=== PATIENT | female | born 1960 | race Caucasian/White ===

== ENCOUNTER → 2018-08-20 16:44 | Outpatient (CLI) | payer BC, SELFPAY ==
[2015-05-07 11:05] VITALS: BMI 34.9
[2018-08-20 18:07] LABS: Anion Gap 9 (5-15); BUN 21 mg/dL (7-18); BUN/Creat Ratio 37.6 RATIO (10-20); Calcium,Total 8.7 mg/dL (8.5-10.1); Chloride 109 mmol/L (98-107); Cholesterol 195 mg/dL (200); Creatinine, Serum 0.56 mg/dL (0.55-1.02); EST Glomerular Filtration Rate 119 mL/min (>60); Est Glom Filt Rate - Afr Amer 144 mL/min (>60); Glucose 99 mg/dL (74-106); High Density Lipoprotein 43 mg/dL; Potassium 3.8 mmol/L (3.5-5.1); Sodium Level 145 mmol/L (136-145); Triglycerides 171 mg/dL; Very Low Density Lipoprotein 34 mg/dL (5-40)
== END ==
PROVIDERS: Family Provider Family Medicine; PCP Family Medicine; Visit Provider Family Medicine
DX: I10 Essential (primary) hypertension (principal)
CPT/HCPCS: 36415; 80048; 80061

== ENCOUNTER → 2018-09-20 16:44 | Outpatient (CLI) | payer BC, SELFPAY ==
[2015-05-07 11:05] VITALS: BMI 34.9
[2018-09-20 18:10] LABS: Anion Gap 7 (5-15); BUN 23 mg/dL (7-18); BUN/Creat Ratio 38.2 RATIO (10-20); Calcium,Total 8.7 mg/dL (8.5-10.1); Chloride 106 mmol/L (98-107); EST Glomerular Filtration Rate 109 mL/min (>60); Est Glom Filt Rate - Afr Amer 132 mL/min (>60); Glucose 82 mg/dL (74-106); Potassium 3.2 mmol/L (3.5-5.1); Sodium Level 143 mmol/L (136-145)
== END ==
PROVIDERS: Family Provider Family Medicine; PCP Family Medicine; Visit Provider Family Medicine
DX: I10 Essential (primary) hypertension (principal)
CPT/HCPCS: 36415; 80048

== ENCOUNTER → 2018-09-21 15:53 | Outpatient (CLI) | payer BC, SELFPAY ==
[2015-05-07 11:05] VITALS: BMI 34.9
== END ==
PROVIDERS: Family Provider Family Medicine; PCP Family Medicine; Referring Provider Family Medicine; Visit Provider Family Medicine
DX: R39.15 Urgency of urination (principal)
CPT/HCPCS: 87086; 87088

== ENCOUNTER → 2018-10-05 17:02 | Outpatient (CLI) | payer BC, SELFPAY ==
[2015-05-07 11:05] VITALS: BMI 34.9
[2018-10-05 17:04] LABS: Bacteria 0 SEEN /hpf (None Seen); Mucous, Urine 0 SEEN /hpf (<or=2+); Red Blood Cells-Urine 0 SEEN /hpf (0-5); White Blood Cells 0 SEEN /hpf (0-5)
[2018-10-05 17:49] LABS: Color, Urine Yellow (Yellow); Glucose, Dipstick Normal (Normal); Ketone-Dipstick Negative (Negative); Leukocyte Esterase-Dipstick Negative /ul (Negative); Nitrite-Dipstick Negative (Negative); Occult Blood-Urine 50 /ul (Negative); Protein-Dipstick Negative (Negative); Urine Bilirubin Dipstick Negative (Negative); Urine Clarity Clear (Clear); Urine Urobilinogen Normal (Normal)
[2018-10-05 18:04] LABS: Squamous Epithelial Cells - UA 0-5 SEEN /hpf (5-10)
== END ==
PROVIDERS: Family Provider Family Medicine; PCP Family Medicine; Referring Provider Nurse Practitioner Adult Health; Visit Provider Nurse Practitioner Adult Health
DX: R31.9 Hematuria, unspecified (principal)
CPT/HCPCS: 81001

== ENCOUNTER → 2020-07-11 12:10 | Outpatient (CLI) | payer BC, SELFPAY ==
--- NOTE | 2020-07-11 12:15 | RAD_ITS ---
STUDY: X-RAY CHEST REASON FOR EXAM: Female, 60 years old. COVID 19 positive TECHNIQUE: Single AP portable view of the chest. COMPARISON: Comparison is made with prior study dated 04/06/2015. FINDINGS: Faint focal infiltrate seen in the peripheral aspect of the right upper lobe and left mid lung. There is no demonstrated pleural abnormality. Normal size heart. Normal mediastinum and paula. Normal visualized pulmonary arteries. There is atherosclerotic tortuosity of the aortic arch and descending thoracic aorta. There is demineralization of the osseous structures. Normal visualized ribs, clavicles, and shoulders. There is no demonstrated abnormality of the visualized soft tissue structures of the upper abdomen. RAD/Chest PA and Lateral IMPRESSION: Focal infiltrate is seen in the lateral aspect of the right upper lobe as well as the left midlung. Electronically Signed: Fareed Gregorio, at 13:26 EST , Service support ,
[2020-07-11 13:19] LABS: Absolute Lymphocyte Count 3.28 X10^3/uL (0.83-4.51); Basophil# 0.05 X10^3/uL; Basophil% 0.6 % (0-1); Eosinophils% 1.2 % (0-5); Hematocrit 42.1 % (37-47); Hemoglobin 13.4 g/dL (12.0-15.0); Lymphocyte # 3.28 X10^3/ul (4.0); Lymphocyte % 40.6 % (19-41); Mean Corp Hgb Conc 31.8 g/dL (32-36); Mean Corpuscular Hgb 27.6 pg (27.0-32.0); Mean Corpuscular Volume 86.8 fL (81-99); Mean Platelet Vol. 11.2 fl (6.2-12.0); Monocyte# 0.55 X10^3/uL; Monocyte% 6.8 % (0-10); NRBC Flagged by Analyzer 0 % (0-5); Neutrophil # 4.04 X10^3/uL (2.7-7.7); Neutrophil % 50.2 % (47-70); Platelet Count 247 K/mm3 (150-450); RBC Distribution Width CV 12.6 % (11.6-14.6); RBC Distribution Width SD 39.8 fl (35.1-43.9); Red Blood Count 4.85 M/mm3 (4.2-5.4); White Blood Count 8.1 K/mm3 (4.4-11.0)
[2020-07-11 14:04] LABS: D-Dimer Quantitative (DVT/PE) 1.08 FEU/ug/m (0.27-0.49)
== END ==
PROVIDERS: PCP Family Medicine; Referring Provider Family Medicine; Visit Provider Family Medicine
DX: U07.1 COVID-19 (principal); R06.00 Dyspnea, unspecified
CPT/HCPCS: 71046; 85025; 85379

== ENCOUNTER → 2020-07-11 15:23 | Outpatient (CLI) | payer BC, SELFPAY ==
--- NOTE | 2020-07-11 15:27 | CT_ITS ---
STUDY: CTA CHEST REASON FOR EXAM: Female, 60 years old. ELEVATED D-DIMER. TAIL END OF COVID RADIATION DOSAGE (If Supplied By Facility): CTDIvol = ( 13.45 ) mGy, DLP = ( 551.05 ) mGycm TECHNIQUE: The examination was performed with the intravenous administration of IV 100mL Isovue-370. Post-processing of the angiographic images was performed, with multiplanar reformation and 3D reconstruction. Individualized dose optimization techniques were used for this CT. COMPARISON: None. FINDINGS: Normal enhancement of the main pulmonary artery and right and left pulmonary arteries. Normal enhancement of the bilateral peripheral pulmonary arteries. There is no demonstrated pulmonary embolism. Normal thoracic aorta and visualized great vessels. There is no demonstrated aortic dissection. Normal heart and pericardium. Subcentimeter mediastinal nodes likely of no significance. Normal hilar regions. Normal visualized trachea and bronchi. The lungs are well expanded. There are scattered areas of patchy groundglass opacity within the upper and lower lobes bilaterally slightly more pronounced on the right consistent with Covid 19 pneumonia. Normal pleura. Normal chest wall structures. Normal osseous structures. Moderate-sized hiatal hernia noted. Small rounded area of increased attenuation within the left kidney possibly representing hemorrhagic parapelvic cyst.. This may be further assessed with ultrasound or CAT scan of the abdomen if clinically warranted CT/CTA Chest W/WO Contrast IMPRESSION: Findings consistent with [id number] Covid 19 pneumonia.. No evidence for pulmonary embolus. Electronically Signed: Gordon Chacko MD at 16:27 EST , Service support ,
== END ==
LOC: CT 15:26
PROVIDERS: PCP Family Medicine; Referring Provider Family Medicine; Visit Provider Family Medicine
DX: R06.00 Dyspnea, unspecified (principal)
CPT/HCPCS: 71275; Q9967; A4216

== ENCOUNTER → 2020-07-18 10:31 | Outpatient (CLI) | payer BC, SELFPAY ==
[2015-05-07 11:05] VITALS: BMI 34.9
--- NOTE | 2020-07-18 10:33 | RAD_ITS ---
STUDY: X-RAY CHEST REASON FOR EXAM: Female, 60 years old. pneumonia TECHNIQUE: 2 views COMPARISON: Prior chest radiograph of 07/11/2020 FINDINGS: The lung watters remain well expanded. There is decreased visible infiltrate now with minimal infiltrate visible in the axillary portion of the right upper lung zone and in the mid left lung zone. There is no demonstrated pleural abnormality. Normal size heart. Normal mediastinum and paula. Normal visualized pulmonary arteries. There is atherosclerotic tortuosity of the aortic arch and descending thoracic aorta. Normal visualized thoracic spine. Normal visualized ribs, clavicles, and shoulders. There is no demonstrated abnormality of the visualized soft tissue structures of the upper abdomen. RAD/Chest PA and Lateral IMPRESSION: Resolving pneumonia. Minimal visible infiltrate in the axillary portion of the right upper lobe and left midlung zone. Negative for new infiltrate, pleural effusion or cardiomegaly. Electronically Signed: Anila Judd MD at 9:02 EST , Service support ,
== END ==
LOC: MTRAD 10:32
PROVIDERS: PCP Family Medicine; Referring Provider Family Medicine; Visit Provider Family Medicine
DX: J18.9 Pneumonia, unspecified organism (principal)
CPT/HCPCS: 71046

== ENCOUNTER 2020-07-25 11:10 | Observation (INO) | payer BC, SELFPAY ==
[2020-07-25] VITALS (14 sets, daily range): BP systolic 134–172; BP diastolic 70–84; PULSE 54–76; RESP 14–23; TEMP 36.3–36.9; O2SAT 88–100; BMI 37.4; BMI 37.5; BMI 37.6; BMI 44.1; BMI 44.2
--- NOTE | 2020-07-25 11:38 | EKG12_ITS ---
Test Reason : CP Blood Pressure : / mmHG Vent. Rate : 067 BPM Atrial Rate : 067 BPM P-R Int : 126 ms QRS Dur : 078 ms QT Int : 358 ms P-R-T Axes : 036 024 -04 degrees QTc Int : 378 ms Normal sinus rhythm with sinus arrhythmia Normal ECG Confirmed by JUAN LARSON, KEVIN ([id number]), production editor YUNIOR SCOTT ([id number]) on 07/30/2020 9:32:12 AM Referred By: JEANNE Confirmed By:ANTOINE MARTINEZ MD
--- NOTE | 2020-07-25 11:40 | ED.DCSUM_ITS ---
- ER Visit Summary Date of Service: 07/25/20 Chief Complaint: Shortness of breath History of Present Illness: The patient is a 60 F who presents with shortness of breath that has been getting worse over the past 3 weeks. Patient states that today she had an episode of sharp pain in her chest. Patient states this lasted for a few seconds and then resolved. Patient states that her right ankle has gotten swollen. Patient states she tested positive for Covid 3 weeks ago. Patient has had outpatient chest x-ray and CTA of the chest. There is evidence of Covid on her CTA of the chest. Repeat chest x-ray on 07/18/2020 showed the infiltrate was improving. Patient admits to a mild cough. Patient states she feels some palpitations. Patient admits to nausea but denies any vomiting. Physical Examination: Vital signs are stable. Patient is afebrile. Patient is in no acute distress. Oral mucosa is pink and moist. Neck is supple. Trachea is midline. There is no JVD noted. Heart was regular rate and rhythm. Lungs are clear and equal bilaterally. Abdomen is soft. Bowel sounds are normal. There is no tenderness. There is no rebound or guarding noted. Skin is warm dry. Cranial nerves II through XII are intact. There are no focal motor or sensory deficits noted. Extremities are intact. There is no calf tenderness or edema. Test Results: EKG was obtained. On my interpretation, there is normal sinus rhythm with a rate of 67. There are no acute ST or T wave changes noted. CBC shows a slight leukocytosis of 11.6. Comprehensive metabolic profile was essentially within normal limits. Troponin was normal. Lactate was elevated at 4.1. COVID-19 rapid antigen was negative. Influenza swab was negative. Portable 1 view chest x-ray was obtained. On my interpretation, lung watters are clear. There is normal cardiac silhouette. Bony thorax is normal. There is no acute process noted. Radiologist also interpreted the x-ray and agrees. Because of the dyspnea on exertion, a CTA of the chest was obtained. There is no evidence of pulmonary embolism. There are few groundglass opacities consistent with COVID-19 pneumonia. This was interpreted by the radiologist and reviewed by myself. Emergency Department Course and Treatment: Patient was given 4 puffs of albuterol inhaler. Patient was still feeling short of breath with exertion. Case was discussed with the hospitalist. She recommended repeating the lactate and getting a COVID-19 PCR test. This was ordered. Repeat lactate was 3.2. Patient will be admitted to the hospital. Patient understood and was agreeable with the plan. All questions were answered. Disposition: Admit to hospital Impression: 1. Lactic acidosis 2. COVID-19 pneumonia This note was generated with [employer] dictation software. It may contain incorrect words, spelling, and punctuation that were not noted in review of the chart prior to signing ED Disposition - Plan for ED Patient: Disposition: Acute Care Hospital [facility] Diagnosis: Lactic acidosis, Pneumonia due to COVID-19 virus Referrals: Jelani Davis MD [Primary Care Provider] -
--- NOTE | 2020-07-25 12:02 | RAD_ITS ---
STUDY: X-RAY CHEST REASON FOR EXAM: Female, 60 years old. PER PATIENT, COVID + 26 DAYS AGO. SOB AND CP THAT STARTED THIS AM. RECENTLY TREATED FOR PNEUMONIA AND HAD CT OF CHEST FOR CONCERNS FOR PE. TECHNIQUE: Single AP portable view of the chest. COMPARISON: None. FINDINGS: The lungs are clear and expanded. There is no demonstrated pleural abnormality. Normal size heart. Normal mediastinum and paula. Normal visualized pulmonary arteries. Normal visualized aortic arch and descending thoracic aorta. There is a levoscoliosis of the thoracic spine. There is degenerative osteoarthritis of the bilateral shoulders. There is no demonstrated abnormality of the visualized soft tissue structures of the upper abdomen. RAD/Chest 1 View (Portable) IMPRESSION: Normal x-ray examination of the chest. Electronically Signed: Dorothy Angel, at 12:19 EST Tel , Service support ,
[2020-07-25 12:19] LABS: Absolute Lymphocyte Count 3.09 X10^3/uL (0.83-4.51); Absolute Neutrophil Count 7.6 X10^3/uL (2.0-7.7); Basophil# 0.05 X10^3/uL; Basophil% 0.4 % (0-1); Eosinophil# 0.04 X10^3/uL; Eosinophils% 0.3 % (0-5); Hematocrit 41.4 % (37-47); Hemoglobin 12.8 g/dL (12.0-15.0); Lymphocyte # 3.09 X10^3/ul (4.0); Lymphocyte % 26.8 % (19-41); Mean Corp Hgb Conc 30.9 g/dL (32-36); Mean Corpuscular Hgb 27.5 pg (27.0-32.0); Mean Platelet Vol. 11.2 fl (6.2-12.0); Monocyte# 0.63 X10^3/uL; Monocyte% 5.5 % (0-10); NRBC Flagged by Analyzer 0 % (0-5); Neutrophil # 7.62 X10^3/uL (2.7-7.7); Platelet Count 235 K/mm3 (150-450); RBC Distribution Width CV 14.1 % (11.6-14.6); RBC Distribution Width SD 45.1 fl (35.1-43.9); Red Blood Count 4.65 M/mm3 (4.2-5.4); White Blood Count 11.6 K/mm3 (4.4-11.0)
[2020-07-25 12:30] LABS: ALB/GLOB Ratio 0.7 RATIO (0.9-2.4); AST(SGOT) 8 U/L (15-37); Alanine Aminotransfer ALT/SGPT 28 U/L (13-56); Alkaline Phosphatase 88 U/L (45-117); Anion Gap 7 (5-15); BUN 22 mg/dL (7-18); BUN/Creat Ratio 26.5 RATIO (10-20); Calcium,Total 8.9 mg/dL (8.5-10.1); Chloride 107 mmol/L (98-107); Creatinine, Serum 0.83 mg/dL (0.55-1.02); EST Glomerular Filtration Rate 75 mL/min (>60); Est Glom Filt Rate - Afr Amer 91 mL/min (>60); Estimated Creatinine Clearance 66.48 ml/min; Globulin 4.3 g/dL (2.2-4.2); Glucose 147 mg/dL (74-106); Potassium 3.6 mmol/L (3.5-5.1); Protein, Total 7.3 g/dL (6.4-8.2); Sodium Level 141 mmol/L (136-145)
[2020-07-25 12:55] LABS: Lactic Acid 4.1 mmol/L (0.4-1.9)
--- NOTE | 2020-07-25 13:04 | CT_ITS ---
STUDY: CTA CHEST REASON FOR EXAM: Female, 60 years old. DYSPNEA, CP, COVID+ 26 DAYS AGO RADIATION DOSAGE (If Supplied By Facility): CTDIvol = ( 13.29 ) mGy, DLP = ( 470.97 ) mGycm TECHNIQUE: The examination was performed with the intravenous administration of IV 100mL Isovue-370. Post-processing of the angiographic images was performed, with multiplanar reformation and 3D reconstruction. Individualized dose optimization techniques were used for this CT. COMPARISON: None. FINDINGS: Normal enhancement of the main pulmonary artery and right and left pulmonary arteries. Normal enhancement of the bilateral peripheral pulmonary arteries. There is no demonstrated pulmonary embolism. Normal thoracic aorta and visualized great vessels. There is no demonstrated aortic dissection. Normal heart and pericardium. Normal mediastinum. Normal hilar regions. Normal visualized trachea and bronchi. The lungs are well expanded. There is a nodule in the right lung upper lobe measures 4 mm axial image #154 has nonspecific appearance. Few Ill-defined subpleural groundglass opacities are seen more suggesting early atypical pneumonia or viral pneumonia (COVID-19 ?). Normal pleura. Normal chest wall structures. Normal osseous structures. Normal visualized upper abdomen. CT/CTA Chest W/WO Contrast IMPRESSION: Few Ill-defined subpleural groundglass opacities are seen more suggesting early atypical pneumonia or viral pneumonia (COVID-19 ?). No demonstrated pulmonary embolism or arterial dissection. There is a nodule in the right lung, lobe measures 6 mm axial image # 105 has nonspecific appearance, it most likely represents a benign lesion. Six-month follow-up would be recommended. Electronically Signed: Dorothy Angel, at 14:23 EST Tel , Service support ,
[2020-07-25 13:46] LABS: Mucous, Urine 0 SEEN /hpf (<or=2+); Red Blood Cells-Urine 0 SEEN /hpf (0-5)
[2020-07-25] MEDS: 0.9% Normal Saline 1,000 ML 1000 ML IV (13:50)
[2020-07-25 13:53] LABS: Color, Urine Straw (Yellow); Glucose, Dipstick Normal (Normal); Ketone-Dipstick Negative (Negative); Leukocyte Esterase-Dipstick Negative /ul (Negative); Nitrite-Dipstick Negative (Negative); Occult Blood-Urine Negative /ul (Negative); Protein-Dipstick Negative (Negative); Specific Gravity, Urine 1.015 (1.002-1.030); Urine Bilirubin Dipstick Negative (Negative); Urine Clarity Clear (Clear); Urine Urobilinogen Normal (Normal)
[2020-07-25 14:00] LABS: Bacteria 1+ /hpf (None Seen); Squamous Epithelial Cells - UA 0-5 SEEN /hpf (5-10); White Blood Cells 0-5 SEEN /hpf (0-5)
[2020-07-25 16:11] LABS: Reflex Lactate? Y
[2020-07-25 16:40] LABS: Lactic Acid 3.2 mmol/L (0.4-1.9)
--- NOTE | 2020-07-25 16:40 | HP.PCM_ITS ---
Problem List (1) SOB (shortness of breath) Status: Acute (2) COVID-19 Status: Resolved Comment: Positive test was 06/28/2020 (3) Lactic acidosis Status: Acute (4) HTN (hypertension) Status: Chronic (5) GERD (gastroesophageal reflux disease) Status: Chronic History of Present Illness Date of Admission: 07/25/20 Ms Doe is a 60 year old F with a PMH of HTN and GERD who presented to the ED on 07/25/2020 with SOB. She states that she has this with rest and exertion but it is far worse with exertion. She was diagnosed with COVID-19 on 06/28/2020 and has had issues with SOB since about a week after diagnosis. She has had her SpO2 checked multiple times and has never been hypoxic. She has seen her PCP and was scheduled for an ECHO tomorrow. She states that she has no cough, fever, or chills and the only other things she has noticed is mild LE edema R>L and some intermittent palpitations. Her VSS with no hypoxia but she does get quite dyspneic with exertion. She has a mild white count elevation at 11.6 but is on prednisone and there is no shift. Her CMP in unremarkable with a normal AG but she has an elevated lactate at 4.1 that decreased to 3.2 on repeat. She is not toxic on appearance. Her Urine is unremarkable. Blood cx were drawn and are pending. COVID-19 is negative. A CTA of her chest was done and is negative for PE but shows persistent ground glass changes that were there on previous scans. Past Medical History Past Medical History (Chronic Problems): Chronic Problems HTN (hypertension) (Chronic) GERD (gastroesophageal reflux disease) (Chronic) Allergies No Known Allergies Allergy (Verified 07/25/20 11:11) Home Medications: Ambulatory Orders Medication Instructions Recorded Albuterol Sulfate [Albuterol 2 puff INHALATION 4X/DAY PRN PRN 07/25/20 Sulfate Hfa] Lisinopril/Hydrochlorothiazide 1 ea PO DAILY 07/25/20 [Lisinopril-Hctz 20-12.5 mg Tab] Omeprazole 20 mg PO DAILY 07/25/20 Prednisone See Taper PO DAILY 07/25/20 Surgical History: noncontributory Psychiatric History: No pertinent psych hx 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 Lives: With Family Smoking Status: Never smoker Tobacco Use: Non-smoker Alcohol: None Drugs: None - *Family History Maternal History Items: Heart Disease Paternal History Items: Heart Disease Sibling History Items: Heart Disease Review of Systems Constitutional: Denies: Anorexia, Chills, Fever, Night Sweats, Malaise, Weakness, Weight Change, Fatigue Eyes: Denies: Blurred vision, Drainage, Eyelid Inflammation, Pain, Redness, Vision Change HEENT: Denies: Difficulty Hearing, Hard of Hearing, Head Aches, Nasal bleeding, Nasal Congestion, Post Nasal Drip, Sinus Congestion, Sinus Drainage, Sore Throat, Visual Changes Cardiovascular: Reports: Chest Pain - intermittent on L but sharp, Edema, Palpitations. Denies: Claudication, Chest Pressure, Chest Tightness, Heaviness, Light Headedness, Orthopnea, Paroxysmal Noc. Dyspnea, Syncope Respiratory: Reports: Shortness of Breath, Shortness of breath at rest - mild, Shortness of breath upon exertion - marked. Denies: Cough, Hemoptysis, Pleuritic Pain, Sputum production, Wheezing Gastrointestinal: Denies: Abdominal Pain, Constipation, Diarrhea, Dyspepsia, Hematemesis, Hematochezia, Nausea, Melena, Vomiting Genitourinary: Denies: Dysuria, Frequency, Hematuria, Hesitancy, Incontinence, Nocturia, Retention, Urgency Musculoskeletal: Denies: Back Pain, Joint Pain, Joint stiffness, Joint swelling, Joint Tenderness, Neck Pain, Shoulder Pain Skin: Denies: Dryness, Jaundice, Lesions, Pruritis, Rash, Skin Changes, Wounds Neurological: Denies: Balance problems, Double vision, Change in Speech, Slurred speech, Confusion, Difficulty swallowing, Focal weakness, Headaches, Incoordination, Numbness, Tingling, Tremor Psychiatric: Denies: Anxiety, Depression Endocrine: Denies: Change in Body Habitus, Heat/ Cold Intolerance, Polydipsia, Polyuria Hematologic/ Lymphatic: Denies: Adenopathy, Anemia, Easy Bruising, Easy Bleeding, Petechiae, Purpura VTE Information - Inpt Only VTE Present on Admission: No VTE Mechan Device Prophylaxis: None VTE Pharm Prophylaxis ordered?: Yes - Physical Exam Vitals/I&O's: Vital Signs Temp Pulse Resp BP Pulse Ox 97.9 F 65 16 146/70 H 100 07/25/20 16:21 07/25/20 16:21 07/25/20 16:21 07/25/20 13:15 07/25/20 16:21 Oxygen Delivery Method Room Air Weight: 102.058 kg Body Mass Index (BMI) 37.4 General: Alert, Oriented x3, Cooperative, No apparent distress, Well developed, Well nourished, - - middle aged WF appears comfortable but SOB with minimal exertion HEENT: Atraumatic, PERRLA, EOMI, Normocephalic, EAC Clear Oral: Moist Mucosa, No Gingival or Mucosal Lesions/ Ulcerations Neck: Supple, No JVD, Negative Carotid Bruits, Negative Hepatojugular Reflux, No Nodes, No Nuchal Rigidity, Trachea Midline, Thyroid Normal Size and Texture Lungs: Clear to auscultation, Normal air movement, No rhonchi, No wheeze, No r ales Cardiovascular: Regular rate, Normal S1, Normal S2, No murmurs, No rub noted, No Gallop, - - intermittent ectopic activity Abdomen: Bowel Sounds Present, Soft, Non Tender, Non-Distended, Obese Extremities: No clubbing, No cyanosis, Capillary Refill Less than 3 Seconds, Edema - Trace B R slightly more than R, varicose veins, Peripheral Pulses Normal Skin: No rashes, No breakdown Musculoskeletal: No Tenderness to Palpation of Joints or Extremities, No Muscle Wasting Lymphatic: No Cervical, Supraclavicular, or Inguinal Adenopathy Neurological: Cranial nerves II-XII grossly intact, Neuro grossly intact, Motor Exam 5/5 strength throughout, Tongue Deviation, Muscle tone normal, Sensory exam intact to light touch and pain Psych/Mental Status: Normal Affect, Appropriate Microbiology Past 72 Hours 07/25/20 11:45 Mucosa - Nose SARS-CoV-2 Antigen (Rapid) - Final 07/25/20 11:45 Mucosa - Nose Influenza Types A,B Direct FA (ABRAHAM) - Final Laboratory Results 07/25/20 11:45: Sodium 141, Potassium 3.6, Chloride 107, Carbon Dioxide 27.0, Anion Gap 7, BUN 22 H, Creatinine 0.83, Estim Creat Clear Calc 66.48, Est GFR (MDRD) Af Amer 91, Est GFR (MDRD) Non-Af 75, BUN/Creatinine Ratio 26.5 H, Glucose 147 H, Calcium 8.9, Total Bilirubin 0.30, AST 8 L, ALT 28, Alkaline Phosphatase 88, Troponin I < 0.015, Total Protein 7.3, Albumin 3.0 L, Globulin 4.3 H, Albumin/Globulin Ratio 0.7 L 07/25/20 11:45: WBC 11.6 H, RBC 4.65, Hgb 12.8, Hct 41.4, MCV 89.0, MCH 27.5, MCHC 30.9 L, RDW Std Deviation 45.1 H, RDW Coeff of Oliva 14.1, Plt Count 235, MPV 11.2, Immature Gran % (Auto) 1.000 H, Neut % (Auto) 66.0, Lymph % (Auto) 26.8, Smith % (Auto) 5.5, Eos % (Auto) 0.3, Baso % (Auto) 0.4, Absolute Neuts (auto) 7.6, Absolute Lymphs (auto) 3.09, Nucleated RBC % 0 07/25/20 11:50: Lactic Acid 4.1 H* 07/25/20 13:40: Urine Color Straw, Urine Clarity Clear, Urine pH 8.0, Ur Spec ific [place] 1.015, Urine Protein Negative, Urine Glucose (UA) Normal, Urine Ketones Negative, Urine Occult Blood Negative, Urine Nitrite Negative, Urine Bilirubin Negative, Urine Urobilinogen Normal, Ur Leukocyte Esterase Negative, Urine RBC 0 SEEN, Urine WBC 0-5 SEEN, Ur Squamous Epith Cells 0-5 SEEN, Urine Bacteria 1+, Urine Mucus 0 SEEN 07/25/20 16:00: Lactic Acid Pending 07/25/20 16:02: COVID-19 (TYLER) Pending Assessment/Plan All Active Problems SOB (shortness of breath) (Acute) COVID-19 (Resolved) Lactic acidosis (Acute) SOB -had recent COVID but CT stable and no PE -Will check ECHO to r/o CM and if no WMA may need stress test -no hypoxia noted -prn aerosols -tele -continue home steroids Type B Lactic Acidosis -doubt infection -AG WNL -follow cx -had trended down Recent COVID 19 Infection -dx with + test 06/28 -no need for isolation or treatment HTN -continue home BP meds GERD -cont PPI DVT Prophylaxis -Lovenox Code Status -Full Inpatient E&M: 40708 Init Hosp L2
--- NOTE | 2020-07-25 17:36 | PCS.PANDOC ---
PANDEMIC DOCUMENTATION INITIATED: Date: 07/25/2020 Time: 4968
--- NOTE | 2020-07-25 19:41 | ECHOCS_ITS ---
Version 2 Reason For Study: DYSPNEA Procedure This was a 2D Doppler, Color Flow transthoracic echocardiogram. The study was technically difficult. Contrast injection was performed. Exam performed portable in patient room. Left Ventricle Normal LV size. The estimated ejection fraction is 65 %. No evidence for diastolic dysfunction. No regional wall motion abnormalities noted. Right Ventricle Normal RV size. Normal systolic function. Atria The left atrium is mildly enlarged. Normal right atrium. No doppler evidence for ASD. Mitral Valve There is no mitral valve stenosis. No mitral valve insufficiency. Tricuspid Valve There is no tricuspid stenosis. Trivial tricuspid valve insufficiency. Unable to estimate RV systolic pressure due to insufficient tricuspid regurgitant envelope. Aortic Valve Trisinus/trileaflet aortic valve. There is no aortic stenosis. No aortic valve insufficiency. Pulmonic Valve There is no pulmonic valvular stenosis. No pulmonic valve insufficiency. Great Vessels Normal aortic root. Pericardium/Pleural No pericardial effusion. Medication Diluted definity 2.5ml given slow IV push to enhance endocardial definition. MMode/2D Measurements & Calculations LVIDd: 5.1 cm IVSd: 1.0 cm Ao root diam: 3.3 cm LVIDs: 2.8 cm LVPWd: 0.95 cm RVDd: 3.7 cm FS: 45.1 % LAV(MOD-bp): 70.7 ml LVAd ap4: 33.5 cm2 SV(MOD-sp4): 97.0 ml LAV(MOD-bp) Indexed: 33.9 ml/m2 EDV(MOD-sp4): 125.8 ml LAV(MOD-sp2): 72.8 ml EDV(sp4-el): 123.0 ml LAV(MOD-sp4): 68.4 ml LVAs ap4: 14.1 cm2 ESV(MOD-sp4): 28.8 ml ESV(sp4-el): 29.8 ml EF(MOD-sp4): 77.1 % EF(sp4-el): 75.8 % SV(sp4-el): 93.3 ml LA A4 area: 21.4 cm2 LA dimension(2D): 3.7 cm RA A4 area: 16.7 cm2 Time Measurements MV dec time: 0.25 sec Doppler Measurements & Calculations MV E max jhonny: 86.5 cm/sec Lat Peak E' Jhonny: 12.1 cm/sec Med Peak E' Jhonny: 9.1 cm/sec MV A max jhonny: 59.0 cm/sec E/E' lat: 7.2 E/E' med: 9.5 MV E/A: 1.5 Ao V2 max: 163.5 cm/sec LV V1 max: 155.2 cm/sec TR max jhonny: 238.0 cm/sec Ao max P.7 mmHg LV V1 max P.6 mmHg TR max P.0 mmHg Interpretation Summary The estimated ejection fraction is 65 %. No evidence for diastolic dysfunction. The left atrium is mildly enlarged. Ordering Physician: Serenity John Referring Physician: ANNE UMANA Performed By: Sue Bansal, TERESITA, RVT
[2020-07-25 20:02] LABS: Reflex Lactate? Y
[2020-07-25] MEDS: predniSONE 20 MG Tablet PO (20:55)
[2020-07-25 21:06] LABS: Lactic Acid 1.8 mmol/L (0.4-1.9)
[2020-07-26] VITALS (13 sets, daily range): BP systolic 126–144; BP diastolic 75–90; PULSE 59–82; RESP 16–18; TEMP 35.8–36.9; O2SAT 94–98
[2020-07-26 05:39] LABS: Absolute Neutrophil Count 9.4 X10^3/uL (2.0-7.7); Basophil# 0.03 X10^3/uL; Basophil% 0.2 % (0-1); Eosinophil# 0.03 X10^3/uL; Eosinophils% 0.2 % (0-5); Hematocrit 40.3 % (37-47); Hemoglobin 12.6 g/dL (12.0-15.0); Lymphocyte % 24.6 % (19-41); Mean Corp Hgb Conc 31.3 g/dL (32-36); Mean Corpuscular Hgb 27.3 pg (27.0-32.0); Mean Corpuscular Volume 87.2 fL (81-99); Mean Platelet Vol. 10.4 fl (6.2-12.0); Monocyte# 0.86 X10^3/uL; Monocyte% 6.2 % (0-10); NRBC Flagged by Analyzer 0 % (0-5); Neutrophil # 9.43 X10^3/uL (2.7-7.7); Neutrophil % 68.1 % (47-70); Platelet Count 230 K/mm3 (150-450); RBC Distribution Width SD 44.3 fl (35.1-43.9); Red Blood Count 4.62 M/mm3 (4.2-5.4); White Blood Count 13.8 K/mm3 (4.4-11.0)
[2020-07-26 06:05] LABS: Anion Gap 7 (5-15); BUN 16 mg/dL (7-18); Calcium,Total 8.5 mg/dL (8.5-10.1); Chloride 106 mmol/L (98-107); Creatinine, Serum 0.55 mg/dL (0.55-1.02); EST Glomerular Filtration Rate 120 mL/min (>60); Est Glom Filt Rate - Afr Amer 145 mL/min (>60); Estimated Creatinine Clearance 80.08 ml/min; Glucose 124 mg/dL (74-106); Magnesium 2.1 mg/dL (1.6-2.6); Phosphorus 3.7 mg/dL (2.5-4.9); Potassium 4.3 mmol/L (3.5-5.1); Sodium Level 139 mmol/L (136-145); Thyroid Stim Hormone (TSH) 0.65 uIU/mL (0.358-3.74)
[2020-07-26] MEDS: predniSONE 20 MG Tablet PO (08:17)
[2020-07-26] MEDS: Lisinopril 20 MG Tablet PO (10:15)
[2020-07-26] MEDS: Enoxaparin 40 MG/0.4 ML Syringe SC (10:16)
[2020-07-26] MEDS: Pantoprazole Sodium 20 MG Tablet PO (10:16)
[2020-07-26] MEDS: hydroCHLOROthiazide 12.5mg 12.5 MG PO (10:16)
--- NOTE | 2020-07-26 14:45 | PCM.PN.HOSP ---
Patient Problems: Active and Suspected Problems SOB (shortness of breath) (Acute) Lactic acidosis (Acute) Lactic acidosis (Acute) Pneumonia due to COVID-19 virus (Acute) Subjective: Her chest pain has resolved but states that it was a sharp pain that is intermittently present is a more of a dull ache while she has been here. Denies any shortness of breath while lying in bed talking to me, and does not have any conversational dyspnea Vitals/I&O's: Vital Signs Temp Pulse Resp BP Pulse Ox 96.5 F L 74 18 126/80 H 96 07/26/20 14:44 07/26/20 14:44 07/26/20 14:44 07/26/20 14:44 07/26/20 14:44 Oxygen Flow Rate (L/min) 2 Oxygen Delivery Method Room Air Weight: 225 lb 1.471 oz Body Mass Index (BMI) 44.1 Intake and Output for Last 24 Hours 07/24/20 07/25/20 07/26/20 23:59 23:59 23:59 Intake Total 1000 / 1000 250 / 250 Balance 1000 / 1000 250 / 250 General: Alert, Oriented x3, Cooperative, No apparent distress HEENT: Atraumatic, PERRLA, EOMI, Normocephalic Oral: Moist Mucosa Neck: Supple, No JVD Lungs: Clear to auscultation, Normal air movement, No rhonchi, No wheeze, No rales Cardiovascular: Regular rate, Regular Rhythm, Normal S1, Normal S2, No murmurs Abdomen: Soft, Non Tender, Non-Distended, No Hepato-splenomegaly Extremities: No edema, Capillary Refill Less than 3 Seconds Skin: No rashes, No breakdown Neurological: Neuro grossly intact, Sensory exam intact to light touch and pain Psych/Mental Status: Normal Affect, Appropriate Microbiology Past 72 Hours 07/25/20 11:45 Mucosa - Nose SARS-CoV-2 Antigen (Rapid) - Final 07/25/20 11:45 Mucosa - Nose Influenza Types A,B Direct FA (ABRAHAM) - Final Laboratory Results 07/25/20 16:00: Lactic Acid 3.2 H* 07/25/20 16:02: COVID-19 (TYLER) Not Detected 07/25/20 20:26: Lactic Acid 1.8 07/26/20 05:30: WBC 13.8 H, RBC 4.62, Hgb 12.6, Hct 40.3, MCV 87.2, MCH 27.3, MCHC 31.3 L, RDW Std Deviation 44.3 H, RDW Coeff of Oliva 14.0, Plt Count 230, MPV 10.4, Immature Gran % (Auto) 0.700, Neut % (Auto) 68.1, Lymph % (Auto) 24.6, [place] % (Auto) 6.2, Eos % (Auto) 0.2, Baso % (Auto) 0.2, Absolute Neuts (auto) 9.4 H, Absolute Lymphs (auto) 3.40, Nucleated RBC % 0 07/26/20 05:30: Sodium 139, Potassium 4.3, Chloride 106, Carbon Dioxide 26.0, Anion Gap 7, BUN 16, Creatinine 0.55, Estim Creat Clear Calc 80.08, Est GFR (MDRD) Af Amer 145, Est GFR (MDRD) Non-Af 120, BUN/Creatinine Ratio 29.0 H, Glucose 124 H, Calcium 8.5, Phosphorus 3.7, Magnesium 2.1, TSH 0.65 Current Medications Acetaminophen (Acetaminophen 325 Mg Tablet) 650 mg PO Q6H PRN PRN PRN Reason: Pain Score 1-10/Temp > 100.7 F Al Hydroxide/Mg Hydroxide (Mag Hydrox/Al Hydrox/Simeth 30 Ml Udc) 30 ml PO Q6H PRN PRN PRN Reason: Gastric Burning Albuterol Sulfate (Albuterol 2.5 Mg/3 Ml Vial.Neb.) 2.5 mg INHALATION Q2H PRN PRN PRN Reason: SOB/Wheezing Enoxaparin Sodium (Enoxaparin 40 Mg/0.4 Ml Syringe) 40 mg SC DAILY [facility] Last Admin: 07/26/20 10:16 Dose: 40 mg Documented by: Hydrochlorothiazide (Hydrochlorothiazide 12.5mg) 12.5 mg PO DAILY [facility] Last Admin: 07/26/20 10:16 Dose: 12.5 mg Documented by: Lisinopril (Lisinopril 20 Mg Tablet) 20 mg PO DAILY [facility] Last Admin: 07/26/20 10:15 Dose: 20 mg Documented by: Melatonin (Melatonin 3 Mg Tablet) 3 mg PO QHS PRN PRN PRN Reason: INSOMNIA Ondansetron HCl (Ondansetron 4 Mg/2 Ml Vial) 4 mg IV Q8H PRN PRN PRN Reason: NAUSEA/VOMITING Pantoprazole Sodium (Pantoprazole Sodium 20 Mg Tablet) 20 mg PO DAILY [facility] Last Admin: 07/26/20 10:16 Dose: 20 mg Documented by: [facility] ([facility] Mg Tablet) [facility] Taper Stop: 08/01/20 07:59 Last Admin: 07/26/20 08:17 Dose: 40 mg Documented by: Sodium Chloride (0.9% Saline Lock 10 Ml Syringe) 10 - 40 ml IV UD PRN PRN Reason: SALINE FLUSH STROKE Vital Signs/Narrative: Vital Signs Temp Pulse Resp BP Pulse Ox Pulse Ox Pulse Ox 07/26/20 14:44 96.5 F L 74 18 126/80 H 96 07/26/20 14:36 96 94 96 Medical Necessity - Tobacco Use Smoking Status: Never smoker Tobacco Use: Non-smoker Assessment/Plan All Active Problems SOB (shortness of breath) (Acute) COVID-19 (Resolved) Lactic acidosis (Acute) Lactic acidosis (Acute) Pneumonia due to COVID-19 virus (Acute) 1. Shortness of breath/status post COVID-19 -Unsure as to the etiology, CTA of the chest was negative for PE -Does have an elevated white count but she has been on prednisone for the last 6 days, no signs of infection on CTA of the chest -Lactic acid was elevated but unremarkable as there is no sign of infection and she is afebrile -We will repeat a troponin today and an echo read is pending -May plan on nuclear stress test on Thursday 2. HTN/morbid obesity -Blood pressure is stable -Continue with her home BP meds -BMI of 44, discussed lifestyle modifications 3. GERD -Stable -Continue with PPI DVT: Lovenox OBSV E&M: 36830 Subsequent observation care L2
[2020-07-27] VITALS (10 sets, daily range): BP systolic 97–146; BP diastolic 49–97; PULSE 58–80; RESP 16–18; TEMP 36.3–36.6; O2SAT 92–96
[2020-07-27] MEDS: Enoxaparin 40 MG/0.4 ML Syringe SC (09:57)
[2020-07-27] MEDS: predniSONE 20 MG Tablet PO (09:57)
[2020-07-27] MEDS: hydroCHLOROthiazide 12.5mg 12.5 MG PO (09:57)
[2020-07-27] MEDS: Pantoprazole Sodium 20 MG Tablet PO (09:58)
[2020-07-27] MEDS: Lisinopril 20 MG Tablet PO (09:58)
--- NOTE | 2020-07-27 10:26 | PN_ITS ---
Patient Problems: Active and Suspected Problems SOB (shortness of breath) (Acute) Lactic acidosis (Acute) Lactic acidosis (Acute) Pneumonia due to COVID-19 virus (Acute) Subjective: No new issues overnight, chest pain comes and goes. Echo was unremarkable yesterday. Vitals/I&O's: Vital Signs Temp Pulse Resp BP Pulse Ox 97.7 F L 74 18 114/54 L 94 07/27/20 09:45 07/27/20 09:45 07/27/20 09:45 07/27/20 09:45 07/27/20 09:45 Oxygen Flow Rate (L/min) 2 Oxygen Delivery Method Room Air Weight: 224 lb 10.417 oz Body Mass Index (BMI) 44.1 Intake and Output for Last 24 Hours 07/25/20 07/26/20 07/27/20 23:59 23:59 23:59 Intake Total 1000 / 1000 610 / 810 300 / 300 Balance 1000 / 1000 610 / 810 300 / 300 General: Alert, Oriented x3, Cooperative, No apparent distress HEENT: Atraumatic, PERRLA, EOMI, Normocephalic Oral: Moist Mucosa Neck: Supple, No JVD Lungs: Clear to auscultation, Normal air movement, No rhonchi, No wheeze, No rales Cardiovascular: Regular rate, Regular Rhythm, Normal S1, Normal S2, No murmurs Abdomen: Soft, Non Tender, Non-Distended, No Hepato-splenomegaly Extremities: No edema, Capillary Refill Less than 3 Seconds Skin: No rashes, No breakdown Neurological: Neuro grossly intact, Sensory exam intact to light touch and pain Psych/Mental Status: Normal Affect, Appropriate Microbiology Past 72 Hours 07/25/20 11:45 Mucosa - Nose SARS-CoV-2 Antigen (Rapid) - Final 07/25/20 11:45 Mucosa - Nose Influenza Types A,B Direct FA (ABRAHAM) - Final Laboratory Results 07/26/20 15:08: Troponin I < 0.015 Current Medications Acetaminophen (Acetaminophen 325 Mg Tablet) 650 mg PO Q6H PRN PRN PRN Reason: Pain Score 1-10/Temp > 100.7 F Al Hydroxide/Mg Hydroxide (Mag Hydrox/Al Hydrox/Simeth 30 Ml Udc) 30 ml PO Q6H PRN PRN PRN Reason: Gastric Burning Albuterol Sulfate (Albuterol 2.5 Mg/3 Ml Vial.Neb.) 2.5 mg INHALATION Q2H PRN PRN PRN Reason: SOB/Wheezing Enoxaparin Sodium (Enoxaparin 40 Mg/0.4 Ml Syringe) 40 mg SC DAILY [facility] Last Admin: 07/27/20 09:57 Dose: 40 mg Documented by: Hydrochlorothiazide (Hydrochlorothiazide 12.5mg) 12.5 mg PO DAILY [facility] Last Admin: 07/27/20 09:57 Dose: 12.5 mg Documented by: Lisinopril (Lisinopril 20 Mg Tablet) 20 mg PO DAILY [facility] Last Admin: 07/27/20 09:58 Dose: 20 mg Documented by: Melatonin (Melatonin 3 Mg Tablet) 3 mg PO QHS PRN PRN PRN Reason: INSOMNIA Ondansetron HCl (Ondansetron 4 Mg/2 Ml Vial) 4 mg IV Q8H PRN PRN PRN Reason: NAUSEA/VOMITING Pantoprazole Sodium (Pantoprazole Sodium 20 Mg Tablet) 20 mg PO DAILY [facility] Last Admin: 07/27/20 09:58 Dose: 20 mg Documented by: Prednisone (Prednisone 20 Mg Tablet) 20 mg PO DAILY@0800 [facility]; Taper Stop: 08/01/20 07:59 Last Admin: 07/27/20 09:57 Dose: 20 mg Documented by: Sodium Chloride (0.9% Saline Lock 10 Ml Syringe) 10 - 40 ml IV UD PRN PRN Reason: SALINE FLUSH STROKE Vital Signs/Narrative: Vital Signs Temp Pulse Resp BP Pulse Ox 07/27/20 09:45 97.7 F L 74 18 114/54 L 94 07/27/20 07:57 95 07/27/20 07:17 58 L Medical Necessity - Tobacco Use Smoking Status: Never smoker Tobacco Use: Non-smoker Assessment/Plan All Active Problems SOB (shortness of breath) (Acute) COVID-19 (Resolved) Lactic acidosis (Acute) Lactic acidosis (Acute) Pneumonia due to COVID-19 virus (Acute) 1. Shortness of breath/status post COVID-19 -Unsure as to the etiology, CTA of the chest was negative for PE -Does have an elevated white count but she has been on prednisone for the last 6 days, no signs of infection on CTA of the chest -Lactic acid was elevated but unremarkable as there is no sign of infection and she is afebrile -Repeat troponin yesterday was normal, echo was unremarkable. We will plan on a stress test tomorrow and if that is normal plan for discharge -I discussed with her that she had a CT of the chest which was unremarkable for any pulmonary issue and if her extensive cardiac work-up is negative then this may just be a chronic sequela of her Covid infection and will take likely several months to resolve -We will repeat an ambulatory pulse ox prior to discharge 2. HTN/morbid obesity -Blood pressure is stable -Continue with her home BP meds -BMI of 44, discussed lifestyle modifications 3. GERD -Stable -Continue with PPI DVT: Lovenox Inpatient E&M: 36018 Subs Hosp L2
[2020-07-28 02:38] VITALS: PULSE 56
[2020-07-28 04:50] VITALS: BP 120/70; PULSE 75; RESP 18; TEMP 36.6; O2SAT 95
[2020-07-28] MEDS: 0.9% Saline Lock 10 ML Syringe IV (04:54)
[2020-07-28] MEDS: Lisinopril 20 MG Tablet PO (04:54)
--- NOTE | 2020-07-28 05:00 | EKG12_ITS ---
Test Reason : AM EKG Blood Pressure : / mmHG Vent. Rate : 060 BPM Atrial Rate : 060 BPM P-R Int : 140 ms QRS Dur : 088 ms QT Int : 412 ms P-R-T Axes : 047 015 020 degrees QTc Int : 412 ms Sinus rhythm with marked sinus arrhythmia Otherwise normal ECG When compared with ECG of 25-JUL-2020 11:23, MANUAL COMPARISON REQUIRED, DATA IS UNCONFIRMED Confirmed by ESPERANZA LARSON, MICAH ([id number]), manuscript editor YUNIOR SCOTT ([id number]) on 07/31/2020 9:17:47 AM Referred By: KELSIE Confirmed By:MICAH MATA MD
[2020-07-28 07:12] VITALS: PULSE 59
[2020-07-28 08:28] VITALS: BP 141/84; PULSE 67; RESP 16; TEMP 36.4; O2SAT 98
--- NOTE | 2020-07-28 11:37 | STRESSREP ---
Stress Test Report Pharmacologic myocardial perfusion stress test. 60-year-old lady with a history of chest pain. Stress protocol: Resting EKG demonstrates normal sinus rhythm with a rate of 63 bpm resting blood pressure is 124/72 mmHg. 0.4 mg of regadenoson was infused per usual protocol followed by rapid intravenous saline flush injection continuous EKG monitoring was performed. The maximum heart rate attained was 93 bpm which was 57% of max impacted heart rate the maximum workload was 1 metabolic equivalent. At rest there were no ST or T wave changes noted suggest ischemia at peak infusion nonspecific ST-T wave changes were noted. No clinical angina was noted the test was terminated due to completion of the protocol. The resting blood pressure was 124/72 with a peak blood pressure 126/70 mmHg. Myocardial perfusion protocol. 12.0 mCi of technetium 99m sestamibi was injected at rest. 0.4 mg of regadenoson was infused per usual protocol. At peak infusion 36.0 mCi of technetium 99m sestamibi was injected stress images were obtained stress and rest images were reconstructed and compared in the short axis vertical long horizontal long axis. Gated images were also obtained Perfusion SPECT analysis: Review of the stress images demonstrate normal uptake of tracer noted in all areas of the myocardium the resting images similarly demonstrate normal uptake of tracer noted in all areas of the myocardium. No areas of reversibility are noted suggest ischemia no previous infarct is noted. Gated SPECT analysis: The gated ejection fraction is noted to be 76%. Conclusion: Normal pharmacologic myocardial perfusion stress test. Preserved ejection fraction.
[2020-07-28] MEDS: predniSONE 20 MG Tablet PO (12:07)
[2020-07-28] MEDS: Pantoprazole Sodium 20 MG Tablet PO (12:07)
[2020-07-28] MEDS: hydroCHLOROthiazide 12.5mg 12.5 MG PO (12:07)
--- NOTE | 2020-07-28 13:16 | DCINST_ITS ---
- Discharge Diagnoses Current Active Problems: Current Active and Chronic Problems SOB (shortness of breath) (Acute) Lactic acidosis (Acute) HTN (hypertension) (Chronic) GERD (gastroesophageal reflux disease) (Chronic) Lactic acidosis (Acute) Pneumonia due to COVID-19 virus (Acute) You will use the following diet at home:: Regular Your food should be the consistency of: Regular Your liquids should be the consistency of: Regular/Thin Discharge Activity: Return to Normal Activity Call your doctor if you observe: Fever of 101 or Higher, Shortness of breath, Dizziness, Fainting spells, Swelling in the ankles, Chest pain, Increased palpitations (irregular heartbeat) Instructions: Coronavirus Disease 2019 (COVID-19): Caring for Yourself or Others, Coronavirus Disease 2019 (COVID-19): Overview Allergies/Adverse Reactions: Allergies No Known Allergies Allergy (Verified 07/25/20 11:11) Medications to take at Discharge Albuterol Sulfate [Albuterol Sulfate Hfa] 2 puff INHALATION 4X/DAY PRN PRN 07/25/20 Lisinopril/Hydrochlorothiazide [Lisinopril-Hctz 20-12.5 mg Tab] 1 ea PO DAILY 07/25/20 Omeprazole 20 mg PO DAILY 07/25/20 Prednisone See Taper PO DAILY 07/25/20 Primary Care Physician: Jelani Davis MD [Primary Care Provider] - Please follow up with your Primary Care Physician in: 3-5 days Test Results: Test results from this visit will be discussed in further detail at your follow- up appointment, if applicable.
--- NOTE | 2020-07-28 13:42 | DS.PCM_ITS ---
Discharge Date and Diagnosis - Problem List Patient Problems: Active and Suspected Problems SOB (shortness of breath) (Acute) Lactic acidosis (Acute) Lactic acidosis (Acute) Pneumonia due to COVID-19 virus (Acute) Date of Admission: 07/25/20 Date of Discharge: 07/28/20 - Primary Discharge Diagnosis Acute Problems: Active Problems SOB (shortness of breath) (Acute) Lactic acidosis (Acute) Lactic acidosis (Acute) Pneumonia due to COVID-19 virus (Acute) - Secondary Discharge Diagnosis Chronic Problems: Chronic Problems HTN (hypertension) (Chronic) GERD (gastroesophageal reflux disease) (Chronic) Hospital Course and Treatment Imaging Results: Clinical Impression(s) from Imaging Studies Chest X-Ray 07/25/20 12:02 IMPRESSION: Normal x-ray examination of the chest. Electronically Signed: Dorothy Angel, at 12:19 EST Tel , Service support , Chest CTA 07/25/20 13:04 IMPRESSION: Few Ill-defined subpleural groundglass opacities are seen more suggesting early atypical pneumonia or viral pneumonia (COVID-19 ?). No demonstrated pulmonary embolism or arterial dissection. There is a nodule in the right lung, lobe measures 6 mm axial image # 105 has nonspecific appearance, it most likely represents a benign lesion. Six-month follow-up would be recommended. Electronically Signed: Dorothy Angel, at 14:23 EST Tel , Service support , Echo: Interpretation Summary The estimated ejection fraction is 65 %. No evidence for diastolic dysfunction. The left atrium is mildly enlarged. Stress Test Report Pharmacologic myocardial perfusion stress test. 60-year-old lady with a history of chest pain. Stress protocol: Resting EKG demonstrates normal sinus rhythm with a rate of 63 bpm resting blood pressure is 124/72 mmHg. 0.4 mg of regadenoson was infused per usual protocol followed by rapid intravenous saline flush injection continuous EKG monitoring was performed. The maximum heart rate attained was 93 bpm which was 57% of max impacted heart rate the maximum workload was 1 metabolic equivalent. At rest there were no ST or T wave changes noted suggest ischemia at peak infusion nonspecific ST-T wave changes were noted. No clinical angina was noted the test was terminated due to completion of the protocol. The resting blood pressure was 124/72 with a peak blood pressure 126/70 mmHg. Myocardial perfusion protocol. 12.0 mCi of technetium 99m sestamibi was injected at rest. 0.4 mg of regadenoson was infused per usual protocol. At peak infusion 36.0 mCi of technetium 99m sestamibi was injected stress images were obtained stress and rest images were reconstructed and compared in the short axis vertical long horizontal long axis. Gated images were also obtained Perfusion SPECT analysis: Review of the stress images demonstrate normal uptake of tracer noted in all areas of the myocardium the resting images similarly demonstrate normal uptake of tracer noted in all areas of the myocardium. No areas of reversibility are noted suggest ischemia no previous infarct is noted. Gated SPECT analysis: The gated ejection fraction is noted to be 76%. Conclusion: Normal pharmacologic myocardial perfusion stress test. Preserved ejection fraction. Operations: None Procedures: 2-D Echocardiogram, Stress test Summary of Care Provided: Per HPI: Ms Doe is a 60 year old F with a PMH of HTN and GERD who presented to the ED on 07/25/2020 with SOB. She states that she has this with rest and exertion but it is far worse with exertion. She was diagnosed with COVID-19 on 06/28/2020 and has had issues with SOB since about a week after diagnosis. She has had her SpO2 checked multiple times and has never been hypoxic. She has seen her PCP and was scheduled for an ECHO tomorrow. She states that she has no cough, fever, or chills and the only other things she has noticed is mild LE edema R>L and some intermittent palpitations. Her VSS with no hypoxia but she does get quite dyspneic with exertion. She has a mild white count elevation at 1 1.6 but is on prednisone and there is no shift. Her CMP in unremarkable with a normal AG but she has an elevated lactate at 4.1 that decreased to 3.2 on repeat. She is not toxic on appearance. Her Urine is unremarkable. Blood cx were drawn and are pending. COVID-19 is negative. A CTA of her chest was done and is negative for PE but shows persistent ground glass changes that were there on previous scans. Hospital Course: 1. Shortness of breath/status post COVID-19 -Unsure as to the etiology, CTA of the chest was negative for PE -Does have an elevated white count but she has been on prednisone for the last 6 days, no signs of infection on CTA of the chest -Lactic acid was elevated but unremarkable as there is no sign of infection and she is afebrile -Repeat troponin yesterday was normal, echo was unremarkable. And stress test was normal -I discussed with her that she had a CT of the chest which was unremarkable for any pulmonary issue and her extensive cardiac work-up was negative then this may just be a chronic sequela of her Covid infection and will take likely several months to resolve -She remains on room air and has episodes of dyspnea only on exertion. -I discussed with her the plan today for discharge she expressed understanding of the risks and benefits and would like to go home. I discussed with her that she may benefit from getting an pulse oximeter at home that way when she does become dyspneic she can evaluate her oxygen level and if she is hypoxic, she can return to the hospital. She is starting on week 5 post Covid and unfortunate th ere is not a lot of data to show what her prolonged course will be. She will need to follow-up with her PCP in 3 to 5 days, and if her symptoms continue she may benefit from outpatient pulmonology evaluation. In the meantime would recommend finishing her prednisone taper. 2. HTN/morbid obesity -Blood pressure is stable -Continue with her home BP meds -BMI of 44, discussed lifestyle modifications 3. GERD -Stable -Continue with PPI Patient Problems: Active and Suspected Problems SOB (shortness of breath) (Acute) Lactic acidosis (Acute) Lactic acidosis (Acute) Pneumonia due to COVID-19 virus (Acute) - Physical Exam Vitals/I&O's: Vital Signs Temp Pulse Resp BP Pulse Ox 97.5 F L 67 16 141/84 H 98 07/28/20 08:28 07/28/20 08:28 07/28/20 08:28 07/28/20 08:28 07/28/20 08:28 Oxygen Flow Rate (L/min) 2 Oxygen Delivery Method Room Air Weight: 224 lb 10.417 oz Body Mass Index (BMI) 44.1 Intake and Output for Last 24 Hours 07/26/20 07/27/20 07/28/20 23:59 23:59 23:59 Intake Total 610 / 810 1140 / 1390 370 / 370 Output Total Balance 610 / 810 1136 / 1386 370 / 370 General: Alert, Oriented x3, Cooperative, No apparent distress HEENT: Atraumatic, PERRLA, EOMI, Normocephalic Oral: Moist Mucosa Neck: Supple, No JVD Lungs: Clear to auscultation, Normal air movement, No rhonchi, No wheeze, No rales Cardiovascular: Regular rate, Regular Rhythm, Normal S1, Normal S2, No murmurs Abdomen: Soft, Non Tender, Non-Distended, No Hepato-splenomegaly Extremities: No edema, Capillary Refill Less than 3 Seconds Skin: No rashes, No breakdown Neurological: Neuro grossly intact, Sensory exam intact to light touch and pain Psych/Mental Status: Normal Affect, Appropriate Microbiology Past 72 Hours 07/25/20 11:50 Blood Culture (Wb) - Left Hand Blood Culture - Preliminary No growth in 48 hours. 07/25/20 11:45 Blood Culture (Wb) - Anticubital Right Blood Culture - Preliminary No growth in 48 hours. 07/25/20 11:45 Mucosa - Nose SARS-CoV-2 Antigen (Rapid) - Final 07/25/20 11:45 Mucosa - Nose Influenza Types A,B Direct FA (ABRAHAM) - Final Current Medications Acetaminophen (Acetaminophen 325 Mg Tablet) 650 mg PO Q6H PRN PRN PRN Reason: Pain Score 1-10/Temp > 100.7 F Al Hydroxide/Mg Hydroxide (Mag Hydrox/Al Hydrox/Simeth 30 Ml Udc) 30 ml PO Q6H PRN PRN PRN Reason: Gastric Burning Albuterol Sulfate (Albuterol 2.5 Mg/3 Ml Vial.Neb.) 2.5 mg INHALATION Q2H PRN PRN PRN Reason: SOB/Wheezing Enoxaparin Sodium (Enoxaparin 40 Mg/0.4 Ml Syringe) 40 mg SC DAILY [facility] Last Admin: 07/28/20 12:06 Dose: Not Given Documented by: Hydrochlorothiazide (Hydrochlorothiazide 12.5mg) 12.5 mg PO DAILY [facility] Last Admin: 07/28/20 12:07 Dose: 12.5 mg Documented by: Lisinopril (Lisinopril 20 Mg Tablet) 20 mg PO DAILY [facility] Last Admin: 07/28/20 04:54 Dose: 20 mg Documented by: Melatonin (Melatonin 3 Mg Tablet) 3 mg PO QHS PRN PRN PRN Reason: INSOMNIA Ondansetron HCl (Ondansetron 4 Mg/2 Ml Vial) 4 mg IV Q8H PRN PRN PRN Reason: NAUSEA/VOMITING Pantoprazole Sodium (Pantoprazole Sodium 20 Mg Tablet) 20 mg PO DAILY [facility] Last Admin: 07/28/20 12:07 Dose: 20 mg Documented by: Prednisone (Prednisone 20 Mg Tablet) 20 mg PO DAILY@0800 [facility]; Taper Stop: 08/01/20 07:59 Last Admin: 07/28/20 12:07 Dose: 20 mg Documented by: Sodium Chloride (0.9% Saline Lock 10 Ml Syringe) 10 - 40 ml IV UD PRN PRN Reason: SALINE FLUSH Last Admin: 07/28/20 04:54 Dose: 10 ml Documented by: Discharge Activity: Return to Normal Activity Call your doctor if you observe: Fever of 101 or Higher, Shortness of breath, Dizziness, Fainting spells, Swelling in the ankles, Chest pain, Increased palpitations (irregular heartbeat) Home Medications: Medications to take at Discharge Albuterol Sulfate [Albuterol Sulfate Hfa] 2 puff INHALATION 4X/DAY PRN PRN 07/25/20 Lisinopril/Hydrochlorothiazide [Lisinopril-Hctz 20-12.5 mg Tab] 1 ea PO DAILY 07/25/20 Omeprazole 20 mg PO DAILY 07/25/20 Prednisone See Taper PO DAILY 07/25/20 Primary Care Physician: Jelani Davis MD [Primary Care Provider] - Please follow up with your Primary Care Physician in: 3-5 days Please Follow Up With: Jelani Davis MD Patient Instructions: Coronavirus Disease 2019 (COVID-19): Overview, Coronavirus Disease 2019 (COVID-19): Caring for Yourself or Others Disposition: Home Minutes spent on discharge:: 35 Patient Condition:: Stable Medical Necessity - Tobacco Use Smoking Status: Never smoker Tobacco Use: Non-smoker Meaningful Use Info Meaningful Use Diagnoses (Choose all that apply): None applicable OBSV E&M: 80708 Observation care discharge
[2020-07-28 13:43] VITALS: BP 112/65; PULSE 72; RESP 16; TEMP 36.6; O2SAT 95
== END 2020-07-28 14:06 | disposition home or self-care (01) ==
LOC: ED 17:09 → PCU 17:30
PROVIDERS: Admitting Provider Internal Medicine; Emergency Provider Emergency Medicine; PCP Family Medicine; Visit Provider Family Medicine
DX: R06.02 Shortness of breath (principal); Z86.19 Personal history of other infectious and parasitic diseases; E87.2 Acidosis; I10 Essential (primary) hypertension; K21.9 Gastro-esophageal reflux disease without esophagitis; Z79.899 Other long term (current) drug therapy; E66.01 Morbid (severe) obesity due to excess calories; Z68.41 Body mass index [BMI] 40.0-44.9, adult; Z79.52 Long term (current) use of systemic steroids
CPT/HCPCS: 36415; 71045; 71275; 78452; 80048; 80053; 81001; 83605; 83735; 84100; 84443; 84484; 85025; 87040; 87426; 87635; 87804; 93005; 93017; 93306; 96360; 96361; 96372; 99218; 99251; 99285; A9500; J7030; Q9957; Q9967; A4216; C8929; G0378; G0463; J2785; U0002

== ENCOUNTER → 2020-08-14 06:54 | Outpatient (CLI) | payer BC, SELFPAY ==
--- NOTE | 2020-08-14 08:45 | PFTCOMP_ITS ---
COMPLETE PULMONARY FUNCTION TEST INTERPRETATION Brief HPI: Patient is a 60 year old female, currently under the care of Dr. Silva, who presents to [facility] for complete pulmonary function tests secondary to diagnosis of dyspnea. Respiratory therapist reports good effort and reproducible results. Interpretation: Forced expiration spirometry shows no large airways obstructive ventilatory defect with an FEV1 of 71% predicted. There is no significant bronchodilator response by strict ATS criteria, but did have improvement by 200 cc and 11%. Spirograms are of good quality and plateau slowly, indicating slowly emptying areas of the lungs. The respiratory flow volume loop shows a normal pattern. Lung volumes by body plethysmography show a decreased total lung capacity at 3.75 L, 73% predicted. All other lung volumes are reduced symmetrically. Diffusion capacity by carbon monoxide is decreased at 67% predicted. The airway resistance is normal. No previous pulmonary function tests were available for review. Impression: Mild restrictive ventilatory defect with a symmetric reduction in diffusion capacity
== END ==
LOC: PSN 06:55
PROVIDERS: PCP Family Medicine; Referring Provider Internal Medicine Critical Care Medicine; Visit Provider Internal Medicine Critical Care Medicine
DX: R06.00 Dyspnea, unspecified (principal)
CPT/HCPCS: 94060; 94726; 94729

== ENCOUNTER → 2020-08-21 09:30 | Outpatient (CLI) | payer BC, SELFPAY ==
[2020-08-21 08:53] VITALS: BMI 38.2
[2020-08-21 10:05] LABS: Anion Gap 2 (5-15); BNP,B-Type NATRIURETIC PEPTIDE 16.8 pg/mL (0-100); BUN 21 mg/dL (7-18); BUN/Creat Ratio 29.3 RATIO (10-20); Calcium,Total 9.2 mg/dL (8.5-10.1); Chloride 106 mmol/L (98-107); Creatinine, Serum 0.72 mg/dL (0.55-1.02); EST Glomerular Filtration Rate 89 mL/min (>60); Est Glom Filt Rate - Afr Amer 107 mL/min (>60); Glucose 95 mg/dL (74-106); Potassium 4.1 mmol/L (3.5-5.1); Sodium Level 140 mmol/L (136-145)
== END ==
LOC: PAVLAB 09:32
PROVIDERS: PCP Family Medicine; Referring Provider Nurse Practitioner Acute Care; Visit Provider Nurse Practitioner Acute Care
DX: R06.02 Shortness of breath (principal)
CPT/HCPCS: 36415; 80048; 83880

== ENCOUNTER → 2020-09-05 12:47 | Outpatient (CLI) | payer BC, SELFPAY ==
[2020-08-21 08:53] VITALS: BMI 38.2
== END ==
LOC: SL 12:47
PROVIDERS: PCP Family Medicine; Visit Provider Nurse Practitioner Acute Care
DX: G47.33 Obstructive sleep apnea (adult) (pediatric) (principal)
CPT/HCPCS: 95806

== ENCOUNTER → 2020-09-18 09:34 | Outpatient (CLI) | payer BC, SELFPAY ==
[2020-08-21 08:53] VITALS: BMI 38.2
== END ==
PROVIDERS: PCP Family Medicine; Visit Provider Nurse Practitioner Acute Care
DX: Z46.89 Encounter for fitting and adjustment of other specified devices (principal)

== ENCOUNTER 2020-10-17 13:41 | Emergency (ER) | payer BC, SELFPAY ==
[2020-10-17 13:45] VITALS: BP 143/91; PULSE 70; RESP 23; TEMP 36.6; O2SAT 98; BMI 39.0
[2020-10-17 13:48] VITALS: O2SAT 98
--- NOTE | 2020-10-17 13:53 | EKG12_ITS ---
Test Reason : CP Blood Pressure : / mmHG Vent. Rate : 072 BPM Atrial Rate : 072 BPM P-R Int : 124 ms QRS Dur : 080 ms QT Int : 386 ms P-R-T Axes : 045 013 000 degrees QTc Int : 422 ms Normal sinus rhythm Nonspecific ST abnormality Abnormal ECG Confirmed by JUAN LARSON, KEVIN ([id number]), editorial director YUNIOR SCOTT ([id number]) on 10/19/2020 9:29:17 AM Referred By: JOSE Confirmed By:ANTOINE MARTINEZ MD
--- NOTE | 2020-10-17 13:57 | ED.DCSUM_ITS ---
History of Present Illness Chief Complaint: Shortness of Breath Informant: Patient Onset: Today - Today she reports shortness of breath after taking her grandchildren to school. She also developed left-sided chest pain that is described as sharp that started 1 hour prior to presentation., Yesterday - Episode started yesterday evening and got worse with activity. Improved after she sat down but never resolved. She states she was short of breath when she went to bed. Upon awakening this morning she was not short of breath. She states she took her grandkids to school and became short of breath Context: Sudden Onset Timing: Continuous Quality: Sharp and dyspnea Location: Left side of the chest and inferior breast in the anterior axillary line Current Severity: Moderate Maximum Severity: Moderate Worsened by: Nothing Relieved by: Nothing Associated Symptoms: No associated symptoms. Radiates to her back. Narrative: Is a 60-year-old woman who was diagnosed with Covid pneumonia in June. She has been diagnosed as long hauler syndrome. She does have history of GERD, hypertension, obstructive sleep apnea. Her outpatient tests that have been performed over the past 9 days have been reviewed. This includes a nuclear stress test, which revealed no ischemic changes, echocardiogram that revealed an EF of 65% with slight left atrial enlargement and 2 CTAs of the chest which were negative. Pulmonary note from September 19 was reviewed and revealed patient continued to complain of shortness of breath and it was thought to be due to anxiousness/anxiety. She denies fever, chills night sweats. She denies rhinorrhea, congestion postnasal drainage. She denies sore throat. She denies cough. She denies orthopnea. She denies PND. She does have history of GERD. She denies black or maroon stool. She denies swelling of her lower extremities, pain in her lower extremities or discoloration of her lower extremities. The chest discomfort is not pleuritic. There are no exacerbating, precipitating or alleviating factors with regards to the shortness of breath or the left-sided sharp chest pain. Prior similar symptoms: Yes Recent Illness/Hospitalization: Yes - Past Medical History (1) Lactic acidosis Status: Acute (2) ASHLI (obstructive sleep apnea) Status: Acute Comment: AHI 9.9 started AutoPap 5 to 20 cm of water (3) Pneumonia due to COVID-19 virus Status: Acute (4) SOB (shortness of breath) Status: Acute (5) GERD (gastroesophageal reflux disease) Status: Chronic (6) HTN (hypertension) Status: Chronic Past Medical History - Allergies and Home Meds Allergies/Adverse Reactions: Allergies No Known Allergies Allergy (Verified 10/17/20 13:47) Primary Care Physician: Jelani Davis MD [Primary Care Provider] - Prior records reviewed: Yes Surgical History: noncontributory Lives: With Family Smoking Status: Never smoker Alcohol: None Drugs: None - Family History Maternal Family History: Family History (Last Reviewed 09/19/20 @ 08:15 by Barbara Llamas) Mother COPD (chronic obstructive pulmonary disease) CHF (congestive heart failure) Kidney failure Father CVA (cerebral vascular accident) Family History: Reports: Heart Disease Paternal Family History: Family History (Last Reviewed 09/19/20 @ 08:15 by Barbara Llamas) Mother COPD (chronic obstructive pulmonary disease) CHF (congestive heart failure) Kidney failure Father CVA (cerebral vascular accident) Family History: Reports: Heart Disease Sibling Family History: Family History (Last Reviewed 09/19/20 @ 08:15 by Barbara Llamas) Mother COPD (chronic obstructive pulmonary disease) CHF (congestive heart failure) Kidney failure Father CVA (cerebral vascular accident) Family History: Reports: Heart Disease Review of Systems General: Denies: Chills, Fever, Malaise, Subjective, Sweats Eyes: Denies: Visual changes - bilaterally, Blurred Vision - bilaterally ENT: Denies: Bilateral ear pain, Rhinorrhea, Sore throat Cardiovascular: Reports: Chest pain - Sided described as sharp and presently inferior left breast in the anterior axillary line. Respiratory: Reports: Dyspnea. Denies: Cough, Sputum, Dyspnea on exertion, Orthopnea, Paroxysmal nocturnal dyspnea Gastrointestinal: Denies: Abdominal pain, Nausea, Vomiting, Diarrhea, Melena, Hematochezia Genitourinary: Denies: Dysuria, Hematuria, Frequency Musculoskeletal: Denies: Myalgias, Arthralgias, Neck pain, Back pain, Swelling, Extremity Pain, -, - Skin: Denies: Rash, Wounds Neurological: Denies: Headache, Weakness, Parasthesia Psych: Reports: Depression, Anxiety Endocrine: Denies: Polyuria Hematologic: Denies: Easy bruising, Easy bleeding Allergy: Denies: Uticaria, Swelling of the mouth Physical Exam Vital Signs/Narrative: Vital Signs Temp Pulse Resp BP Pulse Ox 10/17/20 13:45 97.8 F 70 23 H 143/91 H 98 Inital Vital Signs reviewed: Yes General: Well nourished, Well developed, Obese, No Acute Distress - Patient is tachypneic. Head: Normocephalic, Atraumatic Eyes: Perrl, EOMI. Negative for: Pale conjunctiva, Scleral icterus ENT: Moist mucous membranes, No rhinorrhea Neck: Supple, Nontender, No lymphadenopathy, No JVD, - - Is midline. There is no inspiratory expiratory stridor. Cardiovascular: Regular rate, Regular rhythm, No murmurs, Normal S1, Normal S2 Respiratory: No distress, CTA bilaterally, Chest nontender Abdomen: Soft, Nontender, Nondistended, Normal bowel sounds Rectal: Deferred Back: Nontender, Normal Inspection Extremities: Nontender, Edema - 2 mm pitting edema Skin: Normal color, No rash, No Trauma. Negative for: Cyanosis, Diaphoresis, Jaundice Neurological: Alert, Oriented x3, Cranial nerves II-XII grossly intact, Normal Strength, Normal Sensation Psychological: - - Affect is flat. Diagnostic/Tx/Re-eval Chest X-Ray - ED: 2 View, Read by ED Physician, Normal, Heart, Mediastinum, Bony Structures, No Acute Disease, Chronic Changes, - - Dense pneumothorax, effusion or infiltrate. There is no acute process noted. 10/17/20 13:53 Chest PA and Lateral [RAD] Stat Laboratory Results 10/17/20 10/17/20 10/17/20 14:00 14:00 14:00 WBC 7.9 RBC 4.64 Hgb 13.1 Hct 41.8 MCV 90.1 MCH 28.2 MCHC 31.3 L RDW Std Deviation 43.4 RDW Coeff of [place] 13.2 Plt Count 219 MPV 11.1 Immature Gran % (Auto) 0.100 Neut % (Auto) 46.1 L Lymph % (Auto) 42.7 H [place] % (Auto) 8.9 Eos % (Auto) 1.7 Baso % (Auto) 0.5 Absolute Neuts (auto) 3.6 Absolute Lymphs (auto) 3.35 Nucleated RBC % 0 Sodium 141 Potassium 3.8 Chloride 104 Carbon Dioxide 31.0 Anion Gap 6 BUN 17 Creatinine 0.77 Estim Creat Clear Calc 71.66 Est GFR (MDRD) Af Amer 99 Est GFR (MDRD) Non-Af 82 BUN/Creatinine Ratio 22.2 H Glucose 124 H Calcium 9.2 Troponin I < 0.015 B-Natriuretic Peptide 17.5 Is normal with greater than 20 hours of dyspnea. Patient's heart score is 1. Troponin is normal. BNP is normal. Suspect patient's symptoms are due to Covid, long-hauler syndrome. - EKG Initial EKG Interpretation: Sinus Rhythm - Normal sinus rhythm with a ventricular rate of 72. [place] interval 224 ms. Cures duration 80 ms. QT duration 386 ms. [place] is normal. There is motion artifact which the computer is reading as an ossific ST-T wave abnormality. EKG is essentially unchanged, otherwise. Prior: Unchanged - Compared to EKG performed July 28, 2020 - Medical Decision Making The shortness breath and chest discomfort may be anxiety or due to Covid, long- hauler's syndrome. Doubt cardiac ischemia or congestive heart failure in light of recent cardiac work-up that was negative. She has had 2 CAT scans of her chest for PE and they have both been negative. Will obtain chest x-ray to see if there is any abnormality as well as EKG and appropriate blood work. CBC was obtained to rule out anemia. Basic metabolic panel to rule out renal failure which may cause acidosis and shortness of breath. ED Disposition - Plan for ED Patient: Disposition: Home or Assisted Living Diagnosis: Shortness of breath after severe acute respiratory syndrome coronavirus 2 (SARS-CoV-2) vaccination, Left-sided chest pain, History of hypertension Instructions: ED Chest Pain, Noncardiac, ED Dyspnea Referrals: Jelani Davis MD [Primary Care Provider] - As Needed
[2020-10-17 14:06] LABS: Absolute Lymphocyte Count 3.35 X10^3/uL (0.83-4.51); Absolute Neutrophil Count 3.6 X10^3/uL (2.0-7.7); Basophil# 0.04 X10^3/uL; Basophil% 0.5 % (0-1); Eosinophil# 0.13 X10^3/uL; Eosinophils% 1.7 % (0-5); Hematocrit 41.8 % (37-47); Hemoglobin 13.1 g/dL (12.0-15.0); Lymphocyte # 3.35 X10^3/ul (4.0); Lymphocyte % 42.7 % (19-41); Mean Corp Hgb Conc 31.3 g/dL (32-36); Mean Corpuscular Hgb 28.2 pg (27.0-32.0); Mean Corpuscular Volume 90.1 fL (81-99); Mean Platelet Vol. 11.1 fl (6.2-12.0); Monocyte% 8.9 % (0-10); NRBC Flagged by Analyzer 0 % (0-5); Neutrophil # 3.62 X10^3/uL (2.7-7.7); Neutrophil % 46.1 % (47-70); Platelet Count 219 K/mm3 (150-450); RBC Distribution Width CV 13.2 % (11.6-14.6); RBC Distribution Width SD 43.4 fl (35.1-43.9); Red Blood Count 4.64 M/mm3 (4.2-5.4); White Blood Count 7.9 K/mm3 (4.4-11.0)
[2020-10-17 14:22] LABS: Anion Gap 6 (5-15); BUN 17 mg/dL (7-18); BUN/Creat Ratio 22.2 RATIO (10-20); Calcium,Total 9.2 mg/dL (8.5-10.1); Chloride 104 mmol/L (98-107); Creatinine, Serum 0.77 mg/dL (0.55-1.02); EST Glomerular Filtration Rate 82 mL/min (>60); Est Glom Filt Rate - Afr Amer 99 mL/min (>60); Estimated Creatinine Clearance 71.66 ml/min; Glucose 124 mg/dL (74-106); Potassium 3.8 mmol/L (3.5-5.1); Sodium Level 141 mmol/L (136-145)
[2020-10-17 14:28] LABS: BNP,B-Type NATRIURETIC PEPTIDE 17.5 pg/mL (0-100)
--- NOTE | 2020-10-17 14:35 | RAD_ITS ---
STUDY: X-RAY CHEST REASON FOR EXAM: Female, 60 years old. Left-sided chest pain and shortness of breath TECHNIQUE: PA and lateral views of the chest. COMPARISON: Comparison is made with prior study dated 07/25/2020. FINDINGS: EKG electrodes are seen. The lungs are clear and expanded. There is no demonstrated pleural abnormality. Normal size heart. Normal mediastinum and paula. Normal visualized pulmonary arteries. Normal visualized aortic arch and descending thoracic aorta. Normal visualized thoracic spine. Normal visualized ribs, clavicles, and shoulders. There is no demonstrated abnormality of the visualized soft tissue structures of the upper abdomen. RAD/Chest PA and Lateral IMPRESSION: Normal x-ray examination of the chest. Electronically Signed: Fareed Gregorio MD at 14:52 EDT , Service support ,
[2020-10-17 15:13] VITALS: BP 122/61; PULSE 67; RESP 19; O2SAT 96
[2020-10-17 15:39] VITALS: BP 102/80; PULSE 65; RESP 25; O2SAT 97
== END 2020-10-17 15:40 | disposition home or self-care (01) ==
PROVIDERS: Emergency Provider Emergency Medicine; PCP Family Medicine
DX: T88.1XXA Other complications following immunization, not elsewhere classified, initial encounter (principal); R06.02 Shortness of breath; R07.9 Chest pain, unspecified; I10 Essential (primary) hypertension; E66.9 Obesity, unspecified; G47.33 Obstructive sleep apnea (adult) (pediatric); K21.9 Gastro-esophageal reflux disease without esophagitis; Z82.3 Family history of stroke; Z82.49 Family history of ischemic heart disease and other diseases of the circulatory system
CPT/HCPCS: 71046; 80048; 83880; 84484; 85025; 93005; 99284; A4216

== ENCOUNTER → 2020-10-24 12:18 | Outpatient (CLI) | payer BC, SELFPAY ==
[2020-10-17 13:45] VITALS: BMI 39.0
[2020-10-24 16:02] LABS: Vitamin B12 528 pg/mL (211-911); Vitamin D,25 Hydroxy 14.2 ng/mL
[2020-10-24 16:08] LABS: CRP 8.78 mg/L (0.0-3.0); Ferritin 151 ng/mL (8-252); Iron 54 ug/dL (50-170); Rheumatoid Factor < 10.0 IU/mL (<15); Thyroid Stim Hormone (TSH) 1.98 uIU/mL (0.358-3.74)
[2020-10-24 16:10] LABS: Erythrocyte Sedimentation Rate 30 mm/hr (0-30)
[2020-10-26 16:18] LABS: ANTINUCLEAR ANTIBODIES DIRECT Positive (Negative)
[2020-10-29 08:50] LABS: Zinc, Plasma or Serum 83 ug/dL (44-115)
== END ==
PROVIDERS: PCP Family Medicine; Referring Provider Family Medicine; Visit Provider Family Medicine
DX: L65.9 Nonscarring hair loss, unspecified (principal); R06.00 Dyspnea, unspecified
CPT/HCPCS: 36415; 82306; 82533; 82607; 82728; 83540; 84443; 84630; 85652; 86038; 86140; 86431

== ENCOUNTER → 2021-01-24 13:01 | Outpatient (CLI) | payer BC, MEDICAID, SELFPAY ==
[2021-01-24 11:42] VITALS: BMI 39.2
[2021-01-24 13:33] LABS: Absolute Lymphocyte Count 3.29 X10^3/uL (0.83-4.51); Absolute Neutrophil Count 3.7 X10^3/uL (2.0-7.7); Basophil# 0.04 X10^3/uL; Basophil% 0.5 % (0-1); Eosinophil# 0.09 X10^3/uL; Eosinophils% 1.1 % (0-5); Hematocrit 41.8 % (37-47); Lymphocyte # 3.29 X10^3/ul (0.83-4.51); Lymphocyte % 41.9 % (19-41); Mean Corp Hgb Conc 31.1 g/dL (32-36); Mean Corpuscular Hgb 27.3 pg (27.0-32.0); Mean Corpuscular Volume 87.8 fL (81-99); Mean Platelet Vol. 10.8 fl (6.2-12.0); Monocyte# 0.69 X10^3/uL; Monocyte% 8.8 % (0-10); NRBC Flagged by Analyzer 0 % (0-5); Neutrophil # 3.72 X10^3/uL (2.7-7.7); Neutrophil % 47.3 % (47-70); Platelet Count 241 K/mm3 (150-450); RBC Distribution Width CV 13.4 % (11.6-14.6); RBC Distribution Width SD 43.4 fl (35.1-43.9); Red Blood Count 4.76 M/mm3 (4.2-5.4); White Blood Count 7.9 K/mm3 (4.4-11.0)
[2021-01-24 13:37] LABS: Prothrombin Time (Protime)PT. 12.9 SECONDS (11.7-14.9)
[2021-01-24 13:38] LABS: Partial Thromboplast Time 30.8 Seconds (24.1-36.2)
[2021-01-24 13:52] LABS: Anion Gap 8 (5-15); BUN 19 mg/dL (7-18); Calcium,Total 9.4 mg/dL (8.5-10.1); Chloride 106 mmol/L (98-107); Creatinine, Serum 0.66 mg/dL (0.55-1.02); EST Glomerular Filtration Rate 98 mL/min (>60); Est Glom Filt Rate - Afr Amer 119 mL/min (>60); Glucose 90 mg/dL (74-106); Potassium 4.1 mmol/L (3.5-5.1); Sodium Level 142 mmol/L (136-145)
== END ==
PROVIDERS: PCP Family Medicine; Referring Provider Internal Medicine Cardiovascular Disease; Visit Provider Internal Medicine Cardiovascular Disease
DX: R07.89 Other chest pain (principal); R06.02 Shortness of breath; I10 Essential (primary) hypertension; G47.33 Obstructive sleep apnea (adult) (pediatric)
CPT/HCPCS: 36415; 80048; 85025; 85610; 85730

== ENCOUNTER → 2021-02-22 17:35 | Outpatient (CLI) | payer MEDICAID, SELFPAY ==
[2021-02-14 07:14] VITALS: BMI 39.1
[2021-02-22 20:03] LABS: Probe Check PASS; Specimen Processing Control PASS
== END ==
PROVIDERS: PCP Family Medicine; Referring Provider Family Medicine; Visit Provider Family Medicine
DX: R05 Cough (principal)
CPT/HCPCS: 87635; U0005; U0003

== ENCOUNTER 2021-03-06 21:11 | Emergency (ER) | payer MEDICAID, SELFPAY ==
[2021-02-14 07:14] VITALS: BMI 39.1
[2021-03-06 21:14] VITALS: BP 117/95; PULSE 67; RESP 24; TEMP 36.4; O2SAT 100; BMI 38.7
--- NOTE | 2021-03-06 21:18 | EKG12_ITS ---
Test Reason : CP Blood Pressure : / mmHG Vent. Rate : 068 BPM Atrial Rate : 068 BPM P-R Int : 128 ms QRS Dur : 078 ms QT Int : 388 ms P-R-T Axes : 036 009 016 degrees QTc Int : 412 ms Normal sinus rhythm with sinus arrhythmia Normal ECG Confirmed by JUAN LARSON, KEVIN ([id number]), book or script editor YUNIOR SCOTT ([id number]) on 03/08/2021 10:12:20 A M Referred By: GIL/MG Confirmed By:ANTOINE MARTINEZ MD
[2021-03-06 21:26] VITALS: O2SAT 100
--- NOTE | 2021-03-06 21:32 | RAD_ITS ---
INDICATION: chest pain EXAMINATION/TECHNIQUE: X-RAY - XR Chest 1 View COMPARISON: None. FINDINGS: The lungs are clear. The cardiomediastinal silhouette is unremarkable. No pleural effusion or pneumothorax. No acute osseous abnormalities. RAD/Chest 1 View (Portable) IMPRESSION: No acute radiographic abnormalities. Electronically Signed: Usama Castillo MD at 22:03 EDT Tel , Service support ,
[2021-03-06 21:33] LABS: Absolute Lymphocyte Count 5.35 X10^3/uL (0.83-4.51); Absolute Neutrophil Count 4.4 X10^3/uL (2.0-7.7); Basophil# 0.05 X10^3/uL; Basophil% 0.5 % (0-1); Eosinophil# 0.12 X10^3/uL; Eosinophils% 1.1 % (0-5); Hematocrit 41.8 % (37-47); Hemoglobin 13.3 g/dL (12.0-15.0); Lymphocyte # 5.35 X10^3/ul (0.83-4.51); Lymphocyte % 48.9 % (19-41); Mean Corp Hgb Conc 31.8 g/dL (32-36); Mean Corpuscular Hgb 27.8 pg (27.0-32.0); Mean Corpuscular Volume 87.4 fL (81-99); Mean Platelet Vol. 11.1 fl (6.2-12.0); Monocyte# 0.94 X10^3/uL; Monocyte% 8.6 % (0-10); NRBC Flagged by Analyzer 0 % (0-5); Neutrophil # 4.43 X10^3/uL (2.7-7.7); Neutrophil % 40.4 % (47-70); POSITIVE DIFFERENTIAL YES; Platelet Count 244 K/mm3 (150-450); RBC Distribution Width CV 13.2 % (11.6-14.6); RBC Distribution Width SD 42.2 fl (35.1-43.9); Red Blood Count 4.78 M/mm3 (4.2-5.4); White Blood Count 10.9 K/mm3 (4.4-11.0)
--- NOTE | 2021-03-06 21:35 | ED.VIS.CHEST ---
HPI History of Present Illness Chief Complaint: Chest Pain Narrative Narrative: 61-year-old female presenting with retrosternal chest pain and shortness of breath which is worse since about 2-2 30 today. Patient states he was in the pharmacy and noticed when she came out she was having more difficulty breathing. She states he had COVID-19 in June and just has not been able to breathe right since then. She has had intermittent chest pain as well. She denies any history of cardiac disease. She denies history of COPD or asthma. Patient sees Dr. Wheeler on an outpatient basis and is scheduled for cardiac catheterization this next week. Patient states he has no history of blood clots even with COVID-19. She states she had 3 CTAs of her chest since June and they have all been negative. [facility] Medical History COVID-19 Essential hypertension GERD (gastroesophageal reflux disease) Lactic acidosis Pneumonia due to COVID-19 virus SOB (shortness of breath) Home Medications omeprazole 20 mg PO DAILY 07/25/20 [History Last Taken 07/24/20] aspirin 81 mg tablet,delayed release 81 mg PO DAILY #1 tab 01/24/21 [Rx Last Taken Unknown] biotin 800 mcg tablet 800 mcg PO DAILY 01/24/21 [History Last Taken Unknown] cholecalciferol (vitamin D3) 125 mcg (5,000 unit) tablet 125 mcg PO QWEEK tab 01/24/21 [History Last Taken Unknown] escitalopram oxalate 10 mg tablet 10 mg PO DAILY tab 01/24/21 [History Last Taken Unknown] lisinopril 20 mg-hydrochlorothiazide 12.5 mg tablet 0.5 tab PO DAILY tab 01/24/21 [History Last Taken Unknown] meloxicam 7.5 mg tablet 7.5 mg PO DAILY PRN 01/24/21 [History Last Taken Unknown] multivitamin 1 tab PO DAILY 01/24/21 [History Last Taken Unknown] escitalopram oxalate [Lexapro] 10 mg PO DAILY 03/06/21 [History Last Taken Unknown] Allergy/AdvReac Type Severity Reaction Status Date / Time No Known Allergies Allergy Verified 03/06/21 21:12 Family History Mother COPD (chronic obstructive pulmonary disease) CHF (congestive heart failure) Kidney failure CAD (coronary artery disease) Myocardial infarction Father CVA (cerebral vascular accident) Brother Myocardial infarction CAD (coronary artery disease) Sister Heart disease Surgical History H/O: hysterectomy History of left heart catheterization (LHC) (~05/08/15) Social History Smoking Status: Never smoker alcohol intake: never substance use type: does not use caffeine: Yes Type: carbonated beverages Number of servings: 3 ROS ROS ED Constitutional Constitutional ED: Denies chills, fever(s) or sweats Eyes Eyes: Denies blurry vision or change in vision ENT ENT ED: Denies rhinorrhea or sore throat Cardiovascular Cardiovascular: Reports chest pain; Denies palpitations or racing heartbeat Respiratory/Chest Respiratory/Chest: Reports dyspnea and dyspnea on exertion Gastrointestinal Gastrointestinal: Denies abdominal pain, nausea or vomiting Genitourinary Genitourinary ED: Denies dysuria or hematuria Musculoskeletal Musculoskeletal: Denies arthralgias, back pain, myalgias or neck pain Integumentary Denies Abrasions or rash Neurologic Neurologic: Denies headache(s) or paresthesias EXAM Physical Exam Const Vital Signs: 03/06/21 21:14 03/06/21 21:16 03/06/21 21:26 Temperature 97.6 F L Temperature Source Temporal Pulse Rate 67 Respiratory Rate 24 H Respiratory Effort Normal Non-Labored Blood Pressure 117/95 H Blood Pressure Mean 102 Pulse Ox 100 100 Oxygen Delivery Method Room Air Room Air Positive obese General Appearance ED: NAD; Negative for pallor Nutritional Appearance: obese HEENT Reports moist mucous membranes normocephalic and atraumatic Eyes PERRL General Eye ED: Negative for pale conjunctiva Chest Wall inspection of chest normal and palpation of chest normal Resp normal respiratory effort and clear to auscultation bilaterally Effort and Inspection: respiratory distress Cardio regular rate and regular rhythm Extremity normal to inspection General Extremety ED: Negative for edema or tenderness General Extremity: Negative for edema Neuro oriented x3 Sensorium / Orientation: awake and alert Skin no rashes or lesions noted General Skin Exam: Negative for jaundice or pallor Heart Score History: Slightly/Non-Suspicious ECG: Nonspecific Repolarization Age: >45 - <65 years Risk Factors: 1 or 2 Risk Factors Troponin: </= Normal Limit Score: 3 MDM MDM MDM Narrative Medical decision making narrative: Patient presenting with chest pain which he has had since about 2-2 30 today. She also complains of shortness of breath which does appear to be chronic in nature. Patient states she has been struggling with this since June when she had COVID-19. Patient states has had 3 CTAs of the chest which were negative for PE and she never had a blood clot even when she had COVID-19. Blood work today is normal. Renal function and electrolytes are normal. Patient is slightly dehydrated. Troponin is 5.7 initially. After looking through the medical record it looks like she had a last cardiac cath in 2014 which was negative for occlusions. When she had COVID-19 in June she also had an echo and a stress test which were also negative. Patient was seen by Dr. Wheeler recently and is scheduled for cardiac catheterization on Thursday to rule out ACS. I discussed the case with Dr. Wheeler and given the patient has had pain for about 8 hours without a change in her cardiac enzymes. She has a normal EKG which on my interpretation shows a normal sinus rhythm with ventricular rate of 68 bpm. Chest x-ray shows no acute cardiopulmonary process. Dr. Wheeler did state that given the length of pain and dyspnea he would expect the heart enzymes to be more elevated than they are if it was truly ACS. Patient was counseled on findings and plan after talking to Dr. Wheeler and she states that she wants to stay for a second heart enzyme and EKG at the 2-hour daryl. Patient will be signed out to incoming ED physician for follow-up on delta troponin and EKG. If there is no significant change in the troponin and EKG is stable I suspect the patient will be discharged home for follow-up for cardiac cath on Thursday. Impression: 1. Chest pain 2. Dyspnea Lab Data Attestation: I reviewed the patient's lab results. Labs: Laboratory Results - last 24 hr 03/06/21 03/06/21 21:28 21:28 WBC 10.9 RBC 4.78 Hgb 13.3 Hct 41.8 MCV 87.4 MCH 27.8 MCHC 31.8 L RDW Std Deviation 42.2 RDW Coeff of Oliva 13.2 Plt Count 244 MPV 11.1 Immature Gran % (Auto) 0.500 Neut % (Auto) 40.4 L Lymph % (Auto) 48.9 H Hancock % (Auto) 8.6 Eos % (Auto) 1.1 Baso % (Auto) 0.5 Absolute Neuts (auto) 4.4 Absolute Lymphs (auto) 5.35 H Nucleated RBC % 0 Differential Comment SCANNED Sodium 137 Potassium 4.3 Chloride 105 Carbon Dioxide 22.0 Anion Gap 10 BUN 23 H Creatinine 0.67 Estim Creat Clear Calc 81.35 Est GFR (MDRD) Af Amer 116 Est GFR (MDRD) Non-Af 96 BUN/Creatinine Ratio 34.4 H Glucose 105 Calcium 9.2 Troponin I High Sens 5.7 Radiography Diagnostic Testing: Radiology Impression Chest X-Ray 03/06/21 21:32 IMPRESSION: No acute radiographic abnormalities. Electronically Signed: Usama Castillo MD at 22:03 EDT Tel , Service support , Discharge Plan Triage Chief Complaint: Chest Pain ED Provider: Clay Treviño Dx/Rx/DC Orders Prescriptions: No Action meloxicam 7.5 mg tablet 7.5 mg PO DAILY PRN (Reason: Sleep) RF: 0 cholecalciferol (vitamin D3) 125 mcg (5,000 unit) tablet 125 mcg PO QWEEK RF: 0 multivitamin Tablet 1 tab PO DAILY RF: 0 biotin 800 mcg tablet 800 mcg PO DAILY RF: 0 aspirin 81 mg tablet,delayed release (DR/EC) 81 mg PO DAILY Qty: 1 RF: 0 omeprazole 20 MG capsule,delayed release(DR/EC) 20 mg PO DAILY RF: 0 lisinopril-hydrochlorothiazide 20-12.5 mg tablet 0.5 tab PO DAILY RF: 0 escitalopram oxalate 10 mg tablet 10 mg PO DAILY RF: 0 escitalopram oxalate [Lexapro] 10 mg Tablet 10 mg PO DAILY RF: 0 Primary Care Provider: Jelani Davis
[2021-03-06 21:51] LABS: Differential Indicated SCAN CRITERIA MET
[2021-03-06 21:58] LABS: Anion Gap 10 (5-15); BUN 23 mg/dL (7-18); BUN/Creat Ratio 34.4 RATIO (10-20); Calcium,Total 9.2 mg/dL (8.5-10.1); Chloride 105 mmol/L (98-107); Creatinine, Serum 0.67 mg/dL (0.55-1.02); EST Glomerular Filtration Rate 96 mL/min (>60); Est Glom Filt Rate - Afr Amer 116 mL/min (>60); Estimated Creatinine Clearance 81.35 ml/min; Glucose 105 mg/dL (74-106); Potassium 4.3 mmol/L (3.5-5.1); Sodium Level 137 mmol/L (136-145); Troponin-I HS 5.7 pg/mL (3.0-53.7)
[2021-03-06 22:00] LABS: Differential Comment SCANNED
[2021-03-06 22:19] VITALS: BP 139/84; PULSE 76; RESP 19; O2SAT 98
[2021-03-06] MEDS: Ondansetron 4 MG/2 ML Vial IV (22:24)
[2021-03-06] MEDS: Morphine 4 MG/ML Syringe IV (22:24)
--- NOTE | 2021-03-06 23:28 | EKG12_ITS ---
Test Reason : REPEAT EKG Blood Pressure : / mmHG Vent. Rate : 070 BPM Atrial Rate : 070 BPM P-R Int : 144 ms QRS Dur : 084 ms QT Int : 412 ms P-R-T Axes : 059 004 014 degrees QTc Int : 444 ms Normal sinus rhythm Voltage criteria for left ventricular hypertrophy Nonspecific T wave abnormality Abnormal ECG Confirmed by JUAN LARSON, KEVIN ([id number]), assistant editor YUNIOR SCOTT ([id number]) on 03/08/2021 10:12:34 A M Referred By: PL/IGL Confirmed By:ANTONIE MARTINEZ MD
[2021-03-06 23:40] VITALS: BP 153/79; PULSE 75; RESP 19; O2SAT 96
[2021-03-07] LABS: Troponin-I HS 4.8 pg/mL (3.0-53.7)
[2021-03-07 00:34] VITALS: BP 164/82; PULSE 74; RESP 18; O2SAT 99
== END 2021-03-07 00:35 | disposition home or self-care (01) ==
PROVIDERS: Emergency Provider Student in an Organized Health Care Education/Training Program; PCP Family Medicine
DX: R07.9 Chest pain, unspecified (principal); R06.00 Dyspnea, unspecified; Z86.16 Personal history of COVID-19; E66.9 Obesity, unspecified; I10 Essential (primary) hypertension; K21.9 Gastro-esophageal reflux disease without esophagitis; R06.02 Shortness of breath; Z79.82 Long term (current) use of aspirin
CPT/HCPCS: 71045; 80048; 84484; 85025; 93005; 96374; 96375; 99284; A4216; J2405

== ENCOUNTER 2021-03-08 06:49 | Day surgery (SDC) | payer MEDICAID, SELFPAY ==
[2021-01-24 11:42] VITALS: BMI 39.2
--- NOTE | 2021-02-11 08:41 | PCM.HP.BLA ---
History and Physical Date of Admission: 02/15/21 [id number] [place], [place] [phone] OFFICE VISITDate of Service: 01/24/21 MR#:[id number]:[id number]: JAY SIMON #[id number]:[id number] Provider:Dr. Dave Wheeler MDAge/Sex: 60/F [facility] HPI HPI History of Present Illness Surgical H&P: Yes Details: This is a 60-year-old white female who presents today for concerns of ongoing chest discomfort and shortness of breath/dyspnea status post COVID-19 for additional cardiovascular evaluation. She has undergone previous noninvasive and invasive cardiovascular evaluation in the past. In April 2015 she underwent a diagnostic cardiac catheterization at [facility]. The results of her study are as noted below. In brief her left ventricle was normal with an LVEF of 65% and she had angiographically normal-appearing coronary arteries. She notes in June 2020 she was hospitalized at [facility] for concerns of COVID-19. She states she spent 4 days in the hospital. She was not in the ICU, she does not recall receiving any special medication , and she does not recall requiring O2 therapy. During that time she underwent a transthoracic echocardiogram and subsequently a pharmacologic stress nuclear imaging study. The results of those studies are noted below. She states since being out of the hospital she has had continued chest discomfort. She notes the chest discomfort is precordial and/or left-sided. She states at times it feels like there is a heavy weight sitting on her chest. At other times she has intermittent sharp left-sided chest discomfort. She notes this is random and is not necessarily tied to any particular activity. She does not find anything that makes it necessarily better or worse. It can last for various periods of time/hours. She also states she has been chronically short of breath and dyspneic. She has not had orthopnea or PND or peripheral pitting edema. There is been no near syncope or syncope. She states she is now following with the [facility] Covid recovery unit. She had a recent evaluation. She states that laboratory studies were obtained as well as a chest x-ray. Those results are unavailable for review. She had an ECG in the office today. She was noted to be in sinus rhythm with voltage criteria compatible with LVH. She states based upon her ongoing concerns of chest discomfort and her shortness of breath and dyspnea she was referred for further cardiac evaluation. Intake Vital Signs 01/24/21 11:42 Height 5 ft 5 in Weight: 235 lb 8 oz BMI 39.2 BP 130/80 H Blood Pressure Location Lt brachial Position Sitting Respiration 18 Pulse 64 Pulse Source Auscultation Intake Visit Reasons: Dyspnea/CP/Ref. [employer] Required: No Accompanied by: Self Allergies No Known Allergies Allergy (Verified 01/24/21 11:45) Medications omeprazole 20 mg PO DAILY 07/25/20 [History Confirmed 01/24/21] aspirin 81 mg tablet,delayed release 81 mg PO DAILY #1 tab 01/24/21 [Rx Confirmed 01/24/21] biotin 800 mcg tablet 800 mcg PO DAILY 01/24/21 [History Confirmed 01/24/21] cholecalciferol (vitamin D3) 125 mcg (5,000 unit) tablet 125 mcg PO QWEEK tab 01/24/21 [History Confirmed 01/24/21] escitalopram oxalate 10 mg tablet 10 mg PO DAILY tab 01/24/21 [History Confirmed 01/24/21] lisinopril 20 mg-hydrochlorothiazide 12.5 mg tablet 0.5 tab PO DAILY tab 01/24/21 [History Confirmed 01/24/21] meloxicam 7.5 mg tablet 7.5 mg PO DAILY PRN 01/24/21 [History Confirmed 01/24/21] multivitamin 1 tab PO DAILY 01/24/21 [History Confirmed 01/24/21] [facility] Medical History COVID-19 Essential hypertension GERD (gastroesophageal reflux disease) Lactic acidosis Pneumonia due to COVID-19 virus SOB (shortness of breath) Surgical History H/O: hysterectomy History of left heart catheterization (LHC) (~05/08/15) Family History (Updated 01/24/21 @ 11:58 by Diana Dai) Mother COPD (chronic obstructive pulmonary disease) CHF (congestive heart failure) Kidney failure CAD (coronary artery disease) Myocardial infarction Father CVA (cerebral vascular accident) Brother Myocardial infarction CAD (coronary artery disease) Sister Heart disease Social History Smoking Status: Never smoker alcohol intake: never substance use type: does not use caffeine: Yes Type: carbonated beverages Number of servings: 3 ROS Const Const: Positive for fatigue (good/bad days); Negative for weakness, frequent falls, excessive sweating, weight gain or weight loss Eyes Eyes: Negative for transient loss of vision, blurry vision or change in vision ENT ENT: Negative for dizziness or balance problems Cardio Chest Pain: Yes Character: sharp, dull and other (heaviness) Onset: at rest and exercise Location: mid sternal (occasional), left chest (majority of time) and right chest (occasional) Duration: minutes Palpitations: No Edema: None Muscle aches with walking: None Resp Respiratory: Positive for SOB with activity (progressively increased since COVID), SOB at rest (progressively increased since COVID), Cough (increased; dry) and other (CPAP @ night) GI GI: Negative vomiting or vomiting blood/hematemesis : Negative for hematuria Musc Musc: Negative for muscle aches/ myalgia, muscle weakness, joint pain or balance problems Skin Skin: Negative non-healing lesions or rash Neuro Neuro: Negative for dizziness, lightheadedness, orthostatic symptoms, frequent falls, weakness or blurry vision [place] Hematologic/Lymphatic: Negative for easy bleeding Endo Endo: Positive for fatigue (good/bad days); Negative for excessive sweating Psych Psych: Negative for anxiety or depression Allergy Allergy/Immunology: Negative for hives and Negative for rash Cardiology Exam Const Appearance: cooperative, healthy appearing, comfortable, no acute distress, well developed and well groomed Nutritional Appearance: obese Orientation: alert, awake and oriented x3 Head Head: normal to inspection, normocephalic and atraumatic Ears: hearing grossly normal bilaterally Nose: external nose normal Face and Sinus: face symmetric Eyes Eyelids: eyelids normal Conjunctivae: conjunctivae normal Pupils: PERRL EOM: EOM intact bilaterally Neck Neck: normal visual inspection and full ROM Carotids: normal carotid upstroke Chest Chest inspection: normal inspection of the chest, symmetric chest movement and normal respiratory effort Auscultation: Bilateral: Inspiratory Wheezes Cardio Palpation: normal PMI Rate: regular rate Rhythm: regular rhythm Heart sounds: S1 normal and S2 normal GI GI: normal to inspection, soft, bowel sounds present and obese Neuro General: patient alert, patient awake, patient oriented x3 and moves all extremities Skin Skin: no rashes or lesions noted Extremities Pulses: Normal: Right Radial Pulse and Left Radial Pulse Lower Extremity Edema: None: Bilateral Psych Psychological: normal affect Assessment and Plan Assessment and Plan (1) SOB (shortness of breath): Status: Acute Orders: Orders: 12 Lead EKG performed by BMS Today Left Heart Cath/COR/LV Percut Today Basic Metabolic Profile (BMP) Today Partial Thromboplast Time Today Prothrombin Time w/INR Today CBC W/Diff, Automated Today Plan - Dr. Dave Wheeler MD: At the present time she continues with shortness of breath and dyspnea. The etiology may be related to her COVID-19 exposure. She is concerned about any other cardiovascular etiologies to explain it especially noting she has ongoing chest discomfort as well. (2) Chest tightness: Status: Acute Orders: Orders: 12 Lead EKG performed by BMS Today Left Heart Cath/COR/LV Percut Today Basic Metabolic Profile (BMP) Today Partial Thromboplast Time Today Prothrombin Time w/INR Today CBC W/Diff, Automated Today Plan - Dr. Dave Wheeler MD: She does have chest discomfort. She has symptoms that are somewhat suspicious for angina pectoris. She also has symptoms that are somewhat atypical. She does not appear to have symptoms classic for mild pericardial related events. She has been through noninvasive studies thus far as noted above. (3) Essential hypertension: Status: Acute Orders: Orders: 12 Lead EKG performed by BMS Today Left Heart Cath/COR/LV Percut Today Basic Metabolic Profile (BMP) Today Partial Thromboplast Time Today Prothrombin Time w/INR Today CBC W/Diff, Automated Today Plan - Dr. Dave Wheeler MD: Her blood pressure appears to be reasonably well controlled at this time. She will continue medical management. (4) ASHLI (obstructive sleep apnea): Status: Acute Comment: AHI 9.9 started AutoPap 5 to 20 cm of water Orders: Orders: 12 Lead EKG performed by BMS Today Left Heart Cath/COR/LV Percut Today Basic Metabolic Profile (BMP) Today Partial Thromboplast Time Today Prothrombin Time w/INR Today CBC W/Diff, Automated Today Plan - Dr. Dave Wheeler MD: She does appear to have ASHLI. She states she does wear a CPAP device at night. Plan Details Other Medications: New: aspirin 81 mg PO DAILY 1 TAB 0RF Additional Comments: At the present time it is unclear whether her symptoms are related to the development of cardiovascular disease such as CAD that would contribute to her chest discomfort and her difficulty breathing versus being noncardiac in etiology and related to her underlying pulmonary process via COVID-19 exposure versus another pulmonary process. From a cardiac standpoint a discussion was held with her as to how she wants to pursue this with either no further cardiac evaluation at this time and following with pulmonology versus based upon her ongoing concerns and no other explanation for her symptoms under consider definitive at this time pursuing repeat evaluation which would be of her coronary arteries with diagnostic cardiac catheterization and depending upon the findings knowing that this is not the issue for her symptoms versus if she has developed underlying CAD that was not detected on her noninvasive studies then she may need further cardiac evaluation and care. The options were discussed. The procedures and risks were discussed. At the present time the consensus was to proceed with further cardiac evaluation which would include diagnostic cardiac catheterization. In the interim she will be asked to initiate medical therapy with aspirin 81 mg p.o. daily. She will continue to follow with her grab hooker as well. Thank you for allowing me to participate in the care of your patient. Please don't hesitate to call if any issues arise. This note was generated using a voice recognition system and there may be incorrect words, spelling or punctuation that were not noted when reviewing the office note prior to saving. Follow Up: 01/24/21 (copy of [facility] labs and CXR reports) 3 Months (PFM) COVID (Procedure Consent) Procedure Criteria Procedure Criteria: Yes Elective The surgeon/proceduralist and patient have discussed in detail the risk of exposure to and/or potential harm posed by the COVID-19 virus with having a surgery/procedure at this time versus the risk of delaying the surgery/procedure. It is not possible to know either the risk of delaying the surgery or procedure or chance of getting an infection with perfect accuracy, but a joint decision was made between the patient and the surgeon/proceduralist to proceed at this time with the scheduled surgery/procedure as indicated on the consent form. Coding Level of Care Code Off vis,new,level 5 Diagnoses SOB (shortness of breath) R06.02 Chest tightness R07.89 Essential hypertension I10 ASHLI (obstructive sleep apnea) G47.33 Coding Level of Care Code Off vis,new,level 5 Diagnoses SOB (shortness of breath) R06.02 Chest tightness R07.89 Essential hypertension I10 ASHLI (obstructive sleep apnea) G47.33 Supplemental Info Supplemental Information Transthoracic echocardiogram: 07-26-2020 Interpretation Summary The estimated ejection fraction is 65 %. No evidence for diastolic dysfunction. The left atrium is mildly enlarged. Stress test: 07-28-2020 Stress Test Report Pharmacologic myocardial perfusion stress test. 60-year-old lady with a history of chest pain. Stress protocol: Resting EKG demonstrates normal sinus rhythm with a rate of 63 bpm resting blood pressure is 124/72 mmHg. 0.4 mg of regadenoson was infused per usual protocol followed by rapid intravenous saline flush injection continuous EKG monitoring was performed. The maximum heart rate attained was 93 bpm which was 57% of max impacted heart rate the maximum workload was 1 metabolic equivalent. At rest there were no ST or T wave changes noted suggest ischemia at peak infusion nonspecific ST-T wave changes were noted. No clinical angina was noted the test was terminated due to completion of the protocol. The resting blood pressure was 124/72 with a peak blood pressure 126/70 mmHg. Myocardial perfusion protocol. 12.0 mCi of technetium 99m sestamibi was injected at rest. 0.4 mg of regadenoson was infused per usual protocol. At peak infusion 36.0 mCi of technetium 99m sestamibi was injected stress images were obtained stress and rest images were reconstructed and compared in the short axis vertical long horizontal long axis. Gated images were also obtained Perfusion SPECT analysis: Review of the stress images demonstrate normal uptake of tracer noted in all areas of the myocardium the resting images similarly demonstrate normal uptake of tracer noted in all areas of the myocardium. No areas of reversibility are noted suggest ischemia no previous infarct is noted. Gated SPECT analysis: The gated ejection fraction is noted to be 76%. Conclusion: Normal pharmacologic myocardial perfusion stress test. Preserved ejection fraction. Cardiac catheterization: 05-08-2015 Date of Procedure: 05/08/15 Procedure: Left heart catheterization, left ventriculogram, coronary arteriography Indications: Chest discomfort; abnormal transthoracic echocardiogram Consent: Per patient Premedications: Versed 2 mg IV push total Procedure: He patient was brought to the cardiac catheterization laboratory and laid supine on the cardiac catheterization table. The right inguinal area was prepped and draped in the standard sterile fashion. 2% Xylocaine was used for local anesthesia. Using the modified Seldinger technique the right femoral artery was cannulated and a #4 Israeli arterial sheath was placed. A #4 Israeli JL4 Radha left coronary artery catheter was advanced under fluoroscopic guidance to the level of the central aorta where central aortic pressure was noted. This catheter was then used to engage the left coronary ostium where selective left coronary arteriography was performed in multiple views. This catheter was then exchanged over a J-tipped guidewire for a #4 Israeli JR 4 Radha right coronary artery catheter. This catheter was then advanced to the level of the central aorta where central aortic pressure was noted. It was then used to engage the right coronary ostium where selective right coronary arteriography was performed in multiple views. This catheter was then exchanged over the J-tipped guidewire for a #4 Israeli pigtail catheter. This catheter was then advanced to the level of the central aorta and with the assistance of the J-tipped guidewire prolapsed across the aortic valve into the left ventricle. Left ventricular pressure was measured recorded. A plane ESPINAL left ventriculogram was performed using 36 mL of Isovue at 12 mL/s. Left ventricular pressure was measured and recorded. The left heart pullback procedure was performed. All catheters and sheaths were eventually removed. Direct pressure was held for adequate hemostasis was achieved. There was no apparent bleeding, hematoma, or complication otherwise prior to leaving the cardiac catheterization laboratory. Findings: Hemodynamics: Pre-angiographic dye load: Central aortic pressure: 195/84 mm Hg Mean central aortic pressure: 128 mm Hg Left ventricular pressure: 188/25 mm Hg Post angiographic dye load: Central aortic pressure: 196/92 mm Hg Mean central aortic pressure: 132 mm Hg Left ventricular pressure: 176/23 mm Hg Left ventricle: Normal left ventricular size, wall motion, and systolic function. The estimated LVEF is 65%. Left main coronary artery: This is a large vessel giving rise to the left anterior descending, left circumflex, and intermediate ramus coronary arteries. It appears to be angiographically normal. Left anterior descending coronary artery: This is a large vessel which courses around the LV apex and gives rise to a small septal bush and vine farmer fruit crops and a small diagonal branching system. The LAD appears to be angiographically normal. Left circumflex coronary artery: This is a large vessel which courses on mainly is a large bifurcating obtuse marginal branch. It appears to be angiographically normal. Intermediate ramus coronary artery: This is a moderate size vessel which appears to course toward the lateral apical area. It appears to be angiographically normal. Right coronary artery: This is a large dominant vessel giving rise to a small to moderate long right PDA, small to moderate right AV segment, and small right posterior lateral system. The RCA system appears to be angiographically normal. Aortic valve annulus: Normal Aortic valve: Normal Aortic root: Normal Mitral valve annulus: Normal Mitral valve: Normal Discussion: The patient demonstrates findings compatible with elevated left ventricular end-diastolic pressure, overall preserved left ventricular size, wall motion, and systolic function, and angiographically normal-appearing coronary arteries. At the present time it appears the patient's chest discomfort as well as a transthoracic echocardiographic findings with respect to the left ventricular regional wall motion abnormalities appear to be noncardiac and a false positive respectively. The patient will need to continue cardiac risk factor evaluation and therapy as deemed appropriate. She should be considered for further non-CAD evaluation of her chest discomfort. Final impression: 1. Elevated left ventricular end diastolic pressure compatible decreased diastolic compliance 2. Left ventricle: A. Normal left ventricular size, wall motion, and systolic function and excellent B. Estimated LVEF of 65% 3. Left main coronary artery: A. Angiographically normal 4. Left anterior descending coronary artery: A. Angiographically normal 5. Left circumflex coronary artery: A. Angiographically normal 6. Intermediate ramus coronary artery: A. Angiographically normal 7. Right coronary artery: A. Large dominant vessel B. Angiographically normal Chest CTA: 07-25-2020 FINDINGS: Normal enhancement of the main pulmonary artery and right and left pulmonary arteries. Normal enhancement of the bilateral peripheral pulmonary arteries. There is no demonstrated pulmonary embolism. Normal thoracic aorta and visualized great vessels. There is no demonstrated aortic dissection. Normal heart and pericardium. Normal mediastinum. Normal hilar regions. Normal visualized trachea and bronchi. The lungs are well expanded. There is a nodule in the right lung upper lobe measures 4 mm axial image #154 has nonspecific appearance. Few Ill-defined subpleural groundglass opacities are seen more suggesting early atypical pneumonia or viral pneumonia (COVID-19 ?). Normal pleura. Normal chest wall structures. Normal osseous structures. Normal visualized upper abdomen. CT/CTA Chest W/WO Contrast IMPRESSION: Few Ill-defined subpleural groundglass opacities are seen more suggesting early atypical pneumonia or viral pneumonia (COVID-19 ?). No demonstrated pulmonary embolism or arterial dissection. There is a nodule in the right lung, lobe measures 6 mm axial image # 105 has nonspecific appearance, it most likely represents a benign lesion. Six-month follow-up would be recommended. Electronically Signed: Dorothy Angel, at 14:23 EST Labs: LDL Cholesterol 118 mg/dL (0-130) HDL Cholesterol 43 mg/dL (40-) Triglycerides 171 mg/dL (-199) VLDL Cholesterol 34 mg/dL (5-40) Diagnostics: Electrocardiogram Echocardiogram Stress Test NM Stress Test Cardiac Catheterization Chest X-Ray Pulmonary: Pulmonary Function Test 01/24/21 1248<Electronically signed by Dave Wheeler MD>Date Dave Wheeler MD Cosigner Signature:Date (if applicable) CC: Dr. Jelani Davis MD ~ I have examined the patient the following changes are noted: Please see updated H&P from 03-04-2021. This note was generated using a voice recognition system and there may be incorrect words, spelling or punctuation that were not noted when reviewing the office note prior to saving.
[2021-02-14 07:14] VITALS: BMI 39.1
[2021-03-01 13:00] LABS: Hemoglobin 13.9 g/dL (12.0-15.0); Mean Corp Hgb Conc 30.9 g/dL (32-36); Mean Corpuscular Hgb 27.4 pg (27.0-32.0); Mean Corpuscular Volume 88.8 fL (81-99); Mean Platelet Vol. 10.6 fl (6.2-12.0); Platelet Count 260 K/mm3 (150-450); RBC Distribution Width CV 13.3 % (11.6-14.6); RBC Distribution Width SD 43.3 fl (35.1-43.9); Red Blood Count 5.07 M/mm3 (4.2-5.4); White Blood Count 8.3 K/mm3 (4.4-11.0)
[2021-03-01 13:05] LABS: Partial Thromboplast Time 29.8 Seconds (24.1-36.2); Prothrombin Time (Protime)PT. 12.9 SECONDS (11.7-14.9)
[2021-03-01 13:20] LABS: Anion Gap 3 (5-15); BUN 15 mg/dL (7-18); BUN/Creat Ratio 23.5 RATIO (10-20); Calcium,Total 9.2 mg/dL (8.5-10.1); Chloride 107 mmol/L (98-107); Creatinine, Serum 0.64 mg/dL (0.55-1.02); EST Glomerular Filtration Rate 101 mL/min (>60); Est Glom Filt Rate - Afr Amer 122 mL/min (>60); Estimated Creatinine Clearance 85.17 ml/min; Glucose 120 mg/dL (74-106); Potassium 4.4 mmol/L (3.5-5.1); Sodium Level 140 mmol/L (136-145)
--- NOTE | 2021-03-04 16:51 | HP.PCM_ITS ---
History and Physical Date of Admission: 03/08/21 [facility] [place], [place] [phone] OFFICE VISITDate of Service: 01/24/21 MR#:[id number]:[id number]: JAY SIMON #:[id number] Provider:Dr. Dave Wheeler, MDAge/Sex: 60/F Locat ion:BMS.WHGStatus:Signed HPI HPI History of Present Illness Surgical H&P: Yes Details: This is a 60-year-old white female who presents today for concerns of ongoing chest discomfort and shortness of breath/dyspnea status post COVID-19 for additional cardiovascular evaluation. She has undergone previous noninvasive and invasive cardiovascular evaluation in the past. In April 2015 she underwent a diagnostic cardiac catheterization at [facility]. The results of her study are as noted below. In brief her left ventricle was normal with an LVEF of 65% and she had angiographically normal-appearing coronary arteries. She notes in June 2020 she was hospitalized at [facility] for concerns of COVID-19. She states she spent 4 days in the hospital. She was not in the ICU, she does not recall receiving any special medication , and she does not recall requiring O2 therapy. During that time she underwent a transthoracic echocardiogram and subsequently a pharmacologic stress nuclear imaging study. The results of those studies are noted below. She states since being out of the hospital she has had continued chest discomfort. She notes the chest discomfort is precordial and/or left-sided. She states at times it feels like there is a heavy weight sitting on her chest. At other times she has intermittent sharp left-sided chest discomfort. She notes this is random and is not necessarily tied to any particular activity. She does not find anything that makes it necessarily better or worse. It can last for various periods of time/hours. She also states she has been chronically short of breath and dyspneic. She has not had orthopnea or PND or peripheral pitting edema. There is been no near syncope or syncope. She states she is now following with the [facility] Covid recovery unit. She had a recent evaluation. She states that laboratory studies were obtained as well as a chest x-ray. Those results are unavailable for review. She had an ECG in the office today. She was noted to be in sinus rhythm with voltage criteria compatible with LVH. She states based upon her ongoing concerns of chest discomfort and her shortness of breath and dyspnea she was referred for further cardiac evaluation. 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: No Accompanied by: Self Allergies No Known Allergies Allergy (Verified 01/24/21 11:45) Medications omeprazole 20 mg PO DAILY 07/25/20 [History Confirmed 01/24/21] aspirin 81 mg tablet,delayed release 81 mg PO DAILY #1 tab 01/24/21 [Rx Confirmed 01/24/21] biotin 800 mcg tablet 800 mcg PO DAILY 01/24/21 [History Confirmed 01/24/21] cholecalciferol (vitamin D3) 125 mcg (5,000 unit) tablet 125 mcg PO QWEEK tab 01/24/21 [History Confirmed 01/24/21] escitalopram oxalate 10 mg tablet 10 mg PO DAILY tab 01/24/21 [History Confirmed 01/24/21] lisinopril 20 mg-hydrochlorothiazide 12.5 mg tablet 0.5 tab PO DAILY tab 01/24/21 [History Confirmed 01/24/21] meloxicam 7.5 mg tablet 7.5 mg PO DAILY PRN 01/24/21 [History Confirmed 01/24/21] multivitamin 1 tab PO DAILY 01/24/21 [History Confirmed 01/24/21] [facility] Medical History COVID-19 Essential hypertension GERD (gastroesophageal reflux disease) Lactic acidosis Pneumonia due to COVID-19 virus SOB (shortness of breath) Surgical History H/O: hysterectomy History of left heart catheterization (LHC) (~05/08/15) Family History (Updated 01/24/21 @ 11:58 by Diana Dia) Mother COPD (chronic obstructive pulmonary disease) CHF (congestive heart failure) Kidney failure CAD (coronary artery disease) Myocardial infarction Father CVA (cerebral vascular accident) Brother Myocardial infarction CAD (coronary artery disease) Sister Heart disease Social History Smoking Status: Never smoker alcohol intake: never substance use type: does not use caffeine: Yes Type: carbonated beverages Number of servings: 3 ROS Const Const: Positive for fatigue (good/bad days); Negative for weakness, frequent falls, excessive sweating, weight gain or weight loss Eyes Eyes: Negative for transient loss of vision, blurry vision or change in vision ENT ENT: Negative for dizziness or balance problems Cardio Chest Pain: Yes Character: sharp, dull and other (heaviness) Onset: at rest and exercise Location: mid sternal (occasional), left chest (majority of time) and right chest (occasional) Duration: minutes Palpitations: No Edema: None Muscle aches with walking: None Resp Respiratory: Positive for SOB with activity (progressively increased since COVID), SOB at rest (progressively increased since COVID), Cough (increased; dry) and other (CPAP @ night) GI GI: Negative vomiting or vomiting blood/hematemesis : Negative for hematuria Musc Musc: Negative for muscle aches/ myalgia, muscle weakness, joint pain or balance problems Skin Skin: Negative non-healing lesions or rash Neuro Neuro: Negative for dizziness, lightheadedness, orthostatic symptoms, frequent falls, weakness or blurry vision [place] Hematologic/Lymphatic: Negative for easy bleeding Endo Endo: Positive for fatigue (good/bad days); Negative for excessive sweating Psych Psych: Negative for anxiety or depression Allergy Allergy/Immunology: Negative for hives and Negative for rash Cardiology Exam Const Appearance: cooperative, healthy appearing, comfortable, no acute distress, well developed and well groomed Nutritional Appearance: obese Orientation: alert, awake and oriented x3 Head Head: normal to inspection, normocephalic and atraumatic Ears: hearing grossly normal bilaterally Nose: external nose normal Face and Sinus: face symmetric Eyes Eyelids: eyelids normal Conjunctivae: conjunctivae normal Pupils: PERRL EOM: EOM intact bilaterally Neck Neck: normal visual inspection and full ROM Carotids: normal carotid upstroke Chest Chest inspection: normal inspection of the chest, symmetric chest movement and normal respiratory effort Auscultation: Bilateral: Inspiratory Wheezes Cardio Palpation: normal PMI Rate: regular rate Rhythm: regular rhythm Heart sounds: S1 normal and S2 normal GI GI: normal to inspection, soft, bowel sounds present and obese Neuro General: patient alert, patient awake, patient oriented x3 and moves all extremities Skin Skin: no rashes or lesions noted Extremities Pulses: Normal: Right Radial Pulse and Left Radial Pulse Lower Extremity Edema: None: Bilateral Psych Psychological: normal affect Assessment and Plan Assessment and Plan (1) SOB (shortness of breath): Status: Acute Orders: Orders: 12 Lead EKG performed by [facility] Today Left Heart Cath/COR/LV Percut Today Basic Metabolic Profile (BMP) Today Partial Thromboplast Time Today Prothrombin Time w/INR Today CBC W/Diff, Automated Today Plan - Dr. Dave Wheeler MD: At the present time she continues with shortness of breath and dyspnea. The etiology may be related to her COVID-19 exposure. She is concerned about any other cardiovascular etiologies to explain it especially noting she has ongoing chest discomfort as well. (2) Chest tightness: Status: Acute Orders: Orders: 12 Lead EKG performed by [facility] Today Left Heart Cath/COR/LV Percut Today Basic Metabolic Profile (BMP) Today Partial Thromboplast Time Today Prothrombin Time w/INR Today CBC W/Diff, Automated Today Plan - Dr. Dave Wheeler MD: She does have chest discomfort. She has symptoms that are somewhat suspicious for angina pectoris. She also has symptoms that are somewhat atypical. She does not appear to have symptoms classic for mild pericardial related events. She has been through noninvasive studies thus far as noted above. (3) Essential hypertension: Status: Acute Orders: Orders: 12 Lead EKG performed by [facility] Today Left Heart Cath/COR/LV Percut Today Basic Metabolic Profile (BMP) Today Partial Thromboplast Time Today Prothrombin Time w/INR Today CBC W/Diff, Automated Today Plan - Dr. Dave Wheeler MD: Her blood pressure appears to be reasonably well controlled at this time. She will continue medical management. (4) ASHLI (obstructive sleep apnea): Status: Acute Comment: AHI 9.9 started AutoPap 5 to 20 cm of water Orders: Orders: 12 Lead EKG performed by [facility] Today Left Heart Cath/COR/LV Percut Today Basic Metabolic Profile (BMP) Today Partial Thromboplast Time Today Prothrombin Time w/INR Today CBC W/Diff, Automated Today Plan - Dr. Dave Wheeler MD: She does appear to have ASHLI. She states she does wear a CPAP device at night. Plan Details Other Medications: New: aspirin 81 mg PO DAILY 1 TAB 0RF Additional Comments: At the present time it is unclear whether her symptoms are related to the development of cardiovascular disease such as CAD that would contribute to her chest discomfort and her difficulty breathing versus being noncardiac in etiology and related to her underlying pulmonary process via COVID-19 exposure versus another pulmonary process. From a cardiac standpoint a discussion was held with her as to how she wants to pursue this with either no further cardiac evaluation at this time and following with pulmonology versus based upon her ongoing concerns and no other explanation for her symptoms under consider definitive at this time pursuing repeat evaluation which would be of her coronary arteries with diagnostic cardiac c atheterization and depending upon the findings knowing that this is not the issue for her symptoms versus if she has developed underlying CAD that was not detected on her noninvasive studies then she may need further cardiac evaluation and care. The options were discussed. The procedures and risks were discussed. At the present time the consensus was to proceed with further cardiac evaluation which would include diagnostic cardiac catheterization. In the interim she will be asked to initiate medical therapy with aspirin 81 mg p.o. daily. 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 Thank you for allowing me to participate in the care of your patient. Please don't hesitate to call if any issues arise. This note was generated using a voice recognition system and there may be incorrect words, spelling or punctuation that were not noted when reviewing the office note prior to saving. Follow Up: 01/24/21 (copy of [facility] labs and CXR reports) 3 Months (PFM) COVID (Procedure Consent) Procedure Criteria Procedure Criteria: Yes Elective The surgeon/proceduralist and patient have discussed in detail the risk of exposure to and/or potential harm posed by the COVID-19 virus with having a surgery/procedure at this time versus the risk of delaying the surgery/procedure. It is not possible to know either the risk of delaying the surgery or procedure or chance of getting an infection with perfect accuracy, but a joint decision was made between the patient and the surgeon/proceduralist to proceed at this time with the scheduled surgery/procedure as indicated on the consent form. Coding Level of Care Code Off vis,new,level 5 Diagnoses SOB (shortness of breath) R06.02 Chest tightness R07.89 Essential hypertension I10 ASHLI (obstructive sleep apnea) G47.33 Coding Level of Care Code Off vis,new,level 5 Diagnoses SOB (shortness of breath) R06.02 Chest tightness R07.89 Essential hypertension I10 ASHLI (obstructive sleep apnea) G47.33 Supplemental Info Supplemental Information Transthoracic echocardiogram: 07-26-2020 Interpretation Summary The estimated ejection fraction is 65 %. No evidence for diastolic dysfunction. The left atrium is mildly enlarged. Stress test: 07-28-2020 Stress Test Report Pharmacologic myocardial perfusion stress test. 60-year-old lady with a history of chest pain. Stress protocol: Resting EKG demonstrates normal sinus rhythm with a rate of 63 bpm resting blood pressure is 124/72 mmHg. 0.4 mg of regadenoson was infused per usual protocol followed by rapid intravenous saline flush injection continuous EKG monitoring was performed. The maximum heart rate attained was 93 bpm which was 57% of max impacted heart rate the maximum workload was 1 metabolic equivalent. At rest there were no ST or T wave changes noted suggest ischemia at peak infusion nonspecific ST-T wave changes were noted. No clinical angina was noted the test was terminated due to completion of the protocol. The resting blood pressure w as 124/72 with a peak blood pressure 126/70 mmHg. Myocardial perfusion protocol. 12.0 mCi of technetium 99m sestamibi was injected at rest. 0.4 mg of regadenoson was infused per usual protocol. At peak infusion 36.0 mCi of technetium 99m sestamibi was injected stress images were obtained stress and rest images were reconstructed and compared in the short axis vertical long horizontal long axis. Gated images were also obtained Perfusion SPECT analysis: Review of the stress images demonstrate normal uptake of tracer noted in all areas of the myocardium the resting images similarly demonstrate normal uptake of tracer noted in all areas of the myocardium. No areas of reversibility are noted suggest ischemia no previous infarct is noted. Gated SPECT analysis: The gated ejection fraction is noted to be 76%. Conclusion: Normal pharmacologic myocardial perfusion stress test. Preserved ejection fraction. Cardiac catheterization: 05-08-2015 Date of Procedure: 05/08/15 Procedure: Left heart catheterization, left ventriculogram, coronary arteriography Indications: Chest discomfort; abnormal transthoracic echocardiogram Consent: Per patient Premedications: Versed 2 mg IV push total Procedure: He patient was brought to the cardiac catheterization laboratory and laid supine on the cardiac catheterization table. The right inguinal area was prepped and draped in the standard sterile fashion. 2% Xylocaine was used for local anesthesia. Using the modified Seldinger technique the right femoral artery was cannulated and a #4 Argentine arterial sheath was placed. A #4 Argentine JL4 Radha left coronary artery catheter was advanced under fluoroscopic guidance to the level of the central aorta where central aortic pressure was noted. This catheter was then used to engage the left coronary ostium where selective left coronary arteriography was performed in multiple views. This catheter was then exchanged over a J-tipped guidewire for a #4 Argentine JR 4 Radha right coronary artery catheter. This catheter was then advanced to the level of the central aorta where central aortic pressure was noted. It was then used to engage the right coronary ostium where selective right coronary arteriography was performed in multiple views. This catheter was then exchanged over the J-tipped guidewire for a #4 Argentine pigtail catheter. This catheter was then advanced to the level of the central aorta and with the assistance of the J-tipped guidewire prolapsed across the aortic valve into the left ventricle. Left ventricular pressure was measured recorded. A plane ESPINAL left ventriculogram was performed using 36 mL of Isovue at 12 mL/s. Left ventricular pressure was measured and recorded. The left heart pullback procedure was performed. All catheters and sheaths were eventually removed. Direct pressure was held for adequate hemostasis was achieved. There was no apparent bleeding, hematoma, or complication otherwise prior to leaving the cardiac catheterization laboratory. Findings: Hemodynamics: Pre-angiographic dye load: Central aortic pressure: 195/84 mm Hg Mean central aortic pressure: 128 mm Hg Left ventricular pressure: 188/25 mm Hg Post angiographic dye load: Central aortic pressure: 196/92 mm Hg Mean central aortic pressure: 132 mm Hg Left ventricular pressure: 176/23 mm Hg Left ventricle: Normal left ventricular size, wall motion, and systolic function. The estimated LVEF is 65%. Left main coronary artery: This is a large vessel giving rise to the left anterior descending, left circumflex, and intermediate ramus coronary arteries. It appears to be angiographically normal. Left anterior descending coronary artery: This is a large vessel which courses around the LV apex and gives rise to a small septal manager product marketing and a small diagonal branching system. The LAD appears to be angiographically normal. Left circumflex coronary artery: This is a large vessel which courses on mainly is a large bifurcating obtuse marginal branch. It appears to be angiographically normal. Intermediate ramus coronary artery: This is a moderate size vessel which appears to course toward the lateral apical area. It appears to be angiographically normal. Right coronary artery: This is a large dominant vessel giving rise to a small to moderate long right PDA, small to moderate right AV segment, and small right posterior lateral system. The RCA system appears to be angiographically normal. Aortic valve annulus: Normal Aortic valve: Normal Aortic root: Normal Mitral valve annulus: Normal Mitral valve: Normal Discussion: The patient demonstrates findings compatible with elevated left ventricular end- diastolic pressure, overall preserved left ventricular size, wall motion, and systolic function, and angiographically normal-appearing coronary arteries. At the present time it appears the patient's chest discomfort as well as a transthoracic echocardiographic findings with respect to the left ventricular regional wall motion abnormalities appear to be noncardiac and a false positive respectively. The patient will need to continue cardiac risk factor evaluation and therapy as deemed appropriate. She should be considered for further non-CAD evaluation of her chest discomfort. Final impression: 1. Elevated left ventricular end diastolic pressure compatible decreased diastolic compliance 2. Left ventricle: A. Normal left ventricular size, wall motion, and systolic function and excellent B. Estimated LVEF of 65% 3. Left main coronary artery: A. Angiographically normal 4. Left anterior descending coronary artery: A. Angiographically normal 5. Left circumflex coronary artery: A. Angiographically normal 6. Intermediate ramus coronary artery: A. Angiographically normal 7. Right coronary artery: A. Large dominant vessel B. Angiographically normal Chest CTA: 07-25-2020 FINDINGS: Normal enhancement of the main pulmonary artery and right and left pulmonary arteries. Normal enhancement of the bilateral peripheral pulmonary arteries. There is no demonstrated pulmonary embolism. Normal thoracic aorta and visualized great vessels. There is no demonstrated aortic dissection. Normal heart and pericardium. Normal mediastinum. Normal hilar regions. Normal visualized trachea and bronchi. The lungs are well expanded. There is a nodule in the right lung upper lobe measures 4 mm axial image #154 has nonspecific appearance. Few Ill-defined subpleural groundglass opacities are seen more suggesting early atypical pneumonia or viral pneumonia (COVID-19 ?). Normal pleura. Normal chest wall structures. Normal osseous structures. Normal visualized upper abdomen. CT/CTA Chest W/WO Contrast IMPRESSION: Few Ill-defined subpleural groundglass opacities are seen more suggesting early atypical pneumonia or viral pneumonia (COVID-19 ?). No demonstrated pulmonary embolism or arterial dissection. There is a nodule in the right lung, lobe measures 6 mm axial image # 105 has nonspecific appearance, it most likely represents a benign lesion. Six-month follow-up would be recommended. Electronically Signed: Dorothy Angel, at 14:23 EST Labs: LDL Cholesterol 118 mg/dL (0-130) HDL Cholesterol 43 mg/dL (40-) Triglycerides 171 mg/dL (-199) VLDL Cholesterol 34 mg/dL (5-40) Diagnostics: Electrocardiogram Echocardiogram Stress Test NM Stress Test Cardiac Catheterization Chest X-Ray Pulmonary: Pulmonary Function Test 01/24/21 1248<Electronically signed by Dave Wheeler MD>Date Dave Wheeler MD Cosigner Signature:Date (if applicable) CC: Dr. Jelani Davis MD ~ Addendum: I have examined the patient the following changes are noted: The patient was evaluated the [facility] emergency department on 03-06-2021 for concerns of her symptoms including chest discomfort. According to the emergency department physician her cardiovascular laboratory studies were negative, demonstrated no acute cardiopulmonary disease process. She was released home to continue with her outpatient cardiovascular evaluation. The patient's case was discussed and reviewed with her. At the present time the recommendation is that she continue with her cardiovascular evaluation including reevaluation, based upon her ongoing symptoms, of her coronary artery status with a diagnostic cardiac catheterization. As noted before the procedure and risk were discussed with her and she was agreeable to this approach. Addendum: 03-08-2021: I have re-examined the patient. There are no clinical changes since date of exam.
--- NOTE | 2021-03-08 08:49 | CL.D_ITS ---
Patient Name: JAY SIMON Study Date: 03/08/2021 Performing: Dave Wheeler MD Ht: 64.96 inches 165 cm : 1960 Wt: 235.89 lbs 107 kg Age: 61 Gender: female BSA: 2.12 PROCEDURE(S) PERFORMED [id number] CLINICAL PROFILE AND INDICATIONS Indications: Suspected CAD Heart Failure: None Stress/Imaging Date: 07/28/2020tress Test with SPECT MPI: Negative Angina Classification Anginal Classification w/in 2 Weeks: Anginal Equivalent Dyspnea CAD Presentations: Other: chest pain / dyspnea on exertion CONCLUSIONS Normal coronary arteries RECOMMENDATIONS Risk factor modification Medical therapy DESCRIPTION OF PROCEDURE The patient arrived to the procedure lab. The risks and benefits of the procedure as well as a full d escription of our services here and current unavailability of surgical backup were fully explained to the patient and/or their significant other prior to the catheterization. The Timeout was completed, verifying the correct patient and procedure. The patient's procedural site was prepped and draped in the usual fashion. Local anesthetic was given subcutaneously to right radial region with Lidocaine 2% . Using a modified Seldinger technique, arterial access was obtained via the right radial artery, a 6 Fr sheath was inserted. Right Coronary Artery selective angiography was then performed in multiple v iews using a 5 Fr. 4.0 [place] catheter. Left Coronary Artery selective angiography was performed in mu ltiple views using a 5 Fr. JL4 catheter.The arterial sheath was pulled and a TR Band was applied for hemostasis CORONARY ANGIOGRAPHY DOMINANCE: Right Dominant LEFT HEART ASSESSMENT Left Ventricular Ejection Fraction: Not assessed LEFT MAIN: Angiographically normal LEFT ANTERIOR DESCENDING ARTERY: Angiographically normal CIRCUMFLEX ARTERY: Angiographically normal RAMUS: Angiographically normal RIGHT CORONARY ARTERY: Angiographically normal COMPLICATIONS No Complications PROCEDURE MEDICATIONS Versed 1 mg IV Fentanyl 50 mcg IV Versed 1 mg IV Fentanyl 50 mcg IV Fentanyl 50 mcg IV Oxygen: 2 L/min via nasal cannula Heparin given IA 03/08/2021 07:53:18 Nitro 100 mcg IC 03/08/2021 08:16:33 Verapamil 2.5mg, Ntg 100mcgs, 3000 units of Heparin given IA 03/08/2021 07:53:18 SUMMARY OF HEMODYNAMIC DATA Time AIR REST ECG 07:14:35 AO 110/63 (85) SA 08:02:47 Signed By Dave Wheeler MD On 03/08/2021 08:48:28 Dave Wheeler MD
== END 2021-03-08 11:15 | disposition home or self-care (01) ==
LOC: CLSP 06:50
PROVIDERS: PCP Family Medicine; Referring Provider Internal Medicine Cardiovascular Disease; Visit Provider Internal Medicine Cardiovascular Disease
DX: R07.89 Other chest pain (principal); R06.00 Dyspnea, unspecified; R06.02 Shortness of breath; G47.33 Obstructive sleep apnea (adult) (pediatric); I10 Essential (primary) hypertension; Z79.82 Long term (current) use of aspirin; Z86.16 Personal history of COVID-19
CPT/HCPCS: 36415; 80048; 85027; 85610; 85730; 93454; 99152; 99153; J7040; Q9967; C1769; C1894

== ENCOUNTER → 2021-03-21 14:05 | Outpatient (CLI) | payer MEDICAID, SELFPAY ==
--- NOTE | 2021-03-21 14:20 | VDLE_ITS ---
Reason For Study: calf pain RIGHT GSV is normal. CFV is compressible, spontaneous, phasic, competent and demonstrates normal augmentation. FV is compressible, spontaneous, phasic, competent and demonstrates normal augmentation. POP V is compressible, spontaneous, phasic, competent and demonstrates normal augmentation. T/P Trunk is compressible. PTV is compressible. RT PerV is compressible. Procedure This is a venous duplex using B-mode, color flow and spectral Doppler. Exam performed in department. The exam was abbreviated due to the COVID 19 protocol. The exam was diagnostic. A preliminary report was called and/or faxed to Dr. Davis. VL/Venous Duplex US, Unilateral Interpretation Summary Deep veins of the right lower extremity are patent and compressible segmentally . There is no evidence of right lower extremity deep vein thrombosis. Valvular competence marcia ears intact within the proximal deep venous system on the right . The right great saphenous vein a ppears patent and compressible segmentally. Ordering Physician: Jelani Davis Performed By: Jesús Whelan RVT
== END ==
PROVIDERS: PCP Family Medicine; Referring Provider Family Medicine; Visit Provider Family Medicine
DX: M79.669 Pain in unspecified lower leg (principal)
CPT/HCPCS: 93971

== ENCOUNTER → 2021-05-06 11:23 | Outpatient (CLI) | payer MEDICAID, SELFPAY ==
[2021-05-06 15:20] LABS: Hematocrit 42.7 % (37-47); Hemoglobin 13.1 g/dL (12.0-15.0); Mean Corp Hgb Conc 30.7 g/dL (32-36); Mean Corpuscular Hgb 27.9 pg (27.0-32.0); Mean Corpuscular Volume 90.9 fL (81-99); Mean Platelet Vol. 12.8 fl (6.2-12.0); Platelet Count 226 K/mm3 (150-450); RBC Distribution Width CV 13.2 % (11.6-14.6); RBC Distribution Width SD 43.9 fl (35.1-43.9); White Blood Count 6.9 K/mm3 (4.4-11.0)
[2021-05-06 15:37] LABS: Anion Gap 4 (5-15); BUN 20 mg/dL (7-18); BUN/Creat Ratio 25.3 RATIO (10-20); Calcium,Total 9.5 mg/dL (8.5-10.1); Chloride 106 mmol/L (98-107); Creatinine, Serum 0.79 mg/dL (0.55-1.02); EST Glomerular Filtration Rate 79 mL/min (>60); Est Glom Filt Rate - Afr Amer 95 mL/min (>60); Glucose 136 mg/dL (74-106); Potassium 4.2 mmol/L (3.5-5.1); Sodium Level 141 mmol/L (136-145)
== END ==
PROVIDERS: Nurse Practitioner Family; PCP Family Medicine; Visit Provider Family Medicine
DX: R79.89 Other specified abnormal findings of blood chemistry (principal); K57.92 Diverticulitis of intestine, part unspecified, without perforation or abscess without bleeding
CPT/HCPCS: 36415; 80048; 82306; 85027

== ENCOUNTER 2021-05-25 22:46 | Emergency (ER) | payer MEDICAID, SELFPAY ==
[2021-05-25 22:47] VITALS: BP 187/79; PULSE 58; RESP 12; TEMP 36.8; BMI 40.7
--- NOTE | 2021-05-25 23:06 | CT_ITS ---
STUDY: CT BRAIN WITHOUT CONTRAST REASON FOR EXAM: Female, 61 years old. Dizziness RADIATION DOSAGE (If Supplied By Facility): CTDIvol = ( 44.99 ) mGy, DLP = ( 812.98 ) mGycm TECHNIQUE: Transaxial CT imaging of the brain was performed without administration of intravenous contrast material. Individualized dose optimization techniques were used for this CT. COMPARISON: No relevant priors. FINDINGS: Normal soft tissue structures. Normal calvarium. Normal size ventricles and extra-axial spaces for the patient''s age. There are areas of decreased attenuation within the white matter tracts of the supratentorial brain, consistent with microvascular disease changes. Normal basal ganglia and thalami. Normal brainstem. Normal cerebellum. There is no intracranial hemorrhage. There are no findings of an acute ischemic infarction. Normal visualized paranasal sinuses. CT/Brain/Head without Contrast IMPRESSION: No acute abnormal intracranial finding. Electronically Signed: Dave Turk MD at 0:36 EDT Tel , Service support ,
--- NOTE | 2021-05-25 23:07 | EDS_ITS ---
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) Context: Sudden Onset (when reclined back in her chair at home) Timing: Intermittent Quality: wierd in head, like I'm going to fall Location: head Current Severity: Mild Maximum Severity: Severe Worsened by: certain position changes Relieved by: remaining still Associated Symptoms Associated Symptoms: tinnitus intermittently earlier today Narrative Narrative: Patient states she was at a neighbor's house [id number] with the kids, she got home and reclined back in her chair and she suddenly felt very off and weird in her head like she was dizzy or going to fall, unsure if she might faint or not. She states EMS got her up, and she felt like she would immediately fall if they let go of her, at this time calling it I would have passed out although she is unsure if she felt lightheaded or not. She denies any recent illness. She had tinnitus earlier in the day off and on, both ears were involved at different times. She denies any of that now and no hearing change, no recent upper respiratory tract infection, no head injuries recently or falls. 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 The other symptoms are thoracic related. [facility] Medical History (Updated 05/26/21 @ 01:[address] Miguel Cervantes MD) Anxiety COVID-19 Essential hypertension GERD (gastroesophageal reflux disease) Lactic acidosis Pneumonia due to COVID-19 virus SOB (shortness of breath) Home Medications omeprazole 20 mg PO DAILY 07/25/20 [History Last Taken 07/24/20] lisinopril 20 mg-hydrochlorothiazide 12.5 mg tablet 0.5 tab PO DAILY tab 01/24/21 [History Last Taken Unknown] meloxicam 7.5 mg tablet 7.5 mg PO DAILY PRN 01/24/21 [History Last Taken Unknown] escitalopram oxalate [Lexapro] 10 mg PO DAILY 03/06/21 [History Last Taken Unknown] meclizine 25 mg PO Q8H PRN PRN #20 tab 05/26/21 [Rx Last Taken Unknown] Allergy/AdvReac Type Severity Reaction Status Date / Time No Known Allergies Allergy Verified 05/13/21 09:11 Family History Mother COPD (chronic obstructive pulmonary disease) CHF (congestive heart failure) Kidney failure CAD (coronary artery disease) Myocardial infarction Father CVA (cerebral vascular accident) Brother Myocardial infarction CAD (coronary artery disease) Sister Heart disease Surgical History H/O: hysterectomy History of left heart catheterization (LHC) (~03/08/21) Social History Smoking Status: Never smoker alcohol intake: never substance use type: does not use caffeine: Yes Type: carbonated beverages Number of servings: 3 ROS ROS ED Constitutional Constitutional ED: Denies chills or fever(s) Eyes Eyes: Reports spots in vision and other Details: No visual loss, diplopia, blurry vision tonight. She has had spots in her vision off and on for the last several weeks that are unchanged tonight. No flashes of light or new floaters suddenly. ; Denies change in vision, diplopia or loss of peripheral vision ENT ENT ED: Denies rhinorrhea or sore throat Cardiovascular Cardiovascular: Reports other Details: Patient denies chest pain currently but has intermittent chest pain chronically ; Denies palpitations Respiratory/Chest Respiratory/Chest: Reports other Details: Chronic dyspnea with exertion and chest discomfort with long hauler syndrome unchanged ; Denies cough or dyspnea Gastrointestinal Gastrointestinal: Denies abdominal pain, diarrhea, nausea or vomiting Genitourinary Genitourinary ED: Denies dysuria or hematuria Musculoskeletal Musculoskeletal: Denies back pain or neck pain Integumentary Denies abscess or rash Neurologic Neurologic: Reports other Details: Denies headache but states it feels weird ; Denies headache(s), paresthesias or weakness Psychiatric Psychiatric: Denies anxiety or suicidal thoughts EXAM Physical Exam Const Vital Signs: 05/25/21 22:47 05/26/21 00:46 05/26/21 01:02 Temperature 98.3 F Temperature Source Oral Pulse Rate 58 L 62 Respiratory Rate 12 12 Respiratory Pattern Normal Blood Pressure 187/79 H 169/93 H Blood Pressure Mean 115 118 Pulse Ox 97 Oxygen Delivery Method Room Air Room Air Positive well nourished and well developed General Appearance ED: well developed and NAD HEENT Reports moist mucous membranes normocephalic and atraumatic Eyes PERRL, EOMs intact bilaterally, conjunctivae normal and no scleral icterus Eyes Narrative: Horizontal nystagmus worst to the right. No vertical or rotatory nystagmus. Neck full ROM and supple Resp normal respiratory effort and clear to auscultation bilaterally Cardio regular rate, regular rhythm and no murmurs GI non-tender and non-distended Auscultation: normoactive bowel sounds Palpation: soft Back/Spine no CVA tenderness General Back: other FROM Extremity normal to inspection General Extremety ED: Negative for edema, pulses abnormal or tenderness General Extremity: Negative for edema or pulses abnormal Neuro oriented x3, CN's II-XII intact bilaterally and no sensory deficits noted Neuro Narrative: Normal dtopuv-[id number] and bchr-ee-[id number] bilaterally. Normal speech no dysarthria. Visual watters intact. NIHSS 0. Rosy-Hallpike causes mild-moderate transient symptoms bilaterally. Sensorium / Orientation: awake and alert Motor Exam: strength 5/5 throughout Skin no rashes or lesions noted and no wounds MDM MDM MDM Narrative Medical decision making narrative: Suspect this patient is having acute peripheral vertigo. CT was obtained since her blood pressure is elevated and she was having unusual head symptoms that she cannot describe, and she was given meclizine. This did help her symptoms. She ambulated to and from the restroom without any symptoms until she went to get in bed and with turning and getting into bed she felt the symptoms again like she was going to fall over. After lying in bed and resting they resolved. Her CT is negative for anything acute. Her blood pressure was elevated when she arrived in the 180s, and after my initial exam she developed a left-sided temporoparietal headache. We rechecked her blood pressure it is 169/93, so I think it is less likely to be from the blood pressure itself, and she was treated with Toradol and Reglan and smaller doses. I think she will be stable to be discharged home with meclizine to use as needed and close outpatient follow-up. The intermittent severe nature of the symptoms and the ear symptoms suggest this is peripheral in nature and not central. Furthermore, the patient takes lisinopril at night before she goes to bed, it is around midnight-1 in the morning and she has not taken tonight's lisinopril yet. Since she has been discharged she can take it when she gets home. She also states she has had elevated blood pressures when she has come to the ER for other things in the past and has a history of anxiety which may also be contributing. Radiography Diagnostic Testing: Clinical Impression(s) from Imaging Studies Brain CT 05/25/21 23:06 IMPRESSION: No acute abnormal intracranial finding. Electronically Signed: Dave Turk MD at 0:36 EDT Tel , Service support , Discharge Plan Triage Chief Complaint: Syncope ED Provider: Miguel Cervantes Dx/Rx/DC Orders Clinical Impression: Vertigo, peripheral, Accelerated hypertension, Cephalgia Instructions: Hypertension Dc, ED Vertigo, Unspecified Prescriptions: New meclizine [meclizine] 25 MG tablet 25 mg PO Q8H PRN PRN (Reason: Dizziness) Qty: 20 RF: 0 No Action meloxicam 7.5 mg tablet 7.5 mg PO DAILY PRN (Reason: Sleep) RF: 0 omeprazole 20 MG capsule,delayed release(DR/EC) 20 mg PO DAILY RF: 0 lisinopril-hydrochlorothiazide 20-12.5 mg tablet 0.5 tab PO DAILY RF: 0 escitalopram oxalate [Lexapro] 10 mg Tablet 10 mg PO DAILY RF: 0 Primary Care Provider: Jelani Davis Referrals: Jelani Davis MD [Primary Care Provider] - 3-5 Days if not improving Activity Restrictions/Additional Instructions: Take your lisinopril as prescribed when you get home. Follow-up with your doctor for blood pressure recheck/reevaluation. Disposition Disposition: Home, Self Care
[2021-05-25] MEDS: Meclizine HCl 25 MG Tablet PO (23:52)
[2021-05-26 00:46] VITALS: BP 169/93; PULSE 62; RESP 12; O2SAT 97
[2021-05-26 02:00] VITALS: BP 161/71; PULSE 62; RESP 11; O2SAT 97
[2021-05-26] MEDS: Metoclopramide 10 MG/2 ML Vial 5 MG IV (02:12)
[2021-05-26] MEDS: Ketorolac 15 MG/ML Vial IV (02:14)
[2021-05-26 02:48] VITALS: BP 157/77; PULSE 64; RESP 19; O2SAT 93
== END 2021-05-26 02:48 | disposition home or self-care (01) ==
PROVIDERS: Emergency Provider Emergency Medicine; PCP Family Medicine
DX: H81.399 Other peripheral vertigo, unspecified ear (principal); R51.9 Headache, unspecified; I10 Essential (primary) hypertension; K21.9 Gastro-esophageal reflux disease without esophagitis; F41.9 Anxiety disorder, unspecified; Z86.16 Personal history of COVID-19
CPT/HCPCS: 70450; 96374; 96375; 99285; A4216

== ENCOUNTER → 2021-05-27 08:07 | Outpatient (CLI) | payer MEDICAID, SELFPAY ==
--- NOTE | 2021-05-27 08:10 | CT_ITS ---
STUDY: CT ABDOMEN AND PELVIS WITH CONTRAST REASON FOR EXAM: Female, 61 years old. DIVERTICULITIS RADIATION DOSAGE (If Supplied By Facility): CTDIvol = ( 17.88 ) mGy, DLP = ( 1232.39 ) mGycm TECHNIQUE: Transaxial images were obtained from the dome of the diaphragm to the symphysis pubis with oral contrast. Oral and amp; IV Readi-CAT and amp; 100mL Isovue-300 was administered. Sagittal and coronal images were reconstructed. Individualized dose optimization techniques were used for this CT. COMPARISON: None. FINDINGS: There is a 4.6 mm noncalcified nodule in the posterior peripheral aspect of the right lower lobe. The visualized portions of the heart are within normal limits. 1.1 cm 1.6 cm hypodense nodule in the lateral peripheral aspect of the midportion of the right lobe of the liver. This is not a typical cyst. This most likely represents a small hemangioma. Correlation with ultrasound is recommended. Normal gallbladder and extrahepatic biliary system. Normal spleen. Normal pancreas. Normal bilateral adrenal glands. Normal right kidney. There is a 1 cm cyst in the posterior medial aspect of the left kidney. There is a small hiatal hernia. Normal small intestine. There are scattered colonic diverticula consistent with diverticulosis. The appendix is visualized and appears normal. Normal abdominal aorta. Normal inferior vena cava. Normal retroperitoneum. Normal urinary bladder. There is absence of the uterus consistent with a prior hysterectomy. There is a small umbilical hernia containing fat. Marked degree of disc space narrowing and disc degeneration at the L5-S1 level. CT/Abdomen/Pelvis WITH Contrast IMPRESSION: Scattered sigmoid diverticula. 1.1 cm x 1 0.6 mL hypodense nodule in the lateral peripheral aspect of the midportion of the right lobe of the liver. Correlation with ultrasound is recommended. Small left renal cyst. 4.6 mm noncalcified nodule in the posterior peripheral aspect of the right lower lobe. Electronically Signed: Fareed Gregorio MD at 9:19 EDT , Service support ,
== END ==
PROVIDERS: PCP Family Medicine; Referring Provider Nurse Practitioner Family; Visit Provider Nurse Practitioner Family
DX: K57.92 Diverticulitis of intestine, part unspecified, without perforation or abscess without bleeding (principal)
CPT/HCPCS: 74177; Q9967

== ENCOUNTER → 2021-06-11 10:45 | Outpatient (CLI) | payer MEDICAID, SELFPAY ==
--- NOTE | 2021-06-11 10:47 | RAD_ITS ---
STUDY: X-RAY CHEST REASON FOR EXAM: Female, 61 years old. Fever and cough TECHNIQUE: PA and lateral views of the chest. COMPARISON: 03/06/2021 FINDINGS: The lungs are clear and expanded. There is no demonstrated pleural abnormality. Normal size heart. Normal mediastinum and paula. Normal visualized pulmonary arteries. Normal visualized aortic arch and descending thoracic aorta. Normal visualized thoracic spine. Normal visualized ribs, clavicles, and shoulders. There is no demonstrated abnormality of the visualized soft tissue structures of the upper abdomen. RAD/Chest PA and Lateral IMPRESSION: No acute pulmonary process Electronically Signed: Roland Ludwig MD at 11:00 EST , Service support ,
== END ==
PROVIDERS: PCP Family Medicine; Referring Provider Family Medicine; Visit Provider Family Medicine
DX: R05.9 Cough, unspecified (principal)
CPT/HCPCS: 71046

== ENCOUNTER → 2021-06-14 08:52 | Outpatient (CLI) | payer MEDICAID, SELFPAY ==
--- NOTE | 2021-06-14 08:57 | US_ITS ---
STUDY: ABDOMINAL ULTRASOUND - RIGHT UPPER QUADRANT REASON FOR VISIT: Female, 61 years old . Abnormal hepatic finding on a recent CT scan the abdomen. TECHNIQUE: Ultrasound evaluation of the right upper quadrant was performed with real-time and static kaye-scale imaging. TECHNICAL QUALITY: Adequate. COMPARISON: Comparison is made with prior CT scan of the abdomen dated 05/27/2021. FINDINGS: Liver: The liver is enlarged and measures 18.7 cm. There is increased echogenicity consistent with fatty infiltration. The bile ducts are within normal limits. There is hepatic color flow. The direction of portal flow is hepatopetal. There is a faint 1.9 cm x 1 cm slightly echogenic nodule in the dome of the right lobe of the liver suggestive of possible hemangioma. This corresponds to the finding seen on the CT scan. Gallbladder: Normal distended gallbladder. The gallbladder wall measures 3 mm. There is a negative sonographic Krause''s sign. There is no pericholecystic fluid. There are no gallstones. Common Bile Duct (C.B.D.): The common bile duct measures 3 mm. Pancreas: Normal size of the head, body of the pancreas. The tail portion is obscured due to overlying bowel gas There is normal echogenicity of the pancreas. There is no demonstrated pancreatic mass or cyst. Right Kidney: Normal size of the right kidney. The right kidney measures 10.7 cm x 5.4 cm x 4.9 cm. Normal renal cortex. The right cortex measures 1.2 cm. There is a 1.1 cm x 0.9 cm x 0.7 cm cyst in the upper pole. There is no right hydronephrosis. US/Abdomen Limited IMPRESSION: Hepatomegaly and fatty infiltration of the liver. Faint 1.9 cm x 1 some is slightly echogenic nodule in the dome of the right lobe of the liver suggestive of a possibly hemangioma. Right renal cyst. Electronically Signed: Fareed Gregorio MD at 12:17 EST , Service support ,
== END ==
PROVIDERS: PCP Family Medicine; Referring Provider Family Medicine; Visit Provider Nurse Practitioner Family
DX: K76.89 Other specified diseases of liver (principal)
CPT/HCPCS: 76705

== ENCOUNTER 2021-09-24 12:54 | Outpatient (CLI) | payer MEDICAID, SELFPAY ==
--- NOTE | 2021-09-24 12:58 | RAD_ITS ---
STUDY: X-RAY CHEST REASON FOR EXAM: Female, 61 years old. Fever and cough TECHNIQUE: PA and lateral views of the chest. COMPARISON: 06/11/2021 FINDINGS: The lungs are clear and expanded. There is no demonstrated pleural abnormality. Normal size heart. Normal mediastinum and paula. Normal visualized pulmonary arteries. Normal visualized aortic arch and descending thoracic aorta. Normal visualized thoracic spine. Normal visualized ribs, clavicles, and shoulders. There is no demonstrated abnormality of the visualized soft tissue structures of the upper abdomen. RAD/Chest PA and Lateral IMPRESSION: Normal x-ray examination of the chest. Electronically Signed: Roland Ludwig MD at 17:01 EST ,
[2021-09-24 15:23] LABS: Erythrocyte Sedimentation Rate 29 mm/hr (0-30)
[2021-09-24 15:25] LABS: Absolute Lymphocyte Count 2.77 X10^3/uL (0.83-4.51); Absolute Neutrophil Count 3.9 X10^3/uL (2.0-7.7); Basophil# 0.03 X10^3/uL; Basophil% 0.4 % (0-1); Eosinophil# 0.13 X10^3/uL; Eosinophils% 1.7 % (0-5); Hematocrit 41.8 % (37-47); Hemoglobin 13.2 g/dL (12.0-15.0); Lymphocyte # 2.77 X10^3/ul (0.83-4.51); Lymphocyte % 37.3 % (19-41); Mean Corp Hgb Conc 31.6 g/dL (32-36); Mean Corpuscular Hgb 27.4 pg (27.0-32.0); Mean Corpuscular Volume 86.9 fL (81-99); Mean Platelet Vol. 12.3 fl (6.2-12.0); Monocyte# 0.59 X10^3/uL; Monocyte% 7.9 % (0-10); NRBC Flagged by Analyzer 0 % (0-5); Neutrophil # 3.89 X10^3/uL (2.7-7.7); Neutrophil % 52.4 % (47-70); Platelet Count 223 K/mm3 (150-450); Red Blood Count 4.81 M/mm3 (4.2-5.4); White Blood Count 7.4 K/mm3 (4.4-11.0)
[2021-09-24 16:09] LABS: ALB/GLOB Ratio 0.7 RATIO (0.9-2.4); AST(SGOT) 27 U/L (15-37); Alanine Aminotransfer ALT/SGPT 34 U/L (13-56); Albumin, Serum 3.2 g/dL (3.2-5.0); Alkaline Phosphatase 110 U/L (45-117); Anion Gap 6 (5-15); BUN 15 mg/dL (7-18); BUN/Creat Ratio 24.1 RATIO (10-20); Calcium,Total 8.9 mg/dL (8.5-10.1); Chloride 104 mmol/L (98-107); Creatinine, Serum 0.62 mg/dL (0.55-1.02); EST Glomerular Filtration Rate 104 mL/min (>60); Est Glom Filt Rate - Afr Amer 126 mL/min (>60); Ferritin 88 ng/mL (8-252); Globulin 4.5 g/dL (2.2-4.2); Glucose 95 mg/dL (74-106); Iron 62 ug/dL (50-170); Potassium 3.9 mmol/L (3.5-5.1); Protein, Total 7.7 g/dL (6.4-8.2); Sodium Level 140 mmol/L (136-145); Thyroid Stim Hormone (TSH) 2.29 uIU/mL (0.358-3.74)
[2021-09-24 16:17] LABS: Vitamin B12 573 pg/mL (211-911); Vitamin D,25 Hydroxy 17.7 ng/mL
== END 2021-09-24 23:59 | disposition home or self-care (01) ==
LOC: MTLAB 12:56
PROVIDERS: PCP Family Medicine; Referring Provider Family Medicine; Visit Provider Family Medicine
DX: R05.9 Cough, unspecified (principal); R53.83 Other fatigue
CPT/HCPCS: 36415; 71046; 80053; 82306; 82533; 82607; 82728; 83540; 84443; 85025; 85652

== ENCOUNTER 2021-10-15 11:24 | Outpatient (CLI) | payer MEDICAID, SELFPAY ==
[2021-10-15 12:15] LABS: Erythrocyte Sedimentation Rate 30 mm/hr (0-30)
[2021-10-15 12:19] LABS: Absolute Lymphocyte Count 3.22 X10^3/uL (0.83-4.51); Absolute Neutrophil Count 4.2 X10^3/uL (2.0-7.7); Basophil# 0.04 X10^3/uL; Basophil% 0.5 % (0-1); Eosinophil# 0.13 X10^3/uL; Eosinophils% 1.6 % (0-5); Hematocrit 40.7 % (37-47); Hemoglobin 13.2 g/dL (12.0-15.0); Lymphocyte # 3.22 X10^3/ul (0.83-4.51); Lymphocyte % 38.5 % (19-41); Mean Corp Hgb Conc 32.4 g/dL (32-36); Mean Corpuscular Volume 86.2 fL (81-99); Mean Platelet Vol. 11.6 fl (6.2-12.0); Monocyte# 0.73 X10^3/uL; Monocyte% 8.7 % (0-10); NRBC Flagged by Analyzer 0 % (0-5); Neutrophil # 4.22 X10^3/uL (2.7-7.7); Neutrophil % 50.5 % (47-70); Platelet Count 252 K/mm3 (150-450); RBC Distribution Width CV 13.2 % (11.6-14.6); RBC Distribution Width SD 41.2 fl (35.1-43.9); Red Blood Count 4.72 M/mm3 (4.2-5.4); White Blood Count 8.4 K/mm3 (4.4-11.0)
[2021-10-15 12:35] LABS: Hemoglobin A1c 5.9 % (3.8-5.6)
[2021-10-15 12:48] LABS: ALB/GLOB Ratio 0.7 RATIO (0.9-2.4); AST(SGOT) 38 U/L (15-37); Alanine Aminotransfer ALT/SGPT 76 U/L (13-56); Albumin, Serum 3.3 g/dL (3.2-5.0); Alkaline Phosphatase 119 U/L (45-117); Anion Gap 3 (5-15); BUN 23 mg/dL (7-18); BUN/Creat Ratio 35.6 RATIO (10-20); CRP 8.41 mg/L (0.0-3.0); Calcium,Total 9.4 mg/dL (8.5-10.1); Chloride 108 mmol/L (98-107); Creatinine, Serum 0.65 mg/dL (0.55-1.02); EST Glomerular Filtration Rate 100 mL/min (>60); Est Glom Filt Rate - Afr Amer 121 mL/min (>60); Ferritin 92 ng/mL (8-252); Globulin 4.6 g/dL (2.2-4.2); Glucose 99 mg/dL (74-106); LDH 209 U/L (84-246); Potassium 3.9 mmol/L (3.5-5.1); Protein, Total 7.9 g/dL (6.4-8.2); Sodium Level 140 mmol/L (136-145)
[2021-10-15 13:03] LABS: HIV - WCH Non-Reactive (Nonreactive)
[2021-10-16 14:14] LABS: Anti-Centromere B Ab <0.2 AI (0.0-0.9); Anti-Chromatin <0.2 AI (0.0-0.9); Anti-Jo <0.2 AI (0.0-0.9); Anti-Scleroderma-70 AB 0.5 AI (0.0-0.9); RNP Ab <0.2 AI (0.0-0.9); SJOGREN'S Anti-SS-A test < 0.2 AI (0.0-0.9); SJOGREN'S Anti-SS-B test < 0.2 AI (0.0-0.9); Smith Ab <0.2 AI (0.0-0.9)
[2021-10-16 17:03] LABS: Anti-Mitochondrial AB <20.0 Units (0.0-20.0)
[2021-10-16 17:04] LABS: Anti-dsDNA Ab 1 IU/mL (0-9)
[2021-10-19 07:08] LABS: Angiotensin Convert Enzyme < 15 U/L (14-82); Ceruloplasmin 32.7 mg/dL (19.0-39.0); Cytoplasmic Ab (C-ANCA) <1:20 titer (Neg:<1:20); HEPATITIS B SURFACE AG Negative (Negative); Hepatitis A IgM Antibody Negative (Negative); Hepatitis B Core AB IgM Negative (Negative)
[2021-10-19 09:10] LABS: AFP, Tumor Marker 2.9 ng/mL (0.0-9.2); Anti-Smooth Muscle ABS 12 Units (0-19); Carbohydrate AG 19-9 < 2 U/mL (0-35); Copper, Serum or Plasma 147 ug/dL (80-158); Haptoglobin 158 mg/dL (33-346); Hep C Antibodies <0.1 s/co ratio (0.0-0.9); Perinuclear Ab (P-ANCA) <1:20 titer (Neg:<1:20)
== END 2021-10-15 23:59 | disposition home or self-care (01) ==
LOC: LAB 11:25
PROVIDERS: PCP Family Medicine; Referring Provider Internal Medicine Gastroenterology; Visit Provider Internal Medicine Gastroenterology
DX: K76.0 Fatty (change of) liver, not elsewhere classified (principal)
CPT/HCPCS: 36415; 80053; 80074; 82105; 82164; 82390; 82525; 82728; 83010; 83036; 83516; 83615; 85025; 85652; 86140; 86225; 86235; 86256; 86301; 86703

== ENCOUNTER 2021-10-22 07:58 | Outpatient (CLI) | payer MEDICAID, SELFPAY ==
--- NOTE | 2021-10-22 08:00 | US_ITS ---
STUDY: ABDOMINAL ULTRASOUND - RIGHT UPPER QUADRANT REASON FOR VISIT: Female, 61 years old K76.0 - Fatty (change of) liver, not elsewhere classified TECHNIQUE: Ultrasound evaluation of the right upper quadrant was performed with real-time and static kaye-scale imaging. TECHNICAL QUALITY: Adequate. COMPARISON: Comparison is made with prior study dated 06/14/2021. FINDINGS: Liver: The liver is enlarged and measures 19.1 cm. There is increased echogenicity consistent with fatty infiltration. The bile ducts are within normal limits. There is hepatic color flow. The direction of portal flow is hepatopetal. There is a 1.77 x 1.5 cm x 1.8 cm mildly echogenic nodule in the dome of the right lobe of the liver. This is unchanged. Gallbladder: Normal distended gallbladder. The gallbladder wall measures 2.1 mm. There is a negative sonographic Krause''s sign. There is no pericholecystic fluid. There are no gallstones. Common Bile Duct (C.B.D.): The common bile duct measures 3.6 mm. Pancreas: Normal size of the head, body of the pancreas. The tail portion is obscured due to overlying bowel gas. There is normal echogenicity of the pancreas. There is no demonstrated pancreatic mass or cyst. Right Kidney: Normal size of the right kidney. The right kidney measures 10.5 cm x 5.4 cm x 4.3 cm. Normal renal cortex. The right cortex measures 1.1 cm. There is no demonstrated renal mass or cyst. There is no right hydronephrosis. US/Abdomen Limited IMPRESSION: Hepatomegaly and diffuse fatty infiltration of the liver. Stable 1.77 x 1.5cm x 1.8 cm slightly echogenic nodule in the right lobe of the liver suggestive of hemangioma. Electronically Signed: Fareed Gregorio MD at 15:00 EDT ,
--- NOTE | 2021-10-22 08:05 | US_ITS ---
STUDY: ABDOMINAL ULTRASOUND - ELASTOGRAPHY REASON FOR VISIT: Female, 61 years old. Fatty infiltration of the liver. TECHNIQUE: Liver stiffness measurements were obtained on a [employer] RS 85 ultrasound machine using a CA 1-7 probe following the SRU guidelines. 3 measurements were obtained using a 2-D-SWE method. The IQR/M was 18% suggesting a quality data set. TECHNICAL QUALITY: Adequate. COMPARISON: Comparison is made with prior study done earlier in the day. FINDINGS: Liver: There is evidence of fatty infiltration of the liver and hepatomegaly. Median liver stiffness measured 6.1 kPa. US/Elastography Parenchyma/Organ IMPRESSION: Liver stiffness measures 6.1 kPa compatible with F2-F3 (Mild to moderate liver fibrosis) Metavir score. Electronically Signed: Fareed Gregorio MD at 15:10 EDT ,
[2021-10-29 11:29] LABS: HPV Reflexed? NOT INDICATED
== END 2021-10-22 23:59 | disposition home or self-care (01) ==
LOC: US 07:58
PROVIDERS: Registered Nurse; PCP Family Medicine; Referring Provider Internal Medicine Gastroenterology; Visit Provider Internal Medicine Gastroenterology
DX: Z12.4 Encounter for screening for malignant neoplasm of cervix (principal); K76.0 Fatty (change of) liver, not elsewhere classified
CPT/HCPCS: 76705; 76981; 88175; G0145

== ENCOUNTER 2021-10-25 13:18 | Outpatient (CLI) | payer MEDICAID, SELFPAY ==
--- NOTE | 2021-10-25 13:19 | BI_ITS ---
MAMMOGRAPHY - BILATERAL SCREENING REASON FOR EXAM: Female, 61 years old. Routine annual screening examination. PERTINENT HISTORY: Non-contributory. TECHNIQUE: Digital bilateral breast guerda (3D mammographic acquisition) in the CC and MLO projections. 2-D mediolateral oblique (MLO) and craniocaudad (CC) views of both breasts were obtained. CAD: Full Field Digital Mammography with Computer Added Detection was performed. COMPARISON: Comparison is made with prior study done 05/01/2014 and 01/31/2013. FINDINGS: Breast Composition: There are scattered areas of fibroglandular density. There are no dominant masses or suspicious calcifications. Stable small benign-appearing bilateral axillary lymph nodes. No other significant abnormalities are identified. There has been no significant change since the prior study. BI/SCRN MAMM (CAD)W/GUERDA BILAT IMPRESSION: Stable bilateral screening mammogram. Yearly follow-up mammogram recommended. (A) ASSESSMENT CATEGORY: BIRADS Category 2: Benign. A letter regarding these results will be sent to the patient by the facility within 30 days. Approximately 10% of breast cancers are not detected by mammography. A normal mammogram should not delay biopsy of a clinically suspicious abnormality. [id number] Electronically Signed: Fareed Gregorio MD at 14:13 EDT ,
== END 2021-10-25 23:59 | disposition home or self-care (01) ==
LOC: OPBI 13:18
PROVIDERS: PCP Family Medicine; Visit Provider Registered Nurse
DX: Z12.31 Encounter for screening mammogram for malignant neoplasm of breast (principal)
CPT/HCPCS: 77063; 77067

== ENCOUNTER 2021-10-28 16:10 | Outpatient (CLI) | payer MEDICAID, SELFPAY ==
--- NOTE | 2021-10-28 16:41 | MRI_ITS ---
STUDY: MRI ABDOMEN WITH AND WITHOUT CONTRAST REASON FOR EXAM: Female, 61 years old. liver lesion TECHNIQUE: Standardized fat and water weighted pulse sequences were obtained in all 3 orthogonal planes post contrast administration. IV 22ml Dotarem was administered for the contrast portion of the examination. COMPARISON: Ultrasound 10/22/2021, MRI 10/31/2015 FINDINGS: The visualized lung bases are unremarkable. The visualized portions of the heart are within normal limits. 1.2 x 1.7 cm hyperintense T2 and hypointense T1 lesion of segment 8 of the right hepatic lobe on image 10 of series 4 and series 5. Peripheral nodular enhancement and hyperechoic appearance on ultrasound typical of hemangioma and is similar since 2005 MRI. Normal gallbladder and extrahepatic biliary system. Normal spleen. Normal pancreas. Normal bilateral adrenal glands. No hydronephrosis. Simple nonenhancing (BOSNIAK I) bilateral renal cysts. ACR White Paper guidelines (Herts, et al. JACR 2018; 15(2):264-273) suggest no follow-up is necessary. Visualized hollow viscus structures are unremarkable. Normal abdominal aorta. Normal inferior vena cava. Normal retroperitoneum. Normal abdominal wall. Normal osseous structures. MRI/MRI Abd WITH and W/O Contrast IMPRESSION: 1. Stable (2005) benign lesion of the right hepatic lobe, typical of hemangioma. ACR White Paper guidelines ([place], et al. JACR 2017; 14(11):3346-1090.) suggest no follow-up is necessary. Electronically Signed: Geovanny Potter MD ([place]) at 8:58 EDT ,
== END 2021-10-28 23:59 | disposition home or self-care (01) ==
LOC: MRI 16:10
PROVIDERS: PCP Family Medicine; Referring Provider Internal Medicine Gastroenterology; Visit Provider Internal Medicine Gastroenterology
DX: K76.9 Liver disease, unspecified (principal)
CPT/HCPCS: 74183; A9575; A4216

== ENCOUNTER 2021-11-06 06:50 | Outpatient (CLI) | payer MEDICAID, SELFPAY | END 2021-11-06 23:59 | disposition home or self-care (01) | LOC: PSN 06:50 | PROVIDERS: PCP Family Medicine; Visit Provider Nurse Practitioner Acute Care | DX: R06.02 Shortness of breath (principal) | CPT/HCPCS: 94060; 94726; 94729 ==

== ENCOUNTER → 2021-11-12 | Outpatient (CLI) | payer MEDICAID, SELFPAY | END | disposition home or self-care (01) | LOC: SL 21:04 | PROVIDERS: PCP Family Medicine; Visit Provider Nurse Practitioner Acute Care | DX: G47.33 Obstructive sleep apnea (adult) (pediatric) (principal) | CPT/HCPCS: 95811 ==

== ENCOUNTER → 2021-11-13 | Outpatient (CLI) | payer MEDICAID, SELFPAY ==
--- NOTE | 2021-11-06 13:48 | PFTCOMP_ITS ---
COMPLETE PULMONARY FUNCTION TEST INTERPRETATION Brief HPI: Patient is a 61 year old female, currently under the care of Poonam Abarca, who presents to [facility] for complete pulmonary function tests secondary to diagnosis of dyspnea. Respiratory therapist reports good effort and reproducible results. Interpretation: Forced expiration spirometry shows no large airways obstructive ventilatory defect with an FEV1 of 80% predicted. There is no significant bronchodilator response by strict ATS criteria. Spirograms are of good quality and plateau normally. The respiratory flow volume loop shows a normal pattern. Lung volumes by body plethysmography show a normal total lung capacity at 5.04L, 99% predicted. All other lung volumes are within normal limits. Diffusion capacity by carbon monoxide is normal at 76% predicted. The airway resistance is normal. Compared to previous pulmonary function tests from 08/14/20, there is been a significant improvement in FEV1, lung volumes and DLCO. Impression: Grossly normal pulmonary function test with significant improvements compared to July 2020
[2021-11-13 12:51] VITALS: PULSE 58; PULSE 61; PULSE 82; PULSE 87; PULSE 88; PULSE 89; O2SAT 97; O2SAT 98
--- NOTE | 2021-11-14 13:31 | PCM.PSN.6M ---
PSN 6 Minute Walk Test 6 Minute Walk Test 6 Minute Walk Test: 6 Minute Walk Test PSN:6-Minute Walk Test Start: 11/13/21 12:51 Freq: Status: Active Protocol: RESP.6MINW Document 11/13/21 12:51 KANDY (Rec: 11/13/21 12:53 KANDY [id number]) 6 Minute Walk Test Date Performed 11/13/21 Time Performed 12:30 Height 5 ft 5 in Weight: 110.223 kg Weight in Pounds 243.[address]: Poonam Abarca POST OFFICE MANAGER Assistive device used: None Pre-test Oxygen Delivery Method Room Air Pulse Ox (%) 97 Pulse Rate (60-100 beats/min) 58 L Dyspnea Melecio Scale (0-10) 0.5 Exertion Melecio Scale (6-20) 6 1st minute Oxygen Delivery Method Room Air Pulse Ox (%) 98 Pulse Rate (60-100 beats/min) 87 2nd minute Oxygen Delivery Method Room Air Pulse Ox (%) 98 Pulse Rate (60-100 beats/min) 88 Number of Rests Taken 1 3rd minute Oxygen Delivery Method Room Air Pulse Ox (%) 98 Pulse Rate (60-100 beats/min) 82 4th minute Oxygen Delivery Method Room Air Pulse Ox (%) 98 Pulse Rate (60-100 beats/min) 88 5th minute Oxygen Delivery Method Room Air Pulse Ox (%) 98 Pulse Rate (60-100 beats/min) 89 6th minute Oxygen Delivery Method Room Air Pulse Ox (%) 98 Pulse Rate (60-100 beats/min) 88 Dyspnea Melecio Scale (0-10) 5 Exertion Melecio Scale (6-20) 14 Post-test Oxygen Delivery Method Room Air Pulse Ox (%) 98 Pulse Rate (60-100 beats/min) 61 Full Laps Walked 15 Partial Lap, Number of Tiles Walked 36 Total Distance Walked (ft) 921 Interpretation Interpretation: The patient ambulated 921 feet over the course of 6 minutes beginning on room air without assistive devices. Pretesting oxygen saturation was noted to be 97% on room air. With ambulation, the zuly oxygen saturation was 98%. There was no significant exertional oxygen desaturation. Recommendations Recommendations: There is no indication for the use of supplemental oxygen at this time.
== END | disposition home or self-care (01) ==
LOC: PSN 12:34
PROVIDERS: PCP Family Medicine; Visit Provider Nurse Practitioner Acute Care
DX: R06.02 Shortness of breath (principal)
CPT/HCPCS: 94618

== ENCOUNTER 2021-12-03 13:09 | Outpatient (RCR) | payer MEDICAID, SELFPAY | END 2021-12-24 23:59 | LOC: NS 13:09 | PROVIDERS: PCP Family Medicine; Visit Provider Internal Medicine Gastroenterology | DX: Z71.3 Dietary counseling and surveillance (principal); K76.0 Fatty (change of) liver, not elsewhere classified; Z68.39 Body mass index [BMI] 39.0-39.9, adult | CPT/HCPCS: 97802 ==

== ENCOUNTER 2021-12-11 07:55 | Day surgery (SDC) | payer MEDICAID, SELFPAY ==
--- NOTE | 2021-12-11 | ESO_PTH ---
PATIENT: JAY SIMON LOC: [facility] U#:[id number] AGE/SX: 61/F ROOM: RE12/11/[address]: Dr. Kurt Rodriguez DO : 1960 BED: DIS: 12/11/2021 SPEC #: [id number] RECD: 12/11/21 13:03 STATUS: CORNELL SAM #: [id number] LIANNE: 12/11/21 00:[address]: Kurt Rodriguez DEPT: SURGICAL PATHOLOGY RECD BY: Peterson Hernandez ENTERED: 12/11/21 13:03 SP TYPE: LUISA OSBORNE DR: Dr. Usama Davis MD Tissues: A - Esophagus, NOS B - Pylorus C - Duodenum, NOS D - Esophageal mucous membrane Procedures: Special Stain Group II Surgery Specimen Level IV Alcian Blue/PAS (control) HEADER OPERATION: EGD ([facility] [place] with biopsies PRE-OP DIAGNOSIS: Abdomen pain TISSUE SUBMITTED: A ? Distal esophagus biopsy, B ? Pylorus biopsy, C ? Duodenal biopsy, D ? Random esophagus biopsy MICROSCOPIC DIAGNOSIS A. Distal esophagus, biopsy: Fragments of gastroesophageal mucosa with chronic inflammation. Intestinal metaplasia (goblet cell metaplasia) not identified. See comment. B. Pylorus, biopsy: Mild gastritis. See microscopic description and comment. C. Duodenal biopsy: Fragments of duodenal mucosa with mild Sneha gland hyperplasia. D. Esophagus, random biopsy: Fragments of gastroesophageal mucosa with minimal chronic inflammation and congestion. Intestinal metaplasia (goblet cell metaplasia) not identified. See comment. SJ:miguel angel 12/12/2021 COMMENT A. Alcian blue/PAS stain with matched control is used in the evaluation of the specimen. B. The results of immunohistochemistry for Helicobacter pylori will be reported separately ([id number]). D. Alcian blue/PAS stain with matched control is used in the evaluation of the specimen. The specimen predominantly consists of squamous mucosa. MICROSCOPIC DESCRIPTION Slides are reviewed. B. The specimen shows fragments of gastric mucosa with chronic inflammatory cell infiltrates in the lamina propria consisting of lymphocytes and plasma cells, consistent with mild chronic gastritis. GROSS DESCRIPTION A - Received in fixative is one container labeled with the patient's name and designated distal esophagus. The specimen consists of multiple irregular fragments of light dasilva soft tissue that in aggregate measure 0.8 x 0.8 x 0.1 cm. The specimen is totally submitted in one cassette. B - Received in fixative is one container labeled with the patient's name and designated pylorus biopsy. The specimen consists of two irregular fragments of light dasilva soft tissue that in aggregate measure 0.5 x 0.5 x 0.1 cm. The specimen is totally submitted in one cassette. C - Received in fixative is one container labeled with the patient's name and designated duodenal biopsy. The specimen consists of two irregular fragments of light dasilva soft tissue that in aggregate measure 0.6 x 0.3 x 0.1 cm. The specimen is totally submitted in one cassette. D - Received in fixative is one container labeled with the patient's name and designated random esophagus biopsy. The specimen consists of multiple irregular fragments of light dasilva soft tissue that in aggregate measure 1 x 0.8 x 0.1 cm. The specimen is totally submitted in one cassette. / SJ:rg 12/11/2021 TC:3 CPT: 59479 x4, 70322 x2
--- NOTE | 2021-12-11 08:06 | HP.PCM_ITS ---
History and Physical Date of Admission: 12/11/21 MELLISA SIMON, is a 61 F who presents to the office today for Initial consult. Mellisa established with this clinic 10.15.21. Abdominal tenderness/pain onset about two months ago with improvement in severity of pain, reports diarrhea that is food triggered and does not feel it is related to abdominal pain. Otherwise she is having a regular bowel movement with complete evacuation. During workup for abdominal pain she had an ultrasound which found liver disease. Reports increased somnolence; uses a CPAP machine and sleep about 14hours a day, PCP repeated testing and found that her oxygen level was dropping during the night and will be having her CPAP adjusted next week. History of COVID infection and with hospitalization with long- hauler syndrome with brain fog, memory impairment and thoracic related issues. Follows with cardiology for post COVID symptoms of chest discomfort and increased SOB. Diagnostic heart catheterization with normal coronary arteries . CT abd/pel 05.27.21 found 1.1x1.6cm hypodense nodule in lateral peripheral aspect of right liver lobe, likely hemangioma ? correlate with US; small hiatal hernia; scattered colonic diverticula. US abd 06.14.21 found hepatomegaly 18.7cm with fatty infiltration with faint 1.9x1cm slightly echogenic nodule in dome of light liver lobe, possibly hemangioma. ROS Const Constitutional: No anorexia, fatigue, fever(s), weight change or sleep problems Eyes Eyes: No change in vision ENT ENT: No abnormal hearing, difficulty swallowing, mouth lesions, tongue swelling or throat swelling Resp Respiratory: No cough or shortness of breath Cardio Cardiology: No chest pain at rest, chest pain with exertion, shortness of breath or dyspnea on exertion Gastro GI: No difficulty swallowing Genitourinary-Female: No difficulty urinating or burning urination Musc Musculoskeletal: No joint pain, joint swelling, muscle weakness or decreased muscle mass Skin Skin: No hair loss in leg, yellowing of the eye, itchy eyes, rash, skin ulcer or skin swelling Neuro Neurology: No abnormal hearing, abnormal movements, confusion, unsteady gait/balance or memory loss Psych Psychiatric: No anxiety, No confusion and No memory loss Endo Endocrine: No fatigue or weight change Aller/Imm Allergy/Immunologic: No itchy eyes, throat swelling or tongue swelling Pino/Lymp Hematologic/Lymphatic: No easy bleeding, easy bruising or enlarged lymph nodes Exam Const General: cooperative and comfortable Nutritional Appearance: average body habitus and well nourished [facility] Head: normal to inspection Ears: hearing grossly normal bilaterally Nose: external nose normal Face and sinus: normal facial exam Mouth: oral mucosae normal Throat: posterior oropharynx normal Eyes General: appearance normal, both eyes and all related structures Neck Neck: normal visual inspection Chest Chest palpation & inspection: normal inspection of the chest and normal palpation of entire chest wall Resp Effort & Inspection: normal respiratory effort Auscultation: Bilateral: Clear to Auscultation Cardio Palpation: normal PMI Rate: regular rate Rhythm: regular rhythm GI Inspection: normal to inspection Auscultation: normal bowel sounds Percussion: normal to percussion Palpation: no hepatosplenomegaly Skin General: no rashes or lesions noted Neuro General: patient alert Extrem General: normal to inspection Psych Affect: normal affect Quality Reporting Tobacco Screening ([facility] 138) Smoking Status: Never smoker Assessment and Plan Assessment and Plan (1) Fatty liver: Status: Acute Orders: Orders: Elastography Parenchyma/Organ 10/15/21 HIV - [facility] 10/15/21 Comprehensive Metabolic Profil 10/15/21 CRP 10/15/21 Ferritin 10/15/21 LDH 10/15/21 Hemoglobin A1c 10/15/21 CBC W/Diff, Automated 10/15/21 Erythrocyte Sed Rate 10/15/21 Anti-Mitochondrial AB 10/15/21 CAREY Comprehensive Panel 10/15/21 Hepatitis Panel Acute 10/15/21 Angiotensin Convert Enzyme 10/15/21 AFP, Tumor Marker 10/15/21 ANCA 10/15/21 Anti-Smooth Muscle ABS 10/15/21 Ceruloplasmin 10/15/21 Copper, Serum or Plasma 10/15/21 Haptoglobin 10/15/21 Carbohydrate AG 19-9 10/15/21 Plan - Dr. Hicks Friend, DO: A biochemical work-up of the liver due to the fact that she has hepatomegaly, likely hemangioma. I will include work-up for autoimmune hepatitis, primary biliary cholangitis, infiltrative diseases that may cause an enlarged liver such as nonalcoholic fatty liver disease, sarcoidosis, amyloidosis, hemochromatosis. We will also continue markers with a baseline. They would include alpha- fetoprotein and a CA 19-9. Alpha-fetoprotein will be elevated and a hepatoma and a CA 19-9 could be elevated and cholangiocarcinoma. (2) Left lower quadrant pain: Status: Acute Plan - Dr. Hicks Friend, DO: She is having some problems consistently possible sigmoid diverticulitis. I will put her on Augmentin for 10 days along with fluconazole if needed and dicyclomine. Plan Details Other Medications: New: amoxicillin-pot clavulanate 500-125 mg (Augmentin) 1 TAB PO BID 10 tabs 0RF dicyclomine take three times a day for seven days 10 mg PO TID 21 caps 1RF I have re-examined the patient. There are no clinical changes since date of exam.
[2021-12-11] MEDS: Lactated Ringers 1,000 ML 15 ML IV (08:10)
[2021-12-11 08:27] VITALS: BP 120/81; PULSE 58; RESP 17; TEMP 36.3; O2SAT 97; BMI 38.2
--- NOTE | 2021-12-11 09:05 | IMM_PTH ---
PATIENT: JAY SIMON LOC: [facility] U#:[id number] AGE/SX: 61/F ROOM: RE12/11/[address]: Dr. Kurt Rodriguez DO : 1960 BED: DIS: 12/11/2021 SPEC #: [id number] RECD: 12/11/21 13:31 STATUS: CORNELL SAM #: [id number] LIANNE: 12/11/21 09:[address]: Kurt Rodriguez DEPT: IMMUNOHISTOCHEMISTRY RECD BY: Valeri Gray ENTERED: 12/11/21 13:31 SP TYPE: IMMUNO OTHR DR: Dr. Usama Davis MD Tissues: B - Pylorus Procedures: H Pylori (initial) PHYSICIAN & INSTITUTION [place] [id number] SPECIMEN INFORMATION: Tissue Source: B ? Pylorus biopsy Clinical Info: Abdomen pain Specimen Number: [id number] CPT code: 95491 METHODOLOGY: Deparaffinized sections of prefer/formalin-fixed tissue or PAP/DQ stained slides are incubated with monoclonal/polyclonal antibodies/oligonucleotide probes. Localization is made via biotin free immunoperoxidase method. Appropriate controls are performed and reacted as expected. Results on target cell population are indicated in the following table: RESULTS: ANTIBODY / CLONE RESULT Block B H Pylori (polyclonal) negative These tests were developed and their performance characteristics determined by [facility]. They may not have been cleared or approved by the U.S. Food and Drug Administration. The FDA has determined that such clearance or approval is not necessary. The above immunohistochemical/dualISH markers are ordered and reviewed by the Pathologist. INTERPRETATION: B. Pylorus, biopsy: Negative for Helicobacter pylori organisms. SJ:miguel angel 12/12/2021
--- NOTE | 2021-12-11 09:56 | OP.EGD_ITS ---
Patient Name: Mellisa oDe Procedure Date: 12/11/2021 9:21 AM Date of : 1960 Age: 61 Procedure: Upper GI endoscopy Indications: Epigastric abdominal pain, Functional Dyspepsia, Dysphagia Providers: Kurt Rodriguez DO Medicines: Monitored Anesthesia Care Patient Profile: This is a 61 year old female. Refer to note in patient chart for documentation of history and physical. Patient has symptoms of acute abdominal cramping, chronic abdominal distention and chronic dyspepsia. Complications: No immediate complications. Procedure: Pre-Anesthesia Assessment: - Prior to the procedure, a History and Physical was performed, and patient medications and allergies were reviewed. The patient is competent. The risks and benefits of the procedure and the sedation options and risks were discussed with the patient. All questions were answered and informed consent was obtained. Patient identification and proposed procedure were verified by the physician in the pre-procedure area. Mental Status Examination: alert and oriented. Airway Examination: normal oropharyngeal airway and neck mobility. Respiratory Examination: clear to auscultation. CV Examination: normal. Prophylactic Antibiotics: The patient does not require prophylactic antibiotics. Prior Anticoagulants: The patient has taken no previous anticoagulant or antiplatelet agents. ASA Grade Assessment: II - A patient with mild systemic disease. After reviewing the risks and benefits, the patient was deemed in satisfactory condition to undergo the procedure. The anesthesia plan was to use moderate sedation / analgesia (conscious sedation). Immediately prior to administration of medications, the patient was re-assessed for adequacy to receive sedatives. The heart rate, respiratory rate, oxygen saturations, blood pressure, adequacy of pulmonary ventilation, and response to care were monitored throughout the procedure. The physical status of the patient was re-assessed after the procedure. After obtaining informed consent, the endoscope was passed under direct vision. Throughout the procedure, the patient's blood pressure, pulse, and oxygen saturations were monitored continuously. The gastroscope was introduced through the mouth, and advanced to the second part of duodenum. The upper GI endoscopy was accomplished without difficulty. The patient tolerated the procedure well. Scope In: 9:39:27 AM Scope Out: 9:48:13 AM Total Procedure Duration Time 0 hours 8 minutes 46 seconds Findings: A moderate Schatzki ring was found in the mid esophagus. A guidewire was placed and the scope was withdrawn. Dilation was performed with a Savary dilator with no resistance at 36 Fr. Mucosal changes including circumferential folds were found in the lower third of the esophagus. Esophageal findings were graded using the Eosinophilic Esophagitis Endoscopic Reference Score (EoE-EREFS) as: Edema Grade 0 Normal (distinct vascular markings), Rings Grade 1 Mild (subtle circumferential ridges seen on esophageal distension), Exudates Grade 0 None (no white lesions seen), Furrows Grade 0 None (no vertical lines seen) and Stricture none (no stricture found). Biopsies were obtained from the proximal and distal esophagus with cold forceps for histology of suspected eosinophilic esophagitis. Verification of patient identification for the specimen was done. Estimated blood loss was minimal. LA Grade A (one or more mucosal breaks less than 5 mm, not extending between tops of 2 mucosal folds) esophagitis with no bleeding was found 38 to 40 cm from the incisors. Biopsies were taken with a cold forceps for histology. Verification of patient identification for the specimen was done. Estimated blood loss was minimal. A small hiatal hernia was present. Patchy mildly erythematous mucosa without bleeding was found in the prepyloric region of the stomach. Biopsies were taken with a cold forceps for histology. Verification of patient identification for the specimen was done. Estimated blood loss was minimal. Patchy mildly erythematous mucosa without active bleeding and with no stigmata of bleeding was found in the duodenal bulb. This was biopsied with a cold forceps for histology. Verification of patient identification for the specimen was done. Estimated blood loss was minimal. Impression: - Moderate Schatzki ring. Dilated. - Esophageal mucosal changes secondary to eosinophilic esophagitis. Biopsied. - LA Grade A reflux esophagitis. Rule out Infante's esophagus. Biopsied. - Small hiatal hernia. - Erythematous mucosa in the prepyloric region of the stomach. Biopsied. - Erythematous duodenopathy. Biopsied. Recommendation: - Discharge patient to home. - Resume previous diet. - Continue present medications. Procedure Code(s): --- Professional --- 58433, Esophagogastroduodenoscopy, flexible, transoral; with insertion of guide wire followed by passage of dilator(s) through esophagus over guide wire [id number], 59, Esophagogastroduodenoscopy, flexible, transoral; with biopsy, single or multiple CPT copyright 2017 [employer]. All rights reserved. The codes documented in this report are preliminary and upon automatic centrifugal station operator review may be revised to meet current compliance requirements. Kurt Rodriguez DO 12/11/2021 9:55:58 AM This report has been signed electronically. Number of Addenda: 1 Note Initiated On: 12/11/2021 9:21 AM Addendum Number: 1 Addendum Date: 04/25/2022 6:19:14 AM MAC was used as sedation for this procedure. Kurt Rodriguez DO 04/25/2022 6:19:18 AM This report has been signed electronically.
--- NOTE | 2021-12-11 09:57 | OP.CCLET_ITS ---
04/25/2022 Jelani Davis [address] [place] [address] Re : Upper GI endoscopy procedure for Mellisa Nader Dear Dr. Davis This procedure was performed on Saturday, December 11, 2021. My impressions and recommendations are as follows: Impressions : - Moderate Schatzki ring. Dilated. - Esophageal mucosal changes secondary to eosinophilic esophagitis. Biopsied. - LA Grade A reflux esophagitis. Rule out Infante's esophagus. Biopsied. - Small hiatal hernia. - Erythematous mucosa in the prepyloric region of the stomach. Biopsied. - Erythematous duodenopathy. Biopsied. Recommendations : - Discharge patient to home. - Resume previous diet. - Continue present medications. My findings are described in the full procedure note, which is enclosed. If I can be of further assistance, please feel free to contact me at . Sincerely, Kurt Rodriguez, 12/11/2021 9:55:58 AM This report has been signed electronically.
== END 2021-12-11 11:15 | disposition home or self-care (01) ==
LOC: EN 07:56 → AC 07:59
PROVIDERS: PCP Family Medicine; Referring Provider Family Medicine; Visit Provider Internal Medicine Gastroenterology
PROC: 0DJ08ZZ Inspection of Upper Intestinal Tract, Via Natural or Artificial Opening Endoscopic (ICD-10-PCS; CPT 43235; principal; 2021-12-11 09:00)
DX: K29.70 Gastritis, unspecified, without bleeding (principal); K21.00 Gastro-esophageal reflux disease with esophagitis, without bleeding; K44.9 Diaphragmatic hernia without obstruction or gangrene; K76.0 Fatty (change of) liver, not elsewhere classified; R13.10 Dysphagia, unspecified; Z86.16 Personal history of COVID-19
CPT/HCPCS: 43239; 43248; 88305; 88313; 88342; J7120; J2405

== ENCOUNTER → 2021-12-31 | Outpatient (CLI) | payer MEDICAID, SELFPAY | END | disposition home or self-care (01) | LOC: SL 13:12 | PROVIDERS: PCP Family Medicine; Visit Provider Nurse Practitioner Acute Care | DX: Z00.00 Encounter for general adult medical examination without abnormal findings (principal) ==

== ENCOUNTER 2022-01-16 08:05 | Outpatient (RCR) | payer MEDICAID, SELFPAY | END 2022-01-23 23:59 | LOC: NS 08:05 | PROVIDERS: PCP Family Medicine; Visit Provider Internal Medicine Gastroenterology | DX: Z71.3 Dietary counseling and surveillance (principal); K76.0 Fatty (change of) liver, not elsewhere classified; Z68.39 Body mass index [BMI] 39.0-39.9, adult | CPT/HCPCS: 97803 ==

== ENCOUNTER 2022-03-18 10:03 | Outpatient (RCR) | payer MEDICAID, SELFPAY | END 2022-03-26 23:59 | LOC: NS 10:03 | PROVIDERS: PCP Family Medicine; Referring Provider Internal Medicine Gastroenterology; Visit Provider Internal Medicine Gastroenterology | DX: Z71.3 Dietary counseling and surveillance (principal); K76.0 Fatty (change of) liver, not elsewhere classified; Z68.37 Body mass index [BMI] 37.0-37.9, adult | CPT/HCPCS: 97803 ==

== ENCOUNTER → 2022-08-07 | Outpatient (CLI) | payer MEDICAID, SELFPAY ==
[2022-08-07 10:07] LABS: Erythrocyte Sedimentation Rate 22 mm/hr (0-30)
[2022-08-07 10:14] LABS: Absolute Lymphocyte Count 3.64 X10^3/uL (0.83-4.51); Basophil# 0.03 X10^3/uL; Basophil% 0.3 % (0-1); Eosinophil# 0.12 X10^3/uL; Eosinophils% 1.4 % (0-5); Hematocrit 40.3 % (37-47); Hemoglobin 12.7 g/dL (12.0-15.0); Lymphocyte # 3.64 X10^3/ul (0.83-4.51); Mean Corp Hgb Conc 31.5 g/dL (32-36); Mean Corpuscular Hgb 28.3 pg (27.0-32.0); Mean Platelet Vol. 11.8 fl (6.2-12.0); Monocyte% 9.2 % (0-10); NRBC Flagged by Analyzer 0 % (0-5); Neutrophil # 4.04 X10^3/uL (2.7-7.7); Neutrophil % 46.8 % (47-70); Platelet Count 239 K/mm3 (150-450); RBC Distribution Width CV 13.2 % (11.6-14.6); RBC Distribution Width SD 43.9 fl (35.1-43.9); Red Blood Count 4.48 M/mm3 (4.2-5.4); White Blood Count 8.7 K/mm3 (4.4-11.0)
[2022-08-07 11:11] LABS: ALB/GLOB Ratio 0.7 RATIO (0.9-2.4); AST(SGOT) 15 U/L (15-37); Alanine Aminotransfer ALT/SGPT 26 U/L (13-56); Albumin, Serum 3.1 g/dL (3.2-5.0); Alkaline Phosphatase 93 U/L (45-117); Anion Gap 6 (5-15); BUN 19 mg/dL (7-18); BUN/Creat Ratio 28.5 RATIO (10-20); CRP 9.46 mg/L (0.0-3.0); Calcium,Total 9.4 mg/dL (8.5-10.1); Chloride 105 mmol/L (98-107); Creatinine, Serum 0.67 mg/dL (0.55-1.02); EST Glomerular Filtration Rate 96 mL/min (>60); Est Glom Filt Rate - Afr Amer 116 mL/min (>60); Globulin 4.6 g/dL (2.2-4.2); Glucose 102 mg/dL (74-106); Potassium 4.2 mmol/L (3.5-5.1); Protein, Total 7.7 g/dL (6.4-8.2); Sodium Level 141 mmol/L (136-145)
== END | disposition home or self-care (01) ==
LOC: LAB 08:51
PROVIDERS: PCP Family Medicine; Referring Provider Nurse Practitioner Adult Health; Visit Provider Nurse Practitioner Adult Health
DX: K76.0 Fatty (change of) liver, not elsewhere classified (principal)
CPT/HCPCS: 36415; 80053; 85025; 85652; 86140

== ENCOUNTER → 2022-11-03 | Outpatient (CLI) | payer MEDICAID, SELFPAY ==
--- NOTE | 2022-11-03 15:31 | RAD_ITS ---
EXAM: XR ABDOMEN, 2 VIEWS CLINICAL INDICATION: CONSTIPATION TECHNIQUE: Frontal view of the abdomen/pelvis with upright view of the abdomen. This report was created using [employer] report generation technology. COMPARISON: Thoracic spine radiographs of this date. FINDINGS: LOWER THORAX: No acute pathology. INTRAPERITONEAL SPACE: No pneumoperitoneum is noted on the upright view. GASTROINTESTINAL TRACT: Scattered gas and a moderate amount of formed stool present throughout the colon. No fecal impaction is noted within the rectum. No abnormally distended bowel loops or significant air-fluid levels. ORGANS: Unremarkable as visualized. No organomegaly. No abnormal calcifications. BONES/JOINTS: Mild lumbar degenerative changes, including L5/S1 marginal osteophytes. SI joints are unremarkable. Osteitis pubis is present. The joint spaces are preserved. SOFT TISSUES: No acute pathology. RAD/Abd Inc Decub and/or Erect IMPRESSION: Scattered gas and a moderate amount of formed stool within the colon. No findings of small bowel obstruction. Electronically Signed: Fidencio Sultana MD at 7:14 EDT ,
--- NOTE | 2022-11-03 15:33 | RAD_ITS ---
EXAM: XR THORACIC SPINE, 3 VIEWS CLINICAL INDICATION: UPPER BACK PAIN TECHNIQUE: Frontal, lateral and swimmer''s views of the thoracic spine. This report was created using [employer] report generation technology. COMPARISON: Chest radiographs of 09/24/2021. FINDINGS: VERTEBRAE: Minimal lower thoracic levoscoliosis. The thoracic pedicles are intact. No compression fracture. Visualized posterior ribs are intact and the visualized lungs are clear. No spondylolisthesis. No significant facet arthropathy. DISC SPACES: The mid thoracic disc spaces show minimal degenerative narrowing with small marginal osteophytes. Swimmer''s view shows moderate degenerative disc space narrowing at the C6/7 level with surrounding osteophytes. OTHER: No paraspinal soft tissue swelling. RAD/Thoracic Spine 3 Views IMPRESSION: Lower cervical and mid thoracic degenerative changes. No fracture or other acute abnormality. Electronically Signed: Fidencio Sultana MD at 6:48 EDT ,
[2022-11-03 17:47] LABS: Absolute Lymphocyte Count 3.49 X10^3/uL (0.83-4.51); Basophil# 0.03 X10^3/uL; Basophil% 0.4 % (0-1); Eosinophil# 0.06 X10^3/uL; Eosinophils% 0.7 % (0-5); Hematocrit 44.5 % (37-47); Hemoglobin 13.5 g/dL (12.0-15.0); Lymphocyte # 3.49 X10^3/ul (0.83-4.51); Lymphocyte % 42.7 % (19-41); Mean Corp Hgb Conc 30.3 g/dL (32-36); Mean Corpuscular Hgb 27.6 pg (27.0-32.0); Mean Corpuscular Volume 90.8 fL (81-99); Mean Platelet Vol. 11.7 fl (6.2-12.0); Monocyte# 0.59 X10^3/uL; Monocyte% 7.2 % (0-10); NRBC Flagged by Analyzer 0 % (0-5); Neutrophil # 3.98 X10^3/uL (2.7-7.7); Neutrophil % 48.8 % (47-70); Platelet Count 240 K/mm3 (150-450); RBC Distribution Width CV 12.9 % (11.6-14.6); White Blood Count 8.2 K/mm3 (4.4-11.0)
[2022-11-03 17:57] LABS: Vitamin B12 462 pg/mL (211-911); Vitamin D,25 Hydroxy 20.5 ng/mL
[2022-11-03 18:02] LABS: Hemoglobin A1c 5.9 % (3.8-5.6)
[2022-11-03 18:15] LABS: Anion Gap 4 (5-15); BUN 17 mg/dL (7-18); BUN/Creat Ratio 24.3 RATIO (10-20); Calcium,Total 9.2 mg/dL (8.5-10.1); Chloride 105 mmol/L (98-107); EST Glomerular Filtration Rate 91 mL/min (>60); Est Glom Filt Rate - Afr Amer 110 mL/min (>60); Ferritin 103 ng/mL (8-252); Glucose 98 mg/dL (74-106); Iron 68 ug/dL (50-170); Potassium 4.3 mmol/L (3.5-5.1); Sodium Level 139 mmol/L (136-145); Thyroid Stim Hormone (TSH) 1.66 uIU/mL (0.358-3.74)
[2022-11-03 18:21] LABS: Erythrocyte Sedimentation Rate 41 mm/hr (0-30)
== END | disposition home or self-care (01) ==
PROVIDERS: PCP Family Medicine; Referring Provider Family Medicine; Visit Provider Family Medicine
DX: Z00.00 Encounter for general adult medical examination without abnormal findings (principal); R53.83 Other fatigue; K59.00 Constipation, unspecified; M54.9 Dorsalgia, unspecified; R73.01 Impaired fasting glucose
CPT/HCPCS: 36415; 72072; 74019; 80048; 82306; 82533; 82607; 82728; 83036; 83540; 84443; 85025; 85652

== ENCOUNTER → 2022-11-18 | Outpatient (CLI) | payer MEDICAID, SELFPAY ==
--- NOTE | 2022-11-18 08:09 | US_ITS ---
STUDY: ABDOMINAL ULTRASOUND - ELASTOGRAPHY REASON FOR VISIT: Female, 62 years old. Fatty infiltration of the liver. TECHNIQUE: Liver stiffness measurements were obtained on a FanBoom RS 85 ultrasound machine using a CA 1-7 probe following the SRU guidelines. 3 measurements were obtained using a 2-D-SWE method. TheIQR/M was 18% suggesting a quality data set. TECHNICAL QUALITY: Adequate. COMPARISON: Comparison is made with prior study of October 22, 2021. FINDINGS: Liver: Fatty infiltration of the liver. Median liver stiffness measured 6.7 kPa. Abdomen: There is no demonstrated mass lesion. US/Elastography Parenchyma/Organ IMPRESSION: Liver stiffness measures 6.7 kPa compatible with F2-F3 (Mild to moderate liver fibrosis) Metavir score. Electronically Signed: Fareed Gregorio MD at 10:21 EDT ,
--- NOTE | 2022-11-18 08:09 | US_ITS ---
STUDY: ABDOMINAL ULTRASOUND - RIGHT UPPER QUADRANT REASON FOR VISIT: Female, 62 years old . Fatty infiltration of the liver. TECHNIQUE: Ultrasound evaluation of the right upper quadrant was performed with real-time and static kaye-scale imaging. TECHNICAL QUALITY: Adequate. COMPARISON: Comparison is made with prior examination dated October 22, 2021. FINDINGS: Liver: The liver measures 15.4 cm. There is increased echogenicity consistent with fatty infiltration. The bile ducts are within normal limits. There is hepatic color flow. The direction of portal flow is hepatopetal. Once again, there is a 2.2 cm x 1.7 cm x 1.8 cm echogenic nodule in the right lobe of the liver suggestive of a small hemangioma. This is in the region of the dome of the liver. Gallbladder: Normal distended gallbladder. The gallbladder wall measures 2.8 mm. There is a negative sonographic Krause''s sign. There is no pericholecystic fluid. There are no gallstones. Common Bile Duct (C.B.D.): The common bile duct measures 4.2 mm. Pancreas: Normal size of the head, body and tail of the pancreas. There is normal echogenicity of the pancreas. There is no demonstrated pancreatic mass or cyst. Right Kidney: Normal size of the right kidney. The right kidney measures 10.7 cm x 5.5 cm x 5 cm. Normal renal cortex. The right cortex measures 1.1 cm. There is no demonstrated renal mass or cyst. There is no right hydronephrosis. US/Abdomen Limited IMPRESSION: Fatty infiltration of the liver. Stable echogenic nodule in the right lobe of the liver suggestive of an hemangioma. Electronically Signed: Fareed Gregorio MD at 9:57 EDT ,
--- NOTE | 2022-11-18 09:22 | BI_ITS ---
MAMMOGRAPHY - BILATERAL SCREENING REASON FOR EXAM: Female, 62 years old. Routine annual screening examination. PERTINENT HISTORY: Non-contributory. TECHNIQUE: Digital bilateral breast guerda (3D mammographic acquisition) in the CC and MLO projections. 2-D mediolateral oblique (MLO) and craniocaudad (CC) views of both breasts were obtained. CAD: Full Field Digital Mammography with Computer Added Detection was performed. COMPARISON: Comparison is made with prior examination October 25, 2021 and May 01, 2014. FINDINGS: Breast Composition: There are scattered areas of fibroglandular density. There are no dominant masses or suspicious calcifications. No other significant abnormalities are identified. There has been no significant change since the prior study. BI/SCRN MAMM (CAD)W/GUERDA BILAT IMPRESSION: Stable bilateral screening mammogram. Yearly follow-up mammogram recommended. (A) ASSESSMENT CATEGORY: BIRADS Category 1: Negative. A letter regarding these results will be sent to the patient by the facility within 30 days. Approximately 10% of breast cancers are not detected by mammography. A normal mammogram should not delay biopsy of a clinically suspicious abnormality. [id number] Electronically Signed: Fareed Gregorio MD at 10:41 EDT ,
== END | disposition home or self-care (01) ==
PROVIDERS: PCP Family Medicine; Referring Provider Nurse Practitioner Adult Health; Visit Provider Nurse Practitioner Adult Health
DX: Z00.00 Encounter for general adult medical examination without abnormal findings (principal); Z12.31 Encounter for screening mammogram for malignant neoplasm of breast; K76.0 Fatty (change of) liver, not elsewhere classified
CPT/HCPCS: 76705; 76981; 77063; 77067

== ENCOUNTER → 2023-01-26 | Outpatient (CLI) | payer MEDICARE, SELFPAY ==
[2023-01-26 18:33] LABS: Erythrocyte Sedimentation Rate 25 mm/hr (0-30)
[2023-01-26 18:49] LABS: BNP,B-Type NATRIURETIC PEPTIDE 35.4 pg/mL (0-100)
[2023-01-29 13:07] LABS: Angiotensin Convert Enzyme < 15 U/L (14-82)
[2023-01-30 21:07] LABS: Alpha Antitrypsin Serum 119 mg/dL (101-187); Alternaria alternata <0.10 kU/L (Class 0); Aspergillus fumigatus <0.10 kU/L (Class 0); Bahia Grass <0.10 kU/L (Class 0); Beef <0.10 kU/L (Class 0); Bermuda Grass <0.10 kU/L (Class 0); Bluegrass, Kentucky <0.10 kU/L (Class 0); Cat Hair/Dander, Standard <0.10 kU/L (Class 0); Cedar, Mountain <0.10 kU/L (Class 0); Chocolate <0.10 kU/L (Class 0); Cladosporium herbarum <0.10 kU/L (Class 0); Cockroach, American <0.10 kU/L (Class 0); Corn <0.10 kU/L (Class 0); D farinae Mite <0.10 kU/L (Class 0); D pteronyssinus <0.10 kU/L (Class 0); Dog Epithelia <0.10 kU/L (Class 0); Egg, Whole <0.10 kU/L (Class 0); Elm, American White <0.10 kU/L (Class 0); Hazelnut Tree <0.10 kU/L (Class 0); Hickory, White <0.10 kU/L (Class 0); Johnson Grass <0.10 kU/L (Class 0); Maple/Box Elder <0.10 kU/L (Class 0); Milk (Cow) <0.10 kU/L (Class 0); Mucor racemosus <0.10 kU/L (Class 0); Mugwort <0.10 kU/L (Class 0); Mulberry, White <0.10 kU/L (Class 0); Nettle <0.10 kU/L (Class 0); Oak, White <0.10 kU/L (Class 0); Peanut <0.10 kU/L (Class 0); Penicillium chrysogen <0.10 kU/L (Class 0); Pigweed, Rough <0.10 kU/L (Class 0); Plantain, English <0.10 kU/L (Class 0); Pork <0.10 kU/L (Class 0); Ragweed, Short/Common <0.10 kU/L (Class 0); Sheep Sorrel(Dock) <0.10 kU/L (Class 0); Soybean <0.10 kU/L (Class 0); Stemphylium herbarum <0.10 kU/L (Class 0); Sweet Gum <0.10 kU/L (Class 0); Sycamore, American <0.10 kU/L (Class 0); Wheat <0.10 kU/L (Class 0)
== END | disposition home or self-care (01) ==
PROVIDERS: PCP Family Medicine; Visit Provider Family Medicine
DX: R06.00 Dyspnea, unspecified (principal); K21.9 Gastro-esophageal reflux disease without esophagitis
CPT/HCPCS: 36415; 82103; 82164; 83880; 85652; 86003; 86005

== ENCOUNTER 2023-02-03 08:00 | Outpatient (RCR) | payer MEDICAID, MEDICARE, SELFPAY ==
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
--- NOTE | 2023-02-03 08:24 | HP.PTDCSUM ---
Discharge Summary D/C summary: It has been my pleasure to treat JAY SIMON referred by Dr. Jelani Davis MD, with the diagnosis of UPPER BACK PAIN ,DDD THORACIC/ LUMBAR for a total of 15 visit(s). Discharge Date: 02/03/23 Please see the following information for a summary of their discharge status. Subjective Subjective: Pt. reports no pain currently, only having pain with getting up out of bed. Loosens up with movement. Pain Bilateral Back: Pain Intensity (Out of 10): 0 Overall Improvement % Improvement: 100 Objective Objective/Function: ROM: CERVICAL SPINE: min/nil loss in all directions. THORACIC: full motion, LUMBAR SPINE: flexion min loss, ext min/nil loss, rotation min/nil loss NE will all. UE MMT: 5/5 throughout. 5/5 cervical isometrics as well. Pt is overall doing much better. She has a good control of her HEP at this point in time. I gave her some stronger bands to continue to use as she progress Goals Goal 1:: Patient to be I with HEP for back Goal Progress: Goal Met Goal 2:: Patient to improve posture body mechanics for ADLS 80% OF THE TIME Goal Progress: Goal Met Goal 3:: Patient to demonstrate 50% improve with decrease thoracic pain by 50 % or > to improve QOLM and function Goal Progress: Goal Met Goal 4:: Patient to improve thoracic /cervical ROM for function of recovery for ADL's Goal Progress: Goal Met Goal 5:: Patient to improve back oswestry score by 5 points to improve QOL. Plan Plan: Pt to be DC from PT at this point in time. D/C Information Discharge Comments: Pt. was treated with both ROM and strengthening for her back and neck pain. Pt. has a good HEP which she is I with. She reports overall high levels of improvement. She will be DC from PT at this point in time. d/c sentence: If there are questions or concerns regarding this patient's physical therapy, please feel free to call me at [phone]. Thank you for the referral of this patient. Sincerely, Kwaku Del Rio Sipos, DPT Balance/Gait/Functional tests Balance/Special Test Scores Oswestry Low Back Score: 3
== END 2023-02-03 09:50 | disposition home or self-care (01) ==
LOC: PT 08:00
PROVIDERS: PCP Family Medicine; Referring Provider Family Medicine; Visit Provider Family Medicine
DX: M51.35 Other intervertebral disc degeneration, thoracolumbar region (principal)
CPT/HCPCS: 97110; 97113; 97162; 97164

== ENCOUNTER → 2023-03-06 | Outpatient (CLI) | payer MEDICARE, MEDICAID, SELFPAY ==
--- NOTE | 2023-03-06 09:21 | RAD_ITS ---
INDICATION: DISC DISEASE LOW BACK PAIN THAT GOES DOWN LEGS. NUMBNESS AND PAIN DOWN BOTH LEGS. HX OF BACK SURGERY. EXAMINATION/TECHNIQUE: X-RAY - XR Spine Lumbar Min 4 Views COMPARISON: XRAY thoracic spine and abdomen 11/03/2022 FINDINGS: Vertebral bodies are normal height. No definite fracture demonstrated. No subluxation. Mild curvature convex right. Mild disc space narrowing and osteophytes most pronounced at L4-5 and L5-S1. Facet arthropathy most pronounced at the lower levels. No paravertebral soft tissue mass identified. RAD/L/S Spine Min 4 Views IMPRESSION: No evidence of fracture or subluxation. Degenerative discogenic disease and facet arthropathy. Electronically Signed: Sue Ritchie MD at 5:46 EDT ,
== END | disposition home or self-care (01) ==
LOC: MTRAD 09:18
PROVIDERS: PCP Family Medicine; Visit Provider Family Medicine
DX: M51.06 Intervertebral disc disorders with myelopathy, lumbar region (principal)
CPT/HCPCS: 72110

== ENCOUNTER → 2023-03-17 | Outpatient (CLI) | payer MEDICARE, MEDICAID, SELFPAY ==
--- NOTE | 2023-03-18 12:39 | PFT ---
INTRODUCTION: The patient is a 63-year-old female who presents for pulmonary function studies secondary to a diagnosis of dyspnea. Respiratory therapy reported good patient effort. Bronchodilators were used during testing. INTERPRETATION: Forced expiration spirometry demonstrates no evidence of a large airways obstructive ventilatory defect. There was no significant response to aerosolized bronchodilators. Spirograms are of good quality and plateau normally. Body plethysmography was performed and revealed lung volumes to be within normal limits. Diffusing capacity by single breath CO was also within normal limits. IMPRESSION: Grossly normal pulmonary function studies.
== END | disposition home or self-care (01) ==
LOC: PSN 08:35
PROVIDERS: PCP Family Medicine; Referring Provider Family Medicine; Visit Provider Family Medicine
DX: R06.00 Dyspnea, unspecified (principal)
CPT/HCPCS: 94060; 94726; 94729

== ENCOUNTER → 2023-05-01 | Outpatient (CLI) | payer MEDICARE, MEDICAID, SELFPAY | END | disposition home or self-care (01) | PROVIDERS: PCP Family Medicine; Referring Provider Family Medicine; Visit Provider Family Medicine | DX: N94.9 Unspecified condition associated with female genital organs and menstrual cycle (principal) | CPT/HCPCS: 87070; 87077; 87086; 87088; 87186; 87205; 87491; 87591 ==

== ENCOUNTER → 2023-07-01 | Outpatient (CLI) | payer MEDICARE, MEDICAID, SELFPAY ==
--- NOTE | 2023-07-01 14:59 | NEURO ---
NCS and/or EMG Patient Report Ordering Doctor: Jelani Davis DATE OF SERVICE: 07/01/23 Mellisa presents for electrodiagnostic testing of the lower limbs. She reports left leg numbness primarily across the lateral aspect of the leg. She has a previous history of's lumbar spine surgery. Electrodiagnostic findings: Left peroneal motor nerve demonstrates normal distal latency, amplitude and conduction velocity. Right peroneal motor nerve demonstrates normal distal latency, amplitude and conduction velocity. Tibial motor nerve demonstrates normal distal latency, amplitude and conduction velocity on the right side. Normal left tibial motor latency and conduction velocity, with an approximately 75% drop in amplitude, compared to the right side. Tibial and peroneal F-waves are normal. Prolonged H-reflex bilaterally. Sural latency bilaterally. Needle EMG testing was performed in the lower limbs. All muscles tested showed no evidence of denervation with normal motor unit action potentials. Electrodiagnostic impression: This is an abnormal study in the lower limbs 1. 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 2. Electrodiagnostic findings are suggestive of a mild sensory polyneuropathy. 3. No electrodiagnostic evidence for lumbosacral radiculopathy. Multi Select Codes Neurology Neurology Interp Codes: 19692-53 Musc test done w/n test comp (interp) (3) and 30455-84 Nrv cndj test 7-8 studies (interp)
== END | disposition home or self-care (01) ==
PROVIDERS: PCP Family Medicine; Referring Provider Family Medicine; Visit Provider Family Medicine
DX: R20.2 Paresthesia of skin (principal)
CPT/HCPCS: 95886; 95911

== ENCOUNTER → 2023-09-14 | Outpatient (CLI) | payer MEDICARE, MEDICAID, SELFPAY ==
[2023-09-14 12:37] LABS: Vitamin D,25 Hydroxy 29.5 ng/mL
== END | disposition home or self-care (01) ==
PROVIDERS: PCP Family Medicine; Referring Provider Family Medicine; Visit Provider Family Medicine
DX: E55.9 Vitamin D deficiency, unspecified (principal)
CPT/HCPCS: 36415; 82306

== ENCOUNTER → 2023-11-20 | Outpatient (CLI) | payer MEDICARE, MEDICAID, SELFPAY ==
--- NOTE | 2023-11-20 09:43 | US_ITS ---
STUDY: ABDOMINAL ULTRASOUND - RIGHT UPPER QUADRANT; ELASTOGRAPHY REASON FOR VISIT: Female, 63 years old. NAFL D TECHNIQUE: Ultrasound evaluation of the right upper quadrant was performed with real-time and static kaye-scale imaging. Point quantification shear wave elastography was performed ([employer]). TECHNICAL QUALITY: Adequate. COMPARISON: Comparison is made with prior examination November 18, 2022. FINDINGS: Liver: The liver is enlarged and measures 19.4 cm. There is increased echogenicity consistent with fatty infiltration. The bile ducts are within normal limits. There is hepatic color flow. The direction of portal flow is hepatopetal. There is a 1.9 cm x 1.7 cm x 1.6 cm echogenic nodule suggestive of a hemangioma in the right lobe of the liver. Median liver stiffness measured 10.9 kPa. Gallbladder: Normal distended gallbladder. The gallbladder wall measures 2.0 mm. There is a negative sonographic Krause''s sign. There is no pericholecystic fluid. There are no gallstones. Common Bile Duct (C.B.D.): The common bile duct measures 5.0 mm. Pancreas: There is normal echogenicity of the visualized pancreas. There is no demonstrated pancreatic mass or cyst. Right Kidney: Normal size of the right kidney. The right kidney measures 10.3 cm x 5.5 cm x 5 cm. Normal renal cortex. The right cortex measures 1.5 cm. There is no demonstrated renal mass or cyst. There is no right hydronephrosis. US/ABD Limited w/ Elastography IMPRESSION: 1. Liver stiffness measures 10.9 kPa compatible with F2-F3 (Mild to moderate liver fibrosis) Metavir score. Electronically Signed: Fareed Gregorio MD at 14:12 EDT ,
== END | disposition home or self-care (01) ==
LOC: US 09:43
PROVIDERS: PCP Family Medicine; Referring Provider Internal Medicine; Visit Provider Internal Medicine
DX: K76.0 Fatty (change of) liver, not elsewhere classified (principal); K29.70 Gastritis, unspecified, without bleeding; E66.9 Obesity, unspecified
CPT/HCPCS: 76705; 76981

== ENCOUNTER → 2024-02-12 | Outpatient (CLI) | payer MEDICARE, MEDICAID, SELFPAY ==
--- NOTE | 2024-02-12 12:13 | BI_ITS ---
MAMMOGRAPHY - BILATERAL SCREENING REASON FOR EXAM: Female, 64 years old. Routine annual screening examination. PERTINENT HISTORY: Non-contributory. TECHNIQUE: Digital bilateral breast guerda (3D mammographic acquisition) in the CC and MLO projections. 2-D mediolateral oblique (MLO) and craniocaudad (CC) views of both breasts were obtained. CAD: Full Field Digital Mammography with Computer Added Detection was performed. COMPARISON: Comparison is made with prior study of November 18, 2022 and October 25, 2021. FINDINGS: Breast Composition: There are scattered areas of fibroglandular density. There are no dominant masses or suspicious calcifications. No other significant abnormalities are identified. There has been no significant change since the prior study. BI/SCRN MAMM (CAD)W/GUERDA BILAT IMPRESSION: Stable bilateral screening mammogram. Yearly follow-up mammogram recommended. (A) ASSESSMENT CATEGORY: BIRADS Category 1: Negative. A letter regarding these results will be sent to the patient by the facility within 30 days. Approximately 10% of breast cancers are not detected by mammography. A normal mammogram should not delay biopsy of a clinically suspicious abnormality. [id number] Electronically Signed: Fareed Gregorio MD at 13:34 EDT ,
== END | disposition home or self-care (01) ==
LOC: OPBI 12:12
PROVIDERS: PCP Family Medicine; Referring Provider Family Medicine; Visit Provider Family Medicine
DX: Z12.31 Encounter for screening mammogram for malignant neoplasm of breast (principal)
CPT/HCPCS: 77063; 77067

== ENCOUNTER → 2024-04-15 | Outpatient (CLI) | payer MEDICARE, MEDICAID, SELFPAY | END | disposition home or self-care (01) | LOC: SL 13:43 | PROVIDERS: PCP Family Medicine; Visit Provider Nurse Practitioner Acute Care | DX: Z00.00 Encounter for general adult medical examination without abnormal findings (principal) ==

== ENCOUNTER 2024-05-01 12:02 | Emergency (ER) | payer MEDICARE, MEDICAID, SELFPAY ==
[2024-05-01] VITALS (10 sets, daily range): BP systolic 119–147; BP diastolic 58–86; PULSE 68–86; RESP 13–21; TEMP 36.6–36.7; O2SAT 66–100; BMI 39.9
--- NOTE | 2024-05-01 12:15 | EKG12_ITS ---
Test Reason : CP Blood Pressure : / mmHG Vent. Rate : 071 BPM Atrial Rate : 071 BPM P-R Int : 140 ms QRS Dur : 084 ms QT Int : 378 ms P-R-T Axes : 039 018 024 degrees QTc Int : 410 ms Normal sinus rhythm with sinus arrhythmia Normal ECG Confirmed by ESPERANZA LARSON, MICAH ([id number]), food expeditor YUNIOR SCOTT ([id number]) on 05/03/2024 10:51:07 AM Referred By: Confirmed By:MICAH MATA MD
--- NOTE | 2024-05-01 12:15 | RAD_ITS ---
HISTORY: chest pain. TECHNIQUE: XR Chest 1 View. COMPARISON: 09/24/2021. FINDINGS: CARDIOMEDIASTINAL BORDERS: Cardiac silhouette within normal limits in size. Mediastinal contour unremarkable. LUNGS: Radiographically clear. PLEURA: No pleural effusion or pneumothorax seen. OSSEOUS STRUCTURES: Unremarkable. RAD/Chest 1 View (Portable) IMPRESSION: No acute cardiopulmonary process identified. Electronically Signed: Taty Turpin MD at 13:58 EDT ,
[2024-05-01] MEDS: LORazepam 2 MG/ML Syringe 0.5 MG IV (12:23)
[2024-05-01] MEDS: Ondansetron 4 MG/2 ML Vial IV (12:23)
[2024-05-01 12:29] LABS: Absolute Lymphocyte Count 3.31 X10^3/uL (0.83-4.51); Absolute Neutrophil Count 3.4 X10^3/uL (2.0-7.7); Basophil# 0.04 X10^3/uL; Basophil% 0.5 % (0-1); Eosinophil# 0.07 X10^3/uL; Eosinophils% 0.9 % (0-5); Hematocrit 40.5 % (37-47); Hemoglobin 12.8 g/dL (12.0-15.0); Lymphocyte # 3.31 X10^3/ul (0.83-4.51); Lymphocyte % 43.8 % (19-41); Mean Corp Hgb Conc 31.6 g/dL (32-36); Mean Corpuscular Hgb 27.2 pg (27.0-32.0); Mean Platelet Vol. 11.9 fl (6.2-12.0); Monocyte# 0.72 X10^3/uL; Monocyte% 9.5 % (0-10); NRBC Flagged by Analyzer 0 % (0-5); Platelet Count 249 K/mm3 (150-450); RBC Distribution Width CV 13.2 % (11.6-14.6); Red Blood Count 4.71 M/mm3 (4.2-5.4); White Blood Count 7.6 K/mm3 (4.4-11.0)
--- NOTE | 2024-05-01 12:39 | EX.ED.DYSGE1 ---
HPI History of Present Illness Chief Complaint: Chest Pain Informant: patient and EMS Narrative Narrative: 64-year-old female states that she was at [employer]ikh[employer] today standing up worshiping when she suddenly felt nauseous lightheaded and developed some chest pain. She states that yesterday a friend of hers was having a port put in and she was listening to them to describe it and she felt like she was going to get sick and almost passed out but this felt different and that it was complicated with her chest pain. She notes a recent heart catheterization that was negative. Prehospital EMS has an EKG that does not show any ischemia. She notes a history of obstructive sleep apnea fatty liver COVID-19 (and has had intermittent chest pain for several years not like this). She describes this more as a chest heaviness in the center of her chest. [facility] Medical History Gastritis Eosinophilic esophagitis Wears glasses Wears partial dentures Depression Diabetes Arthritis Bladder disease Fatty liver Restless legs Injury of head and neck Dietary restriction Difficulty chewing History of hiatal hernia History of diverticulitis Non-smoker CPAP (continuous positive airway pressure) dependence Shortness of breath on exertion Gastric reflux Hypertension History of stress test History of echocardiogram Cardiology follow-up encounter Chest pain Anxiety Essential hypertension Pneumonia due to COVID-19 virus Lactic acidosis GERD (gastroesophageal reflux disease) COVID-19 SOB (shortness of breath) Home Medications ?Medication ?Instructions ?Recorded ?Last Taken ?Type lisinopril 20 0.5 tab PO DAILY bp 01/24/21 Unknown History mg-hydrochlorothiazide 12.5 mg tablet fluticasone propionate 50 1 spray intranasal Q12H #16 grams 05/16/22 Unknown Rx mcg/actuation nasal spray,suspension albuterol sulfate 90 mcg/actuation 2 puff inhalation Q4H PRN 04/21/23 Unknown History aerosol inhaler shortness of breath or wheezing cholecalciferol (vitamin D3) 50 50 mcg PO DAILY 10/20/23 Unknown History mcg (2,000 unit) tablet escitalopram oxalate 10 mg tablet 20 mg PO DAILY 10/20/23 Unknown History (Lexapro) vibegron 75 mg tablet (Gemtesa) 75 mg PO QDAY 10/20/23 Unknown History pantoprazole 40 mg tablet,delayed 40 mg PO QAM acid reflux #30 tabs 10/26/23 Unknown Rx release vitamin E 268 mg (400 unit) capsule 536 mg (2 x 268 mg (400 unit)) PO 10/26/23 Unknown Rx DAILY 1 month #60 caps ursodiol 250 mg tablet 250 mg PO BID 3 months #180 tabs 01/26/24 Unknown Rx resmetirom 100 mg tablet 100 mg PO DAILY 02/25/24 Unknown History (Rezdiffra) fesoterodine 4 mg tablet,extended 4 mg PO DAILY 05/01/24 Unknown History release 24 hr fluconazole 150 mg tablet 150 mg PO QWEEK 05/01/24 Unknown History omeprazole 40 mg capsule,delayed 40 mg PO BID 05/01/24 Unknown History release Allergy/AdvReac Type Severity Reaction Status Date / Time No Known Allergies Allergy Verified 05/01/24 12:03 Family History Mother COPD (chronic obstructive pulmonary disease) CHF (congestive heart failure) Kidney failure CAD (coronary artery disease) Myocardial infarction Father CVA (cerebral vascular accident) Brother Myocardial infarction CAD (coronary artery disease) Sister Heart disease Surgical History Hx of dilation and curettage History of left heart catheterization (LHC) (~03/08/21) H/O: hysterectomy Social History Smoking Status: Never smoker alcohol intake: never substance use type: does not use caffeine: Yes Type: carbonated beverages Number of servings: 3 ROS ROS ED ROS Narrative Lightheadedness Constitutional Constitutional ED: Denies chills, fever(s) or weight loss Eyes Eyes: Denies change in vision or diplopia ENT ENT ED: Denies ear pain, rhinorrhea or sore throat Cardiovascular Cardiovascular: Reports chest pain; Denies orthopnea, palpitations or racing heartbeat Respiratory/Chest Respiratory/Chest: Denies cough, dyspnea or orthopnea Gastrointestinal Gastrointestinal: Reports nausea; Denies abdominal pain, diarrhea or vomiting Genitourinary Genitourinary ED: Denies dysuria, hematuria or urinary frequency Musculoskeletal Musculoskeletal: Denies arthralgias or myalgias Integumentary Denies abscess or rash Neurologic Neurologic: Denies headache(s) or weakness Psychiatric Psychiatric: Denies anxiety, depression, suicidal ideation or suicidal thoughts Endocrine Endocrinology: Denies polydipsia, polyphagia or polyuria Allergic/Immunologic Allergic/Immunologic ED: Denies mouth swelling, tongue swelling or urticaria EXAM Physical Exam Const Vital Signs: 05/01/24 12:03 05/01/24 12:16 05/01/24 12:48 Temperature 98.1 F Temperature Source Oral Pulse Rate 70 86 Respiratory Rate 18 13 Respiratory Effort Normal Blood Pressure 147/86 H Blood Pressure Mean 106 Pulse Ox 100 66 Oxygen Delivery Method 05/01/24 13:00 05/01/24 13:15 05/01/24 13:16 Temperature Temperature Source Pulse Rate 72 74 75 Respiratory Rate 13 15 21 H Respiratory Effort Blood Pressure 140/71 H 128/58 H 128/58 H Blood Pressure Mean 90 80 81 Pulse Ox 98 98 Oxygen Delivery Method 05/01/24 13:30 05/01/24 13:45 05/01/24 14:00 Temperature Temperature Source Pulse Rate 74 70 71 Respiratory Rate 18 13 21 H Respiratory Effort Blood Pressure 124/72 H 119/65 133/72 H Blood Pressure Mean 88 82 91 Pulse Ox 97 98 Oxygen Delivery Method 05/01/24 15:00 Temperature Temperature Source Pulse Rate 68 Respiratory Rate 19 H Respiratory Effort Blood Pressure 126/75 H Blood Pressure Mean 92 Pulse Ox 94 Oxygen Delivery Method Room Air Positive well nourished, well developed and obese General Appearance ED: well developed and NAD Nutritional Appearance: obese HEENT Reports normocephalic, head/scalp atraumatic and moist mucous membranes Eyes PERRL and EOMs intact bilaterally Neck no lymphadenopathy, supple and no JVD Resp clear to auscultation bilaterally Resp Narrative: Patient appears to be hyperventilating Cardio regular rate, regular rhythm and no murmurs GI normal to inspection, nondistended, normoactive bowel sounds and non-tender Palpation: soft Back/Spine no CVA tenderness and normal ROM Extremity normal to inspection General Extremety ED: Negative for edema General Extremity: Negative for edema Neuro oriented x3 and CN's II-XII intact bilaterally Sensorium / Orientation: alert Motor Exam: strength 5/5 throughout Psych mental status grossly normal Mood & Affect: Negative for depressed or tearful Skin no rashes or lesions noted and no wounds MDM MDM MDM Narrative Medical decision making narrative: Differential diagnosis includes acute coronary syndrome cardiac dysrhythmia pulmonary embolism aortic dissection anxiety reaction near syncope Patient's white count 7.6 hemoglobin 12.8 platelet count is 249. 2 sets of cardiac enzymes are normal at 5 D-dimer 0.45. EKG is a normal sinus rhythm. No events on the monitor my independent interpretation of the chest x-ray is no acute process. Patient received a dose of Zofran as well as Ativan and has been resting more comfortably. While sleeping the patient noted to be hypoxic. She does have various history of obstructive sleep apnea and wears CPAP. She was given supplemental oxygen for this reason. I think at this point the patient can be discharged home. Would recommend primary care follow-up return if worsening or concerns History & Record Review Discussion w/independent historian: EMS personnel and Patient Lab Data Attestation: I reviewed the patient's lab results. Labs: Laboratory Results - last 24 hr 05/01/24 05/01/24 12:10 14:20 WBC 7.6 RBC 4.71 Hgb 12.8 Hct 40.5 MCV 86.0 MCH 27.2 MCHC 31.6 L RDW Std Deviation 41.0 RDW Coeff of Oliva 13.2 Plt Count 249 MPV 11.9 Immature Gran % (Auto) 0.300 Neut % (Auto) 45.0 L Lymph % (Auto) 43.8 H [place] % (Auto) 9.5 Eos % (Auto) 0.9 Baso % (Auto) 0.5 Absolute Neuts (auto) 3.4 Absolute Lymphs (auto) 3.31 Nucleated RBC % 0 D-Dimer Quant (PE/DVT) 0.45 Sodium 137 Potassium 3.8 Chloride 106 Carbon Dioxide 22.0 Anion Gap 9 BUN 21 H Creatinine 0.83 Estim Creat Clear Calc 86.23 Est GFR (MDRD) Af Amer 89 Est GFR (MDRD) Non-Af 74 BUN/Creatinine Ratio 25.3 H Glucose 145 H Calcium 9.8 Troponin I High Sens 5 5 Radiography Diagnostic Testing: Clinical Impression(s) from Imaging Studies Chest X-Ray 05/01/24 12:15 IMPRESSION: No acute cardiopulmonary process identified. Electronically Signed: Taty Turpin MD at 13:58 EDT , EKG Initial EKG: Attestation: I personally reviewed and interpreted this EKG as follows: Comments: Normal sinus rhythm ventricular rate of 71 bpm. No definitive features of acute coronary syndrome noted Discharge Plan Triage Chief Complaint: Chest Pain ED Provider: Mamadou Luna Dx/Rx/DC Orders Clinical Impression: Chest pain Prescriptions: No Action fluticasone propionate 50 mcg/actuation spray,suspension 1 spray intranasal Q12H Qty: 16 1RF Rx Instructions: administer into each nostril Gemtesa 75 mg tablet 75 mg PO QDAY cholecalciferol (vitamin D3) 50 mcg (2,000 unit) tablet 50 mcg PO DAILY albuterol sulfate 90 mcg/actuation HFA aerosol inhaler 2 puff inhalation Q4H PRN (Reason: shortness of breath or wheezing) ursodiol 250 mg tablet 250 mg PO BID 90 Days Qty: 180 2RF lisinopril-hydrochlorothiazide 20-12.5 mg tablet 0.5 tab PO DAILY escitalopram oxalate [Lexapro] 10 mg tablet 20 mg PO DAILY fluconazole 150 mg tablet 150 mg PO QWEEK omeprazole 40 mg capsule,delayed release(DR/EC) 40 mg PO BID fesoterodine 4 mg tablet extended release 24 hr 4 mg PO DAILY pantoprazole 40 mg tablet,delayed release (DR/EC) 40 mg PO QAM Qty: 30 2RF vitamin E 268 mg (400 unit) capsule 536 mg PO DAILY 30 Days Qty: 60 3RF Rezdiffra 100 mg tablet 100 mg PO DAILY Patient Comments: Sent to cannon fire direction specialist 01/26/2024 Primary Care Provider: Usama Davis Referrals: Usama Davis MD [Primary Care Provider] - Print Language: Frisian
[2024-05-01 12:42] LABS: D-Dimer Quantitative (DVT/PE) 0.45 FEU/ug/m (0.27-0.49)
[2024-05-01 12:49] LABS: Anion Gap 9 (5-15); BUN 21 mg/dL (7-18); BUN/Creat Ratio 25.3 RATIO (10-20); Calcium,Total 9.8 mg/dL (8.5-10.1); Chloride 106 mmol/L (98-107); Creatinine, Serum 0.83 mg/dL (0.55-1.02); EST Glomerular Filtration Rate 74 mL/min (>60); Est Glom Filt Rate - Afr Amer 89 mL/min (>60); Estimated Creatinine Clearance 86.23 ml/min; Glucose 145 mg/dL (74-106); Potassium 3.8 mmol/L (3.5-5.1); Sodium Level 137 mmol/L (136-145); Troponin-I HS (w/2H Reflex) 5 pg/mL (3.0-54.0)
[2024-05-01 14:26] LABS: Reflex Troponin-HS? (from REC) Y
[2024-05-01 15:10] LABS: Troponin-I HS 5 pg/mL (3.0-54.0)
== END 2024-05-01 16:03 | disposition home or self-care (01) ==
PROVIDERS: Emergency Provider Emergency Medicine; PCP Family Medicine; Visit Provider Emergency Medicine
DX: R07.9 Chest pain, unspecified (principal); E11.9 Type 2 diabetes mellitus without complications; Z90.710 Acquired absence of both cervix and uterus; I10 Essential (primary) hypertension; E66.9 Obesity, unspecified; K21.9 Gastro-esophageal reflux disease without esophagitis; Z86.16 Personal history of COVID-19; G47.33 Obstructive sleep apnea (adult) (pediatric); Z99.89 Dependence on other enabling machines and devices
CPT/HCPCS: 71045; 80048; 84484; 85025; 85379; 93005; 96374; 96375; 99284; A4216; J2405

== ENCOUNTER 2024-07-05 09:10 | Outpatient (CLI) | payer MEDICARE, MEDICAID, SELFPAY ==
[2024-07-05 09:57] LABS: Absolute Lymphocyte Count 3.08 X10^3/uL (0.83-4.51); Absolute Neutrophil Count 3.4 X10^3/uL (2.0-7.7); Basophil# 0.03 X10^3/uL; Basophil% 0.4 % (0-1); Eosinophils% 1.4 % (0-5); Hematocrit 38.7 % (37-47); Hemoglobin 12.1 g/dL (12.0-15.0); Lymphocyte # 3.08 X10^3/ul (0.83-4.51); Lymphocyte % 42.4 % (19-41); Mean Corp Hgb Conc 31.3 g/dL (32-36); Mean Corpuscular Hgb 27.1 pg (27.0-32.0); Mean Corpuscular Volume 86.8 fL (81-99); Mean Platelet Vol. 11.3 fl (6.2-12.0); Monocyte# 0.61 X10^3/uL; Monocyte% 8.4 % (0-10); NRBC Flagged by Analyzer 0 % (0-5); Neutrophil # 3.42 X10^3/uL (2.7-7.7); Neutrophil % 47.1 % (47-70); Platelet Count 225 K/mm3 (150-450); RBC Distribution Width CV 13.6 % (11.6-14.6); RBC Distribution Width SD 42.7 fl (35.1-43.9); Red Blood Count 4.46 M/mm3 (4.2-5.4); White Blood Count 7.3 K/mm3 (4.4-11.0)
[2024-07-05 10:10] LABS: International Normalized Ratio 1.1
[2024-07-05 11:29] LABS: ALB/GLOB Ratio 0.7 RATIO (0.9-2.4); AST(SGOT) 18 U/L (15-37); Alanine Aminotransfer ALT/SGPT 24 U/L (13-56); Albumin, Serum 3.1 g/dL (3.2-5.0); Alkaline Phosphatase 90 U/L (45-117); Anion Gap 3 (5-15); BUN 21 mg/dL (7-18); BUN/Creat Ratio 29.5 RATIO (10-20); Calcium,Total 9.3 mg/dL (8.5-10.1); Chloride 106 mmol/L (98-107); Cholesterol 237 mg/dL (200); Creatinine, Serum 0.71 mg/dL (0.55-1.02); EST Glomerular Filtration Rate 88 mL/min (>60); Est Glom Filt Rate - Afr Amer 107 mL/min (>60); Ferritin 108 ng/mL (8-252); Globulin 4.4 g/dL (2.2-4.2); Glucose 118 mg/dL (74-106); High Density Lipoprotein 43 mg/dL; Iron 65 ug/dL (50-170); Iron Binding Capacity,Total 283 ug/dL (250-450); Potassium 3.7 mmol/L (3.5-5.1); Protein, Total 7.5 g/dL (6.4-8.2); Sodium Level 139 mmol/L (136-145); Triglycerides 148 mg/dL; Very Low Density Lipoprotein 30 mg/dL (5-40)
[2024-07-05 11:49] LABS: Hemoglobin A1c 6.2 % (3.8-5.6)
[2024-07-06 12:08] LABS: ANTINUCLEAR ANTIBODIES DIRECT Negative (Negative)
== END 2024-07-05 23:59 | disposition home or self-care (01) ==
PROVIDERS: Nurse Practitioner Acute Care; PCP Family Medicine; Referring Provider Internal Medicine; Visit Provider Internal Medicine
DX: E78.5 Hyperlipidemia, unspecified (principal); K76.0 Fatty (change of) liver, not elsewhere classified; K29.50 Unspecified chronic gastritis without bleeding; K21.9 Gastro-esophageal reflux disease without esophagitis; D64.9 Anemia, unspecified; R73.03 Prediabetes; E03.9 Hypothyroidism, unspecified
CPT/HCPCS: 36415; 80053; 80061; 82728; 83036; 83540; 83550; 84443; 85025; 85610; 86038; 86140; 86225; 86235

== ENCOUNTER → 2024-07-13 | Outpatient (CLI) | payer MEDICARE, MEDICAID, SELFPAY ==
--- NOTE | 2024-07-13 09:59 | US_ITS ---
STUDY: ABDOMINAL ULTRASOUND - RIGHT UPPER QUADRANT; ELASTOGRAPHY REASON FOR VISIT: Female, 64 years old. Fatty infiltration of the liver. TECHNIQUE: Ultrasound evaluation of the right upper quadrant was performed with real-time and static kaye-scale imaging. Point quantification shear wave elastography was performed ([employer]). TECHNICAL QUALITY: Adequate. COMPARISON: Comparison is made with prior study dated November 20, 2023. FINDINGS: Liver: The liver is enlarged and measures 20.2 cm. There is increased echogenicity consistent with fatty infiltration. The bile ducts are within normal limits. There is hepatic color flow. The direction of portal flow is hepatopetal. There is a 2.3 cm x 2 cm x 1.5 cm echogenic nodule suggestive of a hemangioma in the right lobe of the liver. This is unchanged. Median liver stiffness measured 12.2 kPa. Gallbladder: Normal distended gallbladder. The gallbladder wall measures 2.1 mm. There is a negative sonographic Krause''s sign. There is no pericholecystic fluid. There are no gallstones. Common Bile Duct (C.B.D.): The common bile duct measures 4.2 mm. Pancreas: There is normal echogenicity of the visualized pancreas. There is no demonstrated pancreatic mass or cyst. Right Kidney: Normal size of the right kidney. The right kidney measures 11 cm x 4.6 cm x 4.8 cm. Normal renal cortex. The right cortex measures 1.6 cm. There is no demonstrated renal mass or cyst. There is no right hydronephrosis. US/ABD Limited w/ Elastography IMPRESSION: 1. Liver stiffness measures 12.2 kPa compatible with F2-F3 (Mild to moderate liver fibrosis) Metavir score. 2. Hepatomegaly and fatty infiltration of the liver. 3. 4. Findings suggestive of a hemangioma in the right lobe of the liver. Electronically Signed: Fareed Gregorio MD at 10:55 [facility] ,
== END | disposition home or self-care (01) ==
LOC: US 09:59
PROVIDERS: PCP Family Medicine; Referring Provider Nurse Practitioner Acute Care; Visit Provider Nurse Practitioner Acute Care
DX: K76.0 Fatty (change of) liver, not elsewhere classified (principal)
CPT/HCPCS: 76705; 76981

== ENCOUNTER 2024-08-13 21:06 | Emergency (ER) | payer MEDICARE, MEDICAID, SELFPAY ==
[2024-08-13 21:07] VITALS: BP 117/55; PULSE 88; RESP 17; TEMP 36.8; O2SAT 98; BMI 42.2
[2024-08-13 21:13] VITALS: BP 102/52; PULSE 80; RESP 16; TEMP 36.8; O2SAT 97
[2024-08-13 22:13] VITALS: BP 133/66; PULSE 95; RESP 16; TEMP 37; O2SAT 98
[2024-08-13] MEDS: Ketorolac 30 MG/ML Syringe IV (22:22)
[2024-08-13] MEDS: 0.9% Normal Saline (1000mL) 1,000 ML 999 ML IV (22:22)
[2024-08-13] MEDS: dexAMETHasone 10 MG/ML Vial IV (22:23)
[2024-08-13 22:32] LABS: Absolute Lymphocyte Count 1.23 X10^3/uL (0.83-4.51); Absolute Neutrophil Count 10.9 X10^3/uL (2.0-7.7); Basophil# 0.05 X10^3/uL; Basophil% 0.4 % (0-1); Hematocrit 42.2 % (37-47); Hemoglobin 13.3 g/dL (12.0-15.0); Lymphocyte # 1.23 X10^3/ul (0.83-4.51); Lymphocyte % 9.3 % (19-41); Mean Corp Hgb Conc 31.5 g/dL (32-36); Mean Corpuscular Hgb 27.1 pg (27.0-32.0); Mean Corpuscular Volume 86.1 fL (81-99); Mean Platelet Vol. 11.4 fl (6.2-12.0); Monocyte% 6.8 % (0-10); NRBC Flagged by Analyzer 0 % (0-5); Neutrophil # 10.94 X10^3/uL (2.7-7.7); Platelet Count 199 K/mm3 (150-450); RBC Distribution Width CV 13.6 % (11.6-14.6); RBC Distribution Width SD 42.7 fl (35.1-43.9); White Blood Count 13.2 K/mm3 (4.4-11.0)
--- NOTE | 2024-08-13 22:40 | RAD_ITS ---
INDICATION: cough EXAMINATION/TECHNIQUE: X-RAY - XR Chest 1 View COMPARISON: 05/01/2024 FINDINGS: LIFE-SUPPORT AND LINES: 1. None HEART AND VESSELS: The cardiac silhouette, pulmonary vasculature have normal appearance. No evidence of congestive failure. LUNGS AND PLEURAL SPACES: Lungs are clear. No focal infiltrate, consolidation or effusions. No evidence of pneumothorax. No pulmonary mass is noted. MEDIASTINUM AND HILAR REGIONS: No masses adenopathy noted. No areas of calcification. Visualized upper airway is normal in position. BONY ELEMENTS: No acute bony changes noted. RAD/Chest 1 View (Portable) IMPRESSION: 1. No evidence of acute cardiopulmonary process Electronically Signed: Antwan Mclain MD at 0:28 EST ,
[2024-08-13 22:50] LABS: Anion Gap 7 (5-15); BUN 14 mg/dL (7-18); BUN/Creat Ratio 16.8 RATIO (10-20); Calcium,Total 9.3 mg/dL (8.5-10.1); Chloride 102 mmol/L (98-107); Creatinine, Serum 0.83 mg/dL (0.55-1.02); EST Glomerular Filtration Rate 74 mL/min (>60); Est Glom Filt Rate - Afr Amer 89 mL/min (>60); Estimated Creatinine Clearance 88.98 ml/min; Glucose 130 mg/dL (74-106); Magnesium 1.9 mg/dL (1.6-2.6); Potassium 3.8 mmol/L (3.5-5.1); Sodium Level 134 mmol/L (136-145)
[2024-08-13 23:00] VITALS: BP 124/59; PULSE 86; RESP 17; TEMP 37.1; O2SAT 98
[2024-08-14] VITALS: BP 135/60; PULSE 88; RESP 16; TEMP 37; O2SAT 98
--- NOTE | 2024-08-14 00:56 | EDS_ITS ---
HPI History of Present Illness Chief Complaint: General Illness Informant: patient and family Narrative Narrative: Patient is a 64-year-old female with past medical history of hypertension anxiety and depression and GERD. She reports that in the last 24 hours she has had congestion cough and increased shortness of breath. She states she is cough to the point where she is almost passed out. She denies any known sick contacts. She states that symptoms appear to be worsening and therefore presents to the hospital for evaluation [facility] Medical History Gastritis Eosinophilic esophagitis Wears glasses Wears partial dentures Depression Diabetes Arthritis Bladder disease Fatty liver Restless legs Injury of head and neck Dietary restriction Difficulty chewing History of hiatal hernia History of diverticulitis Non-smoker CPAP (continuous positive airway pressure) dependence Shortness of breath on exertion Gastric reflux Hypertension History of stress test History of echocardiogram Cardiology follow-up encounter Chest pain Anxiety Essential hypertension Pneumonia due to COVID-19 virus Lactic acidosis GERD (gastroesophageal reflux disease) COVID-19 SOB (shortness of breath) Home Medications ?Medication ?Instructions ?Recorded ?Last Taken ?Type lisinopril 20 0.5 tab PO DAILY bp 01/24/21 Unknown History mg-hydrochlorothiazide 12.5 mg tablet cholecalciferol (vitamin D3) 50 25 mcg PO DAILY 10/20/23 Unknown History mcg (2,000 unit) tablet vibegron 75 mg tablet (Gemtesa) 75 mg PO QDAY 10/20/23 Unknown History fesoterodine 4 mg tablet,extended 4 mg PO DAILY 05/01/24 Unknown History release 24 hr fluticasone propionate 50 1 spray intranasal Q12H PRN 07/05/24 Unknown History mcg/actuation nasal allergy symptoms spray,suspension omeprazole 40 mg capsule,delayed 40 mg PO QDAY 07/05/24 Unknown History release escitalopram oxalate 10 mg tablet 20 mg PO DAILY 08/02/24 Unknown History (Lexapro) ursodiol 250 mg tablet 250 mg PO BID #180 tabs 08/02/24 Unknown Rx resmetirom 100 mg tablet 100 mg PO QDAY #90 tabs 08/05/24 Unknown Rx (Rezdiffra) meloxicam 7.5 mg tablet 7.5 mg PO DAILY PRN pain 08/13/24 Unknown History vitamin E succinate 268 mg (400 268 mg PO TID 08/13/24 Unknown History unit) tablet azelastine 137 mcg (0.1 %) nasal 2 spray intranasal BID #30 mL 08/14/24 Unknown Rx spray benzonatate 200 mg capsule 200 mg PO TID PRN cough #30 caps 08/14/24 Unknown Rx prednisone 20 mg tablet 40 mg (2 x 20 mg) PO DAILY 5 days 08/14/24 Unknown Rx #10 tabs Allergy/AdvReac Type Severity Reaction Status Date / Time No Known Allergies Allergy Verified 08/13/24 21:09 Family History Mother COPD (chronic obstructive pulmonary disease) CHF (congestive heart failure) Kidney failure CAD (coronary artery disease) Myocardial infarction Father CVA (cerebral vascular accident) Brother Myocardial infarction CAD (coronary artery disease) Sister Heart disease Surgical History Hx of dilation and curettage History of left heart catheterization (LHC) (~03/08/21) H/O: hysterectomy Social History Smoking Status: Never smoker alcohol intake: never substance use type: does not use caffeine: Yes Type: carbonated beverages Number of servings: 3 ROS ROS ED Constitutional Constitutional ED: Reports chills, fever(s) and subjective Eyes Eyes: Denies change in vision ENT ENT ED: Reports rhinorrhea and sore throat Cardiovascular Cardiovascular: Denies chest pain, palpitations or racing heartbeat Respiratory/Chest Respiratory/Chest: Reports cough and dyspnea Gastrointestinal Gastrointestinal: Reports nausea; Denies abdominal pain, diarrhea or vomiting Genitourinary Genitourinary ED: Denies dysuria Musculoskeletal Musculoskeletal: Reports myalgias Integumentary Denies rash Neurologic Neurologic: Reports headache(s) Psychiatric Psychiatric: Reports anxiety Hematologic/Lymphatic Hematologic/Lymphatic: Denies easy bleeding or easy bruising EXAM Physical Exam Const Vital Signs: 08/13/24 21:07 08/13/24 21:07 08/13/24 21:13 Temperature 98.3 F 98.3 F Temperature Source Oral Oral Pulse Rate 88 80 Respiratory Rate 17 16 Respiratory Effort Normal Non-Labored Respiratory Pattern Normal Blood Pressure 117/55 L 102/52 L Blood Pressure Mean 75 68 Pulse Ox 98 97 Oxygen Delivery Method Room Air Room Air 08/13/24 22:13 08/13/24 23:00 08/14/24 00:00 Temperature 98.6 F 98.8 F 98.6 F Temperature Source Oral Oral Oral Pulse Rate 95 86 88 Respiratory Rate 16 17 16 Respiratory Effort Respiratory Pattern Blood Pressure 133/66 H 124/59 H 135/60 H Blood Pressure Mean 88 80 85 Pulse Ox 98 98 98 Oxygen Delivery Method Room Air Room Air Room Air 08/14/24 01:08 Temperature 98.1 F Temperature Source Pulse Rate 88 Respiratory Rate 16 Respiratory Effort Respiratory Pattern Blood Pressure 126/64 H Blood Pressure Mean 84 Pulse Ox 95 Oxygen Delivery Method Positive well nourished, well developed and obese General Appearance ED: well developed; Negative for pallor Nutritional Appearance: obese HEENT Reports dry mucous membranes HEENT Narrative: Nasal mucosa is hyperemic and boggy with enlarged inferior nasal turbinates There is cobblestoning the posterior pharynx consistent with sinus drainage without airway edema or compromise; no secondary findings to suggest infection No tongue or lip swelling noted Bilateral TMs are retracted but show no secondary changes to suggest infection Mouth ED: Yes dry mucous membranes Mouth: dry mucous membranes Eyes PERRL and EOMs intact bilaterally General Eye ED: Negative for scleral icterus Neck supple Neck Narrative: No nuchal rigidity or meningeal signs Chest Wall palpation of chest normal Resp normal respiratory effort Resp Narrative: Breath sounds are diminished throughout with faint rhonchi noted in the bilateral lower lobes without nasal flaring retractions tachypnea or accessory muscle use Cardio regular rate and regular rhythm Rate: other Other Details: No murmurs rubs or gallop Radial and carotid pulses are equal and symmetric GI non-tender, non-distended and no masses GI Narrative: Abdomen is soft nontender and nondistended with hyperactive bowel sounds No voluntary guarding or rigidity or pulsatile mass Auscultation: hyperactive bowel sounds Palpation: soft Extremity normal to inspection Extremity Narrative: No asymmetric edema no pitting edema negative Homans' sign bilaterally Neuro oriented x3, CN's II-XII intact bilaterally and no sensory deficits noted Sensorium / Orientation: alert Motor Exam: strength 5/5 throughout Psych mental status grossly normal Skin no rashes or lesions noted and No skin turgor normal Skin Narrative: Skin turgor is slightly increased General Skin Exam: Negative for jaundice or pallor MDM MDM MDM Narrative Medical decision making narrative: Patient arrived to the ER with stable vitals. Constellation of symptoms is most consistent/concerning for COVID versus influenza versus RSV. She is not hypoxic nor does she show increased work of breathing but with her sensation of shortness of breath and mild rhonchi on exam there is concern for potential pneumonia so chest x-ray was obtained. Physical exam does show changes consistent with dehydration and therefore with concern for LIN versus clinically significant Dexter abnormalities basic blood work is ordered. Labs showed leukocytosis at 13.2 but otherwise no clinically significant finding. Chest x- ray revealed no acute lung pathology and viral swab was negative. However after receiving IV hydration Toradol and Decadron patient reported improvement of her symptoms and vitals remained stable. Therefore at this time she does not have meningeal signs she does not have pneumonia she is not in respiratory distress or hypoxic and even though she has leukocytosis I feel this is stress response secondary to a viral illness. As she does not have findings consistent/concerning for sepsis I do not feel there is need for further workup and she is otherwise safe for discharge History & Record Review Discussion w/independent historian: Patient and Family Lab Data Attestation: I reviewed the patient's lab results. Labs: Laboratory Results - last 24 hr 08/13/24 22:25 WBC 13.2 H RBC 4.90 Hgb 13.3 Hct 42.2 MCV 86.1 MCH 27.1 MCHC 31.5 L RDW Std Deviation 42.7 RDW Coeff of Oliva 13.6 Plt Count 199 MPV 11.4 Immature Gran % (Auto) 0.500 Neut % (Auto) 83.0 H Lymph % (Auto) 9.3 L [place] % (Auto) 6.8 Eos % (Auto) 0.0 Baso % (Auto) 0.4 Absolute Neuts (auto) 10.9 H Absolute Lymphs (auto) 1.23 Nucleated RBC % 0 Sodium 134 L Potassium 3.8 Chloride 102 Carbon Dioxide 25.0 Anion Gap 7 BUN 14 Creatinine 0.83 Estim Creat Clear Calc 88.98 Est GFR (MDRD) Af Amer 89 Est GFR (MDRD) Non-Af 74 BUN/Creatinine Ratio 16.8 Glucose 130 H Calcium 9.3 Magnesium 1.9 Radiography Diagnostic Testing: Clinical Impression(s) from Imaging Studies Chest X-Ray 08/13/24 22:40 IMPRESSION: 1. No evidence of acute cardiopulmonary process Electronically Signed: Antwan Mclain MD at 0:28 EST , Chest x-ray as interpreted by the emergency medicine physician reveals no acute infiltrate pneumothorax or pleural effusion Discharge Plan Triage Chief Complaint: General Illness ED Provider: Julius Yan Dx/Rx/DC Orders Clinical Impression: Acute viral syndrome, Essential hypertension, Mild dehydration Instructions: ED Viral Syndrome (Adult) Prescriptions: New benzonatate 200 mg capsule 200 mg PO TID PRN (Reason: cough) Qty: 30 0RF prednisone 20 mg tablet 40 mg PO DAILY 5 Days Qty: 10 0RF azelastine 137 mcg (0.1 %) spray,non-aerosol 2 spray intranasal BID Qty: 30 0RF Rx Instructions: administer into each nostril No Action Gemtesa 75 mg tablet 75 mg PO QDAY cholecalciferol (vitamin D3) 50 mcg (2,000 unit) tablet 25 mcg PO DAILY fluticasone propionate 50 mcg/actuation spray,suspension 1 spray intranasal Q12H PRN (Reason: allergy symptoms) Rx Instructions: administer into each nostril ursodiol 250 mg tablet 250 mg PO BID Qty: 180 1RF Rezdiffra 100 mg tablet 100 mg PO QDAY Qty: 90 1RF lisinopril-hydrochlorothiazide 20-12.5 mg tablet 0.5 tab PO DAILY escitalopram oxalate [Lexapro] 10 mg tablet 20 mg PO DAILY fesoterodine 4 mg tablet extended release 24 hr 4 mg PO DAILY omeprazole 40 mg capsule,delayed release(DR/EC) 40 mg PO QDAY meloxicam 7.5 mg tablet 7.5 mg PO DAILY PRN (Reason: pain) vitamin E succinate 268 mg (400 unit) tablet 268 mg PO TID Primary Care Provider: Usama Davis Referrals: Usama Davis MD [Primary Care Provider] - Activity Restrictions/Additional Instructions: Your workup is consistent with a viral URI which will last on average 14 to 21 days. Take the prescribed medication as directed to help control your symptoms keep yourself well-hydrated and return to the ER should you have any further concerns Print Language: Hungarian Disposition Disposition: Home, Self Care Discharge Date/Time: 08/14/24 01:10
[2024-08-14] MEDS: Albuterol Sulfate 8 gm Inhaler (60 puffs) 2 PUFF INHALATION (01:00)
[2024-08-14 01:08] VITALS: BP 126/64; PULSE 88; RESP 16; TEMP 36.7; O2SAT 95
== END 2024-08-14 01:10 | disposition home or self-care (01) ==
PROVIDERS: Emergency Provider Emergency Medicine; PCP Family Medicine; Visit Provider Emergency Medicine
DX: B34.9 Viral infection, unspecified (principal); E11.9 Type 2 diabetes mellitus without complications; Z90.710 Acquired absence of both cervix and uterus; I10 Essential (primary) hypertension; E86.0 Dehydration; K21.9 Gastro-esophageal reflux disease without esophagitis; Z79.899 Other long term (current) drug therapy; F41.9 Anxiety disorder, unspecified; F32.A Depression, unspecified; R06.02 Shortness of breath
CPT/HCPCS: 71045; 80048; 83735; 85025; 87631; 94640; 96361; 96374; 96375; 99285; A4216

== ENCOUNTER 2024-08-20 02:57 | Emergency (ER) | payer MEDICARE, MEDICAID, SELFPAY ==
[2024-08-20 02:58] VITALS: PULSE 72; RESP 26; TEMP 36.8; O2SAT 99; BMI 38.8
[2024-08-20 03:01] VITALS: BP 179/94; PULSE 66; RESP 24; TEMP 36.8; O2SAT 100
--- NOTE | 2024-08-20 03:08 | CT_ITS ---
INDICATION: dyspnea EXAMINATION: CT CHEST WITH CONTRAST - CTA Chest WO/W Contrast Injection TECHNIQUE: Helically acquired images were obtained of the chest following IV contrast timed in the pulmonary arterial phase with sagittal and coronal reconstructed images. Post-processing of the angiographic images was performed with multiplanar reformation and 3D reconstruction. Individualized dose optimization techniques were used for this CT. IV contrast dosage and agent: 100 mL of Isovue-370. COMPARISON: None. FINDINGS: LUNGS, PLEURA AND LARGE AIRWAYS: No consolidation or edema. No pulmonary nodule. No pleural effusion. No pneumothorax. THYROID: Unremarkable. HEART AND PERICARDIUM: No evidence of coronary artery calcification. No pericardial effusion. No evidence of right heart strain. Right ventricle to left ventricle ratio measures less than 1. MEDIASTINUM AND RUBINA: No mediastinal or hilar adenopathy. Esophagus is unremarkable. Small hiatal hernia. VESSELS: No pulmonary embolism. No thoracic aortic aneurysm. UPPER ABDOMEN: The visualized upper abdomen is unremarkable. BONES: No acute abnormality. CT/CTA Chest W/WO Contrast IMPRESSION: 1. No pulmonary embolism. 2. No evidence of cardiopulmonary disease. Electronically Signed: Gordon Shrestha DO at 5:33 EST ,
[2024-08-20] MEDS: 0.9% Normal Saline (1000mL) 1,000 ML 999 ML IV (03:17)
[2024-08-20] MEDS: guaiFENesin/Codeine 5 ML UDC 10 ML PO (03:20)
[2024-08-20 03:22] LABS: Absolute Lymphocyte Count 5.69 X10^3/uL (0.83-4.51); Absolute Neutrophil Count 4.9 X10^3/uL (2.0-7.7); Basophil# 0.06 X10^3/uL; Basophil% 0.5 % (0-1); Eosinophil# 0.14 X10^3/uL; Eosinophils% 1.2 % (0-5); Hematocrit 39.1 % (37-47); Hemoglobin 12.6 g/dL (12.0-15.0); Lymphocyte # 5.69 X10^3/ul (0.83-4.51); Lymphocyte % 48.4 % (19-41); Mean Corp Hgb Conc 32.2 g/dL (32-36); Mean Corpuscular Hgb 27.3 pg (27.0-32.0); Mean Corpuscular Volume 84.8 fL (81-99); Mean Platelet Vol. 11.1 fl (6.2-12.0); Monocyte# 0.83 X10^3/uL; Monocyte% 7.1 % (0-10); NRBC Flagged by Analyzer 0 % (0-5); Neutrophil # 4.89 X10^3/uL (2.7-7.7); Neutrophil % 41.6 % (47-70); POSITIVE DIFFERENTIAL YES; Platelet Count 282 K/mm3 (150-450); RBC Distribution Width CV 13.7 % (11.6-14.6); RBC Distribution Width SD 42.5 fl (35.1-43.9); Red Blood Count 4.61 M/mm3 (4.2-5.4); White Blood Count 11.8 K/mm3 (4.4-11.0)
--- NOTE | 2024-08-20 03:23 | EX.ED.DYSGE1 ---
HPI History of Present Illness Chief Complaint: Cold Sx Informant: patient Narrative Narrative: Patient is a 64-year-old female with past medical history of hypertension anxiety and GERD. She was seen roughly 1 week ago for congestion and cough. At that time chest x-ray revealed no pneumonia blood work was normal and viral testing for COVID influenza and RSV was also negative. She states she follow-up with her doctor because she was not having any improvement of symptoms and was placed on doxycycline. She states has been taking it as directed but has still been having symptoms. This evening she had a coughing spell after laughing at her grandkid and noticed pain in her chest and back. She states that each time she coughs the pain returns and she is having difficulty sleeping. Therefore with the new symptoms she presents for evaluation and states she has concern for a missed pneumonia as she has had this in the past [facility] Medical History Gastritis Eosinophilic esophagitis Wears glasses Wears partial dentures Depression Diabetes Arthritis Bladder disease Fatty liver Restless legs Injury of head and neck Dietary restriction Difficulty chewing History of hiatal hernia History of diverticulitis Non-smoker CPAP (continuous positive airway pressure) dependence Shortness of breath on exertion Gastric reflux Hypertension History of stress test History of echocardiogram Cardiology follow-up encounter Chest pain Anxiety Essential hypertension Pneumonia due to COVID-19 virus Lactic acidosis GERD (gastroesophageal reflux disease) COVID-19 SOB (shortness of breath) Home Medications ?Medication ?Instructions ?Recorded ?Last Taken ?Type lisinopril 20 0.5 tab PO DAILY bp 01/24/21 Unknown History mg-hydrochlorothiazide 12.5 mg tablet cholecalciferol (vitamin D3) 50 25 mcg PO DAILY 10/20/23 Unknown History mcg (2,000 unit) tablet vibegron 75 mg tablet (Gemtesa) 75 mg PO QDAY 10/20/23 Unknown History fesoterodine 4 mg tablet,extended 4 mg PO DAILY 05/01/24 Unknown History release 24 hr fluticasone propionate 50 1 spray intranasal Q12H PRN 07/05/24 Unknown History mcg/actuation nasal allergy symptoms spray,suspension omeprazole 40 mg capsule,delayed 40 mg PO QDAY 07/05/24 Unknown History release escitalopram oxalate 10 mg tablet 20 mg PO DAILY 08/02/24 Unknown History (Lexapro) ursodiol 250 mg tablet 250 mg PO BID #180 tabs 08/02/24 Unknown Rx resmetirom 100 mg tablet 100 mg PO QDAY #90 tabs 08/05/24 Unknown Rx (Rezdiffra) meloxicam 7.5 mg tablet 7.5 mg PO DAILY PRN pain 08/13/24 Unknown History vitamin E succinate 268 mg (400 268 mg PO TID 08/13/24 Unknown History unit) tablet azelastine 137 mcg (0.1 %) nasal 2 spray intranasal BID #30 mL 08/14/24 Unknown Rx spray benzonatate 200 mg capsule 200 mg PO TID PRN cough #30 caps 08/14/24 Unknown Rx codeine 10 mg-guaifenesin 100 mg/5 10 ml PO 4X/DAY PRN cough 7 days 08/20/24 Unknown Rx mL oral liquid (Guaifenesin AC) #280 mL doxycycline hyclate 100 mg tablet 100 mg PO BID 08/20/24 Unknown History Allergy/AdvReac Type Severity Reaction Status Date / Time No Known Allergies Allergy Verified 08/20/24 02:58 Family History Mother COPD (chronic obstructive pulmonary disease) CHF (congestive heart failure) Kidney failure CAD (coronary artery disease) Myocardial infarction Father CVA (cerebral vascular accident) Brother Myocardial infarction CAD (coronary artery disease) Sister Heart disease Surgical History Hx of dilation and curettage History of left heart catheterization (LHC) (~03/08/21) H/O: hysterectomy Social History Smoking Status: Never smoker alcohol intake: never substance use type: does not use caffeine: Yes Type: carbonated beverages Number of servings: 3 ROS ROS ED Constitutional Constitutional ED: Denies chills or fever(s) Eyes Eyes: Denies change in vision ENT ENT ED: Reports rhinorrhea and sore throat Cardiovascular Cardiovascular: Reports chest pain Respiratory/Chest Respiratory/Chest: Reports cough and dyspnea Gastrointestinal Gastrointestinal: Denies abdominal pain, diarrhea, nausea or vomiting Genitourinary Genitourinary ED: Denies dysuria Musculoskeletal Musculoskeletal: Reports back pain and myalgias Integumentary Denies rash Neurologic Neurologic: Reports headache(s) Psychiatric Psychiatric: Reports anxiety Hematologic/Lymphatic Hematologic/Lymphatic: Denies easy bleeding or easy bruising Allergic/Immunologic Allergic/Immunologic ED: Denies mouth swelling or tongue swelling EXAM Physical Exam Const Vital Signs: 08/20/24 02:58 08/20/24 03:01 08/20/24 03:07 Temperature 98.3 F 98.3 F Temperature Source Oral Oral Pulse Rate 72 66 Respiratory Rate 26 H 24 H Respiratory Effort Short of Breath Labored Respiratory Pattern Tachypnea Blood Pressure 179/94 H Blood Pressure Mean 122 Pulse Ox 99 100 Oxygen Delivery Method Room Air Room Air 08/20/24 04:00 08/20/24 05:00 Temperature 98.5 F 98.4 F Temperature Source Oral Oral Pulse Rate 73 67 Respiratory Rate 20 H 18 Respiratory Effort Respiratory Pattern Blood Pressure 177/82 H 139/65 H Blood Pressure Mean 113 89 Pulse Ox 95 92 Oxygen Delivery Method Room Air Room Air Positive well nourished, well developed and obese General Appearance ED: well developed; Negative for pallor Nutritional Appearance: obese HEENT HEENT Narrative: Nasal mucosa is hyperemic and boggy There is cobblestoning noted in the posterior pharynx consistent with sinus drainage; no airway edema or compromise No secondary findings in the posterior pharynx to suggest infection No tongue or lip swelling noted Eyes PERRL and EOMs intact bilaterally General Eye ED: Negative for scleral icterus Neck supple and no JVD Neck Narrative: No subcutaneous emphysema or crepitance noted Chest Wall Chest Narrative: There is reproducible pain with palpation of the anterior chest wall without bony deformity or crepitance or subcutaneous emphysema Resp Resp Narrative: Breath sounds are diminished throughout with faint expiratory wheeze in the bilateral bases and patient is tachypneic but otherwise no nasal flaring retractions or accessory muscle use Cardio regular rate and regular rhythm Rate: other Other Details: Heart is regular rate and rhythm without murmurs rubs or gallop Radial and carotid pulses are equal and symmetric GI normal to inspection, nondistended, normoactive bowel sounds, non-tender, non-distended and no masses Auscultation: normoactive bowel sounds Palpation: soft Extremity normal to inspection Extremity Narrative: No asymmetric edema no pitting edema negative Homans' sign bilaterally Neuro oriented x3, CN's II-XII intact bilaterally and no sensory deficits noted Sensorium / Orientation: alert Motor Exam: strength 5/5 throughout Psych Mood & Affect: anxious Skin no rashes or lesions noted and no wounds General Skin Exam: Negative for jaundice or pallor MDM MDM MDM Narrative Medical decision making narrative: Patient arrived to the ER hypertensive but has a past medical history of this otherwise vitals are stable and she is not hypoxic. With her report of worsening cough despite steroid use and antibiotics as well as now chest and back pain there is concern for a missed pneumonia versus pneumothorax versus rib fracture versus dissection. Patient also could still does have a persistent viral syndrome and as her previous COVID RSV and influenza test was negative I did elect to add a broader respiratory viral panel. Repeat labs were obtained to check for acute kidney injury clinically significant electrolyte abnormality or acute blood loss anemia. Labs revealed no clinically significant findings. Respiratory viral panel was negative. CTA of the chest revealed no pneumonia pneumothorax dissection or pulmonary embolus. Therefore at this time patient's workup is negative she is not in respiratory distress she is not hypoxic she is not requiring supplemental oxygen and therefore there is no need for further evaluation ER or admission and she is otherwise safe for discharge History & Record Review Discussion w/independent historian: Patient Lab Data Attestation: I reviewed the patient's lab results. Labs: Laboratory Results - last 24 hr 08/20/24 03:17 WBC 11.8 H RBC 4.61 Hgb 12.6 Hct 39.1 MCV 84.8 MCH 27.3 MCHC 32.2 RDW Std Deviation 42.5 RDW Coeff of Oliva 13.7 Plt Count 282 MPV 11.1 Immature Gran % (Auto) 1.200 H Neut % (Auto) 41.6 L Lymph % (Auto) 48.4 H [place] % (Auto) 7.1 Eos % (Auto) 1.2 Baso % (Auto) 0.5 Absolute Neuts (auto) 4.9 Absolute Lymphs (auto) 5.69 H Nucleated RBC % 0 Sodium 140 Potassium 3.9 Chloride 105 Carbon Dioxide 28.0 Anion Gap 7 BUN 26 H Creatinine 0.74 Estim Creat Clear Calc 95.22 Est GFR (MDRD) Af Amer 102 Est GFR (MDRD) Non-Af 84 BUN/Creatinine Ratio 35.1 H Glucose 126 H Calcium 9.8 Magnesium 1.8 Radiography Diagnostic Testing: Clinical Impression(s) from Imaging Studies Chest CTA 08/20/24 03:08 IMPRESSION: 1. No pulmonary embolism. 2. No evidence of cardiopulmonary disease. Electronically Signed: Gordon Shrestha DO at 5:33 EST , Discharge Plan Triage Chief Complaint: Cold Sx ED Provider: Julius Yan Dx/Rx/DC Orders Clinical Impression: Acute viral syndrome, Essential hypertension, GERD (gastroesophageal reflux disease), Anxiety Instructions: ED Viral Syndrome (Adult) Prescriptions: New codeine-guaifenesin [Guaifenesin AC] 10-100 mg/5 mL liquid 10 ml PO 4X/DAY PRN (Reason: cough) 7 Days Qty: 280 0RF No Action Gemtesa 75 mg tablet 75 mg PO QDAY cholecalciferol (vitamin D3) 50 mcg (2,000 unit) tablet 25 mcg PO DAILY fluticasone propionate 50 mcg/actuation spray,suspension 1 spray intranasal Q12H PRN (Reason: allergy symptoms) Rx Instructions: administer into each nostril ursodiol 250 mg tablet 250 mg PO BID Qty: 180 1RF Rezdiffra 100 mg tablet 100 mg PO QDAY Qty: 90 1RF lisinopril-hydrochlorothiazide 20-12.5 mg tablet 0.5 tab PO DAILY escitalopram oxalate [Lexapro] 10 mg tablet 20 mg PO DAILY fesoterodine 4 mg tablet extended release 24 hr 4 mg PO DAILY omeprazole 40 mg capsule,delayed release(DR/EC) 40 mg PO QDAY meloxicam 7.5 mg tablet 7.5 mg PO DAILY PRN (Reason: pain) vitamin E succinate 268 mg (400 unit) tablet 268 mg PO TID benzonatate 200 mg capsule 200 mg PO TID PRN (Reason: cough) Qty: 30 0RF azelastine 137 mcg (0.1 %) spray,non-aerosol 2 spray intranasal BID Qty: 30 0RF Rx Instructions: administer into each nostril doxycycline hyclate 100 mg tablet 100 mg PO BID Primary Care Provider: Usama Davis Referrals: Usama Davis MD [Primary Care Provider] - Activity Restrictions/Additional Instructions: Your CTA did not reveal pneumonia pneumothorax blood clot or broken rib. Please continue the antibiotic given to you by your family doctor but add the guaifenesin with codeine for improved cough control. Return to the ER should you have any further concerns Print Language: Scottish Disposition Disposition: Home, Self Care
[2024-08-20 03:45] LABS: Anion Gap 7 (5-15); BUN 26 mg/dL (7-18); BUN/Creat Ratio 35.1 RATIO (10-20); Calcium,Total 9.8 mg/dL (8.5-10.1); Chloride 105 mmol/L (98-107); Creatinine, Serum 0.74 mg/dL (0.55-1.02); EST Glomerular Filtration Rate 84 mL/min (>60); Est Glom Filt Rate - Afr Amer 102 mL/min (>60); Estimated Creatinine Clearance 95.22 ml/min; Glucose 126 mg/dL (74-106); Magnesium 1.8 mg/dL (1.6-2.6); Potassium 3.9 mmol/L (3.5-5.1); Sodium Level 140 mmol/L (136-145)
[2024-08-20 04:00] VITALS: BP 177/82; PULSE 73; RESP 20; TEMP 36.9; O2SAT 95
[2024-08-20 05:00] VITALS: BP 139/65; PULSE 67; RESP 18; TEMP 36.9; O2SAT 92
[2024-08-20 05:39] VITALS: BP 153/81; PULSE 67; RESP 20; TEMP 36.9; O2SAT 96
== END 2024-08-20 05:48 | disposition home or self-care (01) ==
PROVIDERS: Emergency Provider Emergency Medicine; PCP Family Medicine; Visit Provider Emergency Medicine
DX: B34.9 Viral infection, unspecified (principal); E11.9 Type 2 diabetes mellitus without complications; I10 Essential (primary) hypertension; F41.9 Anxiety disorder, unspecified; K21.9 Gastro-esophageal reflux disease without esophagitis; Z79.899 Other long term (current) drug therapy; F32.A Depression, unspecified; Z90.710 Acquired absence of both cervix and uterus
CPT/HCPCS: 71275; 80048; 83735; 85025; 87633; 96360; 96361; 99283; Q9967; A4216

== ENCOUNTER → 2024-11-01 | Outpatient (CLI) | payer MEDICARE, MEDICAID, SELFPAY ==
[2024-11-01 11:38] LABS: AST(SGOT) 23 U/L (<=31); Alanine Aminotransfer ALT/SGPT 25 U/L (<=34); Albumin, Serum 3.7 g/dL (3.4-4.8); Alkaline Phosphatase 110 U/L (35-104); Anion Gap 11 (5-15); BUN 21 mg/dL (4-19); BUN/Creat Ratio 35.4 RATIO (10-20); Calcium,Total 9.2 mg/dL (7.6-11.0); Carbon Dioxide 25.4 mmol/L (21.0-32.0); Chloride 103 mmol/L (98-108); Cholesterol 213 mg/dL (<=200); EST Glomerular Filtration Rate 101 (>60); Globulin 3.8 g/dL (2.2-4.2); Glucose 112 mg/dL (70-99); High Density Lipoprotein 42 mg/dL; Low Density Lipoprotein Calc. 149 mg/dL; Potassium 4.1 mmol/L (3.3-5.1); Protein, Total 7.5 g/dL (5.9-8.4); Sodium Level 139 mmol/L (133-145); Total Bilirubin 0.41 mg/dL (0.00-1.30); Triglycerides 111 mg/dL; Very Low Density Lipoprotein 22 mg/dL (5-40); cholesterol:hdl ratio screen 5.05
== END | disposition home or self-care (01) ==
PROVIDERS: PCP Family Medicine
DX: K76.0 Fatty (change of) liver, not elsewhere classified (principal)
CPT/HCPCS: 36415; 80053; 80061

== ENCOUNTER → 2025-02-07 | Outpatient (CLI) | payer MEDICARE, MEDICAID, SELFPAY ==
--- NOTE | 2025-02-07 07:46 | US_ITS ---
PROCEDURE: ABD LIMITED W/ ELASTOGRAPHY REASON FOR EXAM: FATTY LIVER FU COMPARISON: Prior study dated July 13, 2024. TECHNIQUE: Right upper quadrant abdominal ultrasound. [facility] ElastQ Imaging shear wave elastography for non-invasive assessment of liver tissue stiffness. [facility] EPIQ Elite. FINDINGS: LIVER: Size: Enlarged (hepatomegaly) Length: 19.6 cm cm Echotexture: Diffusely echogenic suggesting fatty infiltration Contour: Normal Lesions: Stable 2 cm x 2 cm x 1.8 cm hemangioma in the right lobe of the liver. Elastography: EQI Med: 16.53 kPa EQI Med Jhonny: 2.33 m/s IQR/Med: 23 %* GALLBLADDER: No stones sludge wall thickening or tenderness. COMMON BILE DUCT: Normal measuring 2 mm . PANCREAS: Normal Visualized portions of the right kidney are unremarkable. No right upper quadrant ascites. US/ABD Limited w/ Elastography IMPRESSION: SEVERE HEPATIC FIBROSIS / CIRRHOSIS Hepatomegaly. Fatty infiltration of the liver. Stable hemangioma in the right lobe of the liver. Reference Values: SRU <1.37 m/s (5.7kPa): No to mild fibrosis 1.37 m/s - 2.2 m/s: Moderate to severe fibrosis >2.2 m/s (15kPa): Significant fibrosis / cirrhosis METAVIR Score F2 or higher: 1.34 m/s (5.7kPa) F3 or higher: 1.55 m/s (7.3kPa) F4: 1.80 m/s (10kPa) * If the IQR/Med is >30%, the variance in the measurements is a large and the a ccuracy of the measurement may be in question. Reading Location: [id number]
== END | disposition home or self-care (01) ==
LOC: US 07:46 → OPUS 07:58
PROVIDERS: PCP Family Medicine
DX: K76.0 Fatty (change of) liver, not elsewhere classified (principal)
CPT/HCPCS: 76705; 76981

== ENCOUNTER → 2025-02-09 | Outpatient (CLI) | payer MEDICARE, MEDICAID, SELFPAY ==
[2025-02-09 09:34] LABS: Hematocrit 38.8 % (37-47); Hemoglobin 12.6 g/dL (12.0-15.0); Immature Granulocytes Count 0.030 X10^3/uL (0.0-0.0); Mean Corp Hgb Conc 32.5 g/dL (32-36); Mean Corpuscular Volume 85.1 fL (81-99); Mean Platelet Vol. 11.6 fl (6.2-12.0); NRBC Flagged by Analyzer 0 % (0-5); Platelet Count 231 K/mm3 (150-450); RBC Distribution Width CV 12.9 % (11.6-14.6); RBC Distribution Width SD 39.8 fl (35.1-43.9); Red Blood Count 4.56 M/mm3 (4.2-5.4); White Blood Count 7.2 K/mm3 (4.4-11.0)
[2025-02-09 09:44] LABS: Prothrombin Time (Protime)PT. 13.3 SECONDS (11.7-14.9)
[2025-02-09 10:12] LABS: AST(SGOT) 21 U/L (<=31); Alanine Aminotransfer ALT/SGPT 21 U/L (<=34); Albumin, Serum 3.8 g/dL (3.4-4.8); Alkaline Phosphatase 132 U/L (35-104); Anion Gap 11 (5-15); BUN 21 mg/dL (4-19); BUN/Creat Ratio 34.4 RATIO (10-20); Calcium,Total 9.9 mg/dL (7.6-11.0); Carbon Dioxide 25.8 mmol/L (21.0-32.0); Chloride 102 mmol/L (98-108); Globulin 3.8 g/dL (2.2-4.2); Glucose 103 mg/dL (70-99); Potassium 4.1 mmol/L (3.3-5.1)
== END | disposition home or self-care (01) ==
PROVIDERS: PCP Family Medicine; Referring Provider Nurse Practitioner Acute Care; Visit Provider Nurse Practitioner Acute Care
DX: K76.0 Fatty (change of) liver, not elsewhere classified (principal)
CPT/HCPCS: 36415; 80053; 85025; 85610

== ENCOUNTER → 2025-02-21 | Outpatient (CLI) | payer MEDICARE, MEDICAID, SELFPAY | END | disposition home or self-care (01) | LOC: SL 11:26 | PROVIDERS: PCP Family Medicine; Referring Provider Nurse Practitioner Acute Care; Visit Provider Nurse Practitioner Acute Care | DX: Z46.89 Encounter for fitting and adjustment of other specified devices (principal) ==

== ENCOUNTER → 2025-05-11 | Outpatient (CLI) | payer MEDICARE, MEDICAID, SELFPAY ==
--- NOTE | 2025-05-11 07:13 | BI_ITS ---
EXAM: SCRN MAMM (CAD)W/GUERDA BILAT DATE: 05/11/2025 CLINICAL HISTORY: F, Age 65 y/o , SCREENING No family history TECHNIQUE: Procedure Code: [id number] Modality: MG Procedure: SCRN MAMM (CAD)W/GUERDA BILAT COMPARISON: Prior exam(s) dated February 12, 2024.. FINDINGS: TISSUE DENSITY: There are scattered areas of fibroglandular density. Bilateral Breast Mammographic Findings: No significant masses, calcifications or other abnormalities are identified. No suspicious masses, areas of developing architectural distortion, or suspicious calcifications. There has been no significant interval change. BI/SCRN MAMM (CAD)W/GUERDA BILAT IMPRESSION: Stable bilateral screening mammogram. OVERALL FINAL ASSESSMENT BI-RADS 1: NEGATIVE. RECOMMENDATION: Routine annual follow-up in 1 Year Additional Recommendation none A letter with findings and recommendations will be mailed to the patient. Reading Location: [place] [id number]
--- OUTSIDE RECORDS SUMMARY | 2025-05-11 07:34 | XMS RPT_ITS | CCD ---
Author Organization [facility] CliniSyvt Care Team Providers Care Customer Account Manager Name Role Phone Dr. Jelani Davis Primary Care Provider [phone] Dr. Jelani Davis Referring Provider KEISHA Lewis Attending Provider [phone] Dr. Kurt Rodriguez Attending Provider Tevin HEALTH OUTREACH WORKER, HEALTH OUTREACH WORKER-C Poonam Attending Provider [phone] Dr. Jelani Davis Primary Care Provider [phone] Dr. Jelani Davis Referring Provider Tevin HEALTH OUTREACH WORKER, HEALTH OUTREACH WORKER-C Poonam Referring Provider [phone] Tevin HEALTH OUTREACH WORKER, HEALTH OUTREACH WORKER-C Poonam Other Provider Dr. Soren Pinto Attending Provider Dr. Gage Silva Attending Provider [phone] Dr. Kurt Rodriguez Other Provider Dr. Jelani Davis Primary Care Provider [phone] Dr. Jelani Davis Referring Provider Dr. Kurt Rodriguez Attending Provider Dr. Gage Silva Attending Provider Anne Davis MD Primary Care Provider Dr. Jelani Davis Primary Care Provider Dr. Jelani Davis Referring Provider Tevin ACOSTA, HEALTH OUTREACH WORKER-C Poonam Attending Provider Dr. Kurt Rodriguez Attending Provider Manish ACOSTA, HEALTH OUTREACH WORKER-C Lala Foy Attending Provider Dr. Jelani Davis Primary Care Provider Susan, Dr. Palomares Referring Provider Dr. Gage Silva Attending Provider Susan, Dr. Palomares Primary Care Provider Susan, Dr. Palomares Referring Provider Susan, Dr. Palomares Other Provider [phone] Gage Silva Attending Provider Susan, Dr. Palomares Primary Care Provider Susan, Dr. Palomares Referring Provider Susan, Dr. Palomares Other Provider [phone] Gage Silva Attending Provider Tevin HEALTH OUTREACH WORKER, HEALTH OUTREACH WORKER-C Poonam Attending Provider Dr. Malcom Morton Attending Provider Dr. Bryant John Attending Provider Dr. Jelani Davis Primary Care Provider Dr. Jelani Davis Referring Provider Susan, Dr. Palomares Other Provider Anne Davis MD Primary Care Provider Dr. Anne Davis Primary Care Provider Dr. Anne Davis Referring Provider Tevin HEALTH OUTREACH WORKER, HEALTH OUTREACH WORKER-C Poonam Attending Provider Anne Davis MD Primary Care Provider ANNE DAVIS Primary Care Unavailabl e VILMA GARCIA Referring Unavailable ANNE DAVIS Primary Care Unavailabl e ANNE DAVIS Primary Care Unavailalex Davis MD, Dr. Forrester Primary Care Provider Davy HEALTH OUTREACH WORKER-C, Jill Attending Provider Davy HEALTH OUTREACH WORKER-C, Jill Referring Provider Susan LARSON, Dr. Forrester Referring Provider [phone] Yuriy CHAMPAGNE, Dr. Madrid Attending Provider Yuriy CHAMPAGNE, Dr. [place] Emergency Provider Reese HEALTH OUTREACH WORKER-C, Marcela Attending Provider Reese HEALTH OUTREACH WORKER-C, Marcela Referring Provider Susan LARSON, Dr. Forrester Primary Care Provider Susan LARSON, Dr. Forrester Referring Provider Davy HEALTH OUTREACH WORKER-C, Jill Attending Provider Davy HEALTH OUTREACH WORKER-C, Jill Referring Provider Julieta LARSON, Dr. Sun Attending Provider Julieta LRASON, Dr. Sun Attending Provider Abarca HEALTH OUTREACH WORKER-C, Poonam Attending Provider Abarca HEALTH OUTREACH WORKER-C, Poonam Referring Provider Marcela Reese Attending Unavailable Reese, Marcela Referring Unavailable Ranney, Christopher Primary Care Unavailable Jill Bhatti Attending Unavailable Davy, Jill Referring Unavailable Ranney, Christopher Primary Care Unavailable Abarca HEALTH OUTREACH WORKER, Poonam Referring Unavailable Abarca HEALTH OUTREACH WORKER, Poonam Attending Unavailable Ranney, Christopher Primary Care Unavailable Abarca HEALTH OUTREACH WORKER, Poonam Attending Unavailable Ranney, Christopher Primary Care Unavailable Jill Bhatti Attending Unavailable Ranney, Christopher Referring Unavailable Ranney, Christopher Primary Care Unavailable Reese Marcela Attending Unavailable Ranney, Christopher Referring Unavailable Ranney, Christopher Primary Care Unavailable DavyJill Attending Unavailable Ranney, Christopher Referring Unavailable Ranney, Christopher Primary Care Unavailable DavyJill Attending Unavailable Ranney, Christopher Primary Care Unavailable Ranney, Christopher Referring Unavailable Ranney, Christopher Primary Care Unavailable Praveen, Malcom Attending Unavailable Praveen, Malcom Referring Unavailable Ranney, Christopher Primary Care Unavailable Jill Bhatti Attending Unavailable Davy, Jill Referring Unavailable Mamadou Luna [facility] Unavailable Julius Yan [facility] Un[facility] Unavailable Julius Yan [facility] Unavailable Marcela Reese Attending Unavailable Marcela Reese Referring [facility] Unavailable Medications Current Medications Medication Drug Class(es) Dates Sig (Normalized) Sig (Original) [id number] 200 actuat albuterol 0.09 mg/actuat metered dose inhaler (20 sources) beta2-Adrenergic Agonist Start: 10-10-2023 take 2 puff(s) by inhalation every six hours as needed albuterol HFA (PROAIR HFA) 90 mcg/actuation inhaler Inhale 2 Puffs as instructed every 6 hours as needed. 1 Each 10/10/2023 Active Start: 04-21-2023 End: 08-02-2024 Albuterol Sulfate 90 mcg/act uation HFA aerosol inhaler Discontinued 2 NMA INHALATION Q4H as needed for shortness of breath or wheezing April 21, 2023 12:00am August 02, 2024 9:44am Start: 04-21-2023 take 1 puff(s) by in halation every four hours Albuterol Sulfate Active 2 PUFF INHALATION Q4H April 21, 2023 12:00am Start: 07-25-2020 End: 01-24-2021 Albuterol Sulfate 8.5 GM HFA aerosol inhaler Discontinued 2 NMA INHALATION 4 TIMES DAILY NEEDED as needed for Sob &/Or Wheezing July 25, 2020 1:00am January 24, 2021 11:46am Start: 07-25-2020 End: 01-24-2021 take 1 puff(s) by inhalation four times daily as needed Albuterol Sulfate Discontinued 2 PUFF INHALATION 4 TIMES DAILY NEEDED July 25, 2020 1:00am January 24, 2021 11:46am Comment on above: Inhale 2 Puffs as in structed every 6 hours as needed. azelastine hydrochloride 0.137 mg/actuat metered dose nasal spray (5 sources) Histamine-1 Receptor Antagonist Start: 08-14-19 Azelastine 137 mcg (0.1 %) spray,non-aerosol Active 2 NMA INTRANASAL TWICE A DAY 30 0 August 14, 2024 1:00am administer into each nostril cholecalciferol 0.05 mg oral tablet (20 sources) Vitamin D Start: 10-20-19 take 1 tablet by mouth once daily Cholecalciferol (Vitamin D3) 50 mcg (2,000 unit) tablet Active 25 ug PO DAILY October 20, 2023 12:00am Start: 10-20-2023 take 50 ug by mouth once daily Cholecalciferol (Vitamin D3) Active 50 MCG PO DAILY October 20, 2023 12:00am Start: 01-24-2021 End: 05-13-2021 take 1 tablet by mouth every week Cholecalciferol (Vitamin D3) 125 mcg (5,000 unit) tablet Discontinued 125 ug PO EVERY WEEK January 24, 2021 12:00am May 13, 2021 9:15am Start: 11-06-2020 End: 01-24-2021 take 1 capsule by mouth every week Cholecalciferol (Vitamin D3) 325 mcg (13,000 unit) capsule Discontinued 325 ug PO EVERY WEEK November 06, 2020 12:00am January 24, 2021 11:46am Start: 11-05-2020 take 1 capsule by mo [facility] every week cholecalciferol, Vitamin D3, (VITAMIN D3) 1,250 mcg (50,000 unit) cap capsule Take 1 capsule by mouth one time a week. 11/05/2020 Active Comment on above: Take 1 capsule by mo [facility] one time a week. codeine phosphate 2 mg/ml / guaiFENesin 20 mg/ml oral solution (11 sources) Opioid Agonist Start: 08-20-2024 take 1 mL by mouth four times daily as needed for cough Codeine-Guaifenesin (Guaifenesin Ac) 10-100 mg/5 mL liquid Active 10 mL PO 4 TIMES DAILY as needed for cough 280 7 0 August 20, 2024 6:43am Acute viral syndrome Viral infection, unspecified Start: 10-20-2023 End: 05-01-2024 take 1 mL by mouth every six hours Codeine-Guaifenesin 10-100 mg/5 mL liquid Discontinued 5 mL PO EVERY 6 HOURS October 20, 2023 12:00am May 01, 2024 12:14pm Start: 10-20-2023 take 1 mL by mouth e very six hours Codeine-Guaifenesin Active 5 ML PO EVERY 6 HOURS October 20, 2023 12:00am dicyclomine hydrochloride 10 mg oral capsule (7 sources) Anticholinergic Start: 10-15-2021 take 10 mg by mouth three times daily Dicyclomine Active 10 MG PO THREE TIMES A DAY October 15, 2021 11:16am take three times a day for seven days doxycycline hyclate 100 mg oral tablet (8 sources) Tetracycline-class Drug Start: 08-20-2024 take 1 tablet by mouth twice daily Doxycycline Hyclate 100 mg tablet Active 100 mg PO TWICE A DAY August 20, 2024 1:00am Start: 10-10-2023 End: 10-17-2023 take 1 tablet by mouth twice daily doxycycline (VIBRA-TABS) 100 mg tablet Take 1 tablet by mouth two times a day for 7 days. 14 tablet 10/10/2023 10/17/2023 Comment on above: Take 1 tablet by jose c th two times a day for 7 days. escitalopram 10 mg oral tablet (20 sources) Serotonin Reuptake Inhibitor Start: End: take 2 tablets by mouth once daily Escitalopram Oxalate (Lexapro) 10 mg tablet Active 20 mg PO DAILY August 02, 2024 9:44am Start: 01-24-2021 End: 10-20-2023 take 1 tablet by mouth once daily Escitalopram Oxalate (Lexapro) 10 mg Tablet Discontinued 10 mg PO DAILY March 06, 2021 12:00am October 20, 2023 8:36am Start: 11-06-2020 End: 01-24-2021 take 2 tablets by mouth once daily Escitalopram Oxalate 10 mg tablet Discontinued 20 mg PO DAILY November 06, 2020 9:43am January 24, 2021 11:47am Start: 11-06-2020 End: 01-24-2021 take 20 mg by mouth once daily Escitalopram Oxalate Di scontinued 20 MG PO DAILY November 06, 2020 9:43am January 24, 2021 11:47am Start: 10-24-2020 End: 06-03-2024 take 1 tablet by mouth once daily escitalopram oxalate (LEXAPRO) 20 mg tablet Take 20 mg by mouth once daily. 10/24/2020 06/03/2024 Discontinued Start: 10-17-2020 End: 11-06-2020 take 1 tablet by mouth once daily Escitalopram Oxalate 10 MG tablet Discontinued 10 mg PO DAILY October 17, 2020 12:00am November 06, 2020 9:43am Comment on above: Take 20 mg by mouth once daily. 24 hr fesoterodine fumarate 4 mg extended release oral tablet (10 sources) Start: 09-25-19 take 1 tablet by mouth once daily Fesoterodine 4 mg tablet extended release 24 hr Active 4 mg PO DAILY May 01, 2024 12:00am Comment on above: Take 1 tablet by jose c th every afternoon. fluticasone propionate 0.05 mg/actuat metered dose nasal spray (17 sources) Corticosteroid Start: 05-16-20 End: 07-05-20 Fluticasone Propionate 50 mcg/actuation spray,suspension Active 1 NMA INTRANASAL Q12H as needed for allergy symptoms July 05, 2024 9:40am administer into each nostril Start: 05-16-2022 take 1 spray(s) nasa l route every twelve hours Fluticasone Propionate Active 1 SPRAY INTRANASAL Q12H May 16, 2022 12:00am administer into each nostril GEMTESA 75 mg tablet (5 sources) Start: 09-25-2023 take 1 tablet by mouth once GEMTESA 75 mg tablet Take 1 tablet by mouth every afternoon. 09/25/2023 Active Start: 09-25-2023 take 1 tablet by mouth once GE MTESA 75 mg tablet Take 1 tablet by mouth every afternoon. 0 09/25/2023 Active Comment on above: Take 1 tablet by jose c th every afternoon. hydroCHLOROthiazide 12.5 mg / lisinopril 20 mg oral tablet (20 sources) Thiazide Diuretic, Angiotensin Converting Enzyme Inhibitor Start: 07-25-2020 End: 01-24-2021 Lisinopril-Hydroc hlorothiazide 20-12.5 mg tablet Active 0.5 {tbl} PO DAILY January 24, 2021 11:45am bp Start: 07-25-2020 End: 01-24-2021 take 0.5 tablet by mouth once daily Lisinopril-Hydrochlorothiazide Active 0. 5 TABLET PO DAILY January 24, 2021 11:45am meloxicam 7.5 mg oral tablet (20 sources) Nonsteroidal Anti-inflammatory Drug Start: 08-13-2024 take 1 tablet by mouth once daily as needed for pain Meloxicam 7.5 mg tablet Active 7.5 mg PO DAILY as needed for pain August 13, 2024 1:00am Start: 08-02-2020 End: 05-01-2024 take 1 tablet by mouth once daily as needed for sleep Meloxicam 7.5 mg tablet Discontinued 7.5 mg PO DAILY as needed for Sleep January 24, 2021 11:47am May 01, 2024 12:15pm omeprazole 40 mg delayed release oral capsule (20 sources) Proton Pump Inhibitor Start: 07-05-2024 take 1 capsule by mouth once daily Omeprazole 40 mg capsule,delayed release(DR/EC) Active 40 mg PO daily July 05, 2024 9:41am Start: 05-01-2024 End: 07-05-2024 take 1 capsule by mouth twice daily Omeprazole 40 mg capsule,delayed release(DR/EC) Discontinued 40 mg PO TWICE A DAY May 01, 2024 12:00am July 05, 2024 9:42am Start: 08-07-2022 End: 10-26-2023 take 1 capsule by mouth once daily in the morning Omeprazole 40 mg capsule,delayed release(DR/EC) Discontinued 40 mg PO EVERY MORNING 90 October 20, 2023 3:58pm October 26, 2023 8:52am Start: 12-18-2021 End: 08-07-2022 Omeprazole 40 mg capsule,del ayed release(DR/EC) Discontinued 40 mg PO TWICE A DAY 60 2 December 18, 2021 12:00am August 07, 2022 9:31am take two time a day for eight weeks then once a day Start: 07-25-2020 End: 01-15-2022 take 1 capsule by mouth once daily Omeprazole 20 MG capsule,delayed release(DR/EC) Discontinued 20 mg PO DAILY July 25, 2020 1:00am January 15, 2022 8:10am Comment on above: Take by mouth. polyethylene glycol 3350 07565 mg powder for oral solution (4 sources) Osmotic Laxative Start: 02-09-2025 Polyethylene Glycol 3350 (Miralax) 17 gram/dose powder Active 17 g PO ONCE 510 February 09, 2025 12:00am constipation Resmetirom (Rezdiffra) 100 mg tablet (15 sources) Start: 08-05-2024 take 1 tablet by mouth once daily Resmetirom (Rezdiffra) 100 mg tablet Active 100 mg PO daily August 05, 2024 10:57am Start: 08-05-2024 take 1 tablet by jose c th once daily Resmetirom (Rezdiffra) 100 mg tablet Active 100 mg PO daily August 05, 2024 10:57am Start: 08-02-2024 End: 08-05-2024 take 1 tablet by mouth once daily Resmetirom (Rezdiffra) 100 mg tablet Discontinued 100 mg PO daily 23 10August 02, 2024 1:00am August 05, 2024 11:01am Start: 08-02-2024 End: 08-05-2024 take 1 tablet by mouth once daily Resmetirom (Rezdiffra) 100 mg tablet Discontinued 100 mg PO daily August 02, 2024 1:00am August 05, 2024 11:01am Start: 02-25-2024 End: 08-02-2024 take 1 tablet by mouth once daily Resmetirom (Rezdiffra) 100 mg tablet Discontinued 100 mg PO DAILY February 25, 2024 12:00am August 02, 2024 9:45am Vibegron (Gemtesa) 75 mg tablet (6 sources) Start: 10-20-2023 take 1 tablet by mouth once daily Vibegron (Gemtesa) 75 mg tablet Active 75 mg PO daily October 20, 2023 12:00am Start: 10-20-2023 take 1 tablet by jose c th once daily Vibegron (Gemtesa) 75 mg tablet Active 75 MG PO daily October 20, 2023 12:00am vitamin e 180 mg oral tablet (20 sources) Start: 02-09-2025 take 1 tablet by mouth once daily Vitamin E Succinate 268 mg (400 unit) tablet Active 268 mg PO daily February 09, 2025 8:53am Start: 08-13-2024 End: 02-09-2025 take 1 tablet by mouth three times daily Vitamin E Succinate 268 mg (400 unit) tablet Discontinued 268 mg PO THREE TIMES A DAY August 13, 2024 1:00am February 09, 2025 8:55am Start: 08-02-2024 End: 08-13-2024 take 1 tablet by mouth once daily Vitamin E Succinate 268 mg (400 unit) tablet Discontinued 268 mg PO daily 90 1 August 02, 2024 1:00am August 13, 2024 10:17pm Start: 10-26-2023 End: 08-02-2024 take 1 capsule by mouth once daily Vitamin E 268 mg (400 unit) capsule Discontinued 536 mg PO DAILY 60 30 3 October 26, 2023 8:58am August 02, 2024 9:45am Start: 06-13-2023 End: 06-03-2024 vitamin E, dl,tocopheryl carmine t, (VITAMIN E, DL, ACETATE,) 180 mg (400 unit) capsule Take 540 mg by mouth once daily. 06/13/2023 06/03/2024 Discontinued (Other) Start: 08-05-2022 End: 10-26-2023 take 1 capsule by mouth once daily Vitamin E 268 mg (400 unit) capsule Discontinued 804 mg PO DAILY 90 October 20, 2023 3:58pm October 26, 2023 8:59am Start: 11-04-2021 End: 08-05-2022 take 2 capsules by mouth once daily Vitamin E 400 unit capsule Discontinued 800 U PO DAILY 60 6 November 04, 2021 12:00am August 05, 2022 12:29pm Start: 11-04-2021 End: 08-05-2022 take 800 [IU] by mouth once daily Vitamin E Discontinued 800 UNIT PO DAILY 60 November 04, 2021 12:00am August 05, 2022 12:29pm Comment on above: Take 540 mg by mouth once daily. Completed/Discontinued Medications Medication Drug Class(es) Dates Sig (Normalized) Sig (Original) amoxicillin 875 mg / clavulanate 125 mg oral tablet (20 sources) Penicillin-class Antibacterial Start: 04-21-2023 End: 06-01-2023 Amoxicillin-Pot Clavulanate 875-125 mg tablet Discontinued 1 {tbl} PO TWICE A DAY 10 April 21, 2023 12:00am June 01, 2023 5:25pm Start: 04-21-2023 End: 06-01-2023 take 1 tablet by mouth twice daily Amoxicillin-Pot Clavulanate Discontinued 1 TABLET PO TWICE A DAY April 21, 2023 12:00am June 01, 2023 5:25pm Start: 10-15-2021 End: 10-21-2021 Amoxicillin-Pot Clavulanate (Augmentin) 500-125 mg tablet Discontinued 1 {tbl} PO TWICE A DAY 10 October 15, 2021 12:00am October 21, 2021 8:58am aspirin 81 mg delayed release oral tablet (20 sources) Platelet Aggregation Inhibitor, Nonsteroidal Anti-inflammatory Drug Start: 01-24-2021 End: 05-13-2021 take 1 tablet by mouth once daily Aspirin 81 mg tablet,delayed release (DR/EC) Discontinued 81 mg PO DAILY January 24, 2021 12:00am May 13, 2021 9:15am benzonatate 200 mg oral capsule (17 sources) Non-narcotic Antitussive Start: 08-14-2024 End: 11-01-2024 take 1 capsule by mouth three times daily as needed for cough Benzonatate 200 mg capsule Discontinued 200 mg PO THREE TIMES A DAY as needed for cough 30 August 14, 2024 1:00am November 01, 2024 9:07am Start: 10-10-2023 End: 06-03-2024 take 2 capsules by mouth every eight hours as needed benzonatate (TESSALON PERLES) 100 mg capsule Take 2 capsules by mouth three times a day as needed. 30 capsule 10/10/2023 06/03/2024 Discontinued (Other) Start: 02-18-2021 End: 06-03-2024 benzonatate (TESSALON PERLE) 100 mg capsule Take 1-2 capsules tid prn, no more than 6 in 24 hours. 30 capsule 08/07/2022 06/03/2024 Discontinued Comment on above: Take 1-2 capsules ti d prn, no more than 6 in 24 hours. Take 2 capsules by m outh three times a day as needed. biotin 0.8 mg oral tablet (20 sources) Start: End: take 1 tablet by mouth once daily Biotin 800 mcg tablet Discontinued 800 ug PO DAILY January 24, 2021 12:00am May 13, 2021 9:15am fluconazole 150 mg oral tablet (5 sources) Azole Antifungal Start: End: 4 take 1 tablet by mouth every week Fluconazole 150 mg tablet Discontinued 150 mg PO EVERY WEEK May 01, 2024 12:00am July 05, 2024 9:40am furosemide 20 mg oral tablet (20 sources) Loop Diuretic Start: 1 End: take 1 tablet by mouth once daily Furosemide 20 mg tablet Discontinued 20 mg PO DAILY 3 0 August 21, 2020 1:00am January 08, 2021 2:23pm gabapentin 100 mg oral capsule (11 sources) Anti-epileptic Agent Start: Gabapentin Active MG PO October 20, 2023 12:00am Start: 07-29-2023 End: 05-01-2024 Gabapentin 100 mg capsule Di scontinued mg PO as needed October 20, 2023 12:00am May 01, 2024 12:14pm Comment on above: Take 1 capsule by mo [facility] every 12 hours. 12 hr guaiFENesin 600 mg extended release oral tablet (7 sources) Start: 02-19-20 End: 06-03-20 take 2 tablets by mouth twice daily guaiFENesin (MUCINEX) 600 mg 12 hr tablet Take 2 tablets by mouth twice daily. 24 tablet 02/18/2021 06/03/2024 Discontinued (Other) Comment on above: Take 2 tablets by mo [facility] twice daily. lisinopril 5 mg oral tablet (7 sources) Angiotensin Converting Enzyme Inhibitor End: 06-03-20 take 1 tablet by mouth once daily lisinopril 5 mg tablet Take 5 mg by mouth once daily. 06/03/2024 Discontinued Comment on above: Take 5 mg by mouth o nce daily. meclizine hydrochloride 25 mg oral tablet (20 sources) Antiemetic Start: 05-26-20 End: 10-20-19 take 1 tablet by mouth every eight hours as needed for dizziness Meclizine 25 MG tablet Discontinued 25 mg PO EVERY 8 HOURS NEEDED as needed for Dizziness 20 0 May 26, 2021 1:40am October 20, 2023 8:32am Multivitamin preparation (18 sources) Start: 01-25-20 End: 05-13-20 21 take 1 tablet by mouth once daily Multivitamin Discontinued 1 TABLET PO DAILY January 24, 2021 11:46am May 13, 2021 9:15am Start: 01-24-2021 End: 05-13-2021 take 1 tablet by mouth once daily Multivitamin Discontinued 1 TABLET PO DAILY January 23, 2021 11:00pm May 13, 2021 8:15am Start: 01-24-2021 End: 05-13-2021 take 1 tablet by mouth once daily Multivitamin Discontinued 1 TABLET PO DAILY January 24, 2021 12:00am May 13, 2021 9:15am Multivitamin tablet (5 sources) Start: 01-24-2021 End: 05-13-2021 Multivitamin tablet Discontinued 1 {tbl} PO DAILY January 24, 2021 12:00am May 13, 2021 9:15am mupirocin 0.02 mg/mg topical ointment (7 sources) RNA Synthetase Inhibitor Antibacterial Start: 02-18-2021 End: 06-03-2024 mupirocin (BACTROBAN) 2 % ointment Apply 1 application to affected area three times daily. 30 g 02/18/2021 06/03/2024 Discontinued Comment on above: Apply 1 application to affected area three times daily. oxybutynin chloride 5 mg oral tablet (20 sources) Cholinergic Muscarinic Antagonist Start: 08-02-2020 End: 01-24-2021 take 1 tablet by mouth at bedtime as needed Oxybutynin Chloride 5 mg tablet Discontinued 5 mg PO AT BEDTIME as needed August 02, 2020 1:00am January 24, 2021 11:47am pantoprazole 40 mg delayed release oral tablet (6 sources) Proton Pump Inhibitor Start: 10-26-2023 End: 07-05-2024 take 1 tablet by mouth once daily in the morning Pantoprazole 40 mg tablet,delayed release (DR/EC) Discontinued 40 mg PO EVERY MORNING 30 2 October 26, 2023 12:00am July 05, 2024 9:41am acid reflux predniSONE 20 mg oral tablet (20 sources) Start: 08-14-2024 End: 08-20-2024 take 2 tablets by mouth once daily Prednisone 20 mg tablet Discontinued 40 mg PO DAILY 10 5 0 August 14, 2024 1:00am August 20, 2024 4:03am Start: 10-20-2023 End: 05-01-2024 take 1 tablet by mouth once daily Prednisone 20 mg tablet Discontinued 20 mg PO daily October 20, 2023 12:00am May 01, 2024 12:15pm Start: 10-10-2023 End: 10-15-2023 take 2 tablets by mouth once daily predniSONE (DELTASONE) 20 mg tablet Take 2 tablets by mouth once daily for 5 days. 10 tablet 10/10/2023 10/15/2023 Start: 05-16-2022 End: 08-07-2022 take 1 tablet by mouth once daily Prednisone 20 mg tablet Discontinued 20 mg PO DAILY 7 0 May 16, 2022 12:00am August 07, 2022 9:25am Start: 07-25-2020 End: 08-21-2020 Prednisone 20 MG tablet Disc ontinued 0 mg PO DAILY July 25, 2020 1:00am August 21, 2020 9:43am breathing Please contact the information source for Taper Schedule details. Comment on above: Take 2 tablets by mo uth once daily for 5 days. sucralfate 1000 mg oral tablet (20 sources) Aluminum Complex Start: 2 End: 3 take 1 tablet by mouth three times daily 1 hour(s) before mealtime Sucralfate (Carafate) 1 gram tablet Discontinued 1 g PO before meals 90 0 February 21, 2022 10:29am August 07, 2022 9:30am take three times a day, one hour before meals and on an empty stomach for thirty days. ursodiol 250 mg oral tablet (20 sources) Bile Acid Start: 2 End: 5 take 1 tablet by mouth twice daily Ursodiol 250 mg tablet Discontinued 250 mg PO TWICE A DAY 180 2 November 20, 2023 9:45am January 26, 2024 11:34am Comment on above: Take 250 mg by mouth . Problems Active Problems Problem Classification Problem Date Documented Da te Episodic/Chronic Abdominal hernia (20 sources) Hiatal hernia; Translations: [Diaphragmatic hernia without obstruction or gangrene] 10-17-2021 Episodic Abdominal pain (20 sources) Left lower quadrant pain; Translations: [Left lower quadrant pain] Episodic Anxiety disorders (5 sources) Anxiety; Translations: [Anxiety disorder, unspecified] 08-28-2024 Chronic Conditions associated with dizziness or vertigo (20 sources) Peripheral vertigo; Translations: [Other peripheral vertigo, unspecified ear] 06-03-2021 Episodic Deficiency and other anemia (5 sources) Anemia; Translations: [Anemia, unspecified] 01-26-2024 Episodic Disorders of lipid metabolism (1 source) Hyperlipidemia, unspecified; Translations: [Hyperlipidemia, unspecified] Onset: 5 Chronic Esophageal disorders (20 sources) Gastroesophageal reflux disease; Translations: [Gastro-esophageal reflux disease without esophagitis] Onset: 1 Chronic Essential hypertension (20 sources) Essential hypertension; Translations: [Essential (primary) hypertension] 01-10-2021 Chronic Fluid and electrolyte disorders (20 sources) Lactic acidosis; Translations: [Acidosis] 01-10-2021 Episodic Gastritis and duodenitis (16 sources) Gastritis; Translations: [Gastritis, unspecified, without bleeding] Episodic Headache; including migraine (20 sources) Headache; Translations: [Headache] 06-03-2021 Episodic Other and unspecified benign neoplasm (20 sources) Hemangioma of liver; Translations: [Hemangioma of intra-abdominal structures] 11-04-2021 Episodic Comment on above: She had MRI abdomen with and without contrast in October 2021 which shows 1.2 x 1.7 cm hyperintense T2 lesion in segment 8 of right hepatic lobe with peripheral nodular enhancement similar to MRI of 2006 therefore most likely hemangioma. Other and unspecified benign neoplasm (2 sources) Hemangioma of intra-abdominal structures; Translations: [Hemangioma of intra-abdominal structures] 06-01-2023 Episodic Other circulatory disease (20 sources) H/O: hypertension; Translations: [Personal history of other diseases of the circulatory system] 10-18-2020 Episodic Other gastrointestinal disorders (4 sources) Constipation; Translations: [Constipation, unspecified] 02-13-2025 Episodic Other infections; including parasitic (8 sources) Post-viral disorder; Translations: [Post-COVID syndrome] Onset: 1 12-06-2020 Chronic Other liver diseases (20 sources) Steatosis of liver; Translations: [Fatty (change of) liver, not elsewhere classified] 10-15-2021 Chronic Other liver diseases (20 sources) Lesion of liver; Translations: [Liver disease, unspecified] 11-04-2021 Chronic Other liver diseases (20 sources) Fatty (change of) liver, not elsewhere classified; Translations: [Other chronic nonalcoholic liver disease] Onset: 5 Chronic Comment on above: Discontinued Gagandeep, R ezdiffra and Vitamin E - only took Rezdiffra for 6 weeks-08/02/2024 - patient is agreeable to resuming Rezdiffra, Gagandeep and Vitamin E-11/01/2024 - cont on Rezdiffra, Gagandeep, and vitamin E; 28lb active weight loss since 08/13/24 Other liver diseases (2 sources) Alkaline phosphatase raised; Translations: [Abnormal levels of other serum enzymes] 02-13-2025 Episodic Other lower respiratory disease (20 sources) Dyspnea; Translations: [Shortness of breath] 10-18-2020 Episodic Other lower respiratory disease (13 sources) Shortness of breath; Translations: [Shortness of breath] Episodic Other lower respiratory disease (11 sources) Cough; Translations: [Acute cough] Episodic Other lower respiratory disease (1 source) Cough; Translations: [Acute cough] 08-07-2022 Episodic Other nutritional; endocrine; and metabolic disorders (8 sources) Obese class II; Translations: [Obesity, unspecified] Onset: 12-06-2020 Chronic Other nutritional; endocrine; and metabolic disorders (8 sources) Obesity; Translations: [Obesity, unspecified] 06-01-2023 Chronic Other nutritional; endocrine; and metabolic disorders (4 sources) Obesity, unspecified; Translations: [Obesity, unspecified] 04-21-2023 Chronic Other nutritional; endocrine; and metabolic disorders (4 sources) Weight increased; Translations: [Abnormal weight gain] 02-13-2025 Episodic Other screening for suspected conditions (not mental disorders or infectious disease) (5 sources) Patient encounter status; Translations: [Encounter for screening for malignant neoplasm of colon] 07-05-2024 Episodic Other upper respiratory infections (16 sources) Laryngitis; Translations: [Acute laryngitis] 08-07-2022 Episodic Rehabilitation care; fitting of prostheses; and adjustment of devices (1 source) Encounter for fitting and adjustment of other specified devices; Translations: [Encounter for fitting and adjustment of other specified devices] Onset: 5 Chronic Residual codes; unclassified (20 sources) Obstructive sleep apnea syndrome; Translations: [Obstructive sleep apnea (adult) (pediatric)] Onset: 12-06-2020 Chronic Residual codes; unclassified (15 sources) Obstructive sleep apnea (adult) (pediatric); Translations: [Obstructive sleep apnea (adult)(pediatric)] Chronic Syncope (5 sources) Near syncope; Translations: [Syncope and collapse] 05-09-2024 Episodic Past or Other Problems Problem Classification Problem Date Documented Da te Episodic/Chronic Biliary tract disease (8 sources) Disorder of gallbladder; Translations: [Other specified diseases of gallbladder] Onset: 11-06-2005 11-06-2005 Episodic Chronic obstructive pulmonary disease and bronchiectasis (3 sources) Bronchitis; Translations: [Bronchitis, not specified as acute or chronic] Onset: 10-12-2023 10-10-2023 Episodic Nonspecific chest pain (20 sources) Left sided chest pain; Translations: [Chest pain, unspecified] Onset: 05-23-2024 10-18-2020 Episodic Viral infection (20 sources) COVID-19; Translations: [Pneumonia due to COVID-19 virus] Onset: 09-07-2024 Episodic Comment on above: Positive test was Results Test Name Value Interpretation Reference Range Facility [id number] 02-13-2025 [facility] [place] COMMENT Normal . [place] Comment on above: Order Comment: [id number] 9ELF TIGER RF Result Comment: Test Ordered: [id number] Enhanced Liver Fibrosis (ELF) ELF(TM) Score 8.64 BN Reference Range: <9.80 ELF(TM) Score Interpretation: Risk cut-offs to assess the likelihood of progression to cirrhosis and liver-related clinical events within 3.9 years following baseline ELF score (IQR: 14.0-22.4 months)*: Lower risk < 9.80 Mid risk 9.80 - 11.29 Higher risk >11.29 Note: The ELF(TM) Score is a unitless numerical value. *Rajinder STEWART, Boogie OROZCO, Tess T, et al. Selonsertib for patients with bridging fibrosis or compensated cirrhosis due to ORTEGA: Results from randomized phase III STELLAR trials. J Hepatol. 2020 Jan;73(1):26-39. Performed at: [facility] [address] [id number] Savings Teller: Sirena Quintana MD, Phone: [phone] Performed at: [facility] [address] [id number] Savings Teller: Juliano Ibarra PhD, Phone: [phone] Performed By: #### M [id number] #### [facility] [address] [place], [address] Absolute lymphocyte countOrd ered By: Jill Bhatti on 02-09-2025 Lymphocytes Auto (Unsp spec) [#/Vol] 3.00 10*3/uL 0.83-4.51 [facility] Absolute neutrophil countOrd ered By: Jill Bhatti on 02-09-2025 Neutrophils (Bld) [#/Vol] 3.3 10*3/uL 2.0-7.7 [facility] Anion gap in Serum or Plasma Ordered By: Jill Bhatti on 02-09-2025 Anion gap [Moles/Vol] 11 mmol/L 5-15 [facility] Automated lymphocyte count a s percentage of total leukocytesOrdered By: Jill Bhatti on 02-09-2025 Lymphocytes/100 WBC Auto (Unsp spec) 41.7 % High 19-41 [facility] BUN/creatinine ratioOrdered By: Jill Bhatti on 02-09-2025 Urea nitrogen/Creatinine [Mass ratio] 34.4 mg/mg High 10-20 [facility] Basophil percentageOrdered B y: Jill Bhatti on 02-09-2025 Basophils/100 WBC (Bld) 0.7 % 0-1 [facility] Bilirubin, totalOrdered By: Jill Bhatti on 02-09-2025 Bilirubin [Mass/Vol] 0.34 mg/dL 0.00-1.30 [facility] CBC W/Diff, Automatedon 01-24 Absolute Lymph 3.00 X10 3/uL Normal 0.83-4.51 [facility] Comment on above: Performed By: #### L 100.0100, L3410.9992, L300.3900, L500.4050 #### [facility] [address] [place], [address] Absolute Neut 3.3 X10 3/uL Normal 2.0-7.7 [facility] Comment on above: Performed By: #### L 100.0100, L3410.9992, L300.3900, L500.4050 #### [facility] [address] [place], [address] Basophils/100 WBC (Bld) 0.7 % Normal 0-1 [facility] Comment on above: Performed By: #### L 100.0100, L3410.9992, L300.3900, L500.4050 #### [facility] [address] [place], [address] Eosinophils/100 WBC (Bld) 1.1 % Normal 0-5 [facility] Comment on above: Performed By: #### L 100.0100, L3410.9992, L300.3900, L500.4050 #### [facility] [address] [place], [address] Erythrocyte distribution width (RBC) [Ratio] 12.9 % Normal 11.6-14.6 [facility] Comment on above: Performed By: #### L 100.0100, L3410.9992, L300.3900, L500.4050 #### [facility] [address] [place], [address] Hematocrit (Bld) [Volume fraction] 38.8 % Normal 37-47 [facility] Comment on above: Performed By: #### L 100.0100, L3410.9992, L300.3900, L500.4050 #### [facility] [address] [place], [address] Hemoglobin (Bld) [Mass/Vol] 12.6 g/dL Normal 12.0-15.0 [facility] Comment on above: Performed By: #### L 100.0100, L3410.9992, L300.3900, L500.4050 #### [facility] [address] [place], [address] IG% 0.400 Normal 0.0-0.9 [facility] Comment on above: Result Comment: IG% - Immature Granulocytes (promyelocytes, myelocytes and metamyelocytes) > 1% indicates that a LEFT SHIFT is Present. Performed By: #### L 100.0100, L3410.9992, L300.3900, L500.4050 #### [facility] [address] [place], [address] Lymphocytes/100 WBC (Bld) 41.7 % High 19-41 [facility] Comment on above: Performed By: #### L 100.0100, L3410.9992, L300.3900, L500.4050 #### [facility] [address] [place], [address] MCH (RBC) [Entitic mass] 27.6 pg Normal 27.0-32.0 [facility] Comment on above: Performed By: #### L 100.0100, L3410.9992, L300.3900, L500.4050 #### [facility] [address] [place], [address] MCHC (RBC) [Mass/Vol] 32.5 g/dL Normal 32-36 [facility] Comment on above: Performed By: #### L 100.0100, L3410.9992, L300.3900, L500.4050 #### [facility] [address] [place], [address] MCV (RBC) [Entitic vol] 85.1 fL Normal 81-99 [facility] Comment on above: Performed By: #### L 100.0100, L3410.9992, L300.3900, L500.4050 #### [facility] [address] [place], [address] Monocytes/100 WBC (Bld) 9.7 % Normal 0-10 [facility] Comment on above: Performed By: #### L 100.0100, L3410.9992, L300.3900, L500.4050 #### [facility] [address] [place], [address] Neutrophils/100 WBC (Bld) 46.4 % Low 47-70 [facility] Comment on above: Performed By: #### L 100.0100, L3410.9992, L300.3900, L500.4050 #### [facility] [address] [place], [address] Nucleated RBC (Bld) [#/Vol] 0 10*3/uL Normal 0-5 [facility] Comment on above: Performed By: #### L 100.0100, L3410.9992, L300.3900, L500.4050 #### [facility] [address] [place], [address] Platelet mean volume (Bld) [Entitic vol] 11.6 fL Normal 6.2-12.0 [facility] Comment on above: Performed By: #### L 100.0100, L3410.9992, L300.3900, L500.4050 #### [facility] [address] [place], [address] Platelets (Bld) [#/Vol] 231 10*3/uL Normal 150-450 [facility] Comment on above: Performed By: #### L 100.0100, L3410.9992, L300.3900, L500.4050 #### [facility] [address] [place], [address] RBC (Bld) [#/Vol] 4.56 10*6/uL Normal 4.2-5.4 [facility] Comment on above: Performed By: #### L 100.0100, L3410.9992, L300.3900, L500.4050 #### [facility] [address] [place], [address] RDW SD 39.8 fl Normal 35.1-43.9 [facility] Comment on above: Performed By: #### L 100.0100, L3410.9992, L300.3900, L500.4050 #### [facility] [address] [place], [address] WBC (Bld) [#/Vol] 7.2 10*3/uL Normal 4.4-11.0 [facility] Comment on above: Performed By: #### L 100.0100, L3410.9992, L300.3900, L500.4050 #### [facility] [address] [place], [address] Carbon dioxide, total [Moles /volume] in Central venous bloodOrdered By: Jill Bhatti on 02-09-2025 CO2 [Moles/Vol] 25.8 mmol/L 21.0-32.0 [facility] Chloride assayOrdered By: Micah Bhatti on 02-09-2025 Chloride [Moles/Vol] 102 mmol/L 98-108 [facility] Comprehensive Metabolic Prof ilon 02-09-2025 Albumin [Mass/Vol] 3.8 g/dL Normal 3.4-4.8 [facility] Comment on above: Performed By: #### M 100.678 #### [facility] [address] [place], [address] Albumin/Globulin [Mass ratio] 1.0 {ratio} Normal 0.9-2.4 [facility] Comment on above: Performed By: #### M 100.678 #### [facility] [address] [place], [address] ALK PHOS 132 U/L High 35-104 [facility] Comment on above: Performed By: #### M 100.678 #### [facility] [address] [place], [address] ALT [Catalytic activity/Vol] 21 U/L Normal <=34 [facility] Comment on above: Performed By: #### M 100.678 #### [facility] [address] [place], [address] AST [Catalytic activity/Vol] 21 U/L Normal <=31 [facility] Comment on above: Performed By: #### M 100.678 #### [facility] [address] [place], [address] Bilirubin [Mass/Vol] 0.34 mg/dL Normal 0.00-1.30 [facility] Comment on above: Performed By: #### M 100.678 #### [facility] [address] [place], [address] BUN/CRE 34.4 RATIO High 10-20 [facility] Comment on above: Performed By: #### M 100.678 #### [facility] [address] [place], [address] Calcium [Mass/Vol] 9.9 mg/dL Normal 7.6-11.0 [facility] Comment on above: Performed By: #### M 100.678 #### [facility] [address] [place], [address] Chloride [Moles/Vol] 102 mmol/L Normal 98-108 [facility] Comment on above: Performed By: #### M 100.678 #### [facility] [address] [place], [address] CO2 [Moles/Vol] 25.8 mmol/L Normal 21.0-32.0 [facility] Comment on above: Performed By: #### M 100.678 #### [facility] [address] [place], [address] Creatinine [Mass/Vol] 0.61 mg/dL Low 0.70-1.20 [facility] Comment on above: Performed By: #### M 100.678 #### [facility] [address] [place], [address] GAP 11 Normal 5-15 [facility] Comment on above: Performed By: #### M 100.678 #### [facility] [address] [place], [address] GFR/1.73 sq M.predicted among non-blacks MDRD (S/P/Bld) [Vol rate/Area] 100 mL/min/{1.73_m2} Normal >60 [facility] Comment on above: Result Comment: mL/m in/1.73m2 CKD-EPI Creatinine Equation (2020) Performed By: #### M 100.678 #### [facility] [address] [place], [address] Globulin (S) [Mass/Vol] 3.8 g/dL Normal 2.2-4.2 [facility] Comment on above: Performed By: #### M 100.678 #### [facility] [address] [place], [address] Glucose [Mass/Vol] 103 mg/dL High 70-99 [facility] Comment on above: Performed By: #### M 100.678 #### [facility] [address] [place], [address] Potassium [Moles/Vol] 4.1 mmol/L Normal 3.3-5.1 [facility] Comment on above: Performed By: #### M 100.678 #### [facility] [address] [place], [address] Sodium [Moles/Vol] 139 mmol/L Normal 133-145 [facility] Comment on above: Performed By: #### M 100.678 #### [facility] [address] [place], [place], [id number] T PROT 7.5 g/dL Normal 5.9-8.4 [facility] Comment on above: Performed By: #### M 100.678 #### [facility] [address] [facility] [id number] Urea nitrogen [Mass/Vol] 21 mg/dL High 4-19 [facility] Comment on above: Performed By: #### M 100.678 #### [facility] [address] [place], [place], [id number] Eosinophil percentageOrdered By: Jill Bhatti on 02-09-2025 Eosinophils/100 WBC (Bld) 1.1 % 0-5 [facility] Erythrocyte distribution wid th ratioOrdered By: Jill Bhatti on 02-09-2025 Erythrocyte distribution width (RBC) [Ratio] 12.9 % 11.6-14.6 [facility] Erythrocyte distribution wid th standard deviationOrdered By: Jill Bhatti on 02-09-2025 Erythrocyte distribution width (RBC) [Ratio] 39.8 fl 35.1-43.9 [facility] Gastroenterology Visit Repor ton 02-09-2025 Gastroenterology Visit Report [facility] [address] [place] [address] OFFICE VISIT Date of Service: 02/09/25 MR#: [id number] Acct: [id number] Name: JAY SIMON Rep #: [id number] : 1960 Provider: YOHANA mckay Age/Sex: 65/F Location[place] [facility] Status: Signed Intake Vital Signs 11/01/24 09:10 02/09/25 08:30 Height 5 ft 5 in 5 ft 5 in Weight: 225 lb 230 lb 2 oz BMI 37.4 38.2 BP 125/83 H 127/82 H Blood Pressure Location Rt brachial Position Sitting Respiration 16 15 Pulse 52 L 66 Pulse Source Monitor Pulse Oximetry (%) 96 94 Oxygen Delivery Method room air room air Intake Visit Reasons: 3 M FU Chief Complaint: follow-up Allergies No Known Allergies Allergy (Verified 02/09/25 08:39) Medications ???Medication ???Instructions ???Recorded ???Confirmed ???Type lisinopril 20 0.5 tab PO DAILY bp 01/24/2102/09 History mg-hydrochlorothiazide 12.5 mg tablet cholecalciferol (vitamin D3) 50 25 mcg PO DAILY 10/20/23 02/09/25 History mcg (2,000 unit) tablet vibegron 75 mg tablet (Gemtesa) 75 mg PO QDAY 10/20/23 02/09/25 Hi story fesoterodine 4 mg tablet,extended 4 mg PO DAILY 05/01/24 02/09/25 H istory release 24 hr fluticasone propionate 50 1 spray intranasal Q12H PRN 02/09/25 History mcg/actuation nasal allergy symptoms spray,suspension omeprazole 40 mg capsule,delayed 40 mg PO QDAY 07/05/24 02/09/25 Hi story release escitalopram oxalate 10 mg tablet 20 mg PO DAILY 08/02/24 02/09/25 History (Lexapro) resmetirom 100 mg tablet 100 mg PO QDAY #90 tabs 08/05/24 0 02/09/25 Rx (Rezdiffra) meloxicam 7.5 mg tablet 7.5 mg PO DAILY PRN pain 08/13/24 02/09/25 History azelastine 137 mcg (0.1 %) nasal 2 spray intranasal BID #30 mL 07/2702/09/25 Rx spray codeine 10 mg-guaifenesin 100 mg/5 10 ml PO 4X/DAY PRN cough 7 days 08/20/24 02/09/25 Rx mL oral liquid (Guaifenesin AC) #280 mL doxycycline hyclate 100 mg tablet 100 mg PO BID 08/20/24 02/09/25 H istory polyethylene glycol 3350 17 17 g PO ONCE constipation #510 02/09/25 Rx gram/dose oral powder (Miralax) grams ursodiol 250 mg tablet 250 mg PO BID #180 tabs 02/09/25 0 02/09/25 Rx vitamin E succinate 268 mg (400 268 mg PO QDAY #90 tabs 02/09/25 0 02/09/25 Rx unit) tablet Nurse's Note: Patient states she is here for a 3 month follow up and she has been doing okay, she is still having quite a bit of constipation and left lower abdominal pain that is not consistent it is coming and going. Other then that she has been feeling okay. PFSH Medical History Gastritis Eosinophilic esophagitis Wears glasses Wears partial dentures Depression Diabetes Arthritis Bladder disease Fatty liver Restless legs Injury of head and neck Dietary restriction Difficulty chewing History of hiatal hernia History of diverticulitis Non-smoker CPAP (continuous positive airway pressure) dependence Shortness of breath on exertion Gastric reflux Hypertension History of stress test History of echocardiogram Cardiology follow-up encounter Chest pain Anxiety Essential hypertension Pneumonia due to COVID-19 virus Lactic acidosis GERD (gastroesophageal reflux disease) COVID-19 SOB (shortness of breath) Surgical History Hx of dilation and curettage History of left heart catheterization (LHC) ( 03/08/21) H/O: hysterectomy Family History Mother COPD (chronic obstructive pulmonary disease) CHF (congestive heart failure) Kidney failure CAD (coronary artery disease) Myocardial infarction Father CVA (cerebral vascular accident) Brother Myocardial infarction CAD (coronary artery disease) Sister Heart disease Social History Smoking Status: Former smoker alcohol intake: never substance use type: does not use caffeine: Yes Type: carbonated beverages Number of servings: 3 HPI HPI Chief Complaint: follow-up Details: JAY SIMON, is a 65 F who presents to the office today for OV w/ Marcela Reese, 11/01/2024 JAY SIMON, is a 64 F who presents to the office today for FU d/t restarting Rezdiffra in July of this year after a hiatus off of medication. Measured 28lb weight loss from last OV. * repeat cmp,lipid levels * repeat liver US w/elastography at 3mo FU - she reports she is taking Rezdiffra, Vitamin E and Gagandeep - she states she is experiencing some LLQ pain and constipation - weight is up about 5lbs - reports her diet is not great, eating a lot of sweets - denies any N/V - she is having a BM once every 2-3 (more content not included)... Normal [facility] Glomerular filtration rate ( GFR) estimation/1.73 sq m using serum, plasma, or whole bOrdered By: Jill Bhatti on 02-09-2025 GFR/1.73 sq M.predicted among non-blacks MDRD (S/P/Bld) [Vol rate/Area] 100 mL/min/{1.73_m2} >60 [facility] Comment on above: mL/min/1.73m2 CKD-EP I Creatinine Equation (2020) Hematocrit Auto (Bld) [Volum e fraction]Ordered By: Jill Bhatti on 02-09-2025 Hematocrit (Bld) [Volume fraction] 38.8 % 37-47 [facility] Hemoglobin measurementOrdere d By: Jill Bhatti on 02-09-2025 Hemoglobin (Bld) [Mass/Vol] 12.6 g/dL 12.0-15.0 [facility] Immature granulocytes/100 WB C Auto (Bld)Ordered By: Jill Bhatti on 02-09-2025 Immature granulocytes/100 WBC (Bld) 0.400 % 0.0-0.9 [facility] Comment on above: IG% - Immature Granu locytes (promyelocytes, myelocytes and metamyelocytes) > 1% indicates that a LEFT SHIFT is Present. International normalized rat io (INR) calculationOrdered By: Jill Bhatti on 02-09-2025 INR Coag (Bld) [Relative time] 1.0 {INR} [facility] - Chemistry and C hemistry - challengeOrdered By: Jill Bhatti on 02-09-2025 AST [Catalytic activity/Vol] 21 U/L <32 [facility] MCV (mean corpuscular volume ) determinationOrdered By: Jill Bhatti on 02-09-2025 MCV (RBC) [Entitic vol] 85.1 fL 81-99 [facility] Mean corpuscular hemoglobin (MCH) determinationOrdered By: Jill Bhatti on 02-09-2025 MCH (RBC) [Entitic mass] 27.6 pg 27.0-32.0 [facility] Mean corpuscular hemoglobin concentration (MCHC) determinationOrdered By: Jill Bhatti on 02-09-2025 MCHC (RBC) [Mass/Vol] 32.5 g/dL 32-36 [facility] Mean platelet volume determi nationOrdered By: Jill Bhatti on 02-09-2025 Platelet mean volume (Bld) [Entitic vol] 11.6 fL 6.2-12.0 [facility] Monocyte percentageOrdered B y: Jill Bhatti on 02-09-2025 Monocytes/100 WBC (Bld) 9.7 % 0-10 [facility] Neutrophil percentageOrdered By: Jill Bhatti on 02-09-2025 Neutrophils/100 WBC (Bld) 46.4 % Low 47-70 [facility] Nucleated red blood cell per centageOrdered By: Jill Bhatti on 02-09-2025 Nucleated RBC/100 WBC (Bld) [Ratio] 0 % 0-5 [facility] Platelet countOrdered By: Micah Bhatti on 02-09-2025 Platelets (Bld) [#/Vol] 231 10*3/uL 150-450 [facility] Potassium measurement (mass/ volume)Ordered By: Jill Bhatti on 02-09-2025 Potassium (Unsp spec) [Mass/Vol] 4.1 mmol/L 3.3-5.1 [facility] Prothrombin Time w/INRon INR Coag (PPP) [Relative time] 1.0 {INR} Normal [facility] Comment on above: Performed By: #### M 100.678 #### [facility] [address] [place], [place], [id number] PT Coag (PPP) [Time] 13.3 s Normal 11.7-14.9 [facility] Comment on above: Performed By: #### M 100.678 #### [facility] [address] [place], [address] Prothrombin timeOrdered By: Jill Bhatti on 02-09-2025 PT Coag (PPP) [Time] 13.3 s 11.7-14.9 [facility] RBC Auto (Bld) [#/Vol]Ordere d By: Jill Bhatti on 02-09-2025 RBC (Bld) [#/Vol] 4.56 10*6/uL 4.2-5.4 [facility] Serum creatinine measurement (mass/volume)Ordered By: Jill Bhatti on 02-09-2025 Creatinine [Mass/Vol] 0.61 mg/dL Low 0.70-1.20 [facility] Serum globulin measurementOr dered By: Jill Bhatti on 02-09-2025 Globulin (S) [Mass/Vol] 3.8 g/dL 2.2-4.2 [facility] Serum glucose measurement (m ass/volume)Ordered By: Jill Bhatti on 02-09-2025 Glucose [Mass/Vol] 103 mg/dL High 70-99 [facility] Serum or plasma alanine basurto otransferase (ALT) measurementOrdered By: Jill Bhatti on 02-09-2025 ALT [Catalytic activity/Vol] 21 U/L <35 [facility] Serum or plasma albumin sarabjit urement (mass/volume)Ordered By: Jill Bhatti on 02-09-2025 Albumin [Mass/Vol] 3.8 g/dL 3.4-4.8 [facility] Serum or plasma albumin/glob ulin mass ratioOrdered By: Jill Bhatti on 02-09-2025 Albumin/Globulin [Mass ratio] 1.0 {ratio} 0.9-2.4 [facility] Serum or plasma alkaline gregg sphatase measurementOrdered By: Jill Bhatti on 02-09-2025 ALP [Catalytic activity/Vol] 132 U/L High 35-104 [facility] Serum or plasma calcium sarabjit urement (mass/volume)Ordered By: Jill Bhatti on 02-09-2025 Calcium [Mass/Vol] 9.9 mg/dL 7.6-11.0 [facility] Serum or plasma urea nitroge n measurement (mass/volume)Ordered By: Jill Bhatti on 02-09-2025 Urea nitrogen [Mass/Vol] 21 mg/dL High 4-19 [place] Sodium levelOrdered By: Wen Bhatti on 02-09-2025 Sodium [Moles/Vol] 139 mmol/L 133-145 [facility] Total proteinOrdered By: Bella Bhatti on 02-09-2025 Protein [Mass/Vol] 7.5 g/dL 5.9-8.4 [facility] White blood cell (WBC) count Ordered By: Jill Bhatti on 02-09-2025 WBC (Bld) [#/Vol] 7.2 10*3/uL 4.4-11.0 [facility] ABD Limited w/ Elastographyo n 02-07-2025 ABD Limited w/ Elastography [facility] Imaging Services [address] [place] [address] [id number] ABD Limited w/ Elastography MR#: [id number] Acct: [id number] Name: JAY SIMON Rep #: [id number] : 1960 F 65 From: Fareed smith MD PCP: Dr. 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 TECHNIQUE: Right upper quadrant abdominal ultrasound. [employer] ElastQ Imaging shear wave elastography for non- invasive assessment of liver tissue stiffness. [employer] EPIQ Elite. FINDINGS: LIVER: Size: Enlarged (hepatomegaly) Length: 19.6 cm cm Echotexture: Diffusely echogenic suggesting fatty infiltration Contour: Normal Lesions: Stable 2 cm x 2 cm x 1.8 cm hemangioma in the right lobe of the liver. Elastography: EQI Med: 16.53 kPa EQI Med Jhonny: 2.33 m/s IQR/Med: 23 %* GALLBLADDER: No stones sludge wall thickening or tenderness. COMMON BILE DUCT: Normal measuring 2 mm . PANCREAS: Normal Visualized portions of the right kidney are unremarkable. No right upper quadrant ascites. US/ABD Limited w/ Elastography IMPRESSION: SEVERE HEPATIC FIBROSIS / CIRRHOSIS Hepatomegaly. Fatty infiltration of the liver. Stable hemangioma in the right lobe of the liver. Reference Values: SRU <1.37 m/s (5.7kPa): No to mild fibrosis 1.37 m/s - 2.2 m/s: Moderate to severe fibrosis >2.2 m/s (15kPa): Significant fibrosis / cirrhosis METAVIR Score F2 or higher: 1.34 m/s (5.7kPa) F3 or higher: 1.55 m/s (7.3kPa) F4: 1.80 m/s (10kPa) * If the IQR/Med is >30%, the variance in the measurements is a large and the accuracy of the measurement may be in question. Reading Location: [id number] CC: YOHANA Reese; Dr. Anne Davis MD Petrologist: Signed Normal [place] Anion gap in Serum or Plasma Ordered By: Marcela Reese on 11-01-2024 Anion gap [Moles/Vol] 11 mmol/L 5-15 [facility] BUN/creatinine ratioOrdered By: Marcela Reese on 11-01-2024 Urea nitrogen/Creatinine [Mass ratio] 35.4 mg/mg High 10-20 [place] Bilirubin, totalOrdered By: Marcela Reese on 11-01-2024 Bilirubin [Mass/Vol] 0.41 mg/dL 0.00-1.30 [facility] Calculated very low density lipoprotein (VLDL) cholesterol measurementOrdered By: Marcela Reese on 11-01-2024 Calculated very low density lipoprotein (VLDL) cholesterol measurement 22 mg/dL -40 [place] VLDL Cholesterol 22 mg/dL -40 [place] Carbon dioxide, total [Moles /volume] in Central venous bloodOrdered By: Marcela Reese on 11-01-2024 CO2 [Moles/Vol] 25.4 mmol/L 21.0-32.0 [place] Chloride assayOrdered By: Rod Reese on 04-08-2025 Chloride [Moles/Vol] 103 mmol/L 98-108 [facility] Comprehensive Metabolic Prof ilon 11-01-2024 Albumin [Mass/Vol] 3.7 g/dL Normal 3.4-4.8 [facility] Comment on above: Performed By: #### L 300.8000, L501.5425, L100.0100, L500.2500 #### [facility] [address] [place], [address] Albumin/Globulin [Mass ratio] 1.0 {ratio} Normal 0.9-2.4 [place] Comment on above: Performed By: #### L 300.8000, L501.5425, L100.0100, L500.2500 #### [facility] [address] [place], [address] ALK PHOS 110 U/L High 35-104 [place] Comment on above: Performed By: #### L 300.8000, L501.5425, L100.0100, L500.2500 #### [facility] [address] [place], [address] ALT [Catalytic activity/Vol] 25 U/L Normal <=34 [place] Comment on above: Performed By: #### L 300.8000, L501.5425, L100.0100, L500.2500 #### [facility] [address] [place], [address] AST [Catalytic activity/Vol] 23 U/L Normal <=31 [place] Comment on above: Performed By: #### L 300.8000, L501.5425, L100.0100, L500.2500 #### [facility] [address] [place], [address] Bilirubin [Mass/Vol] 0.41 mg/dL Normal 0.00-1.30 [facility] Comment on above: Performed By: #### L 300.8000, L501.5425, L100.0100, L500.2500 #### [facility] [address] [place], [address] BUN/CRE 35.4 RATIO High 10-20 [facility] Comment on above: Performed By: #### L 300.8000, L501.5425, L100.0100, L500.2500 #### [facility] [address] [place], [address] Calcium [Mass/Vol] 9.2 mg/dL Normal 7.6-11.0 [facility] Comment on above: Performed By: #### L 300.8000, L501.5425, L100.0100, L500.2500 #### [facility] [address] [place], [address] Chloride [Moles/Vol] 103 mmol/L Normal 98-108 [facility] Comment on above: Performed By: #### L 300.8000, L501.5425, L100.0100, L500.2500 #### [facility] [address] [place], [address] CO2 [Moles/Vol] 25.4 mmol/L Normal 21.0-32.0 [place] Comment on above: Performed By: #### L 300.8000, L501.5425, L100.0100, L500.2500 #### [facility] [address] [place], [address] Creatinine [Mass/Vol] 0.60 mg/dL Low 0.70-1.20 [facility] Comment on above: Performed By: #### L 300.8000, L501.5425, L100.0100, L500.2500 #### [facility] [address] [place], [address] GAP 11 Normal 5-15 [place] Comment on above: Performed By: #### L 300.8000, L501.5425, L100.0100, L500.2500 #### [facility] [address] [place], [address] GFR/1.73 sq M.predicted among non-blacks MDRD (S/P/Bld) [Vol rate/Area] 101 mL/min/{1.73_m2} Normal >60 [place] Comment on above: Result Comment: mL/m in/1.73m2 CKD-EPI Creatinine Equation (2020) Performed By: #### L 300.8000, L501.5425, L100.0100, L500.2500 #### [facility] [address] [place], [address] Globulin (S) [Mass/Vol] 3.8 g/dL Normal 2.2-4.2 [place] Comment on above: Performed By: #### L 300.8000, L501.5425, L100.0100, L500.2500 #### [facility] [address] [place], [address] Glucose [Mass/Vol] 112 mg/dL High 70-99 [facility] Comment on above: Performed By: #### L 300.8000, L501.5425, L100.0100, L500.2500 #### [facility] [address] [place], [address] Potassium [Moles/Vol] 4.1 mmol/L Normal 3.3-5.1 [facility] Comment on above: Performed By: #### L 300.8000, L501.5425, L100.0100, L500.2500 #### [facility] [address] [place], [address] Sodium [Moles/Vol] 139 mmol/L Normal 133-145 [facility] Comment on above: Performed By: #### L 300.8000, L501.5425, L100.0100, L500.2500 #### [facility] [address] [place], [address] T PROT 7.5 g/dL Normal 5.9-8.4 [place] Comment on above: Performed By: #### L 300.8000, L501.5425, L100.0100, L500.2500 #### [facility] [address] [place], [address] Urea nitrogen [Mass/Vol] 21 mg/dL High 4-19 [place] Comment on above: Performed By: #### L 300.8000, L501.5425, L100.0100, L500.2500 #### [facility] [address] [place], [address] GFR/1.73 sq M.predicted mark g non-blacks MDRD (S/P/Bld) [Vol rate/Area]Ordered By: Marcela Reese on 11-01-2024 Estimated GFR (MDRD) Non-Af Amer 101 >60 [place] Comment on above: mL/min/1.73m2 CKD-EP I Creatinine Equation (2020) Gastroenterology Visit Repor ton 11-01-2024 Gastroenterology Visit Report [facility] [address] 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 Allergies No Known Allergies Allergy (Verified 11/01/24 09:06) Medications ???Medication ???Instructions ???Recorded ???Confirmed ???Type lisinopril 20 0.5 tab PO DAILY bp 01/24/2111/01 History mg-hydrochlorothiazide 12.5 mg tablet cholecalciferol (vitamin D3) 50 25 mcg PO DAILY 10/20/23 11/01/24 History mcg (2,000 unit) tablet vibegron 75 mg tablet (Gemtesa) 75 mg PO QDAY 10/20/23 11/01/24 Hi story fesoterodine 4 mg tablet,extended 4 mg PO DAILY 05/01/24 11/01/24 H istory release 24 hr fluticasone propionate 50 1 spray intranasal Q12H PRN 11/01/24 History mcg/actuation nasal allergy symptoms spray,suspension omeprazole 40 mg capsule,delayed 40 mg PO QDAY 07/05/24 11/01/24 Hi story release escitalopram oxalate 10 mg tablet 20 mg PO DAILY 08/02/24 11/01/24 History (Lexapro) ursodiol 250 mg tablet 250 mg PO BID #180 tabs 08/02/24 0 11/01/24 Rx resmetirom 100 mg tablet 100 mg PO QDAY #90 tabs 08/05/24 0 11/01/24 Rx (Rezdiffra) meloxicam 7.5 mg tablet 7.5 mg PO DAILY PRN pain 08/13/24 11/01/24 History vitamin E succinate 268 mg (400 268 mg PO TID 08/13/24 11/01/24 Hi story unit) tablet azelastine 137 mcg (0.1 %) nasal 2 spray intranasal BID #30 mL 07/2711/01/24 Rx spray codeine 10 mg-guaifenesin 100 mg/5 10 ml PO 4X/DAY PRN cough 7 days 08/20/24 11/01/24 Rx mL oral liquid (Guaifenesin AC) #280 mL doxycycline hyclate 100 mg tablet 100 mg PO BID 08/20/24 11/01/24 H istory PFSH Medical History Gastritis Eosinophilic esophagitis Wears glasses Wears partial dentures Depression Diabetes Arthritis Bladder disease Fatty liver Restless legs Injury of head and neck Dietary restriction Difficulty chewing History of hiatal hernia History of diverticulitis Non-smoker CPAP (continuous positive airway pressure) dependence Shortness of breath on exertion Gastric reflux Hypertension History of stress test History of echocardiogram Cardiology follow-up encounter Chest pain Anxiety Essential hypertension Pneumonia due to COVID-19 virus Lactic acidosis GERD (gastroesophageal reflux disease) COVID-19 SOB (shortness of breath) Surgical History Hx of dilation and curettage History of left heart catheterization (LHC) ( 03/08/21) H/O: hysterectomy Family History Mother COPD (chronic obstructive pulmonary disease) CHF (congestive heart failure) Kidney failure CAD (coronary artery disease) Myocardial infarction Father CVA (cerebral vascular accident) Brother Myocardial infarction CAD (coronary artery disease) Sister Heart disease Social History Smoking Status: Never smoker alcohol intake: never substance use type: does not use caffeine: Yes Type: carbonated beverages Number of servings: 3 HPI HPI Chief Complaint: follow-up Details: JAY SIMON, is a 64 F who presents to the office today for FU d/t restarting Rezdiffra in July of this year after a hiatus off of medication following a revival and feeling she had been healed. She reports intentional weight loss from food limitations, denies abdominal pain or complaints. States that she restarted her Lexapro as well and is sleeping better. She has some "emotional issues" remaining following her granddaughter moving back in with her biologic mother and "being ungrateful" to her. She states that she feels much better overall. ROS Const Constitutional: Positive for weight change (loss); No chills, fatigue, fever(s) or abnormal sleep pattern Eyes Eyes: No blurry vision or change in vision ENT ENT: No abnormal hearing or difficulty swallowing Resp Respiratory: No cough Cardio Cardiology: No chest pain at rest, chest pain with exertion or leg pain with exertion Gastro GI: Positive for bloating, change in bowel habits and constipation; No abdominal pain, belching, change in stool character, coffee ground emesis, cramping, diarrhea, heartburn, diffic (more content not included)... Normal [place] Glomerular filtration rate ( GFR) estimation/1.73 sq m using serum, plasma, or whole bOrdered By: Marcela Reese on 11-01-2024 GFR/1.73 sq M.predicted among non-blacks MDRD (S/P/Bld) [Vol rate/Area] 101 mL/min/{1.73_m2} >60 [place] Comment on above: mL/min/1.73m2 CKD-EP I Creatinine Equation (2020) LDL calc ser/plasOrdered By: Marcela Reese on 11-01-2024 Cholesterol in LDL [Mass/Vol] 149 mg/dL [facility] Comment on above: Otycpazekc=901-121 m g/dL & Higher Gswj=928 mg/dL or greater LDL Cholesterol, Calculated 149 mg/dL [place] Comment on above: Cgfjmxiwew=739-818 m g/dL & Higher Gedn=048 mg/dL or greater Laboratory - Chemistry and C hemistry - challengeOrdered By: Marcela Reese on 11-01-2024 AST [Catalytic activity/Vol] 23 U/L <32 [place] Lipid Profileon 11-01-2024 CHOL:HDL 5.05 Normal [place] Comment on above: Performed By: #### L 300.8000, L501.5425, L100.0100, L500.2500 #### [facility] [address] [place], [address] Cholesterol [Mass/Vol] 213 mg/dL High <=200 [facility] Comment on above: Result Comment: Chol esterol level, Desirable <200 mg/dL Borderline high cholesterol 200-239 mg/dL High cholesterol >=240 mg/dL Recommendations of the NCEP Adult Treatment Panel for the following risk-cutoff thresholds for the [place] population. Performed By: #### L 300.8000, L501.5425, L100.0100, L500.2500 #### [facility] [address] [place], [address] Cholesterol in HDL [Mass/Vol] 42 mg/dL Normal [place] Comment on above: Result Comment: [place] onal Cholesterol Education Program (NCEP) guidelines: <40 mg/dL: Low HDL-cholesterol (major risk factor for CHD) >= 60 mg/dL: High HDL-cholesterol (negative risk factor for CHD) HDL-cholesterol is affected by a number of factors, e.g. smoking, exercise, hormones, sex and age. Performed By: #### L 300.8000, L501.5425, L100.0100, L500.2500 #### [facility] [address] [place], [address] Cholesterol in LDL [Mass/Vol] 149 mg/dL Normal [place] Comment on above: Result Comment: Bord jpbphu=210-038 mg/dL Higher Wcmi=668 mg/dL or greater Performed By: #### L 300.8000, L501.5425, L100.0100, L500.2500 #### [facility] [address] [place], [address] Cholesterol in VLDL [Mass/Vol] 22 mg/dL Normal 5-40 [place] Comment on above: Performed By: #### L 300.8000, L501.5425, L100.0100, L500.2500 #### [facility] [address] [place], [address] Triglyceride [Mass/Vol] 111 mg/dL Normal [place] Comment on above: Result Comment: The drugs N-Acetylcysteine and Metamizole may falsely depress this assay. Normal range: <150 mg/dL Borderline High: 150-199 mg/dL High: 200-499 mg/dL Very High: >500 mg/dL Performed By: #### L 300.8000, L501.5425, L100.0100, L500.2500 #### [facility] [address] [place], [address] Potassium (Unsp spec) [Mass/ Vol]Ordered By: Marcela Reese on 11-01-2024 Potassium [Moles/Vol] 4.1 mmol/L 3.3-5.1 [facility] Potassium measurement (mass/ volume)Ordered By: Marcela Reese on 11-01-2024 Potassium (Unsp spec) [Mass/Vol] 4.1 mmol/L 3.3-5.1 [place] Screening total cholesterol/ high density lipoprotein (HDL) cholesterol ratioOrdered By: Marcela Reese on 11-01-2024 Cholesterol.total/Chol esterol in HDL [Mass ratio] 5.05 {ratio} [place] Serum creatinine measurement (mass/volume)Ordered By: Marcela Reese on 11-01-2024 Creatinine [Mass/Vol] 0.60 mg/dL Low 0.70-1.20 [facility] Serum globulin measurementOr dered By: Marcela Reese on 11-01-2024 Globulin (S) [Mass/Vol] 3.8 g/dL 2.2-4.2 [place] Serum glucose measurement (m ass/volume)Ordered By: Marcela Reese on 11-01-2024 Glucose [Mass/Vol] 112 mg/dL High 70-99 [facility] Serum or plasma alanine basurto otransferase (ALT) measurementOrdered By: Marcela Reese on 11-01-2024 ALT [Catalytic activity/Vol] 25 U/L <35 [place] Serum or plasma albumin sarabjit urement (mass/volume)Ordered By: Marcela Reese on 11-01-2024 Albumin [Mass/Vol] 3.7 g/dL 3.4-4.8 [facility] Serum or plasma albumin/glob ulin mass ratioOrdered By: Marcela Reese on 11-01-2024 Albumin/Globulin [Mass ratio] 1.0 {ratio} 0.9-2.4 [place] Serum or plasma alkaline gregg sphatase measurementOrdered By: Marcela Reese on 11-01-2024 ALP [Catalytic activity/Vol] 110 U/L High 35-104 [place] Serum or plasma calcium sarabjit urement (mass/volume)Ordered By: Marcela Reese on 11-01-2024 Calcium [Mass/Vol] 9.2 mg/dL 7.6-11.0 [facility] Serum or plasma cholesterol in HDL measurement (mass/volume)Ordered By: Marcela Reese on 11-01-2024 Cholesterol in HDL [Mass/Vol] 42 mg/dL >40 [place] Comment on above: National Cholesterol Education Program (NCEP) guidelines:<40 mg/dL: Low HDL-cholesterol (major risk factor for CHD)>= 60 mg/dL: High HDL-cholesterol (negative risk factor for CHD)HDL-cholesterol is affected by a number of factors, e.g. smoking, exercise, hormones, sex and age. Serum or plasma cholesterol measurement (mass/volume)Ordered By: Marcela Reese on 11-01-2024 Cholesterol [Mass/Vol] 213 mg/dL High <201 [facility] Comment on above: Cholesterol level, D esirable <200 mg/dLBorderline high cholesterol 200-239 mg/dLHigh cholesterol >=240 mg/dLRecommendations of the NCEP Adult Treatment Panel for the following risk-cutoff thresholds for the [place] population. Serum or plasma urea nitroge n measurement (mass/volume)Ordered By: Marcela Reese on 11-01-2024 Urea nitrogen [Mass/Vol] 21 mg/dL High 4-19 [place] Sodium levelOrdered By: Bubba Reese on 11-01-2024 Sodium [Moles/Vol] 139 mmol/L 133-145 [facility] Total proteinOrdered By: Jonny Reese on 11-01-2024 Protein [Mass/Vol] 7.5 g/dL 5.9-8.4 [facility] Triglycerides measurementOrd ered By: Marcela Reese on 11-01-2024 Triglyceride [Mass/Vol] 111 mg/dL <199 [facility] Comment on above: The drugs N-Acetylcy steine and Metamizole may falsely depress this assay. Normal range: <150 mg/dLBorderline High: 150-199 mg/dLHigh: 200-499 mg/dLVery High: >500 mg/dL Absolute neutrophil countOrd ered By: Julius Yan on 08-20-2024 Neutrophils (Bld) [#/Vol] 4.9 10*3/uL 2.0-7.7 [facility] Basic Metabolic Profile (BMP )on 08-20-2024 BUN/CRE 35.1 RATIO High 10-20 [facility] Comment on above: Performed By: #### L 500.2500, L501.5200, L100.0100 #### [facility] [address] [place], [address] CA,Total 9.8 mg/dL Normal 8.5-10.1 [facility] Comment on above: Performed By: #### L 500.2500, L501.5200, L100.0100 #### [facility] [address] [place], [address] Chloride [Moles/Vol] 105 mmol/L Normal 98-107 [facility] Comment on above: Performed By: #### L 500.2500, L501.5200, L100.0100 #### [facility] [address] [place], [address] CO2 [Moles/Vol] 28.0 mmol/L Normal 21.0-32.0 [facility] Comment on above: Performed By: #### L 500.2500, L501.5200, L100.0100 #### [facility] [address] [place], [address] Creatinine [Mass/Vol] 0.74 mg/dL Normal 0.55-1.02 [facility] Comment on above: Result Comment: The validity of the calculated GFR GFRAA in patients over 70 years has not been determined. Clinical correlation is essential. Performed By: #### L 500.2500, L501.5200, L100.0100 #### [facility] [address] [place], [address] ECRCL 95.22 ml/min Normal [facility] Comment on above: Performed By: #### L 500.2500, L501.5200, L100.0100 #### [facility] [address] [place], [address] EST GFR - AA 102 mL/min Normal >60 [facility] Comment on above: Result Comment: Afri can [place] GFR Calc Performed By: #### L 500.2500, L501.5200, L100.0100 #### [facility] [address] [place], [address] GAP 7 Normal 5-15 [facility] Comment on above: Performed By: #### L 500.2500, L501.5200, L100.0100 #### [facility] [address] [place], [address] GFR/1.73 sq M.predicted among non-blacks MDRD (S/P/Bld) [Vol rate/Area] 84 mL/min/{1.73_m2} Normal >60 [facility] Comment on above: Result Comment: Non- GFR Calc Performed By: #### L 500.2500, L501.5200, L100.0100 #### [facility] [address] [place], [address] Glucose [Mass/Vol] 126 mg/dL High 74-106 [facility] Comment on above: Result Comment: Fast ing Glucose result greater than or equal to 126 mg/dL suggests DIABETES MELLITUS per A.D.A. criteria. Performed By: #### L 500.2500, L501.5200, L100.0100 #### [facility] [address] [place], [address] Potassium [Moles/Vol] 3.9 mmol/L Normal 3.5-5.1 [facility] Comment on above: Performed By: #### L 500.2500, L501.5200, L100.0100 #### [facility] [address] [place], [address] Sodium [Moles/Vol] 140 mmol/L Normal 136-145 [facility] Comment on above: Performed By: #### L 500.2500, L501.5200, L100.0100 #### [facility] [address] [place], [address] Urea nitrogen [Mass/Vol] 26 mg/dL High 7-18 [facility] Comment on above: Performed By: #### L 500.2500, L501.5200, L100.0100 #### [facility] [address] [place], [address] Basophil percentageOrdered B y: Julius Yan on 08-20-2024 Basophils/100 WBC (Bld) 0.5 % 0-1 [facility] Blood urea nitrogen (BUN)/cr eatinine ratioOrdered By: Julius Yan on 08-20-2024 Urea nitrogen/Creatinine [Mass ratio] 35.1 mg/mg High 10-20 [place] CBC W/Diff, Automatedon 07-28 Absolute Lymph 5.69 X10 3/uL High 0.83-4.51 [facility] Comment on above: Performed By: #### L 500.2500, L501.5200, L100.0100 #### [facility] [address] [place], [address] Absolute Neut 4.9 X10 3/uL Normal 2.0-7.7 [facility] Comment on above: Performed By: #### L 500.2500, L501.5200, L100.0100 #### [facility] [address] [place], [address] Basophils/100 WBC (Bld) 0.5 % Normal 0-1 [facility] Comment on above: Performed By: #### L 500.2500, L501.5200, L100.0100 #### [facility] [address] [place], [address] Eosinophils/100 WBC (Bld) 1.2 % Normal 0-5 [facility] Comment on above: Performed By: #### L 500.2500, L501.5200, L100.0100 #### [facility] [address] [place], [address] Erythrocyte distribution width (RBC) [Ratio] 13.7 % Normal 11.6-14.6 [facility] Comment on above: Performed By: #### L 500.2500, L501.5200, L100.0100 #### [facility] [address] [place], [address] Hematocrit (Bld) [Volume fraction] 39.1 % Normal 37-47 [facility] Comment on above: Performed By: #### L 500.2500, L501.5200, L100.0100 #### [facility] [address] [place], [address] Hemoglobin (Bld) [Mass/Vol] 12.6 g/dL Normal 12.0-15.0 [facility] Comment on above: Performed By: #### L 500.2500, L501.5200, L100.0100 #### [facility] [address] [place], [address] IG% 1.200 High 0.0-0.9 [facility] Comment on above: Result Comment: IG% - Immature Granulocytes (promyelocytes, myelocytes and metamyelocytes) > 1% indicates that a LEFT SHIFT is Present. Performed By: #### L 500.2500, L501.5200, L100.0100 #### [facility] [address] [place], [address] Lymphocytes/100 WBC (Bld) 48.4 % High 19-41 [facility] Comment on above: Performed By: #### L 500.2500, L501.5200, L100.0100 #### [facility] [address] [place], [address] MCH (RBC) [Entitic mass] 27.3 pg Normal 27.0-32.0 [facility] Comment on above: Performed By: #### L 500.2500, L501.5200, L100.0100 #### [facility] [address] [place], [address] MCHC (RBC) [Mass/Vol] 32.2 g/dL Normal 32-36 [facility] Comment on above: Performed By: #### L 500.2500, L501.5200, L100.0100 #### [facility] [address] [place], [address] MCV (RBC) [Entitic vol] 84.8 fL Normal 81-99 [facility] Comment on above: Performed By: #### L 500.2500, L501.5200, L100.0100 #### [facility] [address] [place], [address] Monocytes/100 WBC (Bld) 7.1 % Normal 0-10 [facility] Comment on above: Performed By: #### L 500.2500, L501.5200, L100.0100 #### [facility] [address] [place], [address] Neutrophils/100 WBC (Bld) 41.6 % Low 47-70 [facility] Comment on above: Performed By: #### L 500.2500, L501.5200, L100.0100 #### [facility] [address] [place], [address] Nucleated RBC (Bld) [#/Vol] 0 10*3/uL Normal 0-5 [facility] Comment on above: Performed By: #### L 500.2500, L501.5200, L100.0100 #### [facility] [address] [place], [address] Platelet mean volume (Bld) [Entitic vol] 11.1 fL Normal 6.2-12.0 [facility] Comment on above: Performed By: #### L 500.2500, L501.5200, L100.0100 #### [facility] [address] [place], [address] Platelets (Bld) [#/Vol] 282 10*3/uL Normal 150-450 [facility] Comment on above: Performed By: #### L 500.2500, L501.5200, L100.0100 #### [facility] [address] [place], [address] RBC (Bld) [#/Vol] 4.61 10*6/uL Normal 4.2-5.4 [facility] Comment on above: Performed By: #### L 500.2500, L501.5200, L100.0100 #### [facility] [address] [place], [address] RDW SD 42.5 fl Normal 35.1-43.9 [facility] Comment on above: Performed By: #### L 500.2500, L501.5200, L100.0100 #### [facility] [address] [place], [address] WBC (Bld) [#/Vol] 11.8 10*3/uL High 4.4-11.0 [facility] Comment on above: Performed By: #### L 500.2500, L501.5200, L100.0100 #### [facility] [address] [place], [address] CTA Chest W/WO Contraston CTA Chest W/WO Contrast [facility] Imaging Services [address] [address] CTA Chest W/WO Contrast MR#: [id number] Acct: [id number] Name: JAY SIMON Rep #: [id number] : 1960 F 64 From: Gordon Shrestha MD PCP: Dr. Anne Davis MD Status: [facility] ER Study: CTA Chest W/WO Contrast Date of Exam: 08/20/24 Exam# [id number] Ordering Dr: Julius Yan DO [id number] INDICATION: dyspnea EXAMINATION: CT CHEST WITH CONTRAST - CTA Chest WO/W Contrast Injection TECHNIQUE: Helically acquired images were obtained of the chest following IV contrast timed in the pulmonary arterial phase with sagittal and coronal reconstructed images. Post-processing of the angiographic images was performed with multiplanar reformation and 3D reconstruction. Individualized dose optimization techniques were used for this CT. IV contrast dosage and agent: 100 mL of Isovue-370. COMPARISON: None. FINDINGS: LUNGS, PLEURA AND LARGE AIRWAYS: No consolidation or edema. No pulmonary nodule. No pleural effusion. No pneumothorax. THYROID: Unremarkable. HEART AND PERICARDIUM: No evidence of coronary artery calcification. No pericardial effusion. No evidence of right heart strain. Right ventricle to left ventricle ratio measures less than 1. MEDIASTINUM AND RUBINA: No mediastinal or hilar adenopathy. Esophagus is unremarkable. Small hiatal hernia. VESSELS: No pulmonary embolism. No thoracic aortic aneurysm. UPPER ABDOMEN: The visualized upper abdomen is unremarkable. BONES: No acute abnormality. CT/CTA Chest W/WO Contrast IMPRESSION: 1. No pulmonary embolism. 2. No evidence of cardiopulmonary disease. Electronically Signed: Gordon Shrestha DO at 5:33 EST , CC: Dr. Anne Davis MD; Julius Yan DO Petrologist: Signed Normal [facility] Carbon dioxide measurementOr dered By: Julius Yan on 08-20-2024 CO2 [Moles/Vol] 28.0 mmol/L 21.0-32.0 [facility] Chloride measurementOrdered By: Julius Yan on 08-20-2024 Chloride [Moles/Vol] 105 mmol/L 98-107 [facility] Emergency Department Summary on 08-20-2024 Emergency Department Summary [facility] Medical Records Department [address] [place] [address] Emergency Department Summary 08/20/24 MR#: [id number] Acct: [id number] Name: JAY SIMON Rep #: [id number] : 1960 64 From: Julius Yan DO PCP: Dr. Anne Davis MD Status:REG ER Location: ED HPI History of Present Illness Chief Complaint: Cold Sx Informant: patient Narrative Narrative: Patient is a 64-year-old female with past medical history of hypertension anxiety and GERD. She was seen roughly 1 week ago for congestion and cough. At that time chest x-ray revealed no pneumonia blood work was normal and viral testing for COVID influenza and RSV was also negative. She states she follow-up with her doctor because she was not having any improvement of symptoms and was placed on doxycycline. She states has been taking it as directed but has still been having symptoms. This evening she had a coughing spell after laughing at her grandkid and noticed pain in her chest and back. She states that each time she coughs the pain returns and she is having difficulty sleeping. Therefore with the new symptoms she presents for evaluation and states she has concern for a missed pneumonia as she has had this in the past [facility] Medical History Gastritis Eosinophilic esophagitis Wears glasses Wears partial dentures Depression Diabetes Arthritis Bladder disease Fatty liver Restless legs Injury of head and neck Dietary restriction Difficulty chewing History of hiatal hernia History of diverticulitis Non-smoker CPAP (continuous positive airway pressure) dependence Shortness of breath on exertion Gastric reflux Hypertension History of stress test History of echocardiogram Cardiology follow-up encounter Chest pain Anxiety Essential hypertension Pneumonia due to COVID-19 virus Lactic acidosis GERD (gastroesophageal reflux disease) COVID-19 SOB (shortness of breath) Home Medications ???Medication ???Instructions ???Recorded ???Last Taken ???Type lisinopril 20 0.5 tab PO DAILY bp 01/24/21 Unknown History mg-hydrochlorothiazide 12.5 mg tablet cholecalciferol (vitamin D3) 50 25 mcg PO DAILY 10/20/23 Unknown History mcg (2,000 unit) tablet vibegron 75 mg tablet (Gemtesa) 75 mg PO QDAY 10/20/23 Unknown History fesoterodine 4 mg tablet,extended 4 mg PO DAILY 05/01/24 Unknown History release 24 hr fluticasone propionate 50 1 spray intranasal Q12H PRN 07/05/24 Unknown History mcg/actuation nasal allergy symptoms spray,suspension omeprazole 40 mg capsule,delayed 40 mg PO QDAY 07/05/24 Unknown History release escitalopram oxalate 10 mg tablet 20 mg PO DAILY 08/02/24 Unknown History (Lexapro) ursodiol 250 mg tablet 250 mg PO BID #180 tabs 08/02/24 Unknown Rx resmetirom 100 mg tablet 100 mg PO QDAY #90 tabs 08/05/24 Unknown Rx (Rezdiffra) meloxicam 7.5 mg tablet 7.5 mg PO DAILY PRN pain 08/13/24 Unknown History vitamin E succinate 268 mg (400 268 mg PO TID 08/13/24 Unknown History unit) tablet azelastine 137 mcg (0.1 %) nasal 2 spray intranasal BID #30 mL 08/14/24 Unknown Rx spray benzonatate 200 mg capsule 200 mg PO TID PRN cough #30 caps 08/14/24 Unknown Rx codeine 10 mg-guaifenesin 100 mg/5 10 ml PO 4X/DAY PRN cough 7 days 08/20/24 Unknown Rx mL oral liquid (Guaifenesin AC) #280 mL doxycycline hyclate 100 mg tablet 100 mg PO BID 08/20/24 Unknown History Allergy/AdvReac Type Severity Reaction Status Date / Time No Known Allergies Allergy Verified 08/20/24 02:58 Family History Mother COPD (chronic obstructive pulmonary disease) CHF (congestive heart failure) Kidney failure CAD (coronary artery disease) Myocardial infarction Father CVA (cerebral vascular accident) Brother Myocardial infarction CAD (coronary artery disease) Sister Heart disease Surgical History Hx of dilation and curettage History of left heart catheterization (LHC) ( 03/08/21) H/O: hysterectomy Social History Smoking Status: Never smoker alcohol intake: never substance use type: does not use caffeine: Yes Type: carbonated beverages Number of servings: 3 ROS ROS ED Constitutional Constitutional ED: Denies chills or fever(s) Eyes Eyes: Denies change in vision ENT ENT ED: Reports rhinorrhea and sore throat Cardiovascular Cardiovascular: Reports chest pain Respiratory/Chest Respiratory/Chest: Reports cough and dyspnea Gastrointestinal Gastrointestinal: Denies abdominal pain, diarrhea, nausea or vomiting Genitourinary Genitourinary ED: Denies dysuria Musculoskeletal Musculoskeletal: Rep (more content not included)... Normal [facility] Eosinophil percentageOrdered By: Julius Yan on 08-20-2024 Eosinophils/100 WBC (Bld) 1.2 % 0-5 [facility] Erythrocyte distribution wid th (RBC) [Ratio]Ordered By: Julius Yan on 08-20-2024 Erythrocyte distribution width (RBC) [Entitic vol] 42.5 fL 35.1-43.9 [facility] Erythrocyte distribution wid th ratioOrdered By: Julius Yan on 08-20-2024 Erythrocyte distribution width (RBC) [Ratio] 13.7 % 11.6-14.6 [facility] Estimated glomerular filtrat ion rate (GFR) AmericanOrdered By: Julius Yan on 08-20-2024 Estimated GFR (MDRD) Amer 102 mL/min >60 [facility] Comment on above: GFR Calc Estimation of creatinine francie aranceOrdered By: Julius Yan on 08-20-2024 Estimated Creatinine Clearance Calc 95.22 ml/min [facility] Glomerular filtration rate ( GFR) estimationOrdered By: Julius Yan on 08-20-2024 Estimated GFR (MDRD) Non-Af Amer 84 mL/min >60 [facility] Comment on above: Non- GFR Calc Glucose measurementOrdered B y: Julius Yan on 08-20-2024 Glucose [Mass/Vol] 126 mg/dL High 74-106 [facility] Comment on above: Fasting Glucose resu lt greater than or equal to 126 mg/dL suggests DIABETES MELLITUS per A.D.A. criteria. Hematocrit Auto (Bld) [Volum e fraction]Ordered By: Julius Yan on 08-20-2024 Hematocrit (Bld) [Volume fraction] 39.1 % 37-47 [facility] Hemoglobin measurementOrdere d By: Julius Yan on 08-20-2024 Hemoglobin (Bld) [Mass/Vol] 12.6 g/dL 12.0-15.0 [facility] Immature granulocytes/100 WB C Auto (Bld)Ordered By: Julius Yan on 08-20-2024 Immature granulocytes/100 WBC (Bld) 1.200 % High 0.0-0.9 [facility] Comment on above: IG% - Immature Granu locytes (promyelocytes, myelocytes and metamyelocytes) > 1% indicates that a LEFT SHIFT is Present. Lymphocytes Auto (Unsp spec) [#/Vol]Ordered By: Julius Yan on 08-20-2024 Lymphocytes (Bld) [#/Vol] 5.69 10*3/uL High 0.83-4.51 [facility] Lymphocytes/100 WBC Auto (Un sp spec)Ordered By: Julius Yan on 08-20-2024 Lymphocytes/100 WBC (Bld) 48.4 % High 19-41 [facility] MCV (mean corpuscular volume ) determinationOrdered By: Julius Yan on 08-20-2024 MCV (RBC) [Entitic vol] 84.8 fL 81-99 [facility] Magnesiumon 08-20-2024 Magnesium [Mass/Vol] 1.8 mg/dL Normal 1.6-2.6 [facility] Comment on above: Performed By: #### L 500.2500, L501.5200, L100.0100 #### [facility] [address] [place], [place] [address]all [facility] [place], [place], [id number] Magnesium measurementOrdered By: Julius Yan on 08-20-2024 Magnesium [Mass/Vol] 1.8 mg/dL 1.6-2.6 [facility] Mean corpuscular hemoglobin (MCH) determinationOrdered By: Julius Yan on 08-20-2024 MCH (RBC) [Entitic mass] 27.3 pg 27.0-32.0 [facility] Mean corpuscular hemoglobin concentration (MCHC) determinationOrdered By: Julius Yan on 08-20-2024 MCHC (RBC) [Mass/Vol] 32.2 g/dL 32-36 [facility] Mean platelet volume determi nationOrdered By: Julius Yan on 08-20-2024 Platelet mean volume (Bld) [Entitic vol] 11.1 fL 6.2-12.0 [facility] Monocyte percentageOrdered B y: Julius Yan on 08-20-2024 Monocytes/100 WBC (Bld) 7.1 % 0-10 [facility] Neutrophil percentageOrdered By: Julius Yan on 08-20-2024 Neutrophils/100 WBC (Bld) 41.6 % Low 47-70 [facility] Nucleated red blood cell per centageOrdered By: Julius Yan on 08-20-2024 Nucleated RBC/100 WBC (Bld) [Ratio] 0 % 0-5 [facility] Platelet countOrdered By: Jeaneth Yan on 08-20-2024 Platelets (Bld) [#/Vol] 282 10*3/uL 150-450 [facility] Potassium measurementOrdered By: Julius Yan on 08-20-2024 Potassium [Moles/Vol] 3.9 mmol/L 3.5-5.1 [facility] RBC Auto (Bld) [#/Vol]Ordere d By: Julius Yan on 08-20-2024 RBC (Bld) [#/Vol] 4.61 10*6/uL 4.2-5.4 [facility] RESPIRATORY PANEL MOLECULARo n 08-20-2024 RP PANEL ADENOVIRUS Not Detected INFLUENZA A Not Detected INFLUENZA A (SUBTYPE H1) Not Detected INFLUENZA A (SUBTYPE H3) Not Detected INFLUENZA B Not Detected HUMAN METAPHNEUMO Not Detected PARAINFLUENZA 1 Not Detected PARAINFLUENZA 2 Not Detected PARAINFLUENZA 3 Not Detected PARAINFLUENZA 4 Not Detected RHINOVIRUS Not Detected RSV A Not Detected RSV B Not Detected Normal [facility] Comment on above: Performed By: #### L 300.8000, L501.2925, L100.0100, L500.2500 #### [facility] [address] [place] [address], [address] Respiratory pathogens DNA an d RNA panel TYLER+probe (Resp)Ordered By: Julius Yan on 08-20-2024 Respiratory Panel (PCR) [facility] Serum anion gap measurementO rdered By: Julius Yan on 08-20-2024 Anion gap [Moles/Vol] 7 mmol/L 5-15 [facility] Serum or plasma calcium sarabjit urement (mass/volume)Ordered By: Julius Yan on 08-20-2024 Calcium [Mass/Vol] 9.8 mg/dL 8.5-10.1 [facility] Serum or plasma creatinine m easurement (mass/volume)Ordered By: Julius Yan on 08-20-2024 Creatinine [Mass/Vol] 0.74 mg/dL 0.55-1.02 [facility] Comment on above: The validity of the calculated GFR & GFRAA in patients over 70 years has not been determined. Clinical correlation is essential. Serum or plasma urea nitroge n measurement (mass/volume)Ordered By: Julius Yan on 08-20-2024 Urea nitrogen [Mass/Vol] 26 mg/dL High 7-18 [facility] Sodium levelOrdered By: Daniele Yan on 08-20-2024 Sodium [Moles/Vol] 140 mmol/L 136-145 [facility] White blood cell (WBC) count Ordered By: Julius Yan on 08-20-2024 WBC (Bld) [#/Vol] 11.8 10*3/uL High 4.4-11.0 [facility] Emergency Department Summary on 08-14-2024 Emergency Department Summary [facility] Medical Records Department [address] [place] [address] Emergency Department Summary 08/14/24 MR#: [id number] Acct: [id number] Name: JAY SIMON Rep #: [id number] : 1960 64 From: Julius Yan DO PCP: Dr. Anne Davis MD Status:DEP ER Location: ED HPI History of Present Illness Chief Complaint: General Illness Informant: patient and family Narrative Narrative: Patient is a 64-year-old female with past medical history of hypertension anxiety and depression and GERD. She reports that in the last 24 hours she has had congestion cough and increased shortness of breath. She states she is cough to the point where she is almost passed out. She denies any known sick contacts. She states that symptoms appear to be worsening and therefore presents to the hospital for evaluation [facility] Medical History Gastritis Eosinophilic esophagitis Wears glasses Wears partial dentures Depression Diabetes Arthritis Bladder disease Fatty liver Restless legs Injury of head and neck Dietary restriction Difficulty chewing History of hiatal hernia History of diverticulitis Non-smoker CPAP (continuous positive airway pressure) dependence Shortness of breath on exertion Gastric reflux Hypertension History of stress test History of echocardiogram Cardiology follow-up encounter Chest pain Anxiety Essential hypertension Pneumonia due to COVID-19 virus Lactic acidosis GERD (gastroesophageal reflux disease) COVID-19 SOB (shortness of breath) Home Medications ???Medication ???Instructions ???Recorded ???Last Taken ???Type lisinopril 20 0.5 tab PO DAILY bp 01/24/21 Unknown History mg-hydrochlorothiazide 12.5 mg tablet cholecalciferol (vitamin D3) 50 25 mcg PO DAILY 10/20/23 Unknown History mcg (2,000 unit) tablet vibegron 75 mg tablet (Gemtesa) 75 mg PO QDAY 10/20/23 Unknown History fesoterodine 4 mg tablet,extended 4 mg PO DAILY 05/01/24 Unknown History release 24 hr fluticasone propionate 50 1 spray intranasal Q12H PRN 07/05/24 Unknown History mcg/actuation nasal allergy symptoms spray,suspension omeprazole 40 mg capsule,delayed 40 mg PO QDAY 07/05/24 Unknown History release escitalopram oxalate 10 mg tablet 20 mg PO DAILY 08/02/24 Unknown History (Lexapro) ursodiol 250 mg tablet 250 mg PO BID #180 tabs 08/02/24 Unknown Rx resmetirom 100 mg tablet 100 mg PO QDAY #90 tabs 08/05/24 Unknown Rx (Rezdiffra) meloxicam 7.5 mg tablet 7.5 mg PO DAILY PRN pain 08/13/24 Unknown History vitamin E succinate 268 mg (400 268 mg PO TID 08/13/24 Unknown History unit) tablet azelastine 137 mcg (0.1 %) nasal 2 spray intranasal BID #30 mL 08/14/24 Unknown Rx spray benzonatate 200 mg capsule 200 mg PO TID PRN cough #30 caps 08/14/24 Unknown Rx prednisone 20 mg tablet 40 mg (2 x 20 mg) PO DAILY 5 days 08/14/24 Unknown Rx #10 tabs Allergy/AdvReac Type Severity Reaction Status Date / Time No Known Allergies Allergy Verified 08/13/24 21:09 Family History Mother COPD (chronic obstructive pulmonary disease) CHF (congestive heart failure) Kidney failure CAD (coronary artery disease) Myocardial infarction Father CVA (cerebral vascular accident) Brother Myocardial infarction CAD (coronary artery disease) Sister Heart disease Surgical History Hx of dilation and curettage History of left heart catheterization (LHC) ( 03/08/21) H/O: hysterectomy Social History Smoking Status: Never smoker alcohol intake: never substance use type: does not use caffeine: Yes Type: carbonated beverages Number of servings: 3 ROS ROS ED Constitutional Constitutional ED: Reports chills, fever(s) and subjective Eyes Eyes: Denies change in vision ENT ENT ED: Reports rhinorrhea and sore throat Cardiovascular Cardiovascular: Denies chest pain, palpitations or racing heartbeat Respiratory/Chest Respiratory/Chest: Reports cough and dyspnea Gastrointestinal Gastrointestinal: Reports nausea; Denies abdominal pain, diarrhea or vomiting Genitourinary Genitourinary ED: Denies dysuria Musculoskeletal Musculoskeletal: Reports myalgias Integumentary Denies rash Neurologic Neurologic: Reports headache(s) Psychiatric Psychiatric: Reports anxiety Hematologic/Lymphatic Hematologic/Lymphatic: Denies easy bleeding or easy bruising EXAM Physical Exam Const Vital Signs: 08/13/24 21:07 08/13/24 21:07 08/13/24 21:13 Temperature 98.3 F 98.3 F Temperature Source Oral Oral Pulse Rate 88 80 Respiratory Rate 17 16 Respiratory Effort (more content not included)... Normal [facility] Absolute neutrophil countOrd ered By: Julius Yan on 08-13-2024 Neutrophils (Bld) [#/Vol] 10.9 10*3/uL High 2.0-7.7 [facility] Basic Metabolic Profile (BMP )on 08-13-2024 BUN/CRE 16.8 RATIO Normal 10- [facility] Comment on above: Performed By: #### L 300.8000, L501.5425, L100.0100, L500.2500 #### [facility] [address] [place], [address] CA,Total 9.3 mg/dL Normal 8.5-10.1 [facility] Comment on above: Performed By: #### L 300.8000, L501.5425, L100.0100, L500.2500 #### [facility] [address] [place], [address] Chloride [Moles/Vol] 102 mmol/L Normal 98-107 [facility] Comment on above: Performed By: #### L 300.8000, L501.5425, L100.0100, L500.2500 #### [facility] [address] [place], [address] CO2 [Moles/Vol] 25.0 mmol/L Normal 21.0-32.0 [facility] Comment on above: Performed By: #### L 300.8000, L501.5425, L100.0100, L500.2500 #### [facility] [address] [place], [address] Creatinine [Mass/Vol] 0.83 mg/dL Normal 0.55-1.02 [facility] Comment on above: Result Comment: The validity of the calculated GFR GFRAA in patients over 70 years has not been determined. Clinical correlation is essential. Performed By: #### L 300.8000, L501.5425, L100.0100, L500.2500 #### [facility] [address] [place], [address] ECRCL 88.98 ml/min Normal [facility] Comment on above: Performed By: #### L 300.8000, L501.5425, L100.0100, L500.2500 #### [facility] [address] [place], [address] EST GFR - AA 89 mL/min Normal >60 [facility] Comment on above: Result Comment: Afri can [place] GFR Calc Performed By: #### L 300.8000, L501.5425, L100.0100, L500.2500 #### [facility] [address] [place], [address] GAP 7 Normal 5-15 [facility] Comment on above: Performed By: #### L 300.8000, L501.5425, L100.0100, L500.2500 #### [facility] [address] [place], [address] GFR/1.73 sq M.predicted among non-blacks MDRD (S/P/Bld) [Vol rate/Area] 74 mL/min/{1.73_m2} Normal >60 [facility] Comment on above: Result Comment: Non- GFR Calc Performed By: #### L 300.8000, L501.5425, L100.0100, L500.2500 #### [facility] [address] [place], [address] Glucose [Mass/Vol] 130 mg/dL High 74-106 [facility] Comment on above: Result Comment: Fast ing Glucose result greater than or equal to 126 mg/dL suggests DIABETES MELLITUS per A.D.A. criteria. Performed By: #### L 300.8000, L501.5425, L100.0100, L500.2500 #### [facility] [address] [place], [address] Potassium [Moles/Vol] 3.8 mmol/L Normal 3.5-5.1 [facility] Comment on above: Performed By: #### L 300.8000, L501.5425, L100.0100, L500.2500 #### [facility] [address] [place], [address] Sodium [Moles/Vol] 134 mmol/L Low 136-145 [facility] Comment on above: Performed By: #### L 300.8000, L501.5425, L100.0100, L500.2500 #### [facility] [address] [place], [address] Urea nitrogen [Mass/Vol] 14 mg/dL Normal -18 [facility] Comment on above: Performed By: #### L 300.8000, L501.5425, L100.0100, L500.2500 #### [facility] [address] [place], [address] Basophil percentageOrdered B y: Julius Yan on 08-13-2024 Basophils/100 WBC (Bld) 0.4 % 0-1 [facility] Blood urea nitrogen (BUN)/cr eatinine ratioOrdered By: Julius Yan on 08-13-2024 Urea nitrogen/Creatinine [Mass ratio] 16.8 mg/mg - [facility] CBC W/Diff, Automatedon 07-27 Absolute Lymph 1.23 X10 3/uL Normal 0.83-4.51 [facility] Comment on above: Performed By: #### M 100.678 #### [facility] [address] [place], [address] Absolute Neut 10.9 X10 3/uL High 2.0-7.7 [facility] Comment on above: Performed By: #### M 100.678 #### [facility] [address] [place], [address] Basophils/100 WBC (Bld) 0.4 % Normal 0-1 [facility] Comment on above: Performed By: #### M 100.678 #### [facility] [address] [place], [address] Eosinophils/100 WBC (Bld) 0.0 % Normal 0-5 [facility] Comment on above: Performed By: #### M 100.678 #### [facility] [address] [place], [address] Erythrocyte distribution width (RBC) [Ratio] 13.6 % Normal 11.6-14.6 [facility] Comment on above: Performed By: #### M 100.678 #### [facility] [address] [place], [address] Hematocrit (Bld) [Volume fraction] 42.2 % Normal 37-47 [facility] Comment on above: Performed By: #### M 100.678 #### [facility] [address] [place], [address] Hemoglobin (Bld) [Mass/Vol] 13.3 g/dL Normal 12.0-15.0 [facility] Comment on above: Performed By: #### M 100.678 #### [facility] [address] [place], [address] IG% 0.500 Normal 0.0-0.9 [facility] Comment on above: Result Comment: IG% - Immature Granulocytes (promyelocytes, myelocytes and metamyelocytes) > 1% indicates that a LEFT SHIFT is Present. Performed By: #### M 100.678 #### [facility] [address] [place], [address] Lymphocytes/100 WBC (Bld) 9.3 % Low 19-41 [facility] Comment on above: Performed By: #### M 100.678 #### [facility] [address] [place], [address] MCH (RBC) [Entitic mass] 27.1 pg Normal 27.0-32.0 [facility] Comment on above: Performed By: #### M 100.678 #### [facility] [address] [place], [address] MCHC (RBC) [Mass/Vol] 31.5 g/dL Low 32-36 [facility] Comment on above: Performed By: #### M 100.678 #### [facility] [address] [place], [address] MCV (RBC) [Entitic vol] 86.1 fL Normal 81-99 [facility] Comment on above: Performed By: #### M 100.678 #### [facility] [address] [place], [address] Monocytes/100 WBC (Bld) 6.8 % Normal 0-10 [facility] Comment on above: Performed By: #### M 100.678 #### [facility] [address] [place], [address] Neutrophils/100 WBC (Bld) 83.0 % High 47-70 [facility] Comment on above: Performed By: #### M 100.678 #### [facility] [address] [place], [address] Nucleated RBC (Bld) [#/Vol] 0 10*3/uL Normal 0-5 [place] Comment on above: Performed By: #### M 100.678 #### [facility] [address] [place], [address] Platelet mean volume (Bld) [Entitic vol] 11.4 fL Normal 6.2-12.0 [facility] Comment on above: Performed By: #### M 100.678 #### [facility] [address] [place], [address] Platelets (Bld) [#/Vol] 199 10*3/uL Normal 150-450 [facility] Comment on above: Performed By: #### M 100.678 #### [facility] [address] [place], [address] RBC (Bld) [#/Vol] 4.90 10*6/uL Normal 4.2-5.4 [facility] Comment on above: Performed By: #### M 100.678 #### [facility] [address] [place], [address] RDW SD 42.7 fl Normal 35.1-43.9 [facility] Comment on above: Performed By: #### M 100.678 #### [facility] [address] [place], [address] WBC (Bld) [#/Vol] 13.2 10*3/uL High 4.4-11.0 [facility] Comment on above: Performed By: #### M 100.678 #### [facility] [address] [place], [address] Carbon dioxide measurementOr dered By: Julius Yan on 08-13-2024 CO2 [Moles/Vol] 25.0 mmol/L 21.0-32.0 [facility] Chest 1 View (Portable)on Chest 1 View (Portable) [facility] Imaging Services [address] [place], [place] [address] Chest 1 View (Portable) MR#: [id number] Acct: [id number] Name: JAY SIMON Rep #: [id number] : 1960 F 64 From: Antwan Hinds PCP: Dr. Anne Davis MD Status: [facility] ER Study: Chest 1 View (Portable) Date of Exam: 08/13/24 Exam# [id number] Ordering Dr: Julius Yan DO [id number] INDICATION: cough EXAMINATION/TECHNIQUE: X-RAY - XR Chest 1 View COMPARISON: 05/01/2024 FINDINGS: LIFE-SUPPORT AND LINES: 1. None HEART AND VESSELS: The cardiac silhouette, pulmonary vasculature have normal appearance. No evidence of congestive failure. LUNGS AND PLEURAL SPACES: Lungs are clear. No focal infiltrate, consolidation or effusions. No evidence of pneumothorax. No pulmonary mass is noted. MEDIASTINUM AND HILAR REGIONS: No masses adenopathy noted. No areas of calcification. Visualized upper airway is normal in position. BONY ELEMENTS: No acute bony changes noted. RAD/Chest 1 View (Portable) IMPRESSION: 1. No evidence of acute cardiopulmonary process Electronically Signed: Antwan Mclain MD at 0:28 EST , CC: Dr. Anne Davis MD; Julius Yan DO Petrologist: Signed Normal [place] Chloride measurementOrdered By: uJlius Yan on 08-13-2024 Chloride [Moles/Vol] 102 mmol/L 98-107 [facility] Eosinophil percentageOrdered By: Julius Yan on 08-13-2024 Eosinophils/100 WBC (Bld) 0.0 % 0-5 [facility] Erythrocyte distribution wid th (RBC) [Ratio]Ordered By: Julius Yan on 08-13-2024 Erythrocyte distribution width (RBC) [Entitic vol] 42.7 fL 35.1-43.9 [facility] Erythrocyte distribution wid th ratioOrdered By: Juluis Yan on 08-13-2024 Erythrocyte distribution width (RBC) [Ratio] 13.6 % 11.6-14.6 [facility] Estimated glomerular filtrat ion rate (GFR) AmericanOrdered By: Julius Yan on 08-13-2024 Estimated GFR (MDRD) Amer 89 mL/min >60 [facility] Comment on above: GFR Calc Estimation of creatinine francie aranceOrdered By: Julius Yan on 08-13-2024 Estimated Creatinine Clearance Calc 88.98 ml/min [facility] Glomerular filtration rate ( GFR) estimationOrdered By: Julius Yan on 08-13-2024 Estimated GFR (MDRD) Non-Af Amer 74 mL/min >60 [facility] Comment on above: Non- GFR Calc Glucose measurementOrdered B y: Julius Yan on 08-13-2024 Glucose [Mass/Vol] 130 mg/dL High 74-106 [facility] Comment on above: Fasting Glucose resu lt greater than or equal to 126 mg/dL suggests DIABETES MELLITUS per A.D.A. criteria. Hematocrit Auto (Bld) [Volum e fraction]Ordered By: Julius Yan on 08-13-2024 Hematocrit (Bld) [Volume fraction] 42.2 % 37-47 [facility] Hemoglobin measurementOrdere d By: Julius Yan on 08-13-2024 Hemoglobin (Bld) [Mass/Vol] 13.3 g/dL 12.0-15.0 [facility] Immature granulocytes/100 WB C Auto (Bld)Ordered By: Julius Yan on 08-13-2024 Immature granulocytes/100 WBC (Bld) 0.500 % 0.0-0.9 [facility] Comment on above: IG% - Immature Granu locytes (promyelocytes, myelocytes and metamyelocytes) > 1% indicates that a LEFT SHIFT is Present. Influenza virus A and B and SARS-CoV-2 (COVID-19) and Respiratory syncytial virus RNAOrdered By: Julius Yan on 08-13-2024 SARS-CoV-2 (COVID-19) RNA TYLER+probe Ql (Unsp spec) [facility] Lymphocytes Auto (Unsp spec) [#/Vol]Ordered By: Julius Yan on 08-13-2024 Lymphocytes (Bld) [#/Vol] 1.23 10*3/uL 0.83-4.51 [facility] Lymphocytes/100 WBC Auto (Un sp spec)Ordered By: Julius Yan on 08-13-2024 Lymphocytes/100 WBC (Bld) 9.3 % Low 19-41 [facility] M100.678on 08-13-2024 M100.678 Pending SARS-CoV-2 (COVID 19) Negative INFLUENZA A Negative INFLUENZA B Negative RSV PCR Negative Normal [facility] Comment on above: Performed By: #### M 100.678 #### [facility] [address] [place], [address] MCV (mean corpuscular volume ) determinationOrdered By: Julius Yan on 08-13-2024 MCV (RBC) [Entitic vol] 86.1 fL 81-99 [facility] Magnesiumon 08-13-2024 Magnesium [Mass/Vol] 1.9 mg/dL Normal 1.6-2.6 [facility] Comment on above: Performed By: #### L 300.8000, L501.7928, L100.0100, L500.2500 #### [facility] [address] [place], [address] Magnesium measurementOrdered By: Julius Yan on 08-13-2024 Magnesium [Mass/Vol] 1.9 mg/dL 1.6-2.6 [facility] Mean corpuscular hemoglobin (MCH) determinationOrdered By: Julius Yan on 08-13-2024 MCH (RBC) [Entitic mass] 27.1 pg 27.0-32.0 [facility] Mean corpuscular hemoglobin concentration (MCHC) determinationOrdered By: Julius Yan on 08-13-2024 MCHC (RBC) [Mass/Vol] 31.5 g/dL Low 32-36 [facility] Mean platelet volume determi nationOrdered By: Julius Yan on 08-13-2024 Platelet mean volume (Bld) [Entitic vol] 11.4 fL 6.2-12.0 [facility] Monocyte percentageOrdered B y: Julius Yan on 08-13-2024 Monocytes/100 WBC (Bld) 6.8 % 0-10 [facility] Neutrophil percentageOrdered By: Julius Yan on 08-13-2024 Neutrophils/100 WBC (Bld) 83.0 % High 47-70 [facility] Nucleated red blood cell per centageOrdered By: Julius Yan on 08-13-2024 Nucleated RBC/100 WBC (Bld) [Ratio] 0 % 0-5 [facility] Platelet countOrdered By: Jeaneth Yan on 08-13-2024 Platelets (Bld) [#/Vol] 199 10*3/uL 150-450 [facility] Potassium measurementOrdered By: Julius Yan on 08-13-2024 Potassium [Moles/Vol] 3.8 mmol/L 3.5-5.1 [facility] RBC Auto (Bld) [#/Vol]Ordere d By: Julius Yan on 08-13-2024 RBC (Bld) [#/Vol] 4.90 10*6/uL 4.2-5.4 [facility] Serum anion gap measurementO rdered By: Julius Yan on 08-13-2024 Anion gap [Moles/Vol] 7 mmol/L 5- [facility] Serum or plasma calcium sarabjit urement (mass/volume)Ordered By: Julius Yan on 08-13-2024 Calcium [Mass/Vol] 9.3 mg/dL 8.5-10.1 [facility] Serum or plasma creatinine m easurement (mass/volume)Ordered By: Julius Yan on 08-13-2024 Creatinine [Mass/Vol] 0.83 mg/dL 0.55-1.02 [facility] Comment on above: The validity of the calculated GFR & GFRAA in patients over 70 years has not been determined. Clinical correlation is essential. Serum or plasma urea nitroge n measurement (mass/volume)Ordered By: Julius Yan on 08-13-2024 Urea nitrogen [Mass/Vol] 14 mg/dL 02-10 [facility] Sodium levelOrdered By: Daniele Yan on 08-13-2024 Sodium [Moles/Vol] 134 mmol/L Low 136-145 [facility] White blood cell (WBC) count Ordered By: Julius Yan on 08-13-2024 WBC (Bld) [#/Vol] 13.2 10*3/uL High 4.4-11.0 [facility] Gastroenterology Visit Repor ton 08-02-2024 Gastroenterology Visit Report [facility] [address] 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 Is patient in pain?: No Allergies No Known Allergies Allergy (Verified 08/02/24 08:43) Medications ???Medication ???Instructions ???Recorded ???Confirmed ???Type lisinopril 20 0.5 tab PO DAILY bp 01/24/21 08/02/24 History mg-hydrochlorothiazide 12.5 mg tablet cholecalciferol (vitamin D3) 50 50 mcg PO DAILY 10/20/23 08/02/24 History mcg (2,000 unit) tablet vibegron 75 mg tablet (Gemtesa) 75 mg PO QDAY 10/20/23 08/02/24 History fesoterodine 4 mg tablet,extended 4 mg PO DAILY 05/01/24 08/02/24 History release 24 hr fluticasone propionate 50 1 spray intranasal Q12H PRN 07/05/24 08/02/24 History mcg/actuation nasal spray,suspension omeprazole 40 mg capsule,delayed 40 mg PO QDAY 07/05/24 08/02/24 History release escitalopram oxalate 10 mg tablet 20 mg PO DAILY PRN 08/02/24 08/02/24 History (Lexapro) resmetirom 100 mg tablet 100 mg PO QDAY #30 tabs 08/02/24 08/02/24 Rx (Rezdiffra) ursodiol 250 mg tablet 250 mg PO BID #180 tabs 08/02/24 08/02/24 Rx vitamin E succinate 268 mg (400 268 mg PO QDAY #90 tabs 08/02/24 08/02/24 Rx unit) tablet PFSH Medical History Gastritis Eosinophilic esophagitis Wears glasses Wears partial dentures Depression Diabetes Arthritis Bladder disease Fatty liver Restless legs Injury of head and neck Dietary restriction Difficulty chewing History of hiatal hernia History of diverticulitis Non-smoker CPAP (continuous positive airway pressure) dependence Shortness of breath on exertion Gastric reflux Hypertension History of stress test History of echocardiogram Cardiology follow-up encounter Chest pain Anxiety Essential hypertension Pneumonia due to COVID-19 virus Lactic acidosis GERD (gastroesophageal reflux disease) COVID-19 SOB (shortness of breath) Surgical History Hx of dilation and curettage History of left heart catheterization (LHC) ( 03/08/21) H/O: hysterectomy Family History Mother COPD (chronic obstructive pulmonary disease) CHF (congestive heart failure) Kidney failure CAD (coronary artery disease) Myocardial infarction Father CVA (cerebral vascular accident) Brother Myocardial infarction CAD (coronary artery disease) Sister Heart disease Social History Smoking Status: Never smoker alcohol intake: never substance use type: does not use caffeine: Yes Type: carbonated beverages Number of servings: 3 HPI HPI Chief Complaint: follow-up Details: JAY SIMON, is a 64 F who presents to the office today for - she reports her weight is stable - denies any abdominal pain - bowels are doing well - reports she did not have any s/e to Rezdiffa, Gagandeep or Vitamin E - she reports she is not sleeping at night, staying up till 8am - stopped her Lexapro a month ago thought she did not need it - she does not exercise - reports her eating habits are poor ROS Const Constitutional: Positive for fatigue; No fever(s) or weight change ENT ENT: No difficulty swallowing Gastro GI: Positive for heartburn; No abdominal pain, belching, bloating, change in bowel habits, change in stool character, coffee ground emesis, constipation, cramping, diarrhea, difficulty swallowing, feeling full early, excessive flatus, incontinent of stools, Vomiting blood/hematemesis, Blood in stool, loose stools, Black,tarry stools, nausea/dyspepsia, pain with swallowing, vomiting or other Musc Musculoskeletal: Positive for restless legs; No joint pain Skin Skin: No yellowing of the eye or itchy eyes Neuro Neurology: Positive for restless legs Psych Psychiatric: No anxiety and No depression Endo Endocrine: Positive for fatigue; No weight change Aller/Imm Allergy/Immunologic: No itchy eyes Pino/Lymp Hematologic/Lymphatic: No easy bleeding or easy bruising Exam Const General: cooperative, healthy appearing, no acute distress and well developed Nutritional Appearance: well nourished and obese Orientation: alert and oriented x3 HENOR Head: normocephal (more content not included)... Normal [facility] ABD Limited w/ Elastographyo n 07-13-2024 ABD Limited w/ Elastography [facility] Imaging Services [address] [place] [address] ABD Limited w/ Elastography MR#: [id number] Acct: [id number] Name: JAY SIMON Rep #: [id number] : 1960 F 64 From: Fareed smith MD PCP: Dr. Anne Davis MD Status: REG CLI Study: ABD Limited w/ Elastography Date of Exam: 06/26 03/19 Exam# [id number] Ordering Dr: Jill Bhatti HEALTH OUTREACH WORKER- C [id number] STUDY: ABDOMINAL ULTRASOUND - RIGHT UPPER QUADRANT; ELASTOGRAPHY REASON FOR VISIT: Female, 64 years old. Fatty infiltration of the liver. TECHNIQUE: Ultrasound evaluation of the right upper quadrant was performed with real-time and static kaye-scale imaging. Point quantification shear wave elastography was performed ([employer]). TECHNICAL QUALITY: Adequate. COMPARISON: Comparison is made with prior study dated November 20, 2023. FINDINGS: Liver: The liver is enlarged and measures 20.2 cm. There is increased echogenicity consistent with fatty infiltration. The bile ducts are within normal limits. There is hepatic color flow. The direction of portal flow is hepatopetal. There is a 2.3 cm x 2 cm x 1.5 cm echogenic nodule suggestive of a hemangioma in the right lobe of the liver. This is unchanged. Median liver stiffness measured 12.2 kPa. Gallbladder: Normal distended gallbladder. The gallbladder wall measures 2.1 mm. There is a negative sonographic Krause''s sign. There is no pericholecystic fluid. There are no gallstones. Common Bile Duct (C.B.D.): The common bile duct measures 4.2 mm. Pancreas: There is normal echogenicity of the visualized pancreas. There is no demonstrated pancreatic mass or cyst. Right Kidney: Normal size of the right kidney. The right kidney measures 11 cm x 4.6 cm x 4.8 cm. Normal renal cortex. The right cortex measures 1.6 cm. There is no demonstrated renal mass or cyst. There is no right hydronephrosis. US/ABD Limited w/ Elastography IMPRESSION: 1. Liver stiffness measures 12.2 kPa compatible with F2-F3 (Mild to moderate liver fibrosis) Metavir score. 2. Hepatomegaly and fatty infiltration of the liver. 3. 4. Findings suggestive of a hemangioma in the right lobe of the liver. Electronically Signed: Fareed Gregorio MD at 10:55 EST , CC: YOHANA Bhatti; Dr. Anne Davis MD Petrologist: Signed [facility] [place] Normal [place] Comment on above: Order Comment: SERUM [id number] Enhanced Liver Fibrosis (ELF)??? Test Result Comment: TEST RESULTS LIMITS Enhanced Liver Fibrosis (ELF) ELF(TM) Score 8.90 <9.80 ELF(TM) Score Interpretation: Risk cut-offs to assess the likelihood of progression to cirrhosis and liver-related clinical events within 3.9 years following baseline ELF score (IQR: 14.0-22.4 months)*: Lower risk < 9.80 Mid risk 9.80 - 11.29 Higher risk >11.29 Note: The ELF(TM) Score is a unitless numerical value. *Rajinder SA, Boogie VW, Tess T, et al. Selonsertib for patients with bridging fibrosis or compensated cirrhosis due to ORTEGA: Results from randomized phase III STELLAR trials. J Hepatol. 2020 Jan;73(1):26-39. [facility] ORIGINAL REPORT ON FILE IN LAB CONTAINS ADDITIONAL TEST SITE INFORMATION. Performed By: #### L 300.8000, L501.5425, L100.0100, L500.2500 #### [facility] [address] [place], [address] CAREY w/ Reflex Mult Confirmon 07-06-2024 CAREY,DIRECT Negative Normal Negative [facility] Comment on above: Order Comment: SEND DR.J DAVY STORY, CBCD Result Comment: Perf ormed at: [address] [id number] Savings Teller: Juliano Ibarra PhD, Phone: [phone] Performed By: #### L 300.8000, L501.5425, L100.0100, L500.2500 #### [facility] [address] [place], [address] CBC W/Diff, Automatedon --2023 Absolute Lymph 3.08 X10 3/uL Normal 0.83-4.51 [facility] Comment on above: Order Comment: SEND DR.J DAVY STORY, CBCD Performed By: #### Danii 005.513 #### [facility] [address] [place], [address] Absolute Neut 3.4 X10 3/uL Normal 2.0-7.7 [facility] Comment on above: Order Comment: SEND DR.J DAVY STORY, CBCD Performed By: #### Danii 669.825 #### [facility] [address] [place], [address] Basophils/100 WBC (Bld) 0.4 % Normal 0-1 [facility] Comment on above: Order Comment: SEND DR.J BHATTI CMP, CBCD Performed By: #### M 100.678 #### [facility] [address] [place], [address] Eosinophils/100 WBC (Bld) 1.4 % Normal 0-5 [facility] Comment on above: Order Comment: SEND DR.J BHATTI CMP, CBCD Performed By: #### M 100.678 #### [facility] [address] [place], [address] Erythrocyte distribution width (RBC) [Ratio] 13.6 % Normal 11.6-14.6 [facility] Comment on above: Order Comment: SEND DR.J BHATTI CMP, CBCD Performed By: #### M 100.678 #### [facility] [address] [place], [address] Hematocrit (Bld) [Volume fraction] 38.7 % Normal 37-47 [facility] Comment on above: Order Comment: SEND DR.J BHATTI CMP, CBCD Performed By: #### M 100.678 #### [facility] [address] [place], [address] Hemoglobin (Bld) [Mass/Vol] 12.1 g/dL Normal 12.0-15.0 [facility] Comment on above: Order Comment: SEND DR.J BHATTI CMP, CBCD Performed By: #### M 100.678 #### [facility] [address] [place], [address] IG% 0.300 Normal 0.0-0.9 [facility] Comment on above: Order Comment: SEND DR.J BHATTI CMP, CBCD Result Comment: IG% - Immature Granulocytes (promyelocytes, myelocytes and metamyelocytes) > 1% indicates that a LEFT SHIFT is Present. Performed By: #### M 100.678 #### [facility] [address] [place], [address] Lymphocytes/100 WBC (Bld) 42.4 % High 19-41 [facility] Comment on above: Order Comment: SEND DR.J DAVY STORY, CBCD Performed By: #### M 100.678 #### [facility] [address] [place], [address] MCH (RBC) [Entitic mass] 27.1 pg Normal 27.0-32.0 [facility] Comment on above: Order Comment: SEND DR.J BHATTI CMP, CBCD Performed By: #### M 100.678 #### [facility] [address] [place], [address] MCHC (RBC) [Mass/Vol] 31.3 g/dL Low 32-36 [facility] Comment on above: Order Comment: SEND DR.J DAVY STORY, CBCD Performed By: #### M 100.678 #### [facility] [address] [place], [address] MCV (RBC) [Entitic vol] 86.8 fL Normal 81-99 [facility] Comment on above: Order Comment: SEND DR.J BHATTI CMP, CBCD Performed By: #### M 100.678 #### [facility] [address] [place], [address] Monocytes/100 WBC (Bld) 8.4 % Normal 0-10 [facility] Comment on above: Order Comment: SEND DR.J BHATTI CMP, CBCD Performed By: #### M 100.678 #### [facility] [address] [place], [address] Neutrophils/100 WBC (Bld) 47.1 % Normal 47-70 [facility] Comment on above: Order Comment: SEND DR.J BHATTI CMP, CBCD Performed By: #### M 100.678 #### [facility] [address] [place], [address] Nucleated RBC (Bld) [#/Vol] 0 10*3/uL Normal 0-5 [facility] Comment on above: Order Comment: SEND DR.J DAVY STORY, CBCD Performed By: #### M 100.678 #### [facility] [address] [place], [address] Platelet mean volume (Bld) [Entitic vol] 11.3 fL Normal 6.2-12.0 [facility] Comment on above: Order Comment: SEND DR.J DAVY STORY, CBCD Performed By: #### M 100.678 #### [facility] [address] [place], [address] Platelets (Bld) [#/Vol] 225 10*3/uL Normal 150-450 [facility] Comment on above: Order Comment: SEND DR.J DAVY STORY, CBCD Performed By: #### M 100.678 #### [facility] [address] [place], [address] RBC (Bld) [#/Vol] 4.46 10*6/uL Normal 4.2-5.4 [facility] Comment on above: Order Comment: SEND DR.J DAVY STORY, CBCD Performed By: #### M 100.678 #### [facility] [address] [place], [address] RDW SD 42.7 fl Normal 35.1-43.9 [facility] Comment on above: Order Comment: SEND DR.J BHATTI CMP, CBCD Performed By: #### M 100.678 #### [facility] [address] [place], [address] WBC (Bld) [#/Vol] 7.3 10*3/uL Normal 4.4-11.0 [facility] Comment on above: Order Comment: SEND DR.J DAVY STORY, CBCD Performed By: #### M 100.678 #### [facility] [address] [place], [address] Absolute Neut Normal 2.0-7.7 [facility] Comment on above: Result Comment: DUPL ICATE Performed By: #### L 300.8000, L501.5425, L100.0100, L500.2500 #### [facility] [address] [place], [address] HCT Normal 37-47 [facility] Comment on above: Result Comment: DUPL ICATE Performed By: #### L 300.8000, L501.5425, L100.0100, L500.2500 #### [facility] [address] [place], [address] HGB Normal 12.0-15.0 [facility] Comment on above: Result Comment: DUPL ICATE Performed By: #### L 300.8000, L501.5425, L100.0100, L500.2500 #### [facility] [address] [place], [address] MCH Normal 27.0-32.0 [facility] Comment on above: Result Comment: DUPL ICATE Performed By: #### L 300.8000, L501.5425, L100.0100, L500.2500 #### [facility] [address] [place], [address] MCHC Normal 32-36 [facility] Comment on above: Result Comment: DUPL ICATE Performed By: #### L 300.8000, L501.5425, L100.0100, L500.2500 #### [facility] [address] [place], [address] MCV Normal 81-99 [facility] Comment on above: Result Comment: DUPL ICATE Performed By: #### L 300.8000, L501.5425, L100.0100, L500.2500 #### [facility] [address] [place], [address] NEUT% Normal 47-70 [facility] Comment on above: Result Comment: DUPL ICATE Performed By: #### L 300.8000, L501.5425, L100.0100, L500.2500 #### [facility] [address] [place], [address] PLT Normal 150-450 [facility] Comment on above: Result Comment: DUPL ICATE Performed By: #### L 300.8000, L501.5425, L100.0100, L500.2500 #### [facility] [address] [place], [address] RBC Normal 4.2-5.4 [facility] Comment on above: Result Comment: DUPL ICATE Performed By: #### L 300.8000, L501.5425, L100.0100, L500.2500 #### [facility] [address] [place], [address] RDW CV Normal 11.6-14.6 [facility] Comment on above: Result Comment: DUPL ICATE Performed By: #### L 300.8000, L501.5425, L100.0100, L500.2500 #### [facility] [address] [place], [address] RDW SD Normal 35.1-43.9 [facility] Comment on above: Result Comment: DUPL ICATE Performed By: #### L 300.8000, L501.5425, L100.0100, L500.2500 #### [facility] [address] [place], [address] WBC Normal 4.4-11.0 [facility] Comment on above: Result Comment: DUPL ICATE Performed By: #### L 300.8000, L501.5425, L100.0100, L500.2500 #### [facility] [address] [place], [address] CRPon 07-05-2024 C-REACTIVE PROT 9.00 mg/L High 0.0-3.0 [facility] Comment on above: Order Comment: SEND DR.J DAVY STORY, CBCD Result Comment: C-Re active Protein (CRP) provides useful information for the diagnosis, therapy and monitoring of inflammatory processes and associated diseases. For the evaluation of Relative Risk for Cardiovascular Disease, a High Sensitivity CRP (HSCRP) should be ordered. Performed By: #### M 100.678 #### [facility] [address] [place], [address] Comprehensive Metabolic Prof ilon 07-05-2024 Albumin [Mass/Vol] 3.1 g/dL Low 3.2-5.0 [facility] Comment on above: Order Comment: SEND DR.J DAVY STORY, CBCD Performed By: #### M 100.678 #### [facility] [address] [place], [address] Albumin/Globulin [Mass ratio] 0.7 {ratio} Low 0.9-2.4 [facility] Comment on above: Order Comment: SEND DR.J DAVY STORY, CBCD Performed By: #### M 100.678 #### [facility] [address] [place], [address] ALK P 90 U/L Normal 45-117 [facility] Comment on above: Order Comment: SEND DR.J DAVY STORY, CBCD Performed By: #### M 100.678 #### [facility] [address] [place], [address] ALT [Catalytic activity/Vol] 24 U/L Normal 13-56 [facility] Comment on above: Order Comment: SEND DR.J DAVY STORY, CBCD Performed By: #### M 100.678 #### [facility] [address] [place], [address] AST [Catalytic activity/Vol] 18 U/L Normal 15-37 [facility] Comment on above: Order Comment: SEND DR.J DAVY CMP, CBCD Performed By: #### M 100.678 #### [facility] [address] [place], [address] Bilirubin [Mass/Vol] 0.60 mg/dL Normal 0.20-1.00 [facility] Comment on above: Order Comment: SEND DR.J BHATTI CMP, CBCD Result Comment: For patients on eltrombopag therapy, use of Dimension [place] TBIL is not recommended. Performed By: #### M 100.678 #### [facility] [address] [place], [address] BUN/CRE 29.5 RATIO High 10-20 [facility] Comment on above: Order Comment: SEND DR.J BHATTI CMP, CBCD Performed By: #### M 100.678 #### [facility] [address] [place], [address] CA,Total 9.3 mg/dL Normal 8.5-10.1 [facility] Comment on above: Order Comment: SEND DR.J BHATTI CMP, CBCD Performed By: #### M 100.678 #### [facility] [address] [place], [address] Chloride [Moles/Vol] 106 mmol/L Normal 98-107 [facility] Comment on above: Order Comment: SEND DR.J BHATTI CMP, CBCD Performed By: #### M 100.678 #### [facility] [address] [place], [address] CO2 [Moles/Vol] 30.0 mmol/L Normal 21.0-32.0 [facility] Comment on above: Order Comment: SEND DR.J BHATTI CMP, CBCD Performed By: #### M 100.678 #### [facility] [address] [place], [address] Creatinine [Mass/Vol] 0.71 mg/dL Normal 0.55-1.02 [facility] Comment on above: Order Comment: SEND DR.J DAVY STORY, CBCD Result Comment: The validity of the calculated GFR GFRAA in patients over 70 years has not been determined. Clinical correlation is essential. Performed By: #### M 100.678 #### [facility] [address] [place], [address] EST GFR - AA 107 mL/min Normal >60 [facility] Comment on above: Order Comment: SEND DR.J DAVY STORY, CBCD Result Comment: Afri can [place] GFR Calc Performed By: #### M 100.678 #### [facility] [address] [place], [address] GAP 3 Low 5-15 [facility] Comment on above: Order Comment: SEND DR.J DAVY STORY, CBCD Performed By: #### M 100.678 #### [facility] [address] [place], [address] GFR/1.73 sq M.predicted among non-blacks MDRD (S/P/Bld) [Vol rate/Area] 88 mL/min/{1.73_m2} Normal >60 [facility] Comment on above: Order Comment: SEND DR.J DAVY STORY, CBCD Result Comment: Non- GFR Calc Performed By: #### M 100.678 #### [facility] [address] [place], [address] Globulin (S) [Mass/Vol] 4.4 g/dL High 2.2-4.2 [facility] Comment on above: Order Comment: SEND DR.J DAVY STORY, CBCD Performed By: #### M 100.678 #### [facility] [address] [place], [address] Glucose [Mass/Vol] 118 mg/dL High 74-106 [facility] Comment on above: Order Comment: SEND DR.J DAVY STORY, CBCD Result Comment: Fast ing Glucose result from 100 to 125 mg/dL suggests IMPAIRED HOMEOSTASIS per A.D.A. criteria. Performed By: #### M 100.678 #### [facility] [address] [place], [address] Potassium [Moles/Vol] 3.7 mmol/L Normal 3.5-5.1 [facility] Comment on above: Order Comment: SEND DR.J BHATTI CMP, CBCD Performed By: #### Danii 100.678 #### [facility] [address] [place], [address] Sodium [Moles/Vol] 139 mmol/L Normal 136-145 [facility] Comment on above: Order Comment: SEND DR.J BHATTI CMP, CBCD Performed By: #### Danii 100.678 #### [facility] [address] [place], [address] T PROT 7.5 g/dL Normal 6.4-8.2 [facility] Comment on above: Order Comment: SEND DR.J BHATTI [facility], CBCD Performed By: #### Danii 100.678 #### [facility] [address] [place], [address] Urea nitrogen [Mass/Vol] 21 mg/dL High 7-18 [facility] Comment on above: Order Comment: SEND DR.J BHATTI CMP, CBCD Performed By: #### Danii 100.678 #### [facility] [address] [place], [address] ALB Normal 3.2-5.0 [facility] Comment on above: Result Comment: DUPL ICATE Performed By: #### L 300.8000, L501.5425, L100.0100, L500.2500 #### [facility] [address] [place], [address] ALK P Normal 45-117 [facility] Comment on above: Result Comment: DUPL ICATE Performed By: #### L 300.8000, L501.5425, L100.0100, L500.2500 #### [facility] [address] [place], [address] ALT Normal 13-56 [facility] Comment on above: Result Comment: DUPL ICATE Performed By: #### L 300.8000, L501.5425, L100.0100, L500.2500 #### [facility] [address] [place], [address] AST Normal 15-37 [facility] Comment on above: Result Comment: DUPL ICATE Performed By: #### L 300.8000, L501.5425, L100.0100, L500.2500 #### [facility] [address] [place], [address] BUN Normal 7-18 [facility] Comment on above: Result Comment: DUPL ICATE Performed By: #### L 300.8000, L501.5425, L100.0100, L500.2500 #### [facility] [address] [place], [address] BUN/CRE Normal 10-20 [facility] Comment on above: Result Comment: DUPL ICATE Performed By: #### L 300.8000, L501.5425, L100.0100, L500.2500 #### [facility] [address] [place], [address] CA,Total Normal 8.5-10.1 [facility] Comment on above: Result Comment: DUPL ICATE Performed By: #### L 300.8000, L501.5425, L100.0100, L500.2500 #### [facility] [address] [place], [address] CL Normal 98-107 [facility] Comment on above: Result Comment: DUPL ICATE Performed By: #### L 300.8000, L501.5425, L100.0100, L500.2500 #### [facility] [address] [place], [address] CO2 Normal 21.0-32.0 [facility] Comment on above: Result Comment: DUPL ICATE Performed By: #### L 300.8000, L501.5425, L100.0100, L500.2500 #### [facility] [address] [place], [address] CREAT,SERUM Normal 0.55-1.02 [facility] Comment on above: Result Comment: DUPL ICATE Performed By: #### L 300.8000, L501.5425, L100.0100, L500.2500 #### [facility] [address] [place], [address] EST GFR Normal >60 [facility] Comment on above: Result Comment: DUPL ICATE Performed By: #### L 300.8000, L501.5425, L100.0100, L500.2500 #### [facility] [address] [place], [address] EST GFR - AA Normal >60 [facility] Comment on above: Result Comment: DUPL ICATE Performed By: #### L 300.8000, L501.5425, L100.0100, L500.2500 #### [facility] [address] [place], [address] GAP Normal 5-15 [facility] Comment on above: Result Comment: DUPL ICATE Performed By: #### L 300.8000, L501.5425, L100.0100, L500.2500 #### [facility] [address] [place], [address] GLU Normal 74-106 [facility] Comment on above: Result Comment: DUPL ICATE Performed By: #### L 300.8000, L501.5425, L100.0100, L500.2500 #### [facility] [address] [place], [address] Potassium Normal 3.5-5.1 [facility] Comment on above: Result Comment: DUPL ICATE Performed By: #### L 300.8000, L501.5425, L100.0100, L500.2500 #### [facility] [address] [place], [address] T BILI Normal 0.20-1.00 [facility] Comment on above: Result Comment: DUPL ICATE Performed By: #### L 300.8000, L501.5425, L100.0100, L500.2500 #### [facility] [address] [place], [address] T PROT Normal 6.4-8.2 [facility] Comment on above: Result Comment: DUPL ICATE Performed By: #### L 300.8000, L501.5425, L100.0100, L500.2500 #### [facility] [address] [place], [address] Comprehensive Metabolic Profil Normal 136-145 [facility] Comment on above: Result Comment: DUPL ICATE Performed By: #### L 300.8000, L501.5425, L100.0100, L500.2500 #### [facility] [address] [place], [address] Ferritinon 07-05-2024 Ferritin [Mass/Vol] 108 ng/mL Normal 8-252 [facility] Comment on above: Order Comment: SEND DR.J BHATTI CMP, CBCD Performed By: #### L 300.8000, L501.5425, L100.0100, L500.2500 #### [facility] [address] [place], [address] Gastroenterology Visit Repor ton 07-05-2024 Gastroenterology Visit Report [facility] [address] [place] [address] OFFICE VISIT Date of Service: 07/05/24 MR#: [id number] Acct: [id number] Name: JAY SIMON Rep #: [id number] : 1960 Provider: YOHANA mckay Age/Sex: 64/F Location[place] [facility] 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 Is patient in pain?: No Allergies No Known Allergies Allergy (Verified 07/05/24 08:39) Medications ???Medication ???Instructions ???Recorded ???Confirmed ???Type lisinopril 20 0.5 tab PO DAILY bp 01/24/21 07/05/24 History mg-hydrochlorothiazide 12.5 mg tablet albuterol sulfate 90 mcg/actuation 2 puff inhalation Q4H PRN 04/21/23 07/05/24 History aerosol inhaler shortness of breath or wheezing cholecalciferol (vitamin D3) 50 50 mcg PO DAILY 10/20/23 07/05/24 History mcg (2,000 unit) tablet escitalopram oxalate 10 mg tablet 20 mg PO DAILY 10/20/23 07/05/24 History (Lexapro) vibegron 75 mg tablet (Gemtesa) 75 mg PO QDAY 10/20/23 07/05/24 History vitamin E 268 mg (400 unit) capsule 536 mg (2 x 268 mg (400 unit)) PO 10/26/23 07/05/24 Rx DAILY 1 month #60 caps ursodiol 250 mg tablet 250 mg PO BID 3 months #180 tabs 01/26/24 07/05/24 Rx resmetirom 100 mg tablet 100 mg PO DAILY 02/25/24 07/05/24 History (Rezdiffra) fesoterodine 4 mg tablet,extended 4 mg PO DAILY 05/01/24 07/05/24 History release 24 hr fluticasone propionate 50 1 spray intranasal Q12H PRN 07/05/24 History mcg/actuation nasal spray,suspension omeprazole 40 mg capsule,delayed 40 mg PO QDAY 07/05/24 07/05/24 History release Nurse's Note: Rarely has left side abd pain now. Still has acid reflux but omeprazole helps that PFSH Medical History Gastritis Eosinophilic esophagitis Wears glasses Wears partial dentures Depression Diabetes Arthritis Bladder disease Fatty liver Restless legs Injury of head and neck Dietary restriction Difficulty chewing History of hiatal hernia History of diverticulitis Non-smoker CPAP (continuous positive airway pressure) dependence Shortness of breath on exertion Gastric reflux Hypertension History of stress test History of echocardiogram Cardiology follow-up encounter Chest pain Anxiety Essential hypertension Pneumonia due to COVID-19 virus Lactic acidosis GERD (gastroesophageal reflux disease) COVID-19 SOB (shortness of breath) Surgical History Hx of dilation and curettage History of left heart catheterization (LHC) ( 03/08/21) H/O: hysterectomy Family History Mother COPD (chronic obstructive pulmonary disease) CHF (congestive heart failure) Kidney failure CAD (coronary artery disease) Myocardial infarction Father CVA (cerebral vascular accident) Brother Myocardial infarction CAD (coronary artery disease) Sister Heart disease Social History Smoking Status: Never smoker alcohol intake: never substance use type: does not use caffeine: Yes Type: carbonated beverages Number of servings: 3 HPI HPI Chief Complaint: f/u MASLD Details: JAY SIMON, is a 64 F who presents to the office today for 64y/o female presents for follow-up of MASLD. She was last seen by Dr. Morton on 01/26/2024 Liver ultrasound with elastography: October 2023 reported similar hemangioma with no change. Liver enlarged 19.4 cm. Median liver stiffness 10.9 kPa. Liver elastography: October 2022 reviewed fatty infiltration of liver, median liver stiffness 6.7 kPa compatible with F2???F3 mild to moderate liver fibrosis metavir score. Liver 15.4 cm and there is 2.2 x 1.7 x 1.8 cm echogenic nodule right lobe of liver suggestive of small hemangioma in region of the wall of the liver. Gallbladder and CBD within normal limit. Pancreas no demonstrated mass or cyst. MRI abdomen October 2021 with and without contrast revealed 1.2 x 1.7 cm hyperintense T2 lesion in segment 8 of right hepatic lobe with peripheral nodular enhancement similar to MRI of 2005 therefore most likely hemangioma. Ultrasound: September 2021 was similar liver stiffness 6.1 kPa but liver was enlarged 9.1 cm. MEDS: Gagandeep 250mg PO BID, Rezdiffra 100mg QD (started 02/25/2024), Vitamin E WEIGHT: Today - 236lbs - she went to [facility] and rep[facility] and got prayed for and she is not taking Rezdiffra - took for 6 weeks - was on Gagandeep for a (more content not included)... Normal [facility] A1con 07-05-2024 HbA1c (Bld) [Mass fraction] 6.2 % High 3.8-5.6 [facility] Comment on above: Order Comment: SEND DR.J BHATTI CMP, CBCD Result Comment: Norm al < 5.7 % Prediabetic 5.7 - 6.4 % Diabetic >or= 6.5 % Please note range changes. Performed By: #### L 300.8000, L501.5425, L100.0100, L500.2500 #### [facility] [address] [place], [address] Iron+Iron Binding Capacityon 07-05-2024 Iron [Mass/Vol] 65 ug/dL Normal 50-170 [facility] Comment on above: Order Comment: SEND DR.J BHATTI CMP, CBCD Performed By: #### L 300.8000, L501.5425, L100.0100, L500.2500 #### [facility] [address] [place], [address] IRON SATURATION 23.0 Normal 15.0-55.0 [facility] Comment on above: Order Comment: SEND DR.J BHATTI CMP, CBCD Performed By: #### L 300.8000, L501.5425, L100.0100, L500.2500 #### [facility] [address] [place], [address] TIBC 283 ug/dL Normal 250-450 [facility] Comment on above: Order Comment: SEND DR.J BHATTI CMP, CBCD Performed By: #### L 300.8000, L501.5425, L100.0100, L500.2500 #### [facility] [address] [place], [address] Lipid Profileon 07-05-2024 Cholesterol [Mass/Vol] 237 mg/dL High 200 [facility] Comment on above: Order Comment: SEND DR.J BHATTI [facility], CBCD Result Comment: <200 mg/dL Desirable 200-240 mg/dL Borderline >240 mg/dL High Risk Performed By: #### M 100.678 #### [facility] [address] [place], [address] Cholesterol in HDL [Mass/Vol] 43 mg/dL Normal [facility] Comment on above: Order Comment: SEND DR.J BHATTI [facility], CBCD Result Comment: The drugs N-Acetylcysteine and Metamizole may falsely depress this assay. Reference Range HDL <40 mg/dL Low HDL Cholesterol HDL >or= 60 mg/dL High HDL Cholesterol Performed By: #### M 100.678 #### [facility] [address] [place], [address] Cholesterol in LDL [Mass/Vol] 164 mg/dL High 0-130 [facility] Comment on above: Order Comment: SEND DR.J BHATTI [facility], CBCD Performed By: #### M 100.678 #### [facility] [address] [place], [address] Cholesterol in VLDL [Mass/Vol] 30 mg/dL Normal 5-40 [facility] Comment on above: Order Comment: SEND DR.J BHATTI [facility], CBCD Performed By: #### M 100.678 #### [facility] [address] [place], [address] Triglyceride [Mass/Vol] 148 mg/dL Normal [facility] Comment on above: Order Comment: SEND DR.J BHATTI [facility], CBCD Result Comment: The drugs N-Acetylcysteine and Metamizole may falsely depress this assay. Serum Triglycerides Reference Interval Normal <150 mg/dL Borderline high 150 - 199 mg/dL High 200 - 499 mg/dL Very High > or = 500 mg/dL Performed By: #### M [id number] #### [facility] [address] [place], [address] Prothrombin Time w/INRon INR Coag (PPP) [Relative time] 1.1 {INR} Normal [facility] Comment on above: Order Comment: SEND DR.J BHATTI [facility], CBCD Performed By: #### Danii [id number] #### [facility] [address] [place], [address] PT Coag (PPP) [Time] 14.0 s Normal 11.7-14.9 [facility] Comment on above: Order Comment: SEND DR.J BHATTI [facility], CBCD Performed By: #### Danii [id number] #### [facility] [address] [place], [address] Thyroid Stim Hormone (TSH)on 07-05-2024 TSH 2.440 uIU/mL Normal 0.358-3.740 [facility] Comment on above: Order Comment: SEND DR.J BHATTI [facility], CBCD Performed By: #### Danii [id number] #### [facility] [address] [place], [address] [place]NP[place] 06-04-2024 CNPN Telephone ([facility]) ----- JAY SIMON ([id number]) 1960 F Date Time Provider Department 06/04/24 BETY GIL [facility] During your visit today, we recorded the following information about you: Bety Gil APRN.DOCUMENT MANAGER 06/04/2024 8:06 AM Signed You tested negative for COVID, Influenza, and RSV. Please contact us if your symptoms are worsening or not improving. Please advise. Sury Linder MA 06/04/2024 2:22 PM Signed Left VM instructing patient to return call to receive results. HUGH Villatoro Sabrina, MA 06/05/2024 1:19 PM Signed Left message for pt to call back. HUGH Castro Sandra, LPN 06/06/2024 11:56 AM Signed Still unable to reach patient-left message with negative results.Maria Luisa Lezama LPN Allergies As of Date: 06/04/2024 (No Known Allergies) Date Reviewed: 06/03/2024 Reviewed by: Giovanna Shannon LPN - Fully Assessed Reason for Visit: Results [95] Prescriptions as of 06/06/2024 - lisinopril-hydroCHLOROthi azide (ZESTORETIC) 20-12.5 mg per tablet Take 1 tablet by mouth once daily. - fesoterodine (TOVIAZ) 4 mg Tb24 extended release tablet Take 1 tablet by mouth every afternoon. - gabapentin (NEURONTIN) 100 mg capsule Take 1 capsule by mouth every 12 hours. - GEMTESA 75 mg tablet Take 1 tablet by mouth every afternoon. - albuterol HFA (PROAIR HFA) 90 mcg/actuation inhaler Inhale 2 Puffs as instructed every 6 hours as needed. - omeprazole (PRILOSEC) 20 mg capsule Take by mouth. - cholecalciferol, Vitamin D3, (VITAMIN D3) 1,250 mcg (50,000 unit) cap capsule Take 1 capsule by mouth one time a week. Problem List As Of Date 06/04/2024 Noted Resolved DIS OF GALLBLADDER NEC [K82.8] 11/06/2005 Obstructive sleep apnea syndrome [G47.33] 12/06/2020 Obesity, Class II, BMI 35-39.9 [E66.812] 12/06/2020 Gastroesophageal reflux disease without esophag*12/06/2020 Post-COVID syndrome [U09.9] 12/06/2020 Encounter Status:Closed by MARIA LUISA LEZAMA on 06/06/24 [facility] CNOVon 06-03-2024 CNOV Office Visit ([facility]WSTR ) ----- AURORAJAY Farrukh ([id number]) 1960 F Date Time Provider Department 06/03/24 2:30 PM KALI CANCINO [facility] During your visit today, we recorded the following information about you: Temperature Pulse Respiration Blood pressure 97.4 degrees 77/minute 20/minute 123/81 Weight 107 kg Kali Cancino MD 06/03/2024 3:08 PM Signed Patient presents with: Sore Throat HPI: Feeling sick for 3 days. She was treated with antibiotic for left otitis media a few weeks ago; she and her son are sick again. Positive symptoms: somewhat worse than baseline Cough, chronic Shortness of breath, Sore throat, Headache, left earache, Negative symptoms: Fever, OTC: Dayquil, prescription nose spray PAST MEDICAL HISTORY Diagnosis Date Essential hypertension Fatty liver GERD (gastroesophageal reflux disease) Overactive bladder Long-haul COVID. MEDICATIONS: Current Outpatient Medications Medication Sig lisinopril-hydroCHLOROthi azide (ZESTORETIC) 20-12.5 mg per tablet Take 1 tablet by mouth once daily. fesoterodine (TOVIAZ) 4 mg Tb24 extended release tablet Take 1 tablet by mouth every afternoon. gabapentin (NEURONTIN) 100 mg capsule Take 1 capsule by mouth every 12 hours. GEMTESA 75 mg tablet Take 1 tablet by mouth every afternoon. albuterol HFA (PROAIR HFA) 90 mcg/actuation inhaler Inhale 2 Puffs as instructed every 6 hours as needed. omeprazole (PRILOSEC) 20 mg capsule Take by mouth. cholecalciferol, Vitamin D3, (VITAMIN D3) 1,250 mcg (50,000 unit) cap capsule Take 1 capsule by mouth one time a week. No current facility-administered medications for this visit. ALLERGIES: ALLERGIES No Known Allergies VITALS: BP 123/81 Pulse 77 Temp 36.3 ?C (97.4 ?F) Resp 20 Wt 107 kg (235 lb 14.3 oz) SpO2 97% BMI 39.25 kg/m? PHYSICAL EXAM: GEN: mildly ill appearing HEENT: PERRL, EOMI, conjunctiva clear Ears: canals with trace cerumen. TMs without erythema, bulge, or effusion Sinuses: non-tender frontal sinus, non-tender maxillary sinuses Throat: moist mucous membranes, mild erythema, no exudate Neck: supple, no thyromegaly, no lymphadenopathy HEART: regular rate and rhythm, no murmurs LUNGS: clear to auscultation, no wheezes or crackles, no increased WOB ASSESSMENT/PLAN: 1. Sore throat - ICD9: 462, ICD10: J02.9 (primary diagnosis) 2. URI, acute - ICD9: 465.9, ICD10: J06.9 - STREP A MOLECULAR (POC) - negative - suspect viral URI - Discussed supportive care treatment with rest, cold medicine, and analgesia. - COVID AND INFLUENZA A/B AND RSV PCR, ROUTINE Kali Cancino MD Allergies As of Date: 06/03/2024 (No Known Allergies) Date Reviewed: 06/03/2024 Reviewed by: Giovanna Shannon LPN - Fully Assessed Reason for Visit: Sore Throat [200] Primary Visit Diagnosis:Sore throat [J02.9] Other Visit Diagnosis:URI, acute [J06.9] Order(s):STREP A MOLECULAR (POC) [3084863] Order #: [id number]. #:[id number] 52-LAB COVID AND INFLUENZA A/B AND RSV PCR, ROUTINE [SQCVFLRS] Order #: [id number]. #:[id number] Prescriptions as of 06/03/2024 - lisinopril-hydroCHLOROthi azide (ZESTORETIC) 20-12.5 mg per tablet Take 1 tablet by mouth once daily. - fesoterodine (TOVIAZ) 4 mg Tb24 extended release tablet Take 1 tablet by mouth every afternoon. - gabapentin (NEURONTIN) 100 mg capsule Take 1 capsule by mouth every 12 hours. - GEMTESA 75 mg tablet Take 1 tablet by mouth every afternoon. - albuterol HFA (PROAIR HFA) 90 mcg/actuation inhaler Inhale 2 Puffs as instructed every 6 hours as needed. - omeprazole (PRILOSEC) 20 mg capsule Take by mouth. - cholecalciferol, Vitamin D3, (VITAMIN D3) 1,250 mcg (50,000 unit) cap capsule Take 1 capsule by mouth one time a week. Problem List As Of Date 06/03/2024 Noted Resolved DIS OF GALLBLADDER NEC [K82.8] 11/06/2005 Obstructive sleep apnea syndrome [G47.33] 12/06/2020 Obesity, Class II, BMI 35-39.9 [E66.812] 12/06/2020 Gastroesophageal reflux disease without esophag*12/06/2020 Post-COVID syndrome [U09.9] 12/06/2020 Medications Discontinued During This Encounter Prescriptions - benzonatate (TESSALON PERLE) 100 mg capsule (Discontinued) Reported on 10/10/2023 - benzonatate (TESSALON PERLES) 100 mg capsule (Discontinued) Take 2 capsules by mouth three times a day as needed. - escitalopram oxalate (LEXAPRO) 20 mg tablet (Discontinued) Take 20 mg by mouth once daily. - mupirocin (BACTROBAN) 2 % ointment (Discontinued) Reported on 08/07/2022 - vitamin E, dl,tocopheryl acet, (VITAMIN E, DL, ACETATE,) 180 mg (400 unit) capsule (Discontinued) Take 540 mg by mouth once daily. - ursodiol (GAGANDEEP) 250 mg tablet (Discontinued) Take 250 mg by mouth. - guaiFENesin (MUCINEX) 600 mg 12 hr tablet (Discontinued) Reported on 08/07/2022 - lisinopril 5 mg tablet (Discontinued) Take 5 mg by mouth once daily (more content not included)... Normal [facility] COVID AND INFLUENZA A/B AND RSV PCR, ROUTINEon 06-03-2024 SARS-CoV-2 (COVID-19) RNA TYLER+probe Ql (Unsp spec) SARS-COV-2 (AGENT OF COVID-19) RNA: Not detected INFLUENZA A RNA: Not detected INFLUENZA B RNA: Not detected RESPIRATORY SYNCYTIAL VIRUS (RSV) RNA: Not detected Normal [facility] Comment on above: Performed By: #### C VFLRS #### [facility] CLIA [id number] [facility] [place] [address] [place] STREP A MOLECULAR (POC)on Procedural Control Valid [facility] Strep A (POCT) Negative Negative [facility] 12 Lead EKGon 05-01-2024 12 Lead EKG [facility] Cardiovascular Services [address] [place] [address] 12 Lead EKG 05/01/24 1209 MR#: [id number] Acct: [id number] Name: JAY SIMON Rep #: [id number] : 1960 64 From: Aden Sabillon MD Attending Dr: Status: DEP ER Ordering Dr: Mamadou Luna DO Date: 05/01/24 Location: ED Sex: F C Admitted: Test Reason : CP Blood Pressure : / mmHG Vent. Rate : 071 BPM Atrial Rate : 071 BPM P-R Int : 140 ms QRS Dur : 084 ms QT Int : 378 ms P-R-T Axes : 039 018 024 degrees QTc Int : 410 ms Normal sinus rhythm with sinus arrhythmia Normal ECG Confirmed by ESPERANZA LARSON, ADEN ([id number]), copy editor YUNIOR SCOTT ([id number]) on 05/03/2024 10:51:07 AM Referred By: Confirmed By:ADEN SABILLON MD 05/03/24 1051 Date Aden Sabillon MD CC: Dr. Anne Davis MD; Dr. Mamadou Luna DO Signed Normal [facility] Basic Metabolic Profile (BMP )on 05-01-2024 BUN/CRE 25.3 RATIO High 05-15 [facility] Comment on above: Order Comment: 1 Y Performed By: #### L 300.8000, L501.5425, L100.0100, L500.2500 #### [facility] [address] [place], [address] CA,Total 9.8 mg/dL Normal 8.5-10.1 [facility] Comment on above: Order Comment: 1 Y Performed By: #### L 300.8000, L501.5425, L100.0100, L500.2500 #### [facility] [address] [place], [address] Chloride [Moles/Vol] 106 mmol/L Normal 98-107 [facility] Comment on above: Order Comment: 1 Y Performed By: #### L 300.8000, L501.5425, L100.0100, L500.2500 #### [facility] [address] [place], [address] CO2 [Moles/Vol] 22.0 mmol/L Normal 21.0-32.0 [facility] Comment on above: Order Comment: 1 Y Performed By: #### L 300.8000, L501.5425, L100.0100, L500.2500 #### [facility] [address] [place], [address] Creatinine [Mass/Vol] 0.83 mg/dL Normal 0.55-1.02 [facility] Comment on above: Order Comment: 1 Y Result Comment: The validity of the calculated GFR GFRAA in patients over 70 years has not been determined. Clinical correlation is essential. Performed By: #### L 300.8000, L501.5425, L100.0100, L500.2500 #### [facility] [address] [place], [address] ECRCL 86.23 ml/min Normal [facility] Comment on above: Order Comment: 1 Y Performed By: #### L 300.8000, L501.5425, L100.0100, L500.2500 #### [facility] [address] [place], [address] EST GFR - AA 89 mL/min Normal >60 [facility] Comment on above: Order Comment: 1 Y Result Comment: Afri can [place] GFR Calc Performed By: #### L 300.8000, L501.5425, L100.0100, L500.2500 #### [facility] [address] [place], [address] GAP 9 Normal 5-15 [facility] Comment on above: Order Comment: 1 Y Performed By: #### L 300.8000, L501.5425, L100.0100, L500.2500 #### [facility] [address] [place], [address] GFR/1.73 sq M.predicted among non-blacks MDRD (S/P/Bld) [Vol rate/Area] 74 mL/min/{1.73_m2} Normal >60 [facility] Comment on above: Order Comment: 1 Y Result Comment: Non- GFR Calc Performed By: #### L 300.8000, L501.5425, L100.0100, L500.2500 #### [facility] [address] [place], [address] Glucose [Mass/Vol] 145 mg/dL High 74-106 [facility] Comment on above: Order Comment: 1 Y Result Comment: Fast ing Glucose result greater than or equal to 126 mg/dL suggests DIABETES MELLITUS per A.D.A. criteria. Performed By: #### L 300.8000, L501.5425, L100.0100, L500.2500 #### [facility] [address] [place], [address] Potassium [Moles/Vol] 3.8 mmol/L Normal 3.5-5.1 [facility] Comment on above: Order Comment: 1 Y Performed By: #### L 300.8000, L501.5425, L100.0100, L500.2500 #### [facility] [address] [place], [address] Sodium [Moles/Vol] 137 mmol/L Normal 136-145 [facility] Comment on above: Order Comment: 1 Y Performed By: #### L 300.8000, L501.5425, L100.0100, L500.2500 #### [facility] [address] [place], [address] Urea nitrogen [Mass/Vol] 21 mg/dL High 7-18 [facility] Comment on above: Order Comment: 1 Y Performed By: #### L 300.8000, L501.5425, L100.0100, L500.2500 #### [facility] [address] [place], [address] CBC W/Diff, Automatedon 10-0 6-2023 Absolute Lymph 3.31 X10 3/uL Normal 0.83-4.51 [facility] Comment on above: Performed By: #### L 300.8000, L501.5425, L100.0100, L500.2500 #### [facility] [address] [place], [address] Absolute Neut 3.4 X10 3/uL Normal 2.0-7.7 [facility] Comment on above: Performed By: #### L 300.8000, L501.5425, L100.0100, L500.2500 #### [facility] [address] [place], [address] Basophils/100 WBC (Bld) 0.5 % Normal 0-1 [facility] Comment on above: Performed By: #### L 300.8000, L501.5425, L100.0100, L500.2500 #### [facility] [address] [place], [address] Eosinophils/100 WBC (Bld) 0.9 % Normal 0-5 [facility] Comment on above: Performed By: #### L 300.8000, L501.5425, L100.0100, L500.2500 #### [facility] [address] [place], [address] Erythrocyte distribution width (RBC) [Ratio] 13.2 % Normal 11.6-14.6 [facility] Comment on above: Performed By: #### L 300.8000, L501.5425, L100.0100, L500.2500 #### [facility] [address] [place], [address] Hematocrit (Bld) [Volume fraction] 40.5 % Normal 37-47 [facility] Comment on above: Performed By: #### L 300.8000, L501.5425, L100.0100, L500.2500 #### [facility] [address] [place], [address] Hemoglobin (Bld) [Mass/Vol] 12.8 g/dL Normal 12.0-15.0 [facility] Comment on above: Performed By: #### L 300.8000, L501.5425, L100.0100, L500.2500 #### [facility] [address] [place], [address] IG% 0.300 Normal 0.0-0.9 [facility] Comment on above: Result Comment: IG% - Immature Granulocytes (promyelocytes, myelocytes and metamyelocytes) > 1% indicates that a LEFT SHIFT is Present. Performed By: #### L 300.8000, L501.5425, L100.0100, L500.2500 #### [facility] [address] [place], [address] Lymphocytes/100 WBC (Bld) 43.8 % High 19-41 [facility] Comment on above: Performed By: #### L 300.8000, L501.5425, L100.0100, L500.2500 #### [facility] [address] [place], [address] MCH (RBC) [Entitic mass] 27.2 pg Normal 27.0-32.0 [facility] Comment on above: Performed By: #### L 300.8000, L501.5425, L100.0100, L500.2500 #### [facility] [address] [place], [address] MCHC (RBC) [Mass/Vol] 31.6 g/dL Low 32-36 [facility] Comment on above: Performed By: #### L 300.8000, L501.5425, L100.0100, L500.2500 #### [facility] [address] [place], [address] MCV (RBC) [Entitic vol] 86.0 fL Normal 81-99 [facility] Comment on above: Performed By: #### L 300.8000, L501.5425, L100.0100, L500.2500 #### [facility] [address] [place], [address] Monocytes/100 WBC (Bld) 9.5 % Normal 0-10 [facility] Comment on above: Performed By: #### L 300.8000, L501.5425, L100.0100, L500.2500 #### [facility] [address] [place], [address] Neutrophils/100 WBC (Bld) 45.0 % Low 47-70 [facility] Comment on above: Performed By: #### L 300.8000, L501.5425, L100.0100, L500.2500 #### [facility] [address] [place], [address] Nucleated RBC (Bld) [#/Vol] 0 10*3/uL Normal 0-5 [facility] Comment on above: Performed By: #### L 300.8000, L501.5425, L100.0100, L500.2500 #### [facility] [address] [place], [address] Platelet mean volume (Bld) [Entitic vol] 11.9 fL Normal 6.2-12.0 [facility] Comment on above: Performed By: #### L 300.8000, L501.5425, L100.0100, L500.2500 #### [facility] [address] [place], [address] Platelets (Bld) [#/Vol] 249 10*3/uL Normal 150-450 [facility] Comment on above: Performed By: #### L 300.8000, L501.5425, L100.0100, L500.2500 #### [facility] [address] [place], [address] RBC (Bld) [#/Vol] 4.71 10*6/uL Normal 4.2-5.4 [facility] Comment on above: Performed By: #### L 300.8000, L501.5425, L100.0100, L500.2500 #### [facility] [address] [place], [address] RDW SD 41.0 fl Normal 35.1-43.9 [facility] Comment on above: Performed By: #### L 300.8000, L501.5425, L100.0100, L500.2500 #### [facility] [address] [place], [address] WBC (Bld) [#/Vol] 7.6 10*3/uL Normal 4.4-11.0 [facility] Comment on above: Performed By: #### L 300.8000, L501.5425, L100.0100, L500.2500 #### [facility] [address] [place], [address] Chest 1 View (Portable)on Chest 1 View (Portable) [facility] Imaging Services [address] [place] [address] Chest 1 View (Portable) MR#: [id number] Acct: [id number] Name: JAY SIMON Rep #: [id number] : 1960 F 64 From: Taty abraham MD PCP: Dr. Anne Davis MD Status: REG ER Study: Chest 1 View (Portable) Date of Exam: 05/01/24 Exam# [id number] Ordering Dr: Mamadou Luna DO [id number] HISTORY: chest pain. TECHNIQUE: XR Chest 1 View. COMPARISON: 09/24/2021. FINDINGS: CARDIOMEDIASTINAL BORDERS: Cardiac silhouette within normal limits in size. Mediastinal contour unremarkable. LUNGS: Radiographically clear. PLEURA: No pleural effusion or pneumothorax seen. OSSEOUS STRUCTURES: Unremarkable. RAD/Chest 1 View (Portable) IMPRESSION: No acute cardiopulmonary process identified. Electronically Signed: Taty Turpin MD at 13:58 EDT Reading Location ID and State: [facility] / [place] Tel , Service support , CC: Dr. Anne Davis MD; Dr. Mamadou Luna DO Petrologist: Signed Normal [facility] D-Dimer Quantitative (DVT/PE )on 05-01-2024 D-DIMER QUANT 0.45 FEU/ug/m Normal 0.27-0.49 [facility] Comment on above: Result Comment: NORM AL D-Dimer level (<0.50) indicates no DVT or PE. Performed By: #### L 300.2860, L501.2462, L100.0100, L500.2500 #### [facility] [address] [place], [address] Emergency Department Summary on 05-01-2024 Emergency Department Summary [facility] Medical Records Department [address] [place] [address] Emergency Department Summary 05/01/24 MR#: [id number] Acct: [id number] Name: JAY SIMON Rep #: [id number] : 1960 64 From: Mamadou Luna DO PCP: Dr. Anne Davis MD Status:REG ER Location: ED HPI History of Present Illness Chief Complaint: Chest Pain Informant: patient and EMS Narrative Narrative: 64-year-old female states that she was at [employer] today standing up worshiping when she suddenly felt nauseous lightheaded and developed some chest pain. She states that yesterday a friend of hers was having a port put in and she was listening to them to describe it and she felt like she was going to get sick and almost passed out but this felt different and that it was complicated with her chest pain. She notes a recent heart catheterization that was negative. Prehospital EMS has an EKG that does not show any ischemia. She notes a history of obstructive sleep apnea fatty liver COVID-19 (and has had intermittent chest pain for several years not like this). She describes this more as a chest heaviness in the center of her chest. [facility] Medical History Gastritis Eosinophilic esophagitis Wears glasses Wears partial dentures Depression Diabetes Arthritis Bladder disease Fatty liver Restless legs Injury of head and neck Dietary restriction Difficulty chewing History of hiatal hernia History of diverticulitis Non-smoker CPAP (continuous positive airway pressure) dependence Shortness of breath on exertion Gastric reflux Hypertension History of stress test History of echocardiogram Cardiology follow-up encounter Chest pain Anxiety Essential hypertension Pneumonia due to COVID-19 virus Lactic acidosis GERD (gastroesophageal reflux disease) COVID-19 SOB (shortness of breath) Home Medications ???Medication ???Instructions ???Recorded ???Last Taken ???Type lisinopril 20 0.5 tab PO DAILY bp 01/24/21 Unknown History mg-hydrochlorothiazide 12.5 mg tablet fluticasone propionate 50 1 spray intranasal Q12H #16 grams 05/16/22 Unknown Rx mcg/actuation nasal spray,suspension albuterol sulfate 90 mcg/actuation 2 puff inhalation Q4H PRN 04/21/23 Unknown History aerosol inhaler shortness of breath or wheezing cholecalciferol (vitamin D3) 50 50 mcg PO DAILY 10/20/23 Unknown History mcg (2,000 unit) tablet escitalopram oxalate 10 mg tablet 20 mg PO DAILY 10/20/23 Unknown History (Lexapro) vibegron 75 mg tablet (Gemtesa) 75 mg PO QDAY 10/20/23 Unknown History pantoprazole 40 mg tablet,delayed 40 mg PO QAM acid reflux #30 tabs 10/26/23 Unknown Rx release vitamin E 268 mg (400 unit) capsule 536 mg (2 x 268 mg (400 unit)) PO 10/26/23 Unknown Rx DAILY 1 month #60 caps ursodiol 250 mg tablet 250 mg PO BID 3 months #180 tabs 01/26/24 Unknown Rx resmetirom 100 mg tablet 100 mg PO DAILY 02/25/24 Unknown History (Rezdiffra) fesoterodine 4 mg tablet,extended 4 mg PO DAILY 05/01/24 Unknown History release 24 hr fluconazole 150 mg tablet 150 mg PO QWEEK 05/01/24 Unknown History omeprazole 40 mg capsule,delayed 40 mg PO BID 05/01/24 Unknown History release Allergy/AdvReac Type Severity Reaction Status Date / Time No Known Allergies Allergy Verified 05/01/24 12:03 Family History Mother COPD (chronic obstructive pulmonary disease) CHF (congestive heart failure) Kidney failure CAD (coronary artery disease) Myocardial infarction Father CVA (cerebral vascular accident) Brother Myocardial infarction CAD (coronary artery disease) Sister Heart disease Surgical History Hx of dilation and curettage History of left heart catheterization (LHC) ( 03/08/21) H/O: hysterectomy Social History Smoking Status: Never smoker alcohol intake: never substance use type: does not use caffeine: Yes Type: carbonated beverages Number of servings: 3 ROS ROS ED ROS Narrative Lightheadedness Constitutional Constitutional ED: Denies chills, fever(s) or weight loss Eyes Eyes: Denies change in vision or diplopia ENT ENT ED: Denies ear pain, rhinorrhea or sore throat Cardiovascular Cardiovascular: Reports chest pain; Denies orthopnea, palpitations or racing heartbeat Respiratory/Chest Respiratory/Chest: Denies cough, dyspnea or orthopnea Gastrointestinal Gastrointestinal: Reports nausea; Denies abdominal pain, diarrhea or vomiting Genitourinary Genitourinary ED: Denies dysuria, hematuria or urinary frequency Musculoskeletal Musculoskeletal: Denies arthralgias or myalgias Integumentary Denies absc (more content not included)... Normal [facility] L501.4020on 05-01-2024 TROPONIN-I HS 5 pg/mL Normal 3.0-54.0 [facility] Comment on above: Result Comment: Anisa freitas Note: New Test Units and Gender Specific Reference Ranges. For more information see Policy Stat Procedure [place] High Sensitivity Troponin (TNIH) and attachments. Performed By: #### L 300.8000, L501.5425, L100.0100, L500.2500 #### [facility] [address], [address] L501.5425on 05-01-2024 TROPONIN-I HS 5 pg/mL Normal 3.0-54.0 [facility] Comment on above: Order Comment: 1 Y Result Comment: Anisa freitas Note: New Test Units and Gender Specific Reference Ranges. For more information see Policy Stat Procedure [place] High Sensitivity Troponin (TNIH) and attachments. Performed By: #### L 300.8000, L501.5425, L100.0100, L500.2500 #### [facility] [address] [place], [place], [address] CNCOon 10-14-2023 [facility]CO Letter Text Normal [facility] ----- JAY SIMON ([id number]) 1960 F Date Time Provider Department 10/12/23 YANE ARIAS [facility] During your visit today, we recorded the following information about you: Yane Arias APRN.DOCUMENT MANAGER 10/12/2023 3:54 PM Signed Please let patient know her x-ray was negative. Patient should continue care plan as discussed with provider. Symone Casanova MA 10/12/2023 5:24 PM Signed Left message for pt to call back. HUGH Castro Melissa, MA 10/13/2023 8:21 AM Signed Left message for patient to return call. HUGH Hughes Laurie Lynn, LPN 10/14/2023 9:20 AM Signed Left a message for pt to call the office and ask to speak to a nurse. Letter sent. Los Grace LPN Allergies As of Date: 10/12/2023 (No Known Allergies) Date Reviewed: 10/10/2023 Reviewed by: Maria Luisa Lezama LPN - Fully Assessed Reason for Visit: Results [95] Cmt: w Prescriptions as of 10/14/2023 - fesoterodine (TOVIAZ) 4 mg Tb24 extended release tablet Take 1 tablet by mouth every afternoon. - gabapentin (NEURONTIN) 100 mg capsule Take 1 capsule by mouth every 12 hours. - GEMTESA 75 mg tablet Take 1 tablet by mouth every afternoon. - vitamin E, dl,tocopheryl acet, (VITAMIN E, DL, ACETATE,) 180 mg (400 unit) capsule Take 540 mg by mouth once daily. - predniSONE (DELTASONE) 20 mg tablet Take 2 tablets by mouth once daily for 5 days. - albuterol HFA (PROAIR HFA) 90 mcg/actuation inhaler Inhale 2 Puffs as instructed every 6 hours as needed. - doxycycline (VIBRA-TABS) 100 mg tablet Take 1 tablet by mouth two times a day for 7 days. - benzonatate (TESSALON PERLES) 100 mg capsule Take 2 capsules by mouth three times a day as needed. - ursodiol (GAGANDEEP) 250 mg tablet Take 250 mg by mouth. - benzonatate (TESSALON PERLE) 100 mg capsule Take 1-2 capsules tid prn, no more than 6 in 24 hours. - mupirocin (BACTROBAN) 2 % ointment Apply 1 application to affected area three times daily. - guaiFENesin (MUCINEX) 600 mg 12 hr tablet Take 2 tablets by mouth twice daily. - omeprazole (PRILOSEC) 20 mg capsule Take by mouth. - cholecalciferol, Vitamin D3, (VITAMIN D3) 1,250 mcg (50,000 unit) cap capsule Take 1 capsule by mouth one time a week. - escitalopram oxalate (LEXAPRO) 20 mg tablet Take 20 mg by mouth once daily. - lisinopril 5 mg tablet Take 5 mg by mouth once daily. Problem List As Of Date 10/12/2023 Noted Resolved DIS OF GALLBLADDER NEC [K82.8] 11/06/2005 Obstructive sleep apnea syndrome [G47.33] 12/06/2020 Obesity, Class II, BMI 35-39.9 [E66.9] 12/06/2020 Gastroesophageal reflux disease without esophag*12/06/2020 Post-COVID syndrome [U09.9] 12/06/2020 Encounter Status:Closed by LOS GRACE on 10/14/23 Normal [facility] XR CHEST 2V FRONTAL/LATon XR CHEST 2V FRONTAL/LAT * * *Final Report* * * DATE OF EXAM: Oct 12 2023 2:51PM WOX [id number] - XR CHEST 2V FRONTAL/LAT / PROCEDURE REASON: Bronchitis * * * * Physician Interpretation * * * * EXAMINATION: CHEST RADIOGRAPH (2 VIEW FRONTAL and LATERAL) CLINICAL HISTORY: Bronchitis MQ: XC2_6 EXAM DATE/TIME: 10/12/2023 2:51 PM COMPARISON: Chest x-ray on 08/07/2022 RESULT: Lines, tubes, and devices: None. Lungs and pleura: No consolidative opacities or mass lesion identified. No pleural effusions or pneumothorax. Cardiomediastinal silhouette: Normal cardiomediastinal silhouette. Bones and soft tissues: Unremarkable. IMPRESSION: No acute radiographic abnormality. Petrologist: PSCB Transcribe Date/Time: Oct 12 2023 2:53P Dictated by : JORDEN CHOI MD This examination was interpreted and the report reviewed and electronically signed by: JORDEN CHOI MD on Oct 12 2023 2:55PM EST [id number] Normal [facility] XR Chest PA and Lateralon IMPRESSION: No acute radiographic abnormality. Petrologist: OLIVIA Transcribe Date/Time: Oct 12 2023 2:53P Dictated by : JORDEN CHOI MD This examination was interpreted and the report reviewed and electronically signed by: JORDEN CHOI MD on Oct 12 2023 2:55PM [facility] DIVISION OF RADIOLOGY * * *Final Report* * * DATE OF EXAM: Oct 12 2023 2:51PM WOX [id number] - XR CHEST 2V FRONTAL/LAT / PROCEDURE REASON: Bronchitis * * * * Physician Interpretation * * * * EXAMINATION: CHEST RADIOGRAPH (2 VIEW FRONTAL & LATERAL) CLINICAL HISTORY: Bronchitis MQ: XC2_6 EXAM DATE/TIME: 10/12/2023 2:51 PM COMPARISON: Chest x-ray on 08/07/2022 RESULT: Lines, tubes, and devices: None. Lungs and pleura: No consolidative opacities or mass lesion identified. No pleural effusions or pneumothorax. Cardiomediastinal silhouette: Normal cardiomediastinal silhouette. Bones and soft tissues: Unremarkable. DIVISION OF RADIOLOGY Provider, [facility] - 10/12/2023 * * *Final Report* * * DATE OF EXAM: Oct 12 2023 2:51PM WOX [id number] - XR CHEST 2V FRONTAL/LAT / PROCEDURE REASON: Bronchitis * * * * Physician Interpretation * * * * EXAMINATION: CHEST RADIOGRAPH (2 VIEW FRONTAL & LATERAL) CLINICAL HISTORY: Bronchitis MQ: XC2_6 EXAM DATE/TIME: 10/12/2023 2:51 PM COMPARISON: Chest x-ray on 08/07/2022 RESULT: Lines, tubes, and devices: None. Lungs and pleura: No consolidative opacities or mass lesion identified. No pleural effusions or pneumothorax. Cardiomediastinal silhouette: Normal cardiomediastinal silhouette. Bones and soft tissues: Unremarkable. IMPRESSION IMPRESSION: No acute radiographic abnormality. Petrologist: OLIVIA Transcribe Date/Time: Oct 12 2023 2:53P Dictated by : JORDEN CHOI MD This examination was interpreted and the report reviewed and electronically signed by: JORDEN COHI MD on Oct 12 2023 2:55PM [facility] Radiology Study observation (narrative) [facility] XR Chest PA and LateralOrder ed By: [facility] Provider on 10-12-2023 [facility] CNOVon 10-10-2023 CNOV Office Visit (UCWSTR ) ----- JAY SIMON ([id number]) 1960 F Date Time Provider Department 10/10/23 12:45 PM VILMA GARCIA WS During your visit today, we recorded the following information about you: Temperature Pulse Respiration Blood pressure 97.4 degrees 86/minute 18/minute 104/64 Weight 104 kg Vilma Garcia, PA-C 10/10/2023 1:03 PM Signed This note was created using [employer] Subjective Jay Simon is a 63 year old female. HPI Presents with cough and congestion over the past 5 days. She states her cough has worsened. She has had some wheezing and shortness of breath. She states she does have long COVID, she has had COVID 3 times. No fever that she knows of however has been getting some hot flashes at night. She states sometimes she gets that with the long COVID however. No diarrhea or vomiting. She has tried some Mucinex max [id number] without relief. Denies any diagnosis of asthma or COPD. She is not a smoker. Review of Systems Constitutional: Positive for fatigue. HENT: Positive for congestion, ear pain and sore throat. Respiratory: Positive for cough, shortness of breath and wheezing. Cardiovascular: Negative. Gastrointestinal: Negative. Genitourinary: Negative. Musculoskeletal: Negative. Neurological: Positive for headaches. All other systems reviewed and are negative. History reviewed. No pertinent past medical history. Current Outpatient Medications Medication Sig Dispense Refill fesoterodine (TOVIAZ) 4 mg Tb24 extended release tablet Take 1 tablet by mouth every afternoon. gabapentin (NEURONTIN) 100 mg capsule Take 1 capsule by mouth every 12 hours. GEMTESA 75 mg tablet Take 1 tablet by mouth every afternoon. vitamin E, dl,tocopheryl acet, (VITAMIN E, DL, ACETATE,) 180 mg (400 unit) capsule Take 540 mg by mouth once daily. ursodiol (GAGANDEEP) 250 mg tablet Take 250 mg by mouth. omeprazole (PRILOSEC) 20 mg capsule Take by mouth. cholecalciferol, Vitamin D3, (VITAMIN D3) 1,250 mcg (50,000 unit) cap capsule Take 1 capsule by mouth one time a week. escitalopram oxalate (LEXAPRO) 20 mg tablet Take 20 mg by mouth once daily. lisinopril 5 mg tablet Take 5 mg by mouth once daily. predniSONE (DELTASONE) 20 mg tablet Take 2 tablets by mouth once daily for 5 days. 10 tablet 0 albuterol HFA (PROAIR HFA) 90 mcg/actuation inhaler Inhale 2 Puffs as instructed every 6 hours as needed. 1 Each 0 doxycycline (VIBRA-TABS) 100 mg tablet Take 1 tablet by mouth two times a day for 7 days. 14 tablet 0 benzonatate (TESSALON PERLES) 100 mg capsule Take 2 capsules by mouth three times a day as needed. 30 capsule 0 benzonatate (TESSALON PERLE) 100 mg capsule Take 1-2 capsules tid prn, no more than 6 in 24 hours. (Patient not taking: Reported on 10/10/2023) 30 capsule 0 mupirocin (BACTROBAN) 2 % ointment Apply 1 application to affected area three times daily. (Patient not taking: Reported on 08/07/2022) 30 g 0 guaiFENesin (MUCINEX) 600 mg 12 hr tablet Take 2 tablets by mouth twice daily. (Patient not taking: Reported on 08/07/2022) 24 tablet 0 No current facility-administered medications for this visit. No past surgical history on file. No family history on file. Social History Tobacco Use Smoking status: Former Smokeless tobacco: Never Substance Use Topics Alcohol use: No Drug use: No Objective BP 104/64 Pulse 86 Temp 36.3 ?C (97.4 ?F) (Tympanic) Resp 18 Wt 104 kg (229 lb 4.5 oz) SpO2 96% BMI 38.15 kg/m? Physical Exam Vitals reviewed. Constitutional: Appearance: Normal appearance. HENT: Head: Normocephalic and atraumatic. Right Ear: Tympanic membrane, ear canal and external ear normal. Left Ear: Tympanic membrane, ear canal and external ear normal. Nose: Congestion present. Mouth/Throat: Mouth: Mucous membranes are moist. Pharynx: Oropharynx is clear. Cardiovascular: Rate and Rhythm: Normal rate and regular rhythm. Heart sounds: Normal heart sounds. Pulmonary: Effort: Pulmonary effort is normal. No respiratory distress. Breath sounds: Wheezing and rhonchi present. Comments: Harsh cough noted Musculoskeletal: Cervical back: Neck supple. Lymphadenopathy: Cervical: No cervical adenopathy. Skin: General: Skin is warm and dry. Findings: No rash. Neurological: General: No focal deficit present. Mental Status: She is alert and oriented to person, place, and time. Assessment and Plan ASSESSMENT/PLAN: 1. Bronchitis - ICD9: 490, ICD10: J40 Will treat with prednisone, Tessalon, albuterol inhaler. X-ray not available over the weekend so empirically cover with doxycycline. Discussed if she is not feeling better Thursday to come back to have an x-ray done. Follow-up with PCP otherwise. Patient agreeable with plan. - XR CHEST 2V FRONTAL/LAT Vilma Garcia PA-C Allergies As of Date: 10/10/2023 (No Known Allergies) Date Revie (more content not included)... Normal [facility] No Panel InformationOrdered By: Traci Mason on 09-14-2023 Vitamin D 25-Hydroxy 29.5 ng/mL [facility] Comment on above: Vitamin D 25(OH) Sta tus Range Deficiency <20 ng/mL (50nmol/L) Insufficiency 20 - 30 ng/mL (50 - 75 nmol/L) Sufficiency 30 - 100 ng/mL (75 - 250 nmol/L) Toxicity >100 ng/mL (>250 nmol/L) Culture, urineOrdered By: Amaury Mason on 05-02-2023 Bacteria identified Cx Nom (U) Enterobacter cloacae complex [place] Bacteria identified Cx Nom (U) Enterococcus faecalis [place] Gram stain for investigation of transfusion reactionOrdered By: Traci Mason on 05-02-2023 Microscopic observation Gram stain Nom (Unsp spec) [place] Neisseria gonorrhoeae genita l PCROrdered By: Traci Mason on 05-02-2023 N. gonorrhoeae DNA TYLER+probe Ql (Genital specimen) [place] No Panel InformationOrdered By: Traci Mason on 05-02-2023 Chlamydia trachomatis (PCR) [place] Thin prep Papanicolaou smear with manual screeningOrdered By: Traci Mason on 05-02-2023 Genital Culture Escherichia coli [facility] Genital Culture Enterobacter cloacae complex [place] Genital Culture Enterococcus faecalis [place] Genital Culture Presumptive C albicans [place] Alternaria alternata IgE ser umOrdered By: Jelani Davis on 01-26-2023 A. alternata IgE Qn (S) <0.10 kU/L Class 0 [place] Chocolate RASTOrdered By: Amaury Davis on 01-26-2023 Chocolate IgE Qn (S) <0.10 kU/L Class 0 [facility] Erythrocyte sedimentation ra teOrdered By: Jelani Davis on 01-26-2023 ESR (Bld) [Velocity] 25 mm/h 0-30 [facility] Laboratory - Chemistry and C hemistry - challengeOrdered By: Jelani Davis on 01-26-2023 Natriuretic peptide B (Bld) [Mass/Vol] 35.4 pg/mL 0-100 [place] Laboratory - Miscellaneous t estsOrdered By: Jelani Davis on 01-26-2023 Service comment (Unsp spec) [Interp] Comment . [place] Comment on above: Levels of Specific I gE Class Description of Class ----- < 0.10 0 Negative 0.10 - 0.31 0/I Equivocal/Low 0.32 - 0.55 I Low 0.56 - 1.40 II Moderate 1.41 - 3.90 III High 3.91 - 19.00 IV Very High 19.01 - 100.00 V Very High >100.00 [facility] No Panel InformationOrdered By: Jelani Davis on 01-26-2023 Aspergillus fumigatus Allergen <0.10 kU/L Class 0 [place] Common Ragweed (Short) Allergen <0.10 kU/L Class 0 [place] Luxembourgish Plantain Allergen (RAST) <0.10 kU/L Class 0 [place] Maple ([place]) Allergen IgE Ab <0.10 kU/L Class 0 [place] Seafood Group Allergens (RAST) Negative . [place] Comment on above: Allergens in this mi x are: Blue mussel Fish [place] Shrimp Tuna [place] Tree Allergen <0.10 kU/L Class 0 [facility] Rough pigweed specific IgE a ntibody assayOrdered By: Jelani Davis on 01-26-2023 Rough Pigweed IgE Qn (S) <0.10 kU/L Class 0 [place] Serum Bermuda grass IgE anti body assay (units/volume)Ordered By: Jelani Davis on 01-26-2023 Bermuda grass IgE Qn (S) <0.10 kU/L Class 0 [place] Serum Cladosporium herbarum IgE antibody assay (units/volume)Ordered By: Jelani Davis on 01-26-2023 C. herbarum IgE Qn (S) <0.10 kU/L Class 0 [facility] Serum Dermatophagoides farin ae specific IgE antibody assay (units/volume)Ordered By: Jelani Davis on 01-26-2023 New Zealander house dust mite IgE Qn (S) <0.10 kU/L Class 0 [place] Serum house dust mi te IgE antibody assay (units/volume)Ordered By: Jelani Davis on 01-26-2023 house dust mite IgE Qn (S) <0.10 kU/L Class 0 [place] Serum Nik grass IgE anti body assay (units/volume)Ordered By: Jelani Davis on 01-26-2023 Nik grass IgE Qn (S) <0.10 kU/L Class 0 [place] Serum [place] blue grass Ig E antibody assay (units/volume)Ordered By: Jelani Davis on 01-26-2023 [place] blue grass IgE Qn (S) <0.10 kU/L Class 0 [place] Serum Mucor racemosus IgE an tibody assay (units/volume)Ordered By: Jelani Davis on 01-26-2023 Mucor racemosus IgE Qn (S) <0.10 kU/L Class 0 [place] Serum Penicillium notatum Ig E antibody assay (units/volume)Ordered By: Jelani Davis on 01-26-2023 P. notatum IgE Qn (S) <0.10 kU/L Class 0 [facility] Serum Periplaneta americana IgE antibody assay (units/volume)Ordered By: Jelani Davis on 01-26-2023 [place]ander Cockroach IgE Qn (S) <0.10 kU/L Class 0 [place] Serum [id number] me asurementOrdered By: Jelani Davis on 01-26-2023 Alpha 1 antitrypsin [Mass/Vol] 119 mg/dL 101-187 [place] Comment on above: Performed at: - [address] [id number] Director: Sirena Quintana MD, Phone: [phone] at: [facility] [address] [id number] Director: Juliano Ibarra PhD, Phone: [phone] Serum bahia grass IgE antibo dy assay (units/volume)Ordered By: Jelani Davis on 01-26-2023 Bahia grass IgE Qn (S) <0.10 kU/L Class 0 [facility] Serum beef IgE antibody assa y (units/volume)Ordered By: Jelani Davis on 01-26-2023 Beef IgE Qn (S) <0.10 kU/L Class 0 [place] Serum cat dander IgE antibod y assay (units/volume)Ordered By: Jelani Davis on 01-26-2023 Cat dander IgE Qn (S) <0.10 kU/L Class 0 [facility] Serum corn IgE antibody assa y (units/volume)Ordered By: Jelani Davis on 01-26-2023 [place] IgE Qn (S) <0.10 kU/L Class 0 [place] Serum cow milk IgE antibody assay (units/volume)Ordered By: Jelani Davis on 01-26-2023 Cow milk IgE Qn (S) <0.10 kU/L Class 0 [facility] Serum dog epithelium IgE ant ibody assay (units/volume)Ordered By: Jelani Davis on 01-26-2023 Dog epithelium IgE Qn (S) <0.10 kU/L Class 0 [place] Serum hazelnut pollen IgE an tibody assay (units/volume)Ordered By: Jelani Davis on 01-26-2023 Hazelnut Pollen IgE Qn (S) <0.10 kU/L Class 0 [place] Serum mountain cedar specifi c IgE antibody assayOrdered By: Jelani Daivs on 01-26-2023 Mountain Juniper IgE Qn (S) <0.10 kU/L Class 0 [place] Serum mugwort IgE antibody a ssay (units/volume)Ordered By: Jelani Davis on 01-26-2023 Mugwort IgE Qn (S) <0.10 kU/L Class 0 [facility] Serum nettle IgE antibody as say (units/volume)Ordered By: Jelani Davis on 01-26-2023 Nettle IgE Qn (S) <0.10 kU/L Class 0 [place] Serum or plasma angiotensin converting enzyme measurement (enzymatic activity/volume)Ordered By: Jelani Davis on 01-26-2023 Angiotensin converting enzyme [Catalytic activity/Vol] U/L 14-82 [place] Comment on above: Performed at: [address] [id number] Director: Juliano Ibarra PhD, Phone: [phone] Serum peanut IgE antibody as say (units/volume)Ordered By: Jelani Davis on 01-26-2023 Peanut IgE Qn (S) <0.10 kU/L Class 0 [place] Serum pork IgE antibody assa y (units/volume)Ordered By: Jelani Davis on 01-26-2023 Pork IgE Qn (S) <0.10 kU/L Class 0 [place] Serum sheep sorrel IgE antib leeanne assay (units/volume)Ordered By: Jelani Davis on 01-26-2023 [place] IgE Qn (S) <0.10 kU/L Class 0 [place] Serum soybean IgE antibody a ssay (units/volume)Ordered By: Jelani Davis on 01-26-2023 Soybean IgE Qn (S) <0.10 kU/L Class 0 [facility] Serum sweet gum IgE radioall ergosorbent test (RAST) class determinationOrdered By: Jelani Davis on 01-26-2023 Sweet gum IgE RAST class (S) <0.10 kU/L Class 0 [place] Serum wheat IgE antibody ass ay (units/volume)Ordered By: Jelani Davis on 01-26-2023 Wheat IgE Qn (S) <0.10 kU/L Class 0 [place] Serum white elm IgE antibody assay (units/volume)Ordered By: Jelani Davis on 01-26-2023 White Elm IgE Qn (S) <0.10 kU/L Class 0 [facility] Serum white hickory IgE anti body assay (units/volume)Ordered By: Jelani Davis on 01-26-2023 White [place] IgE Qn (S) <0.10 kU/L Class 0 [place] Serum white mulberry IgE ant ibody assay (units/volume)Ordered By: Jelani Davis on 01-26-2023 White mulberry IgE Qn (S) <0.10 kU/L Class 0 [place] Serum white oak IgE antibody assay (units/volume)Ordered By: Jelani Davis on 01-26-2023 [place] IgE Qn (S) <0.10 kU/L Class 0 [facility] Serum whole egg IgE antibody assay (units/volume)Ordered By: Jelani Daivs on 01-26-2023 Whole Egg IgE Qn (S) <0.10 kU/L Class 0 [facility] Stemphylium herbarum IgE ser umOrdered By: Jelani Davis on 01-26-2023 Stemphylium botryosum IgE Qn (S) <0.10 kU/L Class 0 [place] Absolute lymphocyte countOrd ered By: Jelani Davis on 11-03-2022 Lymphocytes Auto (Unsp spec) [#/Vol] 3.49 10*3/uL 0.83-4.51 [place] Basophil percentageOrdered B y: Jelani Davis on 11-03-2022 Basophils/100 WBC (Bld) 0.4 % 0-1 [place] Chloride [Moles/Vol] 105 mmol/L 98-107 [facility] Eosinophils/100 WBC (Bld) 0.7 % 0-5 [place] Glucose [Mass/Vol] 98 mg/dL 74-106 [facility] Neutrophils (Bld) [#/Vol] 4.0 10*3/uL 2.0-7.7 [place] Neutrophils/100 WBC (Bld) 48.8 % 47-70 [place] Potassium [Moles/Vol] 4.3 mmol/L 3.5-5.1 [facility] Sodium [Moles/Vol] 139 mmol/L 136-145 [facility] WBC (Bld) [#/Vol] 8.2 10*3/uL 4.4-11.0 [facility] Blood erythrocytes count (nu mber/volume)Ordered By: Jelani Davis on 11-03-2022 RBC (Bld) [#/Vol] 4.90 10*6/uL 4.2-5.4 [facility] Blood hemoglobin measurement (mass/volume)Ordered By: Jelani Davis on 11-03-2022 Hemoglobin (Bld) [Mass/Vol] 13.5 g/dL 12.0-15.0 [place] Blood lymphocytes/100 leukoc ytesOrdered By: Jelani Davis on 11-03-2022 Lymphocytes/100 WBC (Bld) 42.7 % 19-41 [place] Blood monocytes/100 leukocyt esOrdered By: Jelani Davis on 11-03-2022 Monocytes/100 WBC (Bld) 7.2 % 0-10 [place] Blood platelet mean volumeOr dered By: Jelani Davis on 11-03-2022 Platelet mean volume (Bld) [Entitic vol] 11.7 fL 6.2-12.0 [place] Determination of erythrocyte mean corpuscular volume (MCV)Ordered By: Jelani Davis on 11-03-2022 MCV (RBC) [Entitic vol] 90.8 fL 81-99 [place] Erythrocyte sedimentation ra teOrdered By: Jelani Davis on 11-03-2022 ESR (Bld) [Velocity] 41 mm/h 0-30 [facility] Hematocrit Auto (Bld) [Volum e fraction]Ordered By: Jelani Davis on 11-03-2022 Hematocrit (Bld) [Volume fraction] 44.5 % 37-47 [place] Iron measurement (mass/mass) Ordered By: Jelani Davis on 11-03-2022 Iron (Unsp spec) [Mass/Mass] 68 ug/dL 50-170 [place] Laboratory - Chemistry and C hemistry - challengeOrdered By: Jelani Davis on 11-03-2022 CO2 [Moles/Vol] 30.0 mmol/L 21.0-32.0 [place] Cobalamin (Vitamin B12) [Mass/Vol] 462 pg/mL 211-911 [place] Urea nitrogen/Creatinine [Mass ratio] 24.3 mg/mg 10-20 [place] [facility] - Hematology and Cell countsOrdered By: Jelani Davis on 11-03-2022 Erythrocyte distribution width (RBC) [Entitic vol] 43.0 fL 35.1-43.9 [place] Erythrocyte distribution width (RBC) [Ratio] 12.9 % 11.6-14.6 [place] Immature granulocytes/100 WBC (Bld) 0.200 % 0.0-0.9 [place] Comment on above: IG% - Immature Granu locytes (promyelocytes, myelocytes and metamyelocytes) > 1% indicates that a LEFT SHIFT is Present. MCH (RBC) [Entitic mass] 27.6 pg 27.0-32.0 [place] Nucleated RBC/100 WBC (Bld) [Ratio] 0 % 0-5 [place] MCHC Auto (RBC) [Mass/Vol]Or dered By: Jelani Davis on 11-03-2022 MCHC (RBC) [Mass/Vol] 30.3 g/dL 32-36 [facility] No Panel InformationOrdered By: Jelani Davis on 11-03-2022 Estimated GFR (MDRD) Amer 110 mL/min >60 [place] Comment on above: GFR Calc Estimated GFR (MDRD) Non-Af Amer 91 mL/min >60 [place] Comment on above: Non- GFR Calc Thyroid Stimulating Hormone (TSH) 1.66 uIU/mL 0.358-3.74 [place] Vitamin D 25-Hydroxy 20.5 ng/mL [facility] Comment on above: Vitamin D 25(OH) Sta tus Range Deficiency <20 ng/mL (50nmol/L) Insufficiency 20 - 30 ng/mL (50 - 75 nmol/L) Sufficiency 30 - 100 ng/mL (75 - 250 nmol/L) Toxicity >100 ng/mL (>250 nmol/L) Platelets bldOrdered By: Deshawn Davis on 11-03-2022 Platelets (Bld) [#/Vol] 240 10*3/uL 150-450 [place] Serum or plasma calcium sarabjit urement (mass/volume)Ordered By: Jelani Davis on 11-03-2022 Calcium [Mass/Vol] 9.2 mg/dL 8.5-10.1 [facility] Serum or plasma cortisol bridget surement (mass/volume)Ordered By: Jelani Davis on 11-03-2022 Cortisol [Mass/Vol] 6.10 ug/dL 3.44-22.45 [facility] Comment on above: Adult (AM) 5.27 - 22 .45 ug/dL Adult (PM) 3.44 - 16.76 ug/dLPlease note revised CORTISOL reference range effective 2019. Serum or plasma creatinine m easurement (mass/volume)Ordered By: Jelani Davis on 11-03-2022 Creatinine [Mass/Vol] 0.70 mg/dL 0.55-1.02 [facility] Comment on above: The validity of the calculated GFR & GFRAA in patients over 70 years has not been determined. Clinical correlation is essential. Serum or plasma ferritin bridget surement (mass/volume)Ordered By: Jelani Davis on 11-03-2022 Ferritin [Mass/Vol] 103 ng/mL 8-252 [facility] Serum or plasma urea nitroge n measurement (mass/volume)Ordered By: Jelani Davis on 11-03-2022 Urea nitrogen [Mass/Vol] 17 mg/dL 7-18 [place] Thin prep Papanicolaou smear with manual screeningOrdered By: Jelani Davis on 11-03-2022 Thin prep Papanicolaou smear with manual screening 4 5-15 [place] Whole blood hemoglobin A1c/t otal hemoglobin ratio (mass fraction)Ordered By: Jelani Davis on 11-03-2022 HbA1c (Bld) [Mass fraction] 5.9 % 3.8-5.6 [place] Comment on above: Normal < 5.7 % Predi abetic 5.7 - 6.4 % Diabetic >or= 6.5 % Please note range changes. Absolute lymphocyte countOrd ered By: Lala Hammond on 08-07-2022 Lymphocytes Auto (Unsp spec) [#/Vol] 3.64 10*3/uL 0.83-4.51 [place] Basophil percentageOrdered B y: Lala Hammond on 08-07-2022 Basophils/100 WBC (Bld) 0.3 % 0-1 [place] Bilirubin [Mass/Vol] 0.40 mg/dL 0.20-1.00 [facility] Comment on above: For patients on eltr ombopag therapy, use of Dimension [place] TBIL is not recommended. Chloride [Moles/Vol] 105 mmol/L 98-107 [facility] Eosinophils/100 WBC (Bld) 1.4 % 0-5 [place] Glucose [Mass/Vol] 102 mg/dL 74-106 [facility] Comment on above: Fasting Glucose resu lt from 100 to 125 mg/dL suggests IMPAIRED HOMEOSTASIS per A.D.A. criteria. Neutrophils (Bld) [#/Vol] 4.0 10*3/uL 2.0-7.7 [place] Neutrophils/100 WBC (Bld) 46.8 % 47-70 [place] Potassium [Moles/Vol] 4.2 mmol/L 3.5-5.1 [facility] Protein [Mass/Vol] 7.7 g/dL 6.4-8.2 [facility] Sodium [Moles/Vol] 141 mmol/L 136-145 [facility] WBC (Bld) [#/Vol] 8.7 10*3/uL 4.4-11.0 [facility] Blood erythrocytes count (nu mber/volume)Ordered By: Lala Hammond on 08-07-2022 RBC (Bld) [#/Vol] 4.48 10*6/uL 4.2-5.4 [facility] Blood hemoglobin measurement (mass/volume)Ordered By: Lala Hammond on 08-07-2022 Hemoglobin (Bld) [Mass/Vol] 12.7 g/dL 12.0-15.0 [place] Blood lymphocytes/100 leukoc ytesOrdered By: Lala Hammond on 08-07-2022 Lymphocytes/100 WBC (Bld) 42.0 % 19-41 [place] Blood monocytes/100 leukocyt esOrdered By: Lala Hammond on 08-07-2022 Monocytes/100 WBC (Bld) 9.2 % 0-10 [place] Blood platelet mean volumeOr dered By: Lala Hammond on 08-07-2022 Platelet mean volume (Bld) [Entitic vol] 11.8 fL 6.2-12.0 [place] Determination of erythrocyte mean corpuscular volume (MCV)Ordered By: Lala Hammond on 08-07-2022 MCV (RBC) [Entitic vol] 90.0 fL 81-99 [place] Erythrocyte sedimentation ra teOrdered By: Lala Hammond on 08-07-2022 ESR (Bld) [Velocity] 22 mm/h 0-30 [facility] Hematocrit Auto (Bld) [Volum e fraction]Ordered By: Lala Hammond on 08-07-2022 Hematocrit (Bld) [Volume fraction] 40.3 % 37-47 [place] Laboratory - Chemistry and C hemistry - challengeOrdered By: Lala Hammond on 08-07-2022 ALP [Catalytic activity/Vol] 93 U/L 45-117 [place] ALT [Catalytic activity/Vol] 26 U/L 13-56 [place] CO2 [Moles/Vol] 30.0 mmol/L 21.0-32.0 [place] Globulin (S) [Mass/Vol] 4.6 g/dL 2.2-4.2 [place] Urea nitrogen/Creatinine [Mass ratio] 28.5 mg/mg 10-20 [place] [facility] - Hematology and Cell countsOrdered By: Lala Hammond on 08-07-2022 Erythrocyte distribution width (RBC) [Entitic vol] 43.9 fL 35.1-43.9 [place] Erythrocyte distribution width (RBC) [Ratio] 13.2 % 11.6-14.6 [place] Immature granulocytes/100 WBC (Bld) 0.300 % 0.0-0.9 [place] Comment on above: IG% - Immature Granu locytes (promyelocytes, myelocytes and metamyelocytes) > 1% indicates that a LEFT SHIFT is Present. MCH (RBC) [Entitic mass] 28.3 pg 27.0-32.0 [place] Nucleated RBC/100 WBC (Bld) [Ratio] 0 % 0-5 [place] MCHC Auto (RBC) [Mass/Vol]Or dered By: Lala Hammond on 08-07-2022 MCHC (RBC) [Mass/Vol] 31.5 g/dL 32-36 [facility] No Panel InformationOrdered By: Lala Hammond on 08-07-2022 Estimated GFR (MDRD) Amer 116 mL/min >60 [place] Comment on above: GFR Calc Estimated GFR (MDRD) Non-Af Amer 96 mL/min >60 [place] Comment on above: Non- GFR Calc Platelets bldOrdered By: Claribel Hammond on 08-07-2022 Platelets (Bld) [#/Vol] 239 10*3/uL 150-450 [place] Serum or plasma C reactive p rotein measurement (mass/volume)Ordered By: Lala Hammond on 08-07-2022 CRP [Mass/Vol] 9.46 mg/L 0.0-3.0 [place] Comment on above: C-Reactive Protein ( CRP) provides useful information for thediagnosis, therapy and monitoring of inflammatory processesand associated diseases. For the evaluation of Relative Riskfor Cardiovascular Disease, a High Sensitivity CRP (HSCRP)should be ordered. Serum or plasma albumin sarabjit urement (mass/volume)Ordered By: Lala Hammond on 08-07-2022 Albumin [Mass/Vol] 3.1 g/dL 3.2-5.0 [facility] Serum or plasma albumin/glob ulin mass ratioOrdered By: Lala Hammond on 08-07-2022 Albumin/Globulin [Mass ratio] 0.7 {ratio} 0.9-2.4 [place] Serum or plasma calcium sarabjit urement (mass/volume)Ordered By: Lala Hammond on 08-07-2022 Calcium [Mass/Vol] 9.4 mg/dL 8.5-10.1 [facility] Serum or plasma creatinine m easurement (mass/volume)Ordered By: Lala Hammond on 08-07-2022 Creatinine [Mass/Vol] 0.67 mg/dL 0.55-1.02 [facility] Comment on above: The validity of the calculated GFR & GFRAA in patients over 70 years has not been determined. Clinical correlation is essential. Serum or plasma urea nitroge n measurement (mass/volume)Ordered By: Lala Hammond on 08-07-2022 Urea nitrogen [Mass/Vol] 19 mg/dL 7-18 [place] Thin prep Papanicolaou smear with manual screeningOrdered By: Lala Hammond on 08-07-2022 Thin prep Papanicolaou smear with manual screening 15 U/L 15-37 [place] Thin prep Papanicolaou smear with manual screening 6 5-15 [place] XR CHEST 2V FRONTAL/LATon [facility] XR Chest PA and Lateralon IMPRESSION: No acute radiographic abnormality. [facility]rolog[facility] Transcribe Date/Time: Aug 07 2022 10:59A Dictated by : MARCELA AYALA MD This examination was interpreted and the report reviewed and electronically signed by: MARCELA AYALA MD on Aug 07 2022 11:00AM [facility] DIVISION OF RADIOLOGY * * *Final Report* * * DATE OF EXAM: Aug 07 2022 10:45AM WOX 5291 - XR CHEST 2V FRONTAL/LAT / PROCEDURE REASON: Acute cough * * * * Physician Interpretation * * * * EXAMINATION: CHEST RADIOGRAPH (2 VIEW FRONTAL & LATERAL) CLINICAL HISTORY: Acute cough MQ: XC2_6 EXAM DATE/TIME: 08/07/2022 10:45 AM COMPARISON: Chest x-ray 01/23/2021 RESULT: Lines, tubes, and devices: None. Lungs and pleura: No consolidation. No lung mass. No pleural effusion. No pneumothorax. Cardiomediastinal silhouette: Normal cardiomediastinal silhouette. Bones and soft tissues: Unremarkable. DIVISION OF RADIOLOGY Provider, Colt Yee [facility] - 08/07/2022 * * *Final Report* * * DATE OF EXAM: Aug 07 2022 10:45AM WOX [id number] - XR CHEST 2V FRONTAL/LAT / PROCEDURE REASON: Acute cough * * * * Physician Interpretation * * * * EXAMINATION: CHEST RADIOGRAPH (2 VIEW FRONTAL & LATERAL) CLINICAL HISTORY: Acute cough MQ: XC2_6 EXAM DATE/TIME: 08/07/2022 10:45 AM COMPARISON: Chest x-ray 01/23/2021 RESULT: Lines, tubes, and devices: None. Lungs and pleura: No consolidation. No lung mass. No pleural effusion. No pneumothorax. Cardiomediastinal silhouette: Normal cardiomediastinal silhouette. Bones and soft tissues: Unremarkable. IMPRESSION IMPRESSION: No acute radiographic abnormality. Petrologist: [facility] Transcribe Date/Time: Aug 07 2022 10:59A Dictated by : MARCELA AYALA MD This examination was interpreted and the report reviewed and electronically signed by: MARCELA AYALA MD on Aug 07 2022 11:00AM EST [facility] Radiology Study observation (narrative) [facility] XR Chest PA and LateralOrder ed By: [facility] Provider on 08-07-2022 [facility] Cervical or vagninal specime n microscopic examination by cytology stain (reported ason 10-22-2021 Cytology report Cyto stain Doc (Cvx/Vag) Comment . [place] Work Phone: Comment on above: The Pap smear is a s creening test designed to aid in thedetection of premalignant and malignant conditions of theuterine cervix. It is not a diagnostic procedure andshould not be used as the sole means of detecting cervicalcancer. Both false-positive and false-negative reports dooccur. Laboratory - Cytologyon 09-25 [facility] Cyto stain Nom (Cvx/Vag) [ID] Comment . [place] Work Phone: Comment on above: Klaus Swan totechnologist (ASCP) Laboratory - Miscellaneous t estson 10-22-2021 Service comment (Unsp spec) [Interp] Comment . [place] Work Phone: Comment on above: This liquid based Th inPrep(R) pap test was screened withthe use of an image guided system. Service comment (Unsp spec) [Interp] . . [place] Work Phone: No Panel Informationon 10-22 Human Papillomavirus Screen Comment . [place] Work Phone: Comment on above: The HPV DNA reflex c eduar were not met with this specimenresult therefore, no HPV testing was performed.Performed at: [facility] [address] [id number] Director: Misty Parrish MD, Phone: [phone] Pathology report final diagnosis Narrative Comment . [place] Work Phone: Comment on above: NEGATIVE FOR INTRAEP ITHELIAL LESION OR MALIGNANCY.THIS SPECIMEN WAS RESCREENED PART OF OUR [employer] PROGRAM. Absolute lymphocyte counton 10-15-2021 Lymphocytes Auto (Unsp spec) [#/Vol] 3.22 10*3/uL 0.83-4.51 [place] Work Phone: Atypical perinuclear antineu trophil cytoplasmic antibodies measurementon 10-15-2021 Neutrophil cytoplasmic Ab.perinuclear.atypica l IF (S) [Titer] <1:20 titer Neg:<1:20 [place] Work Phone: Comment on above: The atypical pANCA p attern has been observed in asignificant percentage of patients with ulcerative colitis,primary sclerosing cholangitis and autoimmune hepatitis. Basophil percentageon 2021 Basophil percentage < 0.2 AI 0.0-0.9 [facility] Work Phone: Basophils/100 WBC (Bld) 0.5 % 0-1 [place] Work Phone: Bilirubin [Mass/Vol] 0.40 mg/dL 0.20-1.00 [facility] Work Phone: Comment on above: For patients on eltr ombopag therapy, use of Dimension [place] TBIL is not recommended. Chloride [Moles/Vol] 108 mmol/L 98-107 [facility] Work Phone: Eosinophils/100 WBC (Bld) 1.6 % 0-5 [place] Work Phone: [phone] Glucose [Mass/Vol] 99 mg/dL 74-106 [facility] Work Phone: Neutrophils (Bld) [#/Vol] 4.2 10*3/uL 2.0-7.7 [place] Work Phone: [phone] Neutrophils/100 WBC (Bld) 50.5 % 47-70 [place] Work Phone: [phone] Potassium [Moles/Vol] 3.9 mmol/L 3.5-5.1 [facility] Work Phone: [phone] Protein [Mass/Vol] 7.9 g/dL 6.4-8.2 [facility] Work Phone: [phone] Sodium [Moles/Vol] 140 mmol/L 136-145 [facility] Work Phone: [phone] WBC (Bld) [#/Vol] 8.4 10*3/uL 4.4-11.0 [facility] Work Phone: [phone] Blood erythrocytes count (nu mber/volume)on 10-15-2021 RBC (Bld) [#/Vol] 4.72 10*6/uL 4.2-5.4 [facility] Work Phone: [phone] Blood hemoglobin measurement (mass/volume)on 10-15-2021 Hemoglobin (Bld) [Mass/Vol] 13.2 g/dL 12.0-15.0 [place] Work Phone: [phone] Blood lymphocytes/100 leukoc yteson 10-15-2021 Lymphocytes/100 WBC (Bld) 38.5 % 19-41 [place] Work Phone: Blood monocytes/100 leukocyt eson 10-15-2021 Monocytes/100 WBC (Bld) 8.7 % 0-10 [place] Work Phone: Blood platelet mean volumeon 10-15-2021 Platelet mean volume (Bld) [Entitic vol] 11.6 fL 6.2-12.0 [place] Work Phone: Determination of erythrocyte mean corpuscular volume (MCV)on 10-15-2021 MCV (RBC) [Entitic vol] 86.2 fL 81-99 [place] Work Phone: Erythrocyte sedimentation ra huber 10-15-2021 ESR (Bld) [Velocity] 30 mm/h 0-30 [facility] Work Phone: HIV 1 and HIV-2 antibody ass ay with HIV-1 p24 antigen detectionon 10-15-2021 HIV 1+2 Ab+HIV1 p24 Ag IA Ql Non-Reactive Nonreactive [place] Work Phone: Hematocrit Auto (Bld) [Volum e fraction]on 10-15-2021 Hematocrit (Bld) [Volume fraction] 40.7 % 37-47 [place] Work Phone: Laboratory - Chemistry and C hemistry - challengeon 10-15-2021 ALP [Catalytic activity/Vol] 119 U/L 45-117 [place] Work Phone: ALT [Catalytic activity/Vol] 76 U/L 13-56 [place] Work Phone: CO2 [Moles/Vol] 29.0 mmol/L 21.0-32.0 [place] Work Phone: Globulin (S) [Mass/Vol] 4.6 g/dL 2.2-4.2 [place] Work Phone: Urea nitrogen/Creatinine [Mass ratio] 35.6 mg/mg 10-20 [place] Work Phone: Laboratory - Hematology and Cell countson 10-15-2021 Erythrocyte distribution width (RBC) [Entitic vol] 41.2 fL 35.1-43.9 [place] Work Phone: Erythrocyte distribution width (RBC) [Ratio] 13.2 % 11.6-14.6 [place] Work Phone: Immature granulocytes/100 WBC (Bld) 0.200 % 0.0-0.9 [place] Work Phone: Comment on above: IG% - Immature Granu locytes (promyelocytes, myelocytes and metamyelocytes) > 1% indicates that a LEFT SHIFT is Present. MCH (RBC) [Entitic mass] 28.0 pg 27.0-32.0 [place] Work Phone: Nucleated RBC/100 WBC (Bld) [Ratio] 0 % 0-5 [place] Work Phone: MCHC Auto (RBC) [Mass/Vol]on 10-15-2021 MCHC (RBC) [Mass/Vol] 32.4 g/dL 32-36 [facility] Work Phone: No Panel Informationon 10-15 CA 19-9 Antigen < 2 U/mL 0-35 [place] Work Phone: Comment on above: [facility] [employer] El ectrochemiluminescence Immunoassay(ECLIA)Values obtained with different assay methods or kits cannotbe used interchangeably. Results cannot be interpreted asabsolute evidence of the presence or absence of malignantdisease. Centromere B Antibody <0.2 AI 0.0-0.9 [facility] Work Phone: Ceruloplasmin 32.7 mg/dL 19.0-39.0 [place] Work Phone: Estimated GFR (MDRD) Amer 121 mL/min >60 [place] Work Phone: Comment on above: GFR Calc Estimated GFR (MDRD) Non-Af Amer 100 mL/min >60 [place] Work Phone: Comment on above: Non- GFR Calc Haptoglobin 158 mg/dL 33-346 [place] Work Phone: Comment on above: Performed at: [facility] [address] [id number] Director: Juliano Ibarra PhD, Phone: [phone] at: [address] [id number] Director: Sirena Quintana MD, Phone: [phone] Hepatitis A IgM Antibody Negative Negative [place] Work Phone: Hepatitis B Core IgM Antibody Negative Negative [place] Work Phone: Hepatitis C Antibody (EIA) <0.1 s/co ratio 0.0-0.9 [place] Work Phone: Comment on above: Negative: < 0.8 Inde terminate: 0.8 - 0.9 Positive: > 0.9 The CDC recommends that a positive HCV antibody result be followed up with a HCV Nucleic Acid Amplification test (795029).Effective November 25, 2021 Hepatitis Panel (4) will be made non-orderable. [employer] offers order code [id number] Acute Hepatitis. NARCOTICS DETECTIVE Antibody <0.2 AI 0.0-0.9 [place] Work Phone: Platelets bldon 10-15-2021 Platelets (Bld) [#/Vol] 252 10*3/uL 150-450 [place] Work Phone: Serum DNA double strand anti body assay (units/volume)on 10-15-2021 DNA double strand Ab Qn (S) 1 [IU]/mL 0-9 [place] Work Phone: Comment on above: Negative <5 Equivoca l 5 - 9 Positive >9 Serum Adeline-1 antibody assay (u nits/volume)on 10-15-2021 Adeline-1 extractable nuclear Ab Qn (S) <0.2 AI 0.0-0.9 [place] Work Phone: Serum Scl-70 extractable nuc lear antibody assay (units/volume)on 10-15-2021 SCL-70 extractable nuclear Ab Qn (S) 0.5 AI 0.0-0.9 [place] Work Phone: Serum Naidu extractable nucl ear antibody detectionon 10-15-2021 Naidu extractable nuclear Ab Ql (S) <0.2 AI 0.0-0.9 [place] Work Phone: Serum classic neutrophil cyt oplasmic antibody assay (units/volume)on 10-15-2021 Neutrophil cytoplasmic Ab.classic Qn (S) <1:20 titer Neg:<1:20 [place] Work Phone: Serum mitochondria antibody detectionon 10-15-2021 Mitochondria Ab Ql (S) <20.0 Units 0.0-20.0 [facility] Work Phone: Comment on above: Negative 0.0 - 20.0 Equivocal 20.1 - 24.9 Positive >24.9Mitochondrial (M2) Antibodies are found in 90-96% ofpatients with primary biliary cirrhosis.Performed at: [facility] [employer] [facility] [id number] Director: Juliano Ibarra PhD, Phone: [phone] Serum or plasma C reactive p rotein measurement (mass/volume)on 10-15-2021 CRP [Mass/Vol] 8.41 mg/L 0.0-3.0 [place] Work Phone: Comment on above: C-Reactive Protein ( CRP) provides useful information for thediagnosis, therapy and monitoring of inflammatory processesand associated diseases. For the evaluation of Relative Riskfor Cardiovascular Disease, a High Sensitivity CRP (HSCRP)should be ordered. Serum or plasma actin IgG an tibody assay (units/volume)on 10-15-2021 Actin IgG Qn 12 Units 0-19 [place] Work Phone: Comment on above: Negative 0 - 19 Weak positive 20 - 30 Moderate to strong positive >30 Actin Antibodies are found in 52-85% of patients with autoimmune hepatitis or chronic active hepatitis and in 22% of patients with primary biliary cirrhosis. Serum or plasma albumin sarabjit urement (mass/volume)on 10-15-2021 Albumin [Mass/Vol] 3.3 g/dL 3.2-5.0 [facility] Work Phone: Serum or plasma albumin/glob ulin mass ratioon 10-15-2021 Albumin/Globulin [Mass ratio] 0.7 {ratio} 0.9-2.4 [place] Work Phone: Serum or plasma mptil-2-yall protein tumor marker measurement (units/volume)on 10-15-2021 AFP.tumor marker Qn 2.9 ng/mL 0.0-9.2 [facility] Work Phone: Comment on above: [facility] El ectrochemiluminescence Immunoassay(ECLIA) Please note reference intervalchangeValues obtained with different assay methods or kits cannotbe used interchangeably. Results cannot be interpreted asabsolute evidence of the presence or absence of malignantdisease.This test is not interpretable in females. Serum or plasma angiotensin converting enzyme measurement (enzymatic activity/volume)on 10-15-2021 Angiotensin converting enzyme [Catalytic activity/Vol] U/L 14-82 [place] Work Phone: Serum or plasma calcium sarabjit urement (mass/volume)on 10-15-2021 Calcium [Mass/Vol] 9.4 mg/dL 8.5-10.1 [facility] Work Phone: Serum or plasma creatinine m easurement (mass/volume)on 10-15-2021 Creatinine [Mass/Vol] 0.65 mg/dL 0.55-1.02 [facility] Work Phone: Comment on above: The validity of the calculated GFR & GFRAA in patients over 70 years has not been determined. Clinical correlation is essential. Serum or plasma ferritin bridget surement (mass/volume)on 10-15-2021 Ferritin [Mass/Vol] 92 ng/mL 8-252 [facility] Work Phone: Serum or plasma hepatitis B virus surface antigen detection by immunoassayon 10-15-2021 HBV surface Ag IA Ql Negative Negative [facility] Work Phone: Serum or plasma urea nitroge n measurement (mass/volume)on 10-15-2021 Urea nitrogen [Mass/Vol] 23 mg/dL 7-18 [place] Work Phone: Serum perinuclear neutrophil cytoplasmic antibody titer by immunofluorescenceon 10-15-2021 Neutrophil cytoplasmic Ab.perinuclear IF (S) [Titer] <1:20 titer Neg:<1:20 [place] Work Phone: Comment on above: The presence of posi tive fluorescence exhibiting P-ANCA orC-ANCA patterns alone is not specific for the diagnosis ofWegener's Granulomatosis (WG) or microscopic polyangiitis.Decisions about treatment should not be based solely onANCA IFA results. The [employer] ANCA Group Consensusrecommends follow up testing of positive sera with both KS-3 and MPO-ANCA enzyme immunoassays. As many as 5% serumsamples are positive only by EIA. Ref. AM J Clin [place]usa9276;111:507-513. Thin prep Papanicolaou smear with manual screeningon 10-15-2021 Thin prep Papanicolaou smear with manual screening 38 U/L 15-37 [place] Work Phone: Thin prep Papanicolaou smear with manual screening 3 5-15 [place] Work Phone: Thin prep Papanicolaou smear with manual screening 209 U/L 84-246 [place] Work Phone: Thin prep Papanicolaou smear with manual screening 147 ug/dL 80-158 [place] Work Phone: Comment on above: Detection Limit = 5 Whole blood hemoglobin A1c/t otal hemoglobin ratio (mass fraction)on 10-15-2021 HbA1c (Bld) [Mass fraction] 5.9 % 3.8-5.6 [place] Work Phone: Comment on above: Normal < 5.7 % Predi abetic 5.7 - 6.4 % Diabetic >or= 6.5 % Please note range changes. Absolute lymphocyte counton 09-24-2021 Lymphocytes Auto (Unsp spec) [#/Vol] 2.77 10*3/uL 0.83-4.51 [place] Work Phone: Basophil percentageon 2021 Basophils/100 WBC (Bld) 0.4 % 0-1 [place] Work Phone: Bilirubin [Mass/Vol] 0.40 mg/dL 0.20-1.00 [facility] Work Phone: Comment on above: For patients on eltr ombopag therapy, use of Dimension [place] TBIL is not recommended. Chloride [Moles/Vol] 104 mmol/L 98-107 [facility] Work Phone: [phone] Eosinophils/100 WBC (Bld) 1.7 % 0-5 [place] Work Phone: Glucose [Mass/Vol] 95 mg/dL 74-106 [facility] Work Phone: Neutrophils (Bld) [#/Vol] 3.9 10*3/uL 2.0-7.7 [place] Work Phone: Neutrophils/100 WBC (Bld) 52.4 % 47-70 [place] Work Phone: Potassium [Moles/Vol] 3.9 mmol/L 3.5-5.1 [facility] Work Phone: Protein [Mass/Vol] 7.7 g/dL 6.4-8.2 [facility] Work Phone: [phone] Sodium [Moles/Vol] 140 mmol/L 136-145 [facility] Work Phone: [phone] WBC (Bld) [#/Vol] 7.4 10*3/uL 4.4-11.0 [facility] Work Phone: [phone] Blood erythrocytes count (nu mber/volume)on 09-24-2021 RBC (Bld) [#/Vol] 4.81 10*6/uL 4.2-5.4 [facility] Work Phone: [phone] Blood hemoglobin measurement (mass/volume)on 09-24-2021 Hemoglobin (Bld) [Mass/Vol] 13.2 g/dL 12.0-15.0 [place] Work Phone: Blood lymphocytes/100 leukoc yteson 03-01-2022 Lymphocytes/100 WBC (Bld) 37.3 % 19-41 [place] Work Phone: Blood monocytes/100 leukocyt eson 09-24-2021 Monocytes/100 WBC (Bld) 7.9 % 0-10 [place] Work Phone: Blood platelet mean volumeon 09-24-2021 Platelet mean volume (Bld) [Entitic vol] 12.3 fL 6.2-12.0 [place] Work Phone: Determination of erythrocyte mean corpuscular volume (MCV)on 09-24-2021 MCV (RBC) [Entitic vol] 86.9 fL 81-99 [place] Work Phone: Erythrocyte sedimentation ra huber 09-24-2021 ESR (Bld) [Velocity] 29 mm/h 0-30 [facility] Work Phone: Hematocrit Auto (Bld) [Volum e fraction]on 09-24-2021 Hematocrit (Bld) [Volume fraction] 41.8 % 37-47 [place] Work Phone: Iron measurement (mass/mass) on 09-24-2021 Iron (Unsp spec) [Mass/Mass] 62 ug/dL 50-170 [place] Work Phone: Laboratory - Chemistry and C hemistry - challengeon 09-24-2021 ALP [Catalytic activity/Vol] 110 U/L 45-117 [place] Work Phone: ALT [Catalytic activity/Vol] 34 U/L 13-56 [place] Work Phone: CO2 [Moles/Vol] 30.0 mmol/L 21.0-32.0 [place] Work Phone: Cobalamin (Vitamin B12) [Mass/Vol] 573 pg/mL 211-911 [place] Work Phone: Globulin (S) [Mass/Vol] 4.5 g/dL 2.2-4.2 [place] Work Phone: Urea nitrogen/Creatinine [Mass ratio] 24.1 mg/mg 10-20 [place] Work Phone: Laboratory - Hematology and Cell countson 09-24-2021 Erythrocyte distribution width (RBC) [Entitic vol] 41.0 fL 35.1-43.9 [place] Work Phone: Erythrocyte distribution width (RBC) [Ratio] 13.0 % 11.6-14.6 [place] Work Phone: Immature granulocytes/100 WBC (Bld) 0.300 % 0.0-0.9 [place] Work Phone: Comment on above: IG% - Immature Granu locytes (promyelocytes, myelocytes and metamyelocytes) > 1% indicates that a LEFT SHIFT is Present. MCH (RBC) [Entitic mass] 27.4 pg 27.0-32.0 [place] Work Phone: Nucleated RBC/100 WBC (Bld) [Ratio] 0 % 0-5 [place] Work Phone: MCHC Auto (RBC) [Mass/Vol]on 09-24-2021 MCHC (RBC) [Mass/Vol] 31.6 g/dL 32-36 [facility] Work Phone: No Panel Informationon 09-24 Estimated GFR (MDRD) Amer 126 mL/min >60 [place] Work Phone: Comment on above: GFR Calc Estimated GFR (MDRD) Non-Af Amer 104 mL/min >60 [place] Work Phone: Comment on above: Non- GFR Calc Thyroid Stimulating Hormone (TSH) 2.29 uIU/mL 0.358-3.74 [place] Work Phone: Vitamin D 25-Hydroxy 17.7 ng/mL [facility] Work Phone: Comment on above: Vitamin D 25(OH) Sta tus Range Deficiency <20 ng/mL (50nmol/L) Insufficiency 20 - 30 ng/mL (50 - 75 nmol/L) Sufficiency 30 - 100 ng/mL (75 - 250 nmol/L) Toxicity >100 ng/mL (>250 nmol/L) Platelets bldon 09-24-2021 Platelets (Bld) [#/Vol] 223 10*3/uL 150-450 [place] Work Phone: Serum or plasma albumin sarabjit urement (mass/volume)on 09-24-2021 Albumin [Mass/Vol] 3.2 g/dL 3.2-5.0 [facility] Work Phone: Serum or plasma albumin/glob ulin mass ratioon 09-24-2021 Albumin/Globulin [Mass ratio] 0.7 {ratio} 0.9-2.4 [place] Work Phone: Serum or plasma calcium sarabjit urement (mass/volume)on 09-24-2021 Calcium [Mass/Vol] 8.9 mg/dL 8.5-10.1 [facility] Work Phone: Serum or plasma cortisol bridget surement (mass/volume)on 09-24-2021 Cortisol [Mass/Vol] 7.20 ug/dL 3.44-22.45 [facility] Work Phone: Comment on above: Adult (AM) 5.27 - 22 .45 ug/dL Adult (PM) 3.44 - 16.76 ug/dLPlease note revised CORTISOL reference range effective 2019. Serum or plasma creatinine m easurement (mass/volume)on 09-24-2021 Creatinine [Mass/Vol] 0.62 mg/dL 0.55-1.02 [facility] Work Phone: Comment on above: The validity of the calculated GFR & GFRAA in patients over 70 years has not been determined. Clinical correlation is essential. Serum or plasma ferritin bridget surement (mass/volume)on 09-24-2021 Ferritin [Mass/Vol] 88 ng/mL 8-252 [facility] Work Phone: Serum or plasma urea nitroge n measurement (mass/volume)on 09-24-2021 Urea nitrogen [Mass/Vol] 15 mg/dL 7-18 [place] Work Phone: Thin prep Papanicolaou smear with manual screeningon 09-24-2021 Thin prep Papanicolaou smear with manual screening 27 U/L 15-37 [place] Work Phone: Thin prep Papanicolaou smear with manual screening 6 5-15 [place] Work Phone: Laboratory - Microbiology an d Antimicrobial susceptibilityon 07-05-2021 SARS-CoV-2 (COVID-19) RNA TYLER+probe Ql (Unsp spec) Detected [place] Work Phone: XR CHEST 2V FRONTAL/LATon XR CHEST 2V FRONTAL/LAT * * *Final Report* * * DATE OF EXAM: Jan 23 2021 4:00PM MDX [id number] - XR CHEST 2V FRONTAL/LAT / PROCEDURE REASON: B94.3-[id number] syndrome * * * * Physician Interpretation * * * * EXAMINATION: CHEST RADIOGRAPH (2 VIEW FRONTAL and LATERAL) CLINICAL HISTORY: Post-COVID syndrome MQ: [id number] EXAM DATE/TIME: 01/23/2021 4:00 PM COMPARISON: No relevant prior studies available. RESULT: Lines, tubes, and devices: None. Lungs and pleura: No consolidation. No lung mass. No pleural effusion. No pneumothorax. Cardiomediastinal silhouette: Normal cardiomediastinal silhouette. Bones and soft tissues: Unremarkable. IMPRESSION: No acute radiographic abnormality. Petrologist: PSCB Transcribe Date/Time: Jan 23 2021 4:42P Dictated by : HUGO RODRIGUEZ MD This examination was interpreted and the report reviewed and electronically signed by: HUGO RODRIGUEZ MD on Jan 23 2021 4:42PM EST [id number] Normal [facility] NOVEL CORONAVIRUS NASOPHARYN GEAL - [facility] SPECIMEN ONLYon 06-18-2020 SARS-COV-2 NOT DETECTED Normal NOT DETECTED [facility] Comment on above: Order Comment: Submi tter Name: [facility] Agent Suspected: SARS-COV-2 This test was performed using real time PCR and has been approved for the qualitative detection of SARS-CoV-2 nucleic acid. The test has been authorized by the FDA under an emergency use authorization for use by authorized laboratories. Result Comment: Nega tive results do not preclude SARS-CoV-2 infection and should not be used as the sole basis for treatment or other patient management decisions. Optimum specimen types and timing for peak viral levels during infections caused by SARS-CoV-2 has not been determined. The possibility of a false negative result should especially be considered if the patient's recent exposures or clinical presentation suggest that SARS-CoV-2 infection is probable, and diagnostic tests for other causes of illness (e.g., other respiratory illness) are negative. Collection of a new specimen and re-testing may be necessary if the patient is critically ill or clinically deteriorating. Performed By: #### L [id number] #### [facility] (DEFAULT) [address] [place] [address] NOVEL CORONAVIRUS NASOPHARYN GEAL - [facility] SPECIMEN ONLYon 03-05-2020 SARS-COV-2 NOT DETECTED Normal NOT DETECTED [facility] Comment on above: Order Comment: Submi tter Name: [facility] Agent Suspected: SARS-COV-2 This test was performed using real time PCR and has been approved for the qualitative detection of SARS-CoV-2 nucleic acid. The test has been authorized by the FDA under an emergency use authorization for use by authorized laboratories. Result Comment: Nega tive results do not preclude SARS-CoV-2 infection and should not be used as the sole basis for treatment or other patient management decisions. Optimum specimen types and timing for peak viral levels during infections caused by SARS-CoV-2 has not been determined. The possibility of a false negative result should especially be considered if the patient's recent exposures or clinical presentation suggest that SARS-CoV-2 infection is probable, and diagnostic tests for other causes of illness (e.g., other respiratory illness) are negative. Collection of a new specimen and re-testing may be necessary if the patient is critically ill or clinically deteriorating. Performed By: #### L [id number] #### [facility] (DEFAULT) [address] [place] [id number] Vital Signs Date Time Vital Sign Value Performing Clinician Wiliam martínez 02-09-2025 08:30-0400 Body height 165.[address] Anne Davis MD Work Phone: [place] 02-09-2025 08:30-0400 Body mass index (BMI) [Ratio] 38.2 kg/m2 Dr. Anne Davis MD Work Phone: [place] 02-09-2025 08:30-0400 Body weight 104.[address] Anne Davis MD Work Phone: 1(331)173-079336 [place] [address] 02-09-2025 08:30-0400 Diastolic blood pressure 82 mm[Hg] Dr. Anne Davis MD Work Phone: 0(715)361-594936 [place] [address] 02-09-2025 08:30-0400 Heart rate 66 /min Dr. Anne Davis MD Work Phone: 4(032)379-185636 [place] [address] 02-09-2025 08:30-0400 Respiratory rate 15 /min Dr. Anne Davis MD Work Phone: 7(687)367-073636 [place] [address] 02-09-2025 08:30-0400 SaO2% (BldA) [Mass fraction] 94 % Dr. Anne Davis MD Work Phone: 8(579)310-928636 [place] [address] 02-09-2025 08:30-0400 Systolic blood pressure 127 mm[Hg] Dr. Anne Davis MD Work Phone: 1(194)659-890036 [place] [address] 11-01-2024 09:10-0400 Body height 165.[address] Anne Davis MD Work Phone: 4(518)052-538936 [place] [address] 11-01-2024 09:10-0400 Body mass index (BMI) [Ratio] 37.4 kg/m2 Dr. Anne Davis MD Work Phone: 7(900)883-097236 [place] [address] 11-01-2024 09:10-0400 Body weight 102.[address] Anne Davis MD Work Phone: 1(354)148-366636 [place] [address] 11-01-2024 09:10-0400 Diastolic blood pressure 83 mm[Hg] Dr. Anne Davis MD Work Phone: 0(325)539-413736 [place] [address] 11-01-2024 09:10-0400 Heart rate 52 /min Dr. Anne Davis MD Work Phone: [place] 11-01-2024 09:10-0400 Respiratory rate 16 /min Dr. Anne Davis MD Work Phone: [place] 11-01-2024 09:10-0400 SaO2% (BldA) [Mass fraction] 96 % Dr. Anne Davis MD Work Phone: [place] 11-01-2024 09:10-0400 Systolic blood pressure 125 mm[Hg] Dr. Anne Davis MD Work Phone: 3(739)408-357034 [address] 08-20-2024 05:39-0500 Body temperature 98.4 [degF] Dr. Anne Davis MD Work Phone: 9(446)172-948430 [place] [address] 08-20-2024 05:39-0500 Diastolic blood pressure 81 mm[Hg] Dr. Anne Davis MD Work Phone: [place] 08-20-2024 05:39-0500 Heart rate 67 /min Dr. Anne Davis MD Work Phone: [place] 08-20-2024 05:39-0500 Respiratory rate 20 /min Dr. Anne Davis MD Work Phone: [place] 08-20-2024 05:39-0500 SaO2% (BldA) [Mass fraction] 96 % Dr. Anne Davis MD Work Phone: [place] 08-20-2024 05:39-0500 Systolic blood pressure 153 mm[Hg] Dr. Anne Davis MD Work Phone: [place] 08-20-2024 02:58-0500 Body mass index (BMI) [Ratio] 38.8 kg/m2 Dr. Anne Davis MD Work Phone: [place] 08-20-2024 02:58-0500 Body weight 105.[address] Anne Davis MD Work Phone: [place] 08-14-2024 01:08-0500 Body temperature 98.1 [degF] Dr. Anne Davis MD Work Phone: 9(448)484-553336 [place] [address] 08-14-2024 01:08-0500 Diastolic blood pressure 64 mm[Hg] Dr. Anne Davis MD Work Phone: 8(383)197-804036 [place] [address] 08-14-2024 01:08-0500 Heart rate 88 /min Dr. Anne Davis MD Work Phone: 5(668)198-658636 [place] [address] 08-14-2024 01:08-0500 Respiratory rate 16 /min Dr. Anne Davis MD Work Phone: 7(617)168-494836 [place] [address] 08-14-2024 01:08-0500 SaO2% (BldA) [Mass fraction] 95 % Dr. Anne Davis MD Work Phone: 2(089)975-777336 [place] [address] 08-14-2024 01:08-0500 Systolic blood pressure 126 mm[Hg] Dr. Anne Davis MD Work Phone: 6(680)568-088636 [place] [address] 08-13-2024 21:07-0500 Body mass index (BMI) [Ratio] 42.2 kg/m2 Dr. Anne Davis MD Work Phone: 7(788)274-865636 [place] [address] 08-13-2024 21:07-0500 Body weight [address] Anne Davis MD Work Phone: 7(496)311-485736 [place] [address] 08-02-2024 08:47-0500 Body mass index (BMI) [Ratio] 39.3 kg/m2 Dr. Anne Davis MD Work Phone: 8(442)423-202736 [place] [address] 08-02-2024 08:47-0500 Body weight 107.[address] Anne Davis MD Work Phone: 1(561)830-293134 [address] 08-02-2024 08:47-0500 Diastolic blood pressure 101 mm[Hg] Dr. Anne Davis MD Work Phone: 1(070)404-649936 [place] [address] 08-02-2024 08:47-0500 Heart rate 70 /min Dr. Anne Davis MD Work Phone: [place] 08-02-2024 08:47-0500 Respiratory rate 16 /min Dr. Anne Davis MD Work Phone: [place] 08-02-2024 08:47-0500 SaO2% (BldA) [Mass fraction] 96 % Dr. Anne Davis MD Work Phone: [place] 08-02-2024 08:47-0500 Systolic blood pressure 144 mm[Hg] Dr. Anne Davis MD Work Phone: [place] 06-03-2024 14:35-0500 Body mass index (BMI) [Ratio] 39.25 kg/m2 Kali Cancino MD Work Phone: [facility] 06-03-2024 14:35-0500 Body temperature 97.39 [degF] Kali Cancino MD Work Phone: [facility] 06-03-2024 14:35-0500 Body weight 107 kg Kali Cancino MD Work Phone: [facility] 06-03-2024 14:35-0500 Diastolic blood pressure 81 mm[Hg] Kali Cancino MD Work Phone: [facility] 06-03-2024 14:35-0500 Heart rate 77 /min Kali Cancino MD Work Phone: [facility] 06-03-2024 14:35-0500 Respiratory rate 20 /min Kali Cancino MD Work Phone: [facility] 06-03-2024 14:35-0500 SaO2% (BldA) [Mass fraction] 97 % Kali Cancino MD Work Phone: [facility] 06-03-2024 14:35-0500 Systolic blood pressure 123 mm[Hg] Kali Cancino MD Work Phone: [facility] 10-20-2023 07:43-0400 Body height 165.[address] Anne Davis Work Phone: [place] 10-20-2023 07:43-0400 Body mass index (BMI) [Ratio] 38.2 kg/m2 Dr. Anne Davis Work Phone: [place] 10-20-2023 07:43-0400 Body temperature 97.8 [degF] Dr. Anne Davis Work Phone: [place] 10-20-2023 07:43-0400 Body weight 104.[address] Anne Davis Work Phone: [place] 10-20-2023 07:43-0400 Diastolic blood pressure 74 mm[Hg] Dr. Anne Davis Work Phone: [place] 10-20-2023 07:43-0400 Heart rate 68 /min Dr. Anne Davis Work Phone: [place] 10-20-2023 07:43-0400 Respiratory rate 20 /min Dr. Anne Davis Work Phone: [place] 10-20-2023 07:43-0400 SaO2% (BldA) [Mass fraction] 96 % Dr. Anne Davis Work Phone: [place] 10-20-2023 07:43-0400 Systolic blood pressure 117 mm[Hg] Dr. Anne Davis Work Phone: [place] 10-10-2023 12:48-0400 Body temperature 97.39 [degF] Vilma Athy PA-C Work Phone: [facility] 10-10-2023 12:48-0400 Body weight 104 kg Vilma Athy PA-C Work Phone: [facility] 10-10-2023 12:48-0400 Diastolic blood pressure 64 mm[Hg] Vilma Athy PA-C Work Phone: [facility] 10-10-2023 12:48-0400 Heart rate 86 /min Vilma Athy PA-C Work Phone: [facility] 10-10-2023 12:48-0400 Respiratory rate 18 /min Vilma Athy PA-C Work Phone: [facility] 10-10-2023 12:48-0400 SaO2% (BldA) [Mass fraction] 96 % Vilma Athy PA-C Work Phone: [facility] 10-10-2023 12:48-0400 Systolic blood pressure 104 mm[Hg] Vilma Athy PA-C Work Phone: [facility] 06-01-2023 15:19-0500 Body height 165.[address] Jelani Davis Work Phone: [place] 06-01-2023 15:19-0500 Body mass index (BMI) [Ratio] 38.2 kg/m2 Dr. Jelani Davis Work Phone: [place] 06-01-2023 15:19-0500 Body weight 104.[address] Jelani Davis Work Phone: [place] 06-01-2023 15:19-0500 Diastolic blood pressure 86 mm[Hg] Dr. Jelani Davis Work Phone: [place] 06-01-2023 15:19-0500 Heart rate 65 /min Dr. Jelani Davis Work Phone: [place] 06-01-2023 15:19-0500 SaO2% (BldA) [Mass fraction] 97 % Dr. Jelani Davis Work Phone: [place] 06-01-2023 15:19-0500 Systolic blood pressure 135 mm[Hg] Dr. Jelani Davis Work Phone: [place] 04-21-2023 07:53-0400 Body mass index (BMI) [Ratio] 39.1 kg/m2 Dr. Jelani Davis Work Phone: [place] 04-21-2023 07:53-0400 Body temperature 97.6 [degF] Dr. Jelani Davis Work Phone: [place] 04-21-2023 07:53-0400 Body weight 106.[address] Jelani Davis Work Phone: [place] 04-21-2023 07:53-0400 Diastolic blood pressure 80 mm[Hg] Dr. Jelani Davis Work Phone: 9(924)184-680934 [address] 04-21-2023 07:53-0400 Heart rate 67 /min Dr. Jelani Davis Work Phone: 3(222)452-476236 [place] [address] 04-21-2023 07:53-0400 Respiratory rate 20 /min Dr. Jelani Davis Work Phone: 9(411)166-311636 [place] [address] 04-21-2023 07:53-0400 SaO2% (BldA) [Mass fraction] 97 % Dr. Jelani Davis Work Phone: 5(343)229-837430 [place] [address] 04-21-2023 07:53-0400 Systolic blood pressure 141 mm[Hg] Dr. Jelani Davis Work Phone: 3(447)485-932430 [place] [address] 10-21-2022 06:28-0400 Body height 165.[address] Jelani Davis Work Phone: 7(328)032-185234 [address] 10-21-2022 06:28-0400 Body mass index (BMI) [Ratio] 38.2 kg/m2 Dr. Jelani Davis Work Phone: [place] 10-21-2022 06:28-0400 Body temperature 97.1 [degF] Dr. Jelani Davis Work Phone: [place] 10-21-2022 06:28-0400 Body weight 104.[address] Jelani Davis Work Phone: [place] 10-21-2022 06:28-0400 Diastolic blood pressure 81 mm[Hg] Dr. Jelani Davis Work Phone: [place] 10-21-2022 06:28-0400 Heart rate 58 /min Dr. Jelani Davis Work Phone: [place] 10-21-2022 06:28-0400 Respiratory rate 18 /min Dr. Jelani Davis Work Phone: [place] 10-21-2022 06:28-0400 SaO2% (BldA) [Mass fraction] 97 % Dr. Jelani Davis Work Phone: [place] 10-21-2022 06:28-0400 Systolic blood pressure 159 mm[Hg] Dr. Jelani Davis Work Phone: [place] 08-07-2022 09:56-0500 Body temperature 97.5 [degF] Gordon Bobo RECRUITMENT INTERN.DOCUMENT MANAGER Work Phone: [facility] 08-07-2022 09:56-0500 Body weight 103.6 kg Gordon Bobo RECRUITMENT INTERN.DOCUMENT MANAGER Work Phone: [facility] 08-07-2022 09:56-0500 Diastolic blood pressure 68 mm[Hg] Gordon Pendleanirudh RECRUITMENT INTERN.DOCUMENT MANAGER Work Phone: [facility] 08-07-2022 09:56-0500 Heart rate 63 /min Gordon Bobo RECRUITMENT INTERN.DOCUMENT MANAGER Work Phone: [facility] 08-07-2022 09:56-0500 Respiratory rate 18 /min Gordon Bobo RECRUITMENT INTERN.DOCUMENT MANAGER Work Phone: [facility] 08-07-2022 09:56-0500 SaO2% (BldA) [Mass fraction] 96 % Gordon Bobo RECRUITMENT INTERN.DOCUMENT MANAGER Work Phone: [facility] 08-07-2022 09:56-0500 Systolic blood pressure 114 mm[Hg] Gordon Conradleanirudh RECRUITMENT INTERN.DOCUMENT MANAGER Work Phone: [facility] 08-07-2022 08:11-0500 Body height 165.[address] Jelani Davis Work Phone: [place] 08-07-2022 08:11-0500 Body mass index (BMI) [Ratio] 38.1 kg/m2 Dr. Jelani Davis Work Phone: [place] 08-07-2022 08:11-0500 Body weight 103.[address] Jelani Davis Work Phone: 0(858)257-776734 [address] 08-07-2022 08:11-0500 Diastolic blood pressure 88 mm[Hg] Dr. Jelani Davis Work Phone: 1(528)615-764634 [address] 08-07-2022 08:11-0500 Heart rate 66 /min Dr. Jelani Davis Work Phone: 9(817)615-286436 [place] [address] 08-07-2022 08:11-0500 SaO2% (BldA) [Mass fraction] 97 % Dr. Jelani Davis Work Phone: 0(631)980-415130 [place] [address] 08-07-2022 08:11-0500 Systolic blood pressure 155 mm[Hg] Dr. Jelani Davis Work Phone: 1(221)891-176634 [address] 04-24-2022 09:29-0400 Body mass index (BMI) [Ratio] 37 kg/m2 Dr. Jelani Davis Work Phone: 7(464)204-680034 [address] 04-24-2022 09:29-0400 Body temperature 97.5 [degF] Dr. Jelani Davis Work Phone: 4(212)714-410634 [address] 04-24-2022 09:29-0400 Body weight 102.[address] Jelani Davis Work Phone: 6(053)409-095534 [address] 04-24-2022 09:29-0400 Diastolic blood pressure 67 mm[Hg] Dr. Jelani Davis Work Phone: 9(960)873-339130 [place] [address] 04-24-2022 09:29-0400 Heart rate 57 /min Dr. Jelani Davis Work Phone: 0(561)485-843730 [place] [address] 04-24-2022 09:29-0400 Respiratory rate 18 /min Dr. Jelani Davis Work Phone: [place] 04-24-2022 09:29-0400 SaO2% (BldA) [Mass fraction] 97 % Dr. Jelani Davis Work Phone: [place] 04-24-2022 09:29-0400 Systolic blood pressure 125 mm[Hg] Dr. Jelani Davis Work Phone: [place] 03-18-2022 11:12-0400 Body height 165.[address] Jelani Davis Work Phone: [place] Work Phone: 03-18-2022 11:12-0400 Body weight 101.[address] Jelani Davis Work Phone: [place] Work Phone: 02-21-2022 10:12-0400 Body mass index (BMI) [Ratio] 37.4 kg/m2 Dr. Jelani Davis Work Phone: [place] Work Phone: 02-21-2022 10:12-0400 Body weight 102.[address] Jelani Davis Work Phone: [place] Work Phone: 01-16-2022 09:26-0400 Body height 165.[address] Jelani Davis Work Phone: [place] Work Phone: 01-16-2022 09:26-0400 Body weight 103.[address] Jelani Davis Work Phone: [place] Work Phone: 01-15-2022 06:06-0400 Body mass index (BMI) [Ratio] 37.8 kg/m2 Dr. Jelani Davis Work Phone: [place] Work Phone: 01-15-2022 06:06-0400 Body temperature 97.6 [degF] Dr. Jelani Davis Work Phone: [place] Work Phone: 01-15-2022 06:06-0400 Body weight 102.[address] Jelani Davis Work Phone: [place] Work Phone: 01-15-2022 06:06-0400 Diastolic blood pressure 74 mm[Hg] Dr. Jelani Davis Work Phone: [place] Work Phone: 01-15-2022 06:06-0400 Heart rate 52 /min Dr. Jelani Davis Work Phone: [place] Work Phone: 01-15-2022 06:06-0400 Respiratory rate 16 /min Dr. Jelani Davis Work Phone: [place] Work Phone: 01-15-2022 06:06-0400 SaO2% (BldA) [Mass fraction] 97 % Dr. Jelani Davis Work Phone: [place] Work Phone: 01-15-2022 06:06-0400 Systolic blood pressure 125 mm[Hg] Dr. Jelani Davis Work Phone: [place] Work Phone: 12-11-2021 08:27-0400 Body height 165.[address] Jelani Davis Work Phone: [place] Work Phone: 12-11-2021 08:27-0400 Body mass index (BMI) [Ratio] 38.2 kg/m2 Dr. Jelani Davis Work Phone: [place] Work Phone: 12-11-2021 08:27-0400 Body temperature 97.4 [degF] Dr. eJlani Davis Work Phone: [place] Work Phone: 12-11-2021 08:27-0400 Body weight 104.[address] Jelani Davis Work Phone: [place] Work Phone: 12-11-2021 08:27-0400 Diastolic blood pressure 81 mm[Hg] Dr. Jelani Davis Work Phone: [place] Work Phone: 12-11-2021 08:27-0400 Heart rate 58 /min Dr. Jelani Davis Work Phone: [place] Work Phone: 12-11-2021 08:27-0400 Respiratory rate 17 /min Dr. Jelani Davis Work Phone: [place] Work Phone: 12-11-2021 08:27-0400 SaO2% (BldA) [Mass fraction] 97 % Dr. Jelani Davis Work Phone: [place] Work Phone: 12-11-2021 08:27-0400 Systolic blood pressure 120 mm[Hg] Dr. Jelani Davis Work Phone: [place] Work Phone: 12-03-2021 14:44-0400 Body weight 106.[address] Jelani Davis Work Phone: [place] Work Phone: 11-13-2021 12:51-0400 Body height 165.[address] Jelani Davis Work Phone: [place] Work Phone: 11-13-2021 12:51-0400 Body weight 110.[address] Jelani Davis Work Phone: [place] Work Phone: 11-13-2021 12:51-0400 Heart rate 58 /min Dr. Jelani Davis Work Phone: [place] Work Phone: 11-13-2021 12:51-0400 SaO2% (BldA) [Mass fraction] 97 % Dr. Jelani Davis Work Phone: [place] Work Phone: 10-21-2021 08:48-0400 Body mass index (BMI) [Ratio] 39.7 kg/m2 Dr. Jelani Davis Work Phone: [place] Work Phone: 10-21-2021 08:48-0400 Body temperature 97.3 [degF] Dr. Jelani Davis Work Phone: [place] Work Phone: 10-21-2021 08:48-0400 Body weight 108.[address] Jelani Davis Work Phone: [place] Work Phone: 10-21-2021 08:48-0400 Diastolic blood pressure 85 mm[Hg] Dr. Jelani Davis Work Phone: [place] Work Phone: 10-21-2021 08:48-0400 Heart rate 52 /min Dr. Jelani Davis Work Phone: [place] Work Phone: 10-21-2021 08:48-0400 Respiratory rate 18 /min Dr. Jelani Davis Work Phone: [place] Work Phone: 10-21-2021 08:48-0400 SaO2% (BldA) [Mass fraction] 95 % Dr. Jelani Davis Work Phone: [place] Work Phone: 10-21-2021 08:48-0400 Systolic blood pressure 140 mm[Hg] Dr. Jelani Davis Work Phone: [place] Work Phone: 10-21-2021 08:48-0400 Body height 165.[address] Jelani Davis Work Phone: [place] Work Phone: 10-21-2021 08:48-0400 Body mass index (BMI) [Ratio] 39.7 kg/m2 Dr. Jelani Davis Work Phone: [place] Work Phone: 10-21-2021 08:48-0400 Body temperature 97.3 [degF] Dr. Jelani Davis Work Phone: [place] Work Phone: 10-21-2021 08:48-0400 Body weight 108.[address] Jelani Davis Work Phone: [place] Work Phone: 10-21-2021 08:48-0400 Diastolic blood pressure 85 mm[Hg] Dr. Jelani Davis Work Phone: [place] Work Phone: 10-21-2021 08:48-0400 Heart rate 52 /min Dr. Jleani Davis Work Phone: [place] Work Phone: 10-21-2021 08:48-0400 Respiratory rate 18 /min Dr. Jelani Davis Work Phone: [place] Work Phone: 10-21-2021 08:48-0400 SaO2% (BldA) [Mass fraction] 95 % Dr. Jelani Davis Work Phone: [place] Work Phone: 10-21-2021 08:48-0400 Systolic blood pressure 140 mm[Hg] Dr. Jelain Davis Work Phone: [place] Work Phone: 07-05-2021 14:51-0500 Body height 165.[address] Jelani Davis Work Phone: [place] Work Phone: 07-05-2021 14:51-0500 Body mass index (BMI) [Ratio] 40.1 kg/m2 Dr. Jelani Davis Work Phone: [place] Work Phone: 07-05-2021 14:51-0500 Body temperature 97.9 [degF] Dr. Jelani Davis Work Phone: [place] Work Phone: 07-05-2021 14:51-0500 Body weight 109.[address] Jelani Davis Work Phone: [place] Work Phone: 07-05-2021 14:51-0500 Diastolic blood pressure 80 mm[Hg] Dr. Jelani Davis Work Phone: [place] Work Phone: 07-05-2021 14:51-0500 Heart rate 69 /min Dr. Jelani Davis Work Phone: [place] Work Phone: 07-05-2021 14:51-0500 Respiratory rate 16 /min Dr. Jelani Davis Work Phone: [place] Work Phone: 07-05-2021 14:51-0500 SaO2% (BldA) [Mass fraction] 97 % Dr. Jelani Davis Work Phone: [place] Work Phone: 07-05-2021 14:51-0500 Systolic blood pressure 120 mm[Hg] Dr. Jelani Davis Work Phone: [place] Work Phone: Encounters Encounter Date Encounter Type Care Provider Facility Start: 02-21-2025 End: 02-21-[address] Anne Davis MD Work Phone: -Sleep Lab Start: 02-21-2025 End: 02-21-2025 Patient encounter procedure Poonam Abarca HEALTH OUTREACH WORKER-C -Sleep Lab Work Phone: Start: 02-21-2025 End: 02-21-2025 ambulatory Poonam Abarca NP Facility:[facility] Start: 02-09-2025 End: 02-09-2025 Patient encounter procedure Jill Davy HEALTH OUTREACH WORKER-C -[facility] Work Phone: Start: 02-09-2025 End: 02-09-[address] Anne Davis MD Work Phone: -[facility] Start: 02-09-2025 End: 02-09-2025 ambulatory Jill Bhatti Facility:[facility] Start: 02-07-2025 End: 02-07-[address] Anne Davis MD Work Phone: [facility] Start: 02-07-2025 End: 02-07-2025 Patient encounter procedure Marcela Reese HEALTH OUTREACH WORKER-C -[facility] Work Phone: Start: 02-07-2025 End: 02-07-2025 ambulatory Marcela Reese Facility:[facility] Start: 01-24-2025 Non-patient / Non-visit Dr. Corinne Rendon MD -[facility] Work Phone: Start: 11-01-2024 End: 11-01-2024 Patient encounter procedure Marcela Reese HEALTH OUTREACH WORKER-C -[facility] Work Phone: Start: 11-01-2024 End: 11-01-[address] Anne Davis MD Work Phone: [place] Work Phone: Start: 11-01-2024 End: 11-01-2024 ambulatory Marcela Reese Facility:[facility] Start: 08-20-2024 End: 08-20-2024 Emergency department patient visit Julius Yan DO -Emergency Department Work Phone: Start: 08-13-2024 End: 08-14-2024 Emergency department patient visit Julius Yan DO -Emergency Department Work Phone: Start: 08-02-2024 End: 08-02-2024 Patient encounter procedure Jill MULLER -[facility] Work Phone: Start: 08-02-2024 End: 08-02-2024 ambulatory Jill Bhatti Facility:[facility] Start: 07-13-2024 End: 07-13-2024 Patient encounter procedure Jill MULLER -[facility], [facility] Work Phone: Start: 07-13-2024 End: 07-13-2024 ambulatory Anne Davis Facility:[place] Start: 07-05-2024 End: 07-05-2024 ambulatory Anne Davis Facility:[place] Start: 06-04-2024 End: 06-06-2024 Telephone encounter Bety Gil APRN.CNP Work Phone: [facility] Comment on above: Results Start: 06-03-2024 End: 06-03-2024 ambulatory ANNE DAVIS Facility:[facility] Start: 06-03-2024 End: 06-03-2024 Office outpatient visit 15 minutes Kali Cancino MD Work Phone: [facility] Comment on above: Sore throat (Primary Dx); URI, acute Start: 05-09-2024 Encounter for genera l adult medical examination without abnormal findings Poonam Abarca NP [place] Start: 05-01-2024 End: 05-01-2024 Emergency department patient visit Mamadou Luna Facility:[facility] Start: 04-15-2024 End: 04-15-2024 ambulatory Poonam Abarca NP Facility:[place] Start: 11-20-2023 End: 11-20-[address] Anne Davis Work Phone: [place] Work Phone: Start: 11-20-2023 End: 11-20-[address] Anne Davis Work Phone: [place], [facility] Work Phone: Start: 10-20-2023 End: 10-20-[address] Anne Davis Work Phone: [facility] Work Phone: Start: 10-12-2023 End: 10-12-2023 ambulatory VILMA GARCIA Facility:[facility] Start: 10-12-2023 End: 10-12-2023 Subsequent hospital visit by physician Xr [facility] Work Phone: Radiology Comment on above: Bronchitis [J40] Start: 10-12-2023 Telephone encounter Yane Arias APRN.[facility] Work Phone: [facility] Comment on above: Results (w) Start: 10-10-2023 End: 10-10-2023 ambulatory ANNE DAVIS Facility:[facility] Start: 10-10-2023 End: 10-10-2023 Patient encounter procedure Vilma Garcia PA-C Work Phone: [facility] Comment on above: Bronchitis (Primary Dx) Start: 09-14-2023 End: 09-14-[address] Jelani Davis Work Phone: [place] Work Phone: Start: 09-14-2023 End: 09-14-[address] Jelani Davis Work Phone: [place] [place] Work Phone: Start: 07-01-2023 Non-patient / Non-visit Dr. Jelani Davis Work Phone: [facility] Start: 07-01-2023 End: 07-01-[address] Jelani Davis Work Phone: [place] Work Phone: Start: 07-01-2023 End: 07-01-[address] Jelani Davis Work Phone: [place]-Pulmonary Services/Neurology Work Phone: Start: 06-01-2023 End: 06-01-[address] Jelani Davis Work Phone: [facility] Work Phone: Start: 05-01-2023 End: 05-01-[address] Jelani Davis Work Phone: [place]-Laboratory, Specimen Work Phone: Start: 04-21-2023 End: 04-21-[address] Jelani Davis Work Phone: [facility]-Pulmonary Medicine [facility] Work Phone: Start: 03-18-2023 Non-patient / Non-visit Dr. Jelani Davis Work Phone: [facility] Start: 03-17-2023 End: 03-17-[address] Jelani Davis Work Phone: [place] Work Phone: Start: 03-17-2023 End: 03-17-[address] Jelani Davis Work Phone: [place]-Pulmonary Services/Neurology Work Phone: Start: 03-06-2023 End: 03-06-2023 ambulatory [place] Work Phone: Start: 03-06-2023 End: 03-06-2023 Patient encounter procedure [place], [place] Work Phone: Start: 02-03-2023 End: 02-03-[address] Jelani Davis Work Phone: [place] Work Phone: Start: 02-03-2023 End: 02-03-[address] Jelani Davis Work Phone: [place]-Physical Therapy Work Phone: Start: 01-26-2023 End: 01-26-[address] Jelani Davis Work Phone: [place] Start: 11-18-2022 End: 11-18-[address] Jelani Davis Work Phone: [place]-Ultrasound, [facility] Work Phone: Start: 11-03-2022 End: 11-03-[address] Jelani Davis Work Phone: [facility] Work Phone: Start: 10-21-2022 End: 10-21-[address] Jelani Davis Work Phone: [facility] Work Phone: Start: 08-07-2022 Telephone encounter Gordon coronado APRN.DOCUMENT MANAGER Work Phone: [facility] Comment on above: Results Start: 08-07-2022 End: 08-07-2022 Subsequent hospital visit by physician Xr [facility] Work Phone: Radiology Comment on above: Acute cough [R05.1] Start: 08-07-2022 End: 08-07-2022 Office outpatient visit 25 minutes Gordon Bobo APRN.DOCUMENT MANAGER Work Phone: [facility] Comment on above: Acute cough (Primary Dx) Start: 08-07-2022 End: 08-07-[address] Jelani Davis Work Phone: [place] Work Phone: Start: 08-07-2022 End: 08-07-[address] Jelani Davis Work Phone: [facility] Start: 05-16-2022 End: 05-16-[address] Jelani Davis Work Phone: [facility] Start: 04-24-2022 End: 04-24-[address] [facility] Start: 03-18-2022 End: 03-26-[address] Jelani Davis Work Phone: [place] Work Phone: Start: 03-18-2022 End: 03-26-[address] Jelani Davis Work Phone: [place]al Services Start: 02-21-2022 End: 02-21-[address] Jelani Davis Work Phone: [facility] Start: 01-16-2022 End: 01-23-[address] Jelani Davis Work Phone: [place] Start: 01-15-2022 End: 01-15-[address] Jelani Davis Work Phone: [facility] Start: 12-31-2021 End: 12-31-[address] Jelani Davis Work Phone: [place]-Sleep Lab Start: 12-11-2021 Non-patient / Non-visit Dr. Jelani Davis Work Phone: [place] Start: 12-11-2021 End: 12-11-2021 Admission to same day surgery center Dr. Jelani Davis Work Phone: [place]-Endoscopy Start: 12-03-2021 End: 12-24-[address] Jelani Davis Work Phone: [place] Start: 12-03-[address] Christiano Davis Work Phone: [place] Start: 11-14-2021 Non-patient / Non-visit Dr. Jelani Davis Work Phone: [place] Start: 11-13-2021 End: 11-13-[address] Jelani Davis Work Phone: [place]-Pulmonary Services/Neurology Start: 11-12-2021 End: 11-12-[address] Jelani Davis Work Phone: [place]-[facility] Lab Start: 11-06-2021 Non-patient / Non-visit Dr. Jelani Davis Work Phone: [place] Start: 11-06-2021 End: 11-06-[address] Jelani Davis Work Phone: [place]-Pulmonary Services/Neurology Start: 10-28-2021 End: 10-28-[address] Jelani Davis Work Phone: [place]-MRI - [facility] Start: 10-25-2021 End: 10-25-[address] Jelani Davis Work Phone: [place]-[facility] Start: 10-22-2021 End: 10-22-[address] Jelani Davis Work Phone: [place]-Ultrasound, [facility] Start: 10-21-2021 End: 10-21-[address] Jelani Davis Work Phone: [place]-Pulmonary Medicine [facility] Start: 10-15-2021 End: 10-15-[address] Jelani Davis Work Phone: [place]-Laboratory Start: 10-15-2021 End: 10-15-[address] Jelani Davis Work Phone: [facility] Start: 09-24-2021 End: 09-24-[address] Jelani Davis Work Phone: [facility] Start: 07-05-2021 End: 07-05-[address] Jelani Davis Work Phone: [facility] Procedures Date Procedure Procedure Detail Performing Clinician Start: 02-09-[address] Anne Davis MD Work Phone: Comment on above: Test Ordered: [id number] Enhanced Liver Fibr osis (ELF)ELF(TM) Score 8.64 BN Reference Range: <9.80ELF(TM) Score Interpretation:Risk cut-offs to assess the likelihood of progressionto cirrhosis and liver-related clinical events within3.9 years following baseline ELF score (IQR: 14.0-22.4months)*: Lower risk < 9.80 Mid risk 9.80 - 11.29 Higher risk >11.29Note: The ELF(TM) Score is a unitless numerical value.*Rajinder SA, Boogie OROZCO, Tess T, et al. Selonsertibfor patients with bridging fibrosis or compensatedcirrhosis due to ORTEGA: Results from randomized phaseIII STELLAR trials. J Hepatol. 2020 Jan;73(1):26-39.Performed at: [facility] [address] [id number] Director: Sirena Quintana MD, Phone: [phone] at: [facility] [employer] [id number] Director: Juliano Ibarra PhD, Phone: [phone] Start: 02-07-2025 Ultrasound elastography of liver Dr. Deshawn Davis MD Work Phone: Start: 08-20-[address] Anne Davis MD Work Phone: Start: 08-20-2024 CT angiography of chest with contrast Dr. Anne Davis MD Work Phone: Start: 08-13-2024 Plain chest X-ray Dr. Anne Davis MD Work Phone: Start: 08-13-2024 SARS-CoV-2, Influenza & RSV (PCR) Dr. Amaury Davis MD Work Phone: Start: 07-13-2024 Ultrasound elastography of liver Dr. Deshawn Davis MD Work Phone: Start: 06-03-2024 STREP A MOLECULAR (POC) Yane Arias APRN.[facility] Work Phone: Start: 11-20-2023 Ultrasound elastography of liver Dr. Deshawn Davis Work Phone: Start: 10-12-2023 Radiologic exam chest 2 views Vilma R Ath y PA-C Work Phone: Start: 05-01-[address] Agustin Davis Work Phone: Start: 05-01-2023 Chlamydia trachomatis (PCR) Dr. Norberto Davis Work Phone: Start: 05-01-2023 Cytopathology procedure, preparation of smear, genital source Dr. Jelani Davsi Work Phone: Start: 05-01-2023 Investigation of transfusion reaction Dr. Jelani Davis Work Phone: Start: 05-01-[address] Jelani Davis Work Phone: Start: 03-06-2023 X-ray of lumbosacral spine Start: 11-18-[address] Jelani Davis Work Phone: Start: 11-18-[address] Shawn Davis Work Phone: Start: 11-18-[address] Jelani Davis Work Phone: Start: 11-03-2022 Radiography of thoracic spine Dr. Toney Davis Work Phone: Start: 11-03-2022 Diagnostic radiography of abdomen, decubitus and erect Dr. Jelani Davis Work Phone: Start: 08-07-2022 Radiologic exam chest 2 views Gordon Johnny coronado RECRUITMENT INTERN.DOCUMENT MANAGER Work Phone: Start: 12-11-[address] Shawn Davis Work Phone: Start: 10-28-2021 MRI of abdomen with contrast Dr. Agustin Davis Work Phone: Start: 10-25-[address] Jelani Davis Work Phone: Start: 10-22-[address] Jelani Davis Work Phone: Start: 10-22-[address] Shawn Davis Work Phone: Start: 09-24-2021 Plain chest X-ray Dr. Jelani Davis Work Phone: Start: 05-07-2010 Lipid 1996 panel - Serum or Plasma Vilma Garcia PA-C Work Phone: H/O: hysterectomy H/O: hysterectomy Dr. Juni Davis Work Phone: Plan of Treatment Date Care Activity Detail Author Start: 2037 RSV Vaccine (1 - 1-d ose 75+ series) RSV Vaccine (1 - 1-dose 75+ series) [facility] Start: 02-25-2026 Urine microalbumin profile DTaP,Tdap,Td Vaccine (2 - Td or Tdap) [facility] Start: 11-26-2025 Screening for malign ant neoplasm of colon [facility] Start: 02-09-2025 Procedure [facility] Start: 08-20-2024 [facility] Start: 08-14-2024 [facility] Start: 03-27-2024 Covid-19 Vaccine ( season) Covid-19 Vaccine ( season) [facility] Start: 03-27-2024 Covid-19 Vaccine ( season) Covid-19 Vaccine ( season) [facility] Start: 03-27-2024 Influenza vaccination Influenza Vacc ine (#1) [facility] Start: 01-24-2024 DIABETES SCREEN DIABETES SCREEN [facility] Start: 01-24-2024 Diabetes Screening Diabetes Screenin g [facility] Start: 07-27-2023 Depression Assessment Depression Ass essment [facility] Start: 03-27-2023 Covid-19 Vaccine ( season) Covid-19 Vaccine () [facility] Start: 03-27-2023 Influenza vaccination Influenza Vacc ine (#1) [facility] Start: 08-07-2022 [facility] Work Phone: Start: 07-27-2022 DEPRESSION ASSESSMENT DEPRESSION ASS ESSMENT [facility] Start: 03-27-2022 Influenza vaccination INFLUENZA (#1) [facility] Start: 2022 RSV Vaccine (1 - 1-d ose 60+ series) RSV Vaccine (1 - 1-dose 60+ series) [facility] Start: 12-11-2021 Egd insert guide wir e dilator passage esophagus EGD GUIDE WIRE INSERTION [facility] Work Phone: Start: 12-11-2021 Egd transoral biopsy single/multiple EGD BIOPSY SINGLE/MULTIPLE [facility] Work Phone: Start: 12-11-2021 [facility]: Start: 05-07-2015 Lipid panel Lipid Screening [facility] Start: 05-07-2015 LIPID SCREEN LIPID SCREEN [facility] Start: 02-03-2012 SHINGRIX VACCINE (1 of 2) SHINGRIX VACCINE (1 of 2) [facility] Start: 2007 COLOGUARD (FIT-DNA) COLOGUARD (FIT-D NA) [facility] Start: 2007 Colonoscopy COLONOSCOPY [facility] Start: 2007 COLORECTAL CANCER SCREENING COLORECTAL CANCER SCREENING [facility] Start: [address] COLONOGRAPHY [facility] Start: 2007 FECAL OCCULT BLOOD FECAL OCCULT BLOO D [facility] Start: 2007 Screening for malign ant neoplasm of colon [facility] Start: 2007 SIGMOIDOSCOPY SIGMOIDOSCOPY [facility] Start: 2002 Mammography MAMMOGRAM [facility] Start: 2002 Screening for malign ant neoplasm of breast Mammogram Screening [facility] Start: 02-03-1992 HPV TESTING HPV TESTING [facility] Start: 02-03-1992 Screening for malign ant neoplasm of cervix HPV Testing [facility] Start: 1983 PAP TESTING PAP TESTING [facility] Start: 1983 Screening for malign ant neoplasm of cervix [facility] Start: 1981 Urine microalbumin profile DTAP,TDAP,TD (1 - Tdap) [facility] Start: 02-03-1980 Anxiety Screening Anxiety Screening [facility] Start: 02-03-1980 Depression Screening Depression Scre ening [facility] Start: 02-03-1980 HEPATITIS C SCREENING HEPATITIS C [facility] Start: 02-03-1980 Hepatitis C screening Hepatitis C [facility] Start: 02-03-1980 HIV SCREENING HIV SCREENING [facility] Start: 02-03-1980 HIV screening HIV Screening [facility] Start: 1962 COVID-19 VACCINE (#1) COVID-19 VACCI NE (#1) [facility] Ruwjb-4-lamjujozygo. tumo r marker [Units/volume] in Serum or Plasma [facility] C reactive protein [Mass/volume] in Serum or Plasma [facility] CBC W Auto Different ial panel - Blood [facility] Comprehensive metabo lic 2000 panel - Serum or Plasma [facility] COVID & INFLUENZA A/ B & RSV PCR, ROUTINE COVID & INFLUENZA A/B & RSV PCR, ROUTINE Microbiology Routine Sore throat URI, acute Ordered: 06/03/2024 [facility] Work Phone: Comment on above: Ordered: 06/03/2024 Hemoglobin A1c/Hemoglobin.total in Blood [facility] Lipid 1996 panel - S naomi or Plasma [facility] Liver stiffness by US.transient elastography [facility] Liver stiffness by US.transient elastography [facility] Patient Education ED Viral Syndr ome (Adult) [facility] Work Phone: Patient referral [facility] Work Phone: Prothrombin time [facility] Prothrombin time [facility] Ultrasound elastography [facility] US Abdomen limited [facility] Vitamin D, 25-hydrox y measurement [facility] End: 11-08-2024 XR Chest PA and Lateral XR CHEST 2V FRONTAL/LAT Radiology STAT Bronchitis 1 Occurrences starting 10/10/2023 until 11/08/2024 [facility] Work Phone: Comment on above: 1 Occurrences starti ng 10/10/2023 until 11/08/2024 [facility] Immunizations Immunization Date Immunization Notes [facility] Provider [facility] tetanus toxoid, redu breann diphtheria toxoid, and acellular pertussis vaccine, adsorbed Kali Cancino MD Work Phone: [facility] 07-27-2001 influenza, seasonal, injectable Kali Cancino MD Work Phone: [facility] 07-27-2001 pneumococcal polysaccharide vaccine, 23 valent Kali Cancino MD Work Phone: [facility] 07-27-2001 influenza virus vacc ine, unspecified formulation Vilma Garcia PA-C Work Phone: [facility] 07-27-1997 TD(adult) unspecifie d formulation Kali Cancino MD Work Phone: [facility] Payers Date Payer Category Payer Self-pay [id number] 2023 Unknown [facility] ANTH MEDICARE ADVANTAGE HMO [id number] 2023-Present [phone] [address] [place] [address] O [id number] 2023 Medicare [id number] 2022 Unknown [id number] 2020 Medicaid [id number] Medicare MEDICARE PART A B [id number] Unknown [id number] Unknown [id number] Unknown [id number] Unknown [id number] Unknown [id number] Unknown [id number] Unknown [id number] Unknown [id number] Unknown [id number] Unknown [id number] Unknown [id number] Unknown [id number] [id number] Unknown [id number] [id number] Unknown [id number] [id number] Unknown [id number] Unknown [id number] Social History Date Type Detail Facility Start: 10-15-2021 End: 10-20-2023 Tobacco smoking status NHIS Unknown if ever smoked [facility] Start: 10-17-2020 None [facility] Start: 10-17-2020 With Family [facility] Start: 11-28-2020 Non-smoker [facility] Start: 1960 Sex Assigned At Female W [facility] Start: 08-07-2022 End: 02-13-2025 Tobacco smoking status NHIS Ex-smoker [facility] History of tobacco use Current smoker [facility] Start: 08-07-2022 Tobacco use and exposure Smokeless tobacco non-user [facility] Start: 08-07-2022 End: 06-03-2024 Alcohol intake Current non-drinker of alcohol (finding) [facility] Start: 1960 Sex Assigned At Not on file [facility] Start: 07-04-2020 End: 10-10-2023 History of Social function [facility] Start: 07-04-2020 End: 10-10-2023 Tobacco use panel [facility] National Score (1-100), lower number is lower risk Not on file [facility] Start: 11-07-2024 Sex Female (finding) [facility] Goals Date Patient Goal Desired Activity /State Mental Status Date Assessment Result Facility 08-20-2024 Cognitive function Level Of Cons ciousness Awake;Alert;Appropriate;Follow s Commands [facility] Work Phone: 08-13-2024 Cognitive function Level Of Cons ciousness Awake;Alert;Appropriate;Follow s Commands [facility] Work Phone: 12-11-2021 Cognitive function Voice/Name [facility] Work Phone: Clinical Notes 01-23-2021 to 02-07-2025 Note Date & Type Note Facility 02-07-2025 Radiology Diagnostic study note [facility] Imaging Services [address] [place], [place] [id number] ABD Limited w/ Elastography MR#: [id number] Acct: [id number] Name: JAY SIMON Rep #: [id number] : 1960 F 65 From: Ajit Gregorio MD PCP: Dr. Anne Davis MD Status: REG CLI Study:ABD Limited w/ Elastography Date of Exa m: 02/07/25 Exam# [id number] Ordering Dr: Rod Reese HEALTH OUTREACH WORKER-C PROCEDURE: ABD LIMITED W/ ELASTOGRAPHY REASON FOR EXAM: FATTY LIVER FU COMPARISON: Prior study dated July 13, 2024. TECHNIQUE: Right upper quadrant abdominal ultrasound. [employer] ElastQ Imaging shear wave elastography for non-invasive assessment of liver tissue stiffness. [employer] EPIQ Elite. FINDINGS: LIVER: Size: Enlarged (hepatomegaly) Length: 19.6 cm cm Echotexture: Diffusely echogenic suggesting fatty infiltration Contour: Normal Lesions: Stable 2 cm x 2 cm x 1.8 cm hemangioma in the right lobe of the liver. Elastography: EQI Med: 16.53 kPa EQI Med Jhonny: 2.33 m/s IQR/Med: 23 %* GALLBLADDER: No stones sludge wall thickening or tenderness. COMMON BILE DUCT: Normal measuring 2 mm . PANCREAS: Normal Visualized portions of the right kidney are unremarkable. No right upper quadrant ascites. US/ABD Limited w/ Elastography IMPRESSION: SEVERE HEPATIC FIBROSIS / CIRRHOSIS Hepatomegaly. Fatty infiltration of the liver. Stable hemangioma in the right lobe of the liver. Reference Values: SRU <1.37 m/s (5.7kPa): No to mild fibrosis 1.37 m/s - 2.2 m/s: Moderate to severe fibrosis >2.2 m/s (15kPa): Significant fibrosis / cirrhosis METAVIR Score F2 or higher: 1.34 m/s (5.7kPa) F3 or higher: 1.55 m/s (7.3kPa) F4: 1.80 m/s (10kPa) * If the IQR/Med is >30%, the variance in the measurements is a large and the accuracy of the measurement may be in question. Reading Location: [id number] CC: YOHANA Reese; Dr. Anne Davis MD ~ Petrologist: Signed [facility] 11-01-2024 Evaluation note Diagnosis Onset Date Resolution Metabolic dysfunction-associated steatotic liver disease (MASLD) acute November 01, 2024 9:02am Metabolic dysfunction-associated steatotic liver disease (MASLD) acute February 09, 2025 8:27am [facility] Work Phone: 1(896) 963-671504-08-2025 Evaluation note* Diagnosis Onset Date Resolution Status Admit Date Metabolic dysfunction-associ ated steatotic liver disease (MASLD) acute November 01, 2024 9:02am Abdominal pain acute February 09, 2025 8:27am Constipation acute February 09, 2 025 8:27am Metabolic dysfunction-associ ated steatotic liver disease (MASLD) acute February 09, 2025 8:27am Weight gain acute February 09, 20 25 8:27am [facility] Work Phone: 1(799) 189-864001-07-2025 Evaluation note* Diagnosis Onset Date Resolution Status Admit Date Metabolic dysfunction-associated steatotic liver disease (MASLD) acute August 02, 2024 8:42am Metabolic dysfunction-associated steatotic liver disease (MASLD) acute November 01, 2024 9:02am [facility] Work Phone: 1(643) 286-116811-11-2024 Telephone encounter Note* Telephone Encounter - Maria Luisa Lezama LPN - 06/06/2024 11:55 AM EST Still unable to reach patient-left message with negative results.Maria Luisa Lezama LPN [facility]11-11-2024 Miscellaneous Notes* Telephone Encounter - Maria Luisa Lezama LPN - 06/06/2024 11:55 AM EST Still unable to reach patient-left message with negative results.Maria Luisa Lezama LPN * Telephone Encounter - Symone Casanova MA - 06/05/2024 1:19 PM EST Left message for pt to call back. Symone Casanova MA * Telephone Encounter - Sury Linder MA - 06/04/2024 2:22 PM EST Left VM instructing patient to return call to receive results. Sury Linder MA * Telephone Encounter - Bety Gil APRN.CNP - 06/04/2024 8:05 AM EST You tested negative for COVID, Influenza, and RSV. Please contact us if your symptoms are worseningor not improving. Please advise. [facility] Telephone encounter Note * Telephone Encounter - Symone Casanova MA - 06/05/2024 1:19 PM EST Left message for pt to call back. Symone Casanova MA [facility]11-09-2024 Telephone encounter Note* Telephone Encounter - Sury Linder MA - 06/04/2024 2:22 PM EST Left VM instructing patient to return call to receive results. Sury Linder MA [facility]11-09-2024 Telephone encounter Note* Telephone Encounter - Bety Gil APRN.CNP - 06/04/2024 8:05 AM EST You tested negative for COVID, Influenza, and RSV. Please contact us if your symptoms are worseningor not improving. Please advise. [facility] Work Phone: 1(883) 953-693011-08-2024 NoteHNO ID: [id number] Author: KALI CANCINO MD Service: ? Author Type: Physician Type: Progress Notes Filed: 06/03/2024 15:08 Note Text: Patient presents with: Sore Throat HPI: Feeling sick for 3 days. She was treated with antibiotic for left otitis media a few weeks ago; she and her son are sick again. Positive symptoms: somewhat worse than baseline Cough, chronic Shortness of breath, Sore throat, Headache, left earache, Negative symptoms: Fever, OTC: Dayquil, prescription nose spray PAST MEDICAL HISTORY Diagnosis Date Essential hypertension Fatty liver GERD (gastroesophageal reflux disease) Overactive bladder Long-haul COVID. MEDICATIONS: Current Outpatient Medications Medication Sig lisinopril-hydroCHLOROthiazide (ZESTORETIC) 20-12.5 mg per tablet Take 1 tablet by mouth once daily. fesoterodine (TOVIAZ) 4 mg Tb24 extended release tablet Take 1 tablet by mouth every afternoon. gabapentin (NEURONTIN) 100 mg capsule Take 1 capsule by mouth every 12 hours. GEMTESA 75 mg tablet Take 1 tablet by mouth every afternoon. albuterol HFA (PROAIR HFA) 90 mcg/actuation inhaler Inhale 2 Puffs as instructed every 6 hours as needed. omeprazole (PRILOSEC) 20 mg capsule Take by mouth. cholecalciferol, Vitamin D3, (VITAMIN D3) 1,250 mcg (50,000 unit) cap capsule Take 1 capsule by mouth one time a week. No current facility-administered medications for this visit. ALLERGIES: ALLERGIES No Known Allergies VITALS: BP 123/81 Pulse 77 Temp 36.3 ?C (97.4 ?F) Resp 20 Wt 107 kg (235 lb 14.3 oz) SpO2 97% BMI 39.25 kg/m? PHYSICAL EXAM: GEN: mildly ill appearing HEENT: PERRL, EOMI, conjunctiva clear Ears: canals with trace cerumen. TMs without erythema, bulge, or effusion Sinuses: non-tender frontal sinus, non-tender maxillary sinuses Throat: moist mucous membranes, mild erythema, no exudate Neck: supple, no thyromegaly, no lymphadenopathy HEART: regular rate and rhythm, no murmurs LUNGS: clear to auscultation, no wheezes or crackles, no increased WOB ASSESSMENT/PLAN: 1. Sore throat - ICD9: 462, ICD10: J02.9 (primary diagnosis) 2. URI, acute - ICD9: 465.9, ICD10: J06.9 - STREP A MOLECULAR (POC) - negative - suspect viral URI - Discussed supportive care treatment with rest, cold medicine, and analgesia. - COVID AND INFLUENZA A/B AND RSV PCR, ROUTINE Kali Cancino [facility]11-08-2024 History of Present illness Narrative* Kali Cancino MD - 06/03/2024 2:38 PM EST Patient presents with: Sore Throat HPI: Feeling sick for 3 days. She was treated with antibiotic for left otitis media a few weeks ago; sheand her son are sick again. Positive symptoms: somewhat worse than baseline Cough, chronic Shortness of breath, Sore throat, Headache, left earache, Negative symptoms: Fever, OTC: Dayquil, prescription nose spray PAST MEDICAL HISTORY Diagnosis Date Essential hypertension Fatty liver GERD (gastroesophageal reflux disease) Overactive bladder Long-haul COVID. MEDICATIONS: Current Outpatient Medications Medication Sig lisinopril-hydroCHLOROthiazide (ZESTORETIC) 20-12.5 mg per tablet Take 1 tablet by mouth once daily. fesoterodine (TOVIAZ) 4 mg Tb24 extended release tablet Take 1 tablet by mouth every afternoon. gabapentin (NEURONTIN) 100 mg capsule Take 1 capsule by mouth every 12 hours. GEMTESA 75 mg tablet Take 1 tablet by mouth every afternoon. albuterol HFA (PROAIR HFA) 90 mcg/actuation inhaler Inhale 2 Puffs as instructed every 6 hours as needed. omeprazole (PRILOSEC) 20 mg capsule Take by mouth. cholecalciferol, Vitamin D3, (VITAMIN D3) 1,250 mcg (50,000 unit) cap capsule Take 1 capsule by mouth one time a week. No current facility-administered medications for this visit. ALLERGIES: ALLERGIES No Known Allergies VITALS: BP 123/81 Pulse 77 Temp 36.3 C (97.4 F) Resp 20 Wt 107 kg (235 lb 14.3 oz) SpO2 97% BMI39.25 kg/m PHYSICAL EXAM: GEN: mildly ill appearing HEENT: PERRL, EOMI, conjunctiva clear Ears: canals with trace cerumen. TMs without erythema, bulge, or effusion Sinuses: non-tender frontal sinus, non-tender maxillary sinuses Throat: moist mucous membranes, mild erythema, no exudate Neck: supple, no thyromegaly, no lymphadenopathy HEART: regular rate and rhythm, no murmurs LUNGS: clear to auscultation, no wheezes or crackles, no increased WOB ASSESSMENT/PLAN: 1. Sore throat - ICD9: 462, ICD10: J02.9 (primary diagnosis) 2. URI, acute - ICD9: 465.9, ICD10: J06.9 - STREP A MOLECULAR (POC) - negative - suspect viral URI - Discussed supportive care treatment with rest, cold medicine, and analgesia. - COVID & INFLUENZA A/B & RSV PCR, ROUTINE Kali Cancino MD [facility] Miscellaneous Notes* Telephone Encounter - Los Grace LPN - 10/14/2023 9:14 AM EDT Left a message for pt to call the office and ask to speak to a nurse. Letter sent. Los Grace LPN * Telephone Encounter - Constanza Chavarria MA - 10/13/2023 8:21 AM EDT Left message for patient to return call. Constanza Chavarria MA * Telephone Encounter - Symone Casanova MA - 10/12/2023 5:24 PM EDT Left message for pt to call back. Symone Casanova MA * Telephone Encounter - Yane Arias APRN.TINO - 10/12/2023 3:53 PM EDT Please let patient know her x-ray was negative. Patient should continue care plan as discussed withprovider. documented in [facility] History of Present illness Narrative* Osmar Manriquez RT(Tonia) - 10/12/2023 2:40 PM EDT Radiology Service Progress Note PATIENT NAME: Jay Simon DATE OF SERVICE: October 12, 2023 TIME: 2:45 PM PATIENT IDENTITY VERIFICATION COMPLETED USING TWO (2) IDENTIFIERS: Name and Date of confirmedby patient verbally. FALL SCREENING: Has the patient had 2 falls in the last year or 1 fall with injury or currently using an Ambulatory Assistive Device (Walker, Cane, Wheelchair, Crutches, etc.)? No PATIENT GENDER DATA: Female. status: : No status: NO. PATIENT RELEVANT IMPLANT DATA REVIEWED: Yes PATIENT PRESENTS WITH AN IMPLANTABLE OR ATTACHED AMMONIA BOX OPERATOR: No RADIOLOGY DEPARTMENT: General X-ray: Exam(s) Completed: Chest X-Ray PERIPHERAL IV DATA: Not applicable SIGNED BY: SANAZ Woodall) October 12, 2023 2:45 PM documented in this encounterU[facility]03-18-2024 NoteHNO ID: [id number] Author: OSMAR MANRIQUEZ RT(R) Service: Radiology Author Type: Technologist Type: Progress Notes Filed: 10/12/2023 14:52 Note Text: Radiology Service Progress Note PATIENT NAME: Jay Simon DATE OF SERVICE: October 12, 2023 TIME: 2:45 PM PATIENT IDENTITY VERIFICATION COMPLETED USING TWO (2) IDENTIFIERS: Name and Date of confirmed by patient verbally. FALL SCREENING: Has the patient had 2 falls in the last year or 1 fall with injury or currently using an Ambulatory Assistive Device (Walker, Cane, Wheelchair, Crutches, etc.)? No PATIENT GENDER DATA: Female. status: : No status: NO. PATIENT RELEVANT IMPLANT DATA REVIEWED: Yes PATIENT PRESENTS WITH AN IMPLANTABLE OR ATTACHED AMMONIA BOX OPERATOR: No RADIOLOGY DEPARTMENT: General X-ray: Exam(s) Completed: Chest X-Ray PERIPHERAL IV DATA: Not applicable SIGNED BY: Osmar Manriquez RT(R) October 12, 2023 2:45 [facility]03-16-2024 NoteHNO ID: [id number] Author: VILMA GARCIA PA-C Service: ? Author Type: Physician Manager Test Type: Progress Notes Filed: 10/10/2023 13:03 Note Text: This note was created using [employer]. Subjective Jay Simon is a 63 year old female. HPI Presents with cough and congestion over the past 5 days. She states her cough has worsened. She has had some wheezing and shortness of breath. She states she does have long COVID, she has had COVID 3 times. No fever that she knows of however has been getting some hot flashes at night. She states sometimes she gets that with the long COVID however. No diarrhea or vomiting. She has tried some Mucinex max xozt-pkl-ifsuant without relief. Denies any diagnosis of asthma or COPD. She is not a smoker. Review of Systems Constitutional: Positive for fatigue. HENT: Positive for congestion, ear pain and sore throat. Respiratory: Positive for cough, shortness of breath and wheezing. Cardiovascular: Negative. Gastrointestinal: Negative. Genitourinary: Negative. Musculoskeletal: Negative. Neurological: Positive for headaches. All other systems reviewed and are negative. History reviewed. No pertinent past medical history. Current Outpatient Medications Medication Sig Dispense Refill fesoterodine (TOVIAZ) 4 mg Tb24 extended release tablet Take 1 tablet by mouth every afternoon. gabapentin (NEURONTIN) 100 mg capsule Take 1 capsule by mouth every 12 hours. GEMTESA 75 mg tablet Take 1 tablet by mouth every afternoon. vitamin E, dl,tocopheryl acet, (VITAMIN E, DL, ACETATE,) 180 mg (400 unit) capsule Take 540 mg by mouth once daily. ursodiol (GAGANDEEP) 250 mg tablet Take 250 mg by mouth. omeprazole (PRILOSEC) 20 mg capsule Take by mouth. cholecalciferol, Vitamin D3, (VITAMIN D3) 1,250 mcg (50,000 unit) cap capsule Take 1 capsule by mouth one time a week. escitalopram oxalate (LEXAPRO) 20 mg tablet Take 20 mg by mouth once daily. lisinopril 5 mg tablet Take 5 mg by mouth once daily. predniSONE (DELTASONE) 20 mg tablet Take 2 tablets by mouth once daily for 5 days. 10 tablet 0 albuterol HFA (PROAIR HFA) 90 mcg/actuation inhaler Inhale 2 Puffs as instructed every 6 hours as needed. 1 Each 0 doxycycline (VIBRA-TABS) 100 mg tablet Take 1 tablet by mouth two times a day for 7 days. 14 tablet 0 benzonatate (TESSALON PERLES) 100 mg capsule Take 2 capsules by mouth three times a day as needed. 30 capsule 0 benzonatate (TESSALON PERLE) 100 mg capsule Take 1-2 capsules tid prn, no more than 6 in 24 hours. (Patient not taking: Reported on 10/10/2023) 30 capsule 0 mupirocin (BACTROBAN) 2 % ointment Apply 1 application to affected area three times daily. (Patient not taking: Reported on 08/07/2022) 30 g 0 guaiFENesin (MUCINEX) 600 mg 12 hr tablet Take 2 tablets by mouth twice daily. (Patient not taking: Reported on 08/07/2022) 24 tablet 0 No current facility-administered medications for this visit. No past surgical history on file. No family history on file. Social History Tobacco Use Smoking status: Former Smokeless tobacco: Never Substance Use Topics Alcohol use: No Drug use: No Objective BP 104/64 Pulse 86 Temp 36.3 ?C (97.4 ?F) (Tympanic) Resp 18 Wt 104 kg (229 lb 4.5 oz) SpO2 96% BMI 38.15 kg/m? Physical Exam Vitals reviewed. Constitutional: Appearance: Normal appearance. HENT: Head: Normocephalic and atraumatic. Right Ear: Tympanic membrane, ear canal and external ear normal. Left Ear: Tympanic membrane, ear canal and external ear normal. Nose: Congestion present. Mouth/Throat: Mouth: Mucous membranes are moist. Pharynx: Oropharynx is clear. Cardiovascular: Rate and Rhythm: Normal rate and regular rhythm. Heart sounds: Normal heart sounds. Pulmonary: Effort: Pulmonary effort is normal. No respiratory distress. Breath sounds: Wheezing and rhonchi present. Comments: Harsh cough noted Musculoskeletal: Cervical back: Neck supple. Lymphadenopathy: Cervical: No cervical adenopathy. Skin: General: Skin is warm and dry. Findings: No rash. Neurological: General: No focal deficit present. Mental Status: She is alert and oriented to person, place, and time. Assessment and Plan ASSESSMENT/PLAN: 1. Bronchitis - ICD9: 490, ICD10: J40 Will treat with prednisone, Tessalon, albuterol inhaler. X-ray not available over the weekend so empirically cover with doxycycline. Discussed if she is not feeling better Thursday to come back to have an x-ray done. Follow-up with PCP otherwise. Patient agreeable with plan. - [facility] of Present illness Narrative* Vilma Garcia PA-C - 10/10/2023 1:01 PM EDT This note was created using [employer] Subjective Jay Simon is a 63 year old female. HPI Presents with cough and congestion over the past 5 days. She states her cough has worsened. She hashad some wheezing and shortness of breath. She states she does have long COVID, she has had COVID 3times. No fever that she knows of however has been getting some hot flashes at night. She states sometimes she gets that with the long COVID however. No diarrhea or vomiting. She has tried some Mucinex max [id number] without relief. Denies any diagnosis of asthma or COPD. She is not a smoker. Review of Systems Constitutional: Positive for fatigue. HENT: Positive for congestion, ear pain and sore throat. Respiratory: Positive for cough, shortness of breath and wheezing. Cardiovascular: Negative. Gastrointestinal: Negative. Genitourinary: Negative. Musculoskeletal: Negative. Neurological: Positive for headaches. All other systems reviewed and are negative. History reviewed. No pertinent past medical history. Current Outpatient Medications Medication Sig Dispense Refill fesoterodine (TOVIAZ) 4 mg Tb24 extended release tablet Take 1 tablet by mouth every afternoon. gabapentin (NEURONTIN) 100 mg capsule Take 1 capsule by mouth every 12 hours. GEMTESA 75 mg tablet Take 1 tablet by mouth every afternoon. vitamin E, dl,tocopheryl acet, (VITAMIN E, DL, ACETATE,) 180 mg (400 unit) capsule Take 540 mg by mouth once daily. ursodiol (GAGANDEEP) 250 mg tablet Take 250 mg by mouth. omeprazole (PRILOSEC) 20 mg capsule Take by mouth. cholecalciferol, Vitamin D3, (VITAMIN D3) 1,250 mcg (50,000 unit) cap capsule Take 1 capsule by mouth one time a week. escitalopram oxalate (LEXAPRO) 20 mg tablet Take 20 mg by mouth once daily. lisinopril 5 mg tablet Take 5 mg by mouth once daily. predniSONE (DELTASONE) 20 mg tablet Take 2 tablets by mouth once daily for 5 days. 10 tablet 0 albuterol HFA (PROAIR HFA) 90 mcg/actuation inhaler Inhale 2 Puffs as instructed every 6 hours as needed. 1 Each 0 doxycycline (VIBRA-TABS) 100 mg tablet Take 1 tablet by mouth two times a day for 7 days. 14 tablet0 benzonatate (TESSALON PERLES) 100 mg capsule Take 2 capsules by mouth three times a day as needed. 30 capsule 0 benzonatate (TESSALON PERLE) 100 mg capsule Take 1-2 capsules tid prn, no more than 6 in 24 hours. (Patient not taking: Reported on 10/10/2023) 30 capsule 0 mupirocin (BACTROBAN) 2 % ointment Apply 1 application to affected area three times daily. (Patientnot taking: Reported on 08/07/2022) 30 g 0 guaiFENesin (MUCINEX) 600 mg 12 hr tablet Take 2 tablets by mouth twice daily. (Patient not taking:Reported on 08/07/2022) 24 tablet 0 No current facility-administered medications for this visit. No past surgical history on file. No family history on file. Social History Tobacco Use Smoking status: Former Smokeless tobacco: Never Substance Use Topics Alcohol use: No Drug use: No Objective BP 104/64 Pulse 86 Temp 36.3 C (97.4 F) (Tympanic) Resp 18 Wt 104 kg (229 lb 4.5 oz) JrJ770% BMI 38.15 kg/m Physical Exam Vitals reviewed. Constitutional: Appearance: Normal appearance. HENT: Head: Normocephalic and atraumatic. Right Ear: Tympanic membrane, ear canal and external ear normal. Left Ear: Tympanic membrane, ear canal and external ear normal. Nose: Congestion present. Mouth/Throat: Mouth: Mucous membranes are moist. Pharynx: Oropharynx is clear. Cardiovascular: Rate and Rhythm: Normal rate and regular rhythm. Heart sounds: Normal heart sounds. Pulmonary: Effort: Pulmonary effort is normal. No respiratory distress. Breath sounds: Wheezing and rhonchi present. Comments: Harsh cough noted Musculoskeletal: Cervical back: Neck supple. Lymphadenopathy: Cervical: No cervical adenopathy. Skin: General: Skin is warm and dry. Findings: No rash. Neurological: General: No focal deficit present. Mental Status: She is alert and oriented to person, place, and time. Assessment and Plan ASSESSMENT/PLAN: 1. Bronchitis - ICD9: 490, ICD10: J40 Will treat with prednisone, Tessalon, albuterol inhaler. X-ray not available over the weekend so empirically cover with doxycycline. Discussed if she is not feeling better Thursday to come back to havean x-ray done. Follow-up with PCP otherwise. Patient agreeable with plan. - XR CHEST 2V FRONTAL/LAT Vilma Garcia PA-C [facility]07-11-2023 Discharge summary Author Kwaku Solis [place] February 03, 2023 8:24am Note Date/Time February 03, 2023 8:24 am [facility] [address] [place] [address]. [address] [place] [address] / REHABILITATION SERVICES DISCHARGE SUMMARY MR#: [id number] Acct: [id number] Name: JAY SIMON Rep #: [id number] : 1960 63 From: Kwaku L Sipos DP T Referring Dr.: Dr. Jelani Davis MD Statu s: REG RCR Insurance: [facility] SELF PAY INSURANCE Discharge Summary D/C summary: It has been my pleasure to treat JAY SIMON referred by Dr. Jelani Davis MD, with the diagnosis of UPPER BACK PAIN ,DDD THORACIC/ LUMBAR for a total of 15 visit(s). Discharge Date: 02/03/23 Please see the following information for a summary of their discharge status. Subjective Subjective: Pt. reports no pain currently, only having pain with getting up out of bed. Loosens up with movement. Pain Bilateral Back: Pain Intensity (Out of 10): 0 Overall Improvement % Improvement: 100 Objective Objective/Function: ROM: CERVICAL SPINE: min/nil loss in all directions. THORACIC: full motion, LUMBAR SPINE: flexion min loss, ext min/nil loss, rotation min/nil loss NE will all. UE MMT: 5/5 throughout. 5/5 cervical isometrics as well. Pt is overall doing much better. She has a good control of her HEP at this pointin time. I gave her some stronger bands to continue to use as she progress Goals Goal 1:: Patient to be I with HEP for back Goal Progress: Goal Met Goal 2:: Patient to improve posture body mechanics for ADLS 80% OF THE TIME Goal Progress: Goal Met Goal 3:: Patient to demonstrate 50% improve with decrease thoracic pain by 50 % or > to improve QOLM and function Goal Progress: Goal Met Goal 4:: Patient to improve thoracic /cervical ROM for function of recovery for ADL's Goal Progress: Goal Met Goal 5:: Patient to improve back oswestry score by 5 points to improve QOL. Plan Plan: Pt to be DC from PT at this point in time. D/C Information Discharge Comments: Pt. was treated with both ROM and strengthening for her backand neck pain. Pt. has a good HEP which she is I with. She reports overall high levels of improvement. She will be DC from PT at this point in time. d/c sentence: If there are questions or concerns regarding this patient's physical therapy, please feel free to call me at [phone]. Thank you for the referral of thispatient. Sincerely, Kwaku Solis, DPT Balance/Gait/Functional tests Balance/Special Test Scores Oswestry Low Back Score: 3 <Electronically signed by Kwaku Solis DPT> 02/03/23 0824 CC: Dr. Jelani Davis MD ~ CLS Signed [place] Work Phone: [phone]) 460-491501-13-2023 Miscellaneous Notes* Telephone Encounter - Sury Linder MA - 08/08/2022 3:16 PM EST Second call attempt, did not ring but went straight to , left message asking for return call for results, will also send letter to listed address out today. Sury Linder MA * Telephone Encounter - Tanisha Grace LPN - 08/07/2022 11:34 AM EST Phone call brief message to contact a nurse to review results. Tanisha Grace LPN * Telephone Encounter - Gordon Bobo APRN.CNP - 08/07/2022 11:08 AM EST No abnormal findings on chest x-ray. Follow-up with PCP/ISAK conner. Gordon Bobo APRN.TINO [facility] History of Present illness Narrative* Beba Barrios RT(R) - 08/07/2022 10:40 AM EST Radiology Service Progress Note PATIENT NAME: Jay Simon DATE OF SERVICE: August 07, 2022 TIME: 10:38 AM PATIENT IDENTITY VERIFICATION COMPLETED USING TWO (2) IDENTIFIERS: Name and Date of confirmedby patient verbally. FALL SCREENING: Has the patient had 2 falls in the last year or 1 fall with injury or currently using an Ambulatory Assistive Device (Walker, Cane, Wheelchair, Crutches, etc.)? No PATIENT GENDER DATA: Female. status: : No status: NO. PATIENT RELEVANT IMPLANT DATA REVIEWED: Not Applicable RADIOLOGY DEPARTMENT: General X-ray: Exam(s) Completed: Chest X-Ray PERIPHERAL IV DATA: Not applicable SIGNED BY: RT Landen(R) August 07, 2022 10:38 AM documented [facility] History of Present illness Narrative* Gordon Bobo, RECRUITMENT INTERN.DOCUMENT MANAGER - 08/07/2022 10:20 AM EST Subjective HPI Nontoxic-appearing female presents urgent care chief complaint cough. Duration of symptoms 2 months. Associated symptoms nonproductive cough. States she has been dealing with COVID-19 [place]. Was diagnosed COVID-19 about 2 months ago. Influenza 1 month ago. Has had ongoing cough since. Deniesany pain with cough. Is not coughing anything up. Has tried OTC medications this has not been helpful. Denies any fever body aches chills productive cough chest pain shortness of breath pleuritic pain hemoptysis nausea vomiting abdominal pain change in bowel or bladder habits. Past medical history prescription medication use and allergies reviewed. .Patient presents with: Cough: x2 months post Covid History reviewed. No pertinent past medical history. History reviewed. No pertinent surgical history. ALLERGIES Patient has no known allergies. MEDICATIONS ursodiol (GAGANDEEP) 250 mg tablet Take 250 mg by mouth. omeprazole (PRILOSEC) 20 mg capsule Take by mouth. cholecalciferol, Vitamin D3, (VITAMIN D3) 1,250 mcg (50,000 unit) cap capsule Take 1 capsule by mouth one time a week. escitalopram oxalate (LEXAPRO) 20 mg tablet Take 20 mg by mouth once daily. lisinopril 5 mg tablet Take 5 mg by mouth once daily. mupirocin (BACTROBAN) 2 % ointment Apply 1 application to affected area three times daily. (Patientnot taking: Reported on 08/07/2022) benzonatate (TESSALON PERLE) 100 mg capsule Take 1-2 capsules tid prn, no more than 6 in 24 hours. (Patient not taking: Reported on 08/07/2022) guaiFENesin (MUCINEX) 600 mg 12 hr tablet Take 2 tablets by mouth twice daily. (Patient not taking:Reported on 08/07/2022) History reviewed. No pertinent family history. Social History Tobacco Use Smoking status: Former Smokeless tobacco: Never Substance Use Topics Alcohol use: No Drug use: No BP 114/68 Pulse 63 Temp 36.4 C (97.5 F) Resp 18 Wt 103.6 kg (228 lb 6.4 oz) SpO2 96% BMI 38.01 kg/m Review of Systems Constitutional: Negative for chills, fever and malaise/fatigue. HENT: Negative for congestion, ear discharge, ear pain, sinus pain and sore throat. Eyes: Negative for blurred vision, pain, discharge and redness. Respiratory: Positive for cough. Negative for hemoptysis, sputum production, shortness of breath, wheezing and stridor. Cardiovascular: Negative for chest pain. Gastrointestinal: Negative for abdominal pain, diarrhea, nausea and vomiting. Musculoskeletal: Negative for myalgias. Skin: Negative for itching and rash. Neurological: Negative for dizziness and headaches. Objective Physical Exam Constitutional: General: She is not in acute distress. Appearance: She is not diaphoretic. HENT: Head: Normocephalic. Nose: Nose normal. Mouth/Throat: Mouth: Mucous membranes are moist. Pharynx: Oropharynx is clear. No oropharyngeal exudate or posterior oropharyngeal erythema. Eyes: Conjunctiva/sclera: Conjunctivae normal. Pupils: Pupils are equal, round, and reactive to light. Cardiovascular: Rate and Rhythm: Normal rate and regular rhythm. Heart sounds: Normal heart sounds. Pulmonary: Effort: Pulmonary effort is normal. No tachypnea, accessory muscle usage or respiratory distress. Breath sounds: Normal breath sounds. No stridor. No wheezing, rhonchi or rales. Abdominal: General: There is no distension. Palpations: Abdomen is soft. Tenderness: There is no abdominal tenderness. There is no guarding or rebound. Musculoskeletal: Cervical back: Normal range of motion and neck supple. No rigidity or tenderness. Lymphadenopathy: Cervical: No cervical adenopathy. Skin: General: Skin is warm and dry. Neurological: Mental Status: She is alert and oriented to person, place, and time. ASSESSMENT/PLAN: 1. Acute cough - ICD9: 786.2, ICD10: R05.1 - XR CHEST 2V FRONTAL/LAT IMPRESSION: No acute radiographic abnormality. No abnormal findings noted on chest x-ray. Wells PE 0 continue supportive therapies as discussed. Follow-up with PCP NIGHAT suarez her clinic. Suspicious of postviral cough. Patient was educatedon supportive therapies. Patient will follow up with primary care provider as needed. Patient was in structed to immediately proceed to emergency room for any new, worsening, or symptoms lasting longer than anticipated. The patient's clinical presentation is otherwise unremarkable at this time. Based on exam and clinical finding, the patient is stable for discharge. Plan of care was discussed withpatient. Patient verbalizes understanding and agrees to plan of care. This note was generated using[employer] software. It may contain errors in wording, punctuation, or spelling. Gordon Bobo APRN.TINO documented in [facility] encounter[facility]-2022 NotePap Smear Specimen AdequacyMarch 2021 11:30amCommentSatisfactory for evaluation. No endocervical component is identified.[facility] A#[id number] Work Phone: Comment on above:Satisfactory for evaluation. No endocervical component is identified.10-22-2021 NotePap Smear QC ReviewMarch 2021 11:30amCommentAngela Mancilla, Supervisory Switch House Operator (ASCP) [facility] A#[id number] Work Phone: Comment on above:Angela Mancilla, Supervisory Switch House Operator (ASCP)10-22-2021 NotePap Smear Specimen AdequacyMarch 2021 11:30amCommentSatisfactory for evaluation. No endocervical component is identified.[facility] A#[id number] Work Phone: Comment on above:Satisfactory for evaluation. No endocervical component is identified.10-22-2021 NotePap Smear QC ReviewMarch 2021 11:30amCommentAngela Mancilla Supervisory Switch House Operator (ASCP) [facility] A#[id number] Work Phone: Comment on above:Angela Mancilla Supervisory Switch House Operator (ASCP)10-22-2021 NotePap Smear Specimen AdequacyMarch 2021 11:30amCommentSatisfactory for evaluation. No endocervical component is identified.[facility] A#[id number] Work Phone: Comment on above:Satisfactory for evaluation. No endocervical component is identified.10-22-2021 NotePap Smear QC ReviewMarch 2021 11:30amCommentAngela Mancilla Supervisory Switch House Operator (ASCP) [facility] A#[id number] Work Phone: Comment on above:Angela Mancilla Supervisory Switch House Operator (ASCP)10-22-2021 NotePap Smear Specimen AdequacyMarch 2021 11:30amCommentSatisfactory for evaluation. No endocervical component is identified.[facility] A#[id number] Work Phone: Comment on above:Satisfactory for evaluation. No endocervical component is identified.10-22-2021 NotePap Smear QC ReviewMarch 2021 11:30amComRosalia Mancilla Supervisory Switch House Operator (ASCP) [facility] A#[id number] Work Phone: Comment on above:Angela Mancilla Supervisory Switch House Operator (ASCP)10-22-2021 NotePap Smear Specimen AdequacyMarch 2021 11:30amCommentSatisfactory for evaluation. No endocervical component is identified.[facility] A#[id number] Work Phone: Comment on above:Satisfactory for evaluation. No endocervical component is identified.10-22-2021 NotePap Smear QC ReviewMarch 2021 11:30amComRosalia Mancilla Supervisory Switch House Operator (ASCP) [facility] A#[id number] Work Phone: Comment on above:Angela Mancilla Supervisory Switch House Operator (ASCP)10-22-2021 NotePap Smear Specimen AdequacyMarch 2021 11:30amCommentSatisfactory for evaluation. No endocervical component is identified.[facility] A#[id number] Work Phone: Comment on above:Satisfactory for evaluation. No endocervical component is identified.10-22-2021 NotePap Smear QC ReviewMarch 2021 11:30amComRosalia Mancilla Supervisory Switch House Operator (ASCP) [facility] A#[id number] Work Phone: Comment on above:Angela Mancilla Supervisory Switch House Operator (ASCP)10-22-2021 NotePap Smear Specimen AdequacyMarch 2021 11:30amCommentSatisfactory for evaluation. No endocervical component is identified.[facility] A#[id number] Work Phone: Comment on above:Satisfactory for evaluation. No endocervical component is identified.10-22-2021 NotePap Smear QC ReviewMarch 2021 11:30amCommentAngela Mancilla Supervisory Switch House Operator (ASCP) [facility] A#[id number] Work Phone: Comment on above:Angela Mancilla Supervisory Switch House Operator (ASCP)10-22-2021 NotePap Smear Specimen AdequacyMarch 2021 11:30amCommentSatisfactory for evaluation. No endocervical component is identified.[facility] A#[id number] Work Phone: Comment on above:Satisfactory for evaluation. No endocervical component is identified.10-22-2021 NotePap Smear QC ReviewMarch 2021 11:30amCommentAngela Mancilla Supervisory Switch House Operator (ASCP) [facility] A#[id number] Work Phone: Comment on above:Angela Mancilla Supervisory Switch House Operator (ASC)10-22-2021 NotePap Smear Specimen AdequacyMarch 2021 11:30amComment.Satisfactory for evaluation. No endocervical component is identified.[facility] A#[id number] Work Phone: Comment on above:Satisfactory for evaluation. No endocervical component is identified.10-22-2021 NotePap Smear QC ReviewMarch 2021 11:30amComment.Angela Mancilla Supervisory Switch House Operator (ASC) [facility] A#[id number] Work Phone: Comment on above:Angela Mancilla Supervisory Switch House Operator ([facility])01-23-2021 NoteHNO ID: [id number] Author: Prerna Tafoya RT(R) Service: ? Author Type: Real Estate Broker Type: Progress Notes Filed: 01/23/2021 3:59 PM Note Text: Radiology Service Progress Note PATIENT NAME: Jay iSmon DATE OF SERVICE: January 23, 2021 TIME: 3:58 PM PATIENT IDENTITY VERIFICATION COMPLETED USING TWO (2) IDENTIFIERS: Name and Date of confirmed by patient verbally and Name and Date of confirmed by identification band. FALL SCREENING: Has the patient had 2 falls in the last year or 1 fall with injury or currently using an Ambulatory Assistive Device (Walker, Cane, Wheelchair, Crutches, etc.)? No PATIENT GENDER DATA: Female. status: : No status: NO. PATIENT RELEVANT IMPLANT DATA REVIEWED: Not Applicable RADIOLOGY DEPARTMENT: General X-ray: Exam(s) Completed: Chest X-Ray PERIPHERAL IV DATA: Not applicable SIGNED BY: Prerna Tafoya, RT(R) January 23, 2021 3:58 PMKe[facility] HospitalEvaluation note* Diagnosis Onset Date Resolution Status COVID-19 acute Fatty liver acute Left lower quadrant pain acu te [place] Work Phone: evaluation note* Diagnosis Onset Date Resolution Status COVID-19 acute Fatty liver acute Left lower quadrant pain acu te ASHLI (obstructive sleep apnea) acute SOB (shortness of breath) ac [facility] Work Phone: Evaluation note* Diagnosis Onset Date Resolution Status Fatty liver acute Left lower quadrant pain acu te ASHLI (obstructive sleep apnea) acute SOB (shortness of breath) ac [facility] Work Phone: Evaluation note* Diagnosis Onset Date Resolution Status Fatty liver acute Left lower quadrant pain acu te ASHLI (obstructive sleep apnea) acute SOB (shortness of breath) [place] ASHLI (obstructive sleep apnea) acute SOB (shortness of breath) [place] Work Phone: Evaluation note* Diagnosis Onset Date Resolution Status ASHLI (obstructive sleep apnea) acute SOB (shortness of breath) ac [place] Eosinophilic esophagitis acu te Gastritis acute [place] Work Phone: Evaluation note* Diagnosis Acute cough- Primary [facility]* Diagnosis Onset Date Resolution Status AHSLI (obstructive sleep apnea) acute SOB (shortness of breath) ac [place] Eosinophilic esophagitis acu te Laryngitis chronic Gastric reflux chronic Laryngitis chronic NAFLD (nonalcoholic fatty liver disease) chronic [place] Work Phone: Evaluation note* Diagnosis Onset Date Resolution Status ASHLI (obstructive sleep apnea) acute [place] Work Phone: Evaluation noteNo assessment information available [place] Work Phone: Evaluation note* Diagnosis Onset Date Resolution Status Cough acute SOB (shortness of breath) ac [place] Obesity chronic ASHLI (obstructive sleep apnea) chronic Gastritis chronic Liver hemangioma chronic NAFLD (nonalcoholic fatty liver disease) chronic Obesity chronic [place] Work Phone: Evaluation note* Diagnosis Onset Date Resolution Status Gastritis chronic Liver hemangioma chronic NAFLD (nonalcoholic fatty liver disease) chronic Obesity chronic [place] Work Phone: Evaluation note* Diagnosis Bronchitis- Primary Bronchitis, not specified as acute or chronic documented in this encounter [facility] note* Diagnosis Onset Date Resolution Status Cough chronic Obesity chronic ASHLI (obstructive sleep apnea) chronic [place] Work Phone: Evaluation note* Diagnosis Bronchitis Bronchitis, not specified as acute or chronic documented in this encounter [facility] note* Diagnosis Acute cough documented in this encounter [facility] note* Diagnosis Sore throat- Primary Acute pharyngitis URI, acute Acute upper respiratory infections of unspecified site documented in this encounter [facility] for referral (narrative)No reason for referral [facility] Work [facility]: Summary Purpose Family History No Family History Records Found Relationship Condition Age at Onset Recorded Date/T susan mother Chronic obstructive pulmonary disease Unk nown Congestive heart failure Unknown Renal failure Unknown Coronary artery disease Unknown Myocardial infarction Unknown father Cerebrovascular accident (CVA) Unknown brother Myocardial infarction Unknown sister Cardiac disease Unknown Advance Directives No Advanced Directives Records Found Advance Directive Response Recorded Date/ Time Advance Directives No March 08, 2021 7:10am Living Will No May 25 10:52pm Power of Retail General Manager No May 25, 2021 10:52pm Advance Directive Response Recorded Date/ Time Advance Directives No March 08, 2021 7:10am Living Will No December 09, 2021 2 :57pm Power of Retail General Manager No December 09, 2021 2:57pm Advance Directive Response Recorded Date/ Time Advance Directives No March 08, 2021 6:10am Living Will No December 09, 2021 1 :57pm Power of Retail General Manager No December 09, 2021 1:57pm Advance Directive Response Recorded Date/ Time Living Will No August 13 10:07pm Do you have a Healthcare Power of Retail General Manager? No August 13, 2024 10:07pm Living Will No August 20 4:07am Do you have a Healthcare Power of Retail General Manager? No August 20, 2024 4:07am Advance Directives No March 08, 2021 7:10am Advance Directive Response Recorded Date/ Time Advance Directives No March 08, 2021 7:10am Chief Complaint and Reason for Visit Chief Complaint [id number] TE ST FATIGUE, COUGH MASS ON LIVER E ORDER Reason for Visit COVID-19 Fatty liver Left lower quadrant pain Chief Complaint [id number] TE ST FATIGUE, COUGH MASS ON LIVER E ORDER Sleep Apnea FATTY LIVER SCREENING LIVER LESION Reason for Visit COVID-19 Fatty liver Left lower quadrant pain ASHLI (obstructive sleep apnea) SOB (shortness of breath) Chief Complaint FATIGUE, COUGH MASS ON LIVER E ORDER Sleep Apnea FATTY LIVER SCREENING LIVER LESION Reason for Visit Fatty liver Left lower quadrant pain ASHLI (obstructive sleep apnea) SOB (shortness of breath) Chief Complaint FATIGUE, COUGH MASS ON LIVER E ORDER Sleep Apnea FATTY LIVER SCREENING LIVER LESION SOB Shortness of breath ASHLI; LM 11/07 & 11/11 SOB Shortness of breath Reason for Visit Fatty liver Left lower quadrant pain ASHLI (obstructive sleep apnea) SOB (shortness of breath) Chief Complaint FATIGUE, COUGH MASS ON LIVER E ORDER Sleep Apnea FATTY LIVER SCREENING LIVER LESION SOB Shortness of breath ASHLI; LM 11/07 & 11/11 SOB Shortness of breath FATTY LIVER Reason for Visit Fatty liver Left lower quadrant pain ASHLI (obstructive sleep apnea) SOB (shortness of breath) Chief Complaint MASS ON LIVER E ORDER Sleep Apnea FATTY LIVER SCREENING LIVER LESION SOB Shortness of breath ASHLI; LM 11/07 & 11/11 SOB Shortness of breath FATTY LIVER ASHLI; BIPAP S *INVENTORY TAGGED* 3 M FU FATTY LIVER Reason for Visit Fatty liver Left lower quadrant pain ASHLI (obstructive sleep apnea) SOB (shortness of breath) ASHLI (obstructive sleep apnea) SOB (shortness of breath) Chief Complaint FATTY LIVER ASHLI; BIPAP S *INVENTORY TAGGED* 3 M FU FATTY LIVER 2 WK FU FATTY LIVER Reason for Visit ASHLI (obstructive sle ep apnea) SOB (shortness of breath) Eosinophilic esophagitis Gastritis Chief Complaint 3 M FU 3 MO FU 3 MO FU INT LABS Reason for Visit ASHLI (obstructive sle ep apnea) SOB (shortness of breath) Eosinophilic esophagitis Laryngitis Gastric reflux Laryngitis NAFLD (nonalcoholic fatty liver disease) Chief Complaint 6 M FU NAFLD UPPER BACK PAIN DDD THORACIC LUMBAR / RX HERE Reason for Visit ASHLI (obstructive sle ep apnea) Chief Complaint NAFLD UPPER BACK PAIN DDD THORACIC LUMBAR / RX HERE Chief Complaint UPPER BACK PAIN DDD THORACIC LUMBAR / RX HERE DYSPNEA DYSPNEA Chief Complaint DYSPNEA DYSPNEA Evaluate for pulmonary rehab 6 M FU Paresthesia of skin Paresthesia of skin Reason for Visit Cough SOB (shortness of breath) Obesity ASHLI (obstructive sleep apnea) Gastritis Liver hemangioma NAFLD (nonalcoholic fatty liver disease) Obesity Chief Complaint 6 M FU Paresthesia of skin Paresthesia of skin NEED ORDER Reason for Visit Gastritis Liver hemangioma NAFLD (nonalcoholic fatty liver disease) Obesity Chief Complaint NEED ORDER 1 Y FU Fatty (change of) liver, not elsewhere classified Reason for Visit Cough Obesity ASHLI (obstructive sleep apnea) Chief Complaint Admit Date MASLD July 13, 2024 9:58am 1 M FU August 02, 2024 8: 42am flu August 13, 2024 9 :06pm cold sx August 20, 2024 2 :57am 3 M FU November 01, 2024 9:02 am INT LABS November 01, 2024 9:39 am Reason for Visit Admit Date Metabolic dysfunction-associ ated steatotic liver disease (MASLD) August 02, 2024 8:42am Metabolic dysfunction-associ ated steatotic liver disease (MASLD) November 01, 2024 9:02am Chief Complaint Admit Date 3 M FU November 01, 2024 9:02 am INT LABS November 01, 2024 9:39 am FATTY LIVER FU February 07, 2025 7:45 am 3 M FU February 09, 2025 8:27 am Reason for Visit Admit Date Metabolic dysfunction-associ ated steatotic liver disease (MASLD) November 01, 2024 9:02am Metabolic dysfunction-associ ated steatotic liver disease (MASLD) February 09, 2025 8:27am Chief Complaint Admit Date 3 M FU November 01, 2024 9:02 am INT LABS November 01, 2024 9:39 am FATTY LIVER FU February 07, 2025 7:45 am 3 M FU February 09, 2025 8:27 am E ORDER February 09, 2025 9:10 am Reason for Visit Admit Date Metabolic dysfunction-associ ated steatotic liver disease (MASLD) November 01, 2024 9:02am Abdominal pain February 09, 2025 8:27 am Constipation February 09, 2025 8:27 am Metabolic dysfunction-associ ated steatotic liver disease (MASLD) February 09, 2025 8:27am Weight gain February 09, 2025 8:27 am Chief Complaint Admit Date 3 M FU November 01, 2024 9:02 am INT LABS November 01, 2024 9:39 am FATTY LIVER FU February 07, 2025 7:45 am 3 M FU February 09, 2025 8:27 am E ORDER February 09, 2025 9:10 am [place] February 21, 2025 11:0 0am Additional Source Comments INFORMATION SOURCE (unrecogn ized section and content) DATE CREATED AUTHOR 06/20/2020 [facility] DATE CREATED AUTHOR AUTHOR'S ORGANIZ ATION 01/25/2021 [facility] DATE CREATED AUTHOR AUTHOR'S ORGANIZ ATION 06/07/2024 [facility] DATE CREATED AUTHOR AUTHOR'S ORGANIZ ATION 03/04/2025 [facility] Goals (unrecognized section and content) Goals may be documented in a n alternate sectionGoals may be documented in an alternate sectionGoals may be documented in an alternate sectionGoals may be documented in an alternate sectionGoals may be documented in an alternate sectionGoals may be documented in an alternate sectionGoals may be documented in an alternate sectionGoals may be documented in an alternate sectionGoals may be documented in an alternate sectionGoals may be documented in an alternate sectionGoals may be documented in an alternate sectionGoals may be documented in an alternate sectionGoals may be documented in an alternate sectionGoals may be documented in an alternate sectionGoals may be documented in an alternate sectionGoals may be documented in an alternate sectionGoals may be documented in an alternate sectionGoals may be documented in an alternate sectionGoals may be documented in an alternate sectionGoals may be documented in an alternate sectionGoals may be documented in an alternate section Source Comments (unrecognize d section and content) In the event this informatio n is protected by the Federal Confidentiality of Alcohol and Drug Abuse Patient Records regulations: The Federal rules restrict any use of the information to criminally investigate or prosecute any alcohol or drug abuse patient.[facility] the event this information is protected by the Federal Confidentiality of Alcohol and Drug Abuse Patient Records regulations: The Federal rules restrict any use of the information to criminally investigate or prosecute any alcohol or drug abuse patient.[facility] the event this information is protected by the Federal Confidentiality of Alcohol and Drug Abuse Patient Records regulations: The Federal rules restrict any use of the information to criminally investigate or prosecute any alcohol or drug abuse patient.[facility] the event this information is protected by the Federal Confidentiality of Alcohol and Drug Abuse Patient Records regulations: The Federal rules restrict any use of the information to criminally investigate or prosecute any alcohol or drug abuse patient.[facility] the event this information is protected by the Federal Confidentiality of Alcohol and Drug Abuse Patient Records regulations: The Federal rules restrict any use of the information to criminally investigate or prosecute any alcohol or drug abuse patient.[facility] the event this information is protected by the Federal Confidentiality of Alcohol and Drug Abuse Patient Records regulations: The Federal rules restrict any use of the information to criminally investigate or prosecute any alcohol or drug abuse patient.[facility] the event this information is protected by the Federal Confidentiality of Alcohol and Drug Abuse Patient Records regulations: The Federal rules restrict any use of the information to criminally investigate or prosecute any alcohol or drug abuse patient.[facility] the event this information is protected by the Federal Confidentiality of Alcohol and Drug Abuse Patient Records regulations: The Federal rules restrict any use of the information to criminally investigate or prosecute any alcohol or drug abuse patient.[facility] Reason for Visit (unrecogniz ed section and content) Reason Comments Cough x2 months post Covid Reason Comments Results Reason Comments Cough Cough x 4 days Reason Comments Results w Reason Comments Sore Throat Care Teams (unrecognized sec tion and content) Customer Account Manager Relationship Specialty Start Date End Date Anne Davis MD [address] [place] [id number] PCP - General Family Medicine 09/22/19 Team Status: Active Member Role Status Dates Dr. Jelani Davis MD Family Provider Active Dr. Jelani Davis MD Primary Care Provider Activ e Team Status: Inactive Member Role Status Dates Dr. Jelani Davis MD Primary Care Provider, Refe rring Provider Active Poonam Abarca HEALTH OUTREACH WORKER, HEALTH OUTREACH WORKER-C Attending Provider Active Team Status: Inactive Member Role Status Dates Dr. Jelani Davis MD Primary Care Provider, Refe rring Provider Active Dr. uKrt Rodriguez DO Attending Provider Active Team Status: Inactive Member Role Status Dates Dr. Jelani Davis MD Primary Care Provider, Refe rring Provider Active Lala Hammond HEALTH OUTREACH WORKER, HEALTH OUTREACH WORKER-C Attending Provider Active Team Status: Inactive Member Role Status Dates Dr. Jelani Davis MD Primary Care Provider Activ e Lala Hammond HEALTH OUTREACH WORKER, HEALTH OUTREACH WORKER-C Attending Provider, Referrin g Provider Active Team Status: Inactive Member Role Status Dates Dr. Jelani Davis MD Primary Care Provider, Refe rring Provider Active Dr. Gage Silva DO Attending Provider Active Team Status: Inactive Member Role Status Dates Dr. Jelani Davis MD Primary Care Provider, Attending Provider, Referring Provider Active Team Status: Active Member Role Status Dates Dr. Jelani Davis MD Primary Care Provider, Atte nding Provider Active Team Status: Inactive Member Role Status Dates Dr. Jelani Davis MD Primary Care Provider, Atte nding Provider Active Team Status: Active Member Role Status Dates Dr. Jelani Davis MD Primary Care Provider, Referring Provider, Other Provider Active Dr. Gage Silva DO Attending Provider Active Team Status: Inactive Member Role Status Dates Dr. Jelani Davis MD Primary Care Provider, Refe rring Provider Active Dr. Malcom Morton MD Attending Provider Active Team Status: Active Member Role Status Dates Dr. Jelani Davis MD Primary Care Provider, Referring Provider, Other Provider Active Dr. Bryant John MD Attending Provider Active Team Status: Inactive Member Role Status Dates Dr. Jelani Davis MD Primary Care Provider Activ e Traci Mason MD Attending Provider, Referring Provide r Active Customer Account Manager Relationship Specialty Start Date End Date Anne Davis MD [address] [place], [place] [address] PCP - General Family Medicine 09/22/19 Team Status: Active Member Role Status Dates Dr. Anne Davis MD Family Provider Active Dr. Anne Davis MD Primary Care Provider Acti ve Team Status: Inactive Member Role Status Dates Dr. Anne Davis MD Primary Care Provider, Ref erring Provider Active Poonam Abarca HEALTH OUTREACH WORKER, HEALTH OUTREACH WORKER-C Attending Provider Active Team Status: Inactive Member Role Status Dates Dr. Anne Davis MD Primary Care Provider Acti ve Dr. Malcom Morton MD Attending Provider, Referring P rovider Active Team Status: Inactive Member Role Status Dates Dr. Anne Davis MD Primary Care Provider Acti ve Traci Mason MD Attending Provider, Referring Provide r Active Customer Account Manager Relationship Specialty Start Date End Date Anne Davis MD [address] [place] [address] PCP - General Family Medicine 09/22/19 Customer Account Manager Relationship Specialty Start Date End Date Anne Davis MD [address] [place] [address] PCP - General Family Medicine 09/22/19 Customer Account Manager Relationship Specialty Start Date End Date Anne Davis MD [address] [place], [place] [address] PCP - General Family Medicine 09/22/19 Customer Account Manager Relationship Specialty Start Date End Date Anne Davis MD [address] [place], [place] [id number] PCP - General Family Medicine 09/22/19 Team Status: Inactive Member Role Status Dates Dr. Anne Davis MD Primary Care Provider Acti ve Start: July 13, 2024 End: July 13, 2024 YOHANA Blood Attending Provider Active Start: July 13, 2024 End: July 13, 2024 YOHANA Blood Referring Provider Active Start: July 13, 2024 End: July 13, 2024 Team Status: Inactive Member Role Status Dates Dr. Anne Davis MD Primary Care Provider Acti ve Start: August 02, 2024 End: August 02, 2024 Dr. Anne Davis MD Referring Provider Active Start: August 02, 2024 End: August 02, 2024 YOHANA Blood Attending Provider Active Start: August 02, 2024 End: August 02, 2024 Team Status: Inactive Member Role Status Dates Dr. Anne Davis MD Primary Care Provider Acti ve Start: August 13, 2024 End: August 14, 2024 Dr. Julius Yan DO Attending Provider Active Start: August 13, 2024 End: August 14, 2024 Dr. Julius Yan DO Emergency Provider Active Start: August 13, 2024 End: August 14, 2024 Team Status: Inactive Member Role Status Dates Dr. Anne Davis MD Primary Care Provider Acti ve Start: August 20, 2024 End: August 20, 2024 Dr. Julius Yan DO Attending Provider Active Start: August 20, 2024 End: August 20, 2024 Dr. Julius Yan DO Emergency Provider Active Start: August 20, 2024 End: August 20, 2024 Team Status: Inactive Member Role Status Dates Dr. Anne Davis MD Primary Care Provider Acti ve Start: November 01, 2024 End: November 01, 2024 Dr. Anne Davis MD Referring Provider Active Start: November 01, 2024 End: November 01, 2024 YOHANA Johnson Attending Provider Active S tart: November 01, 2024 End: November 01, 2024 Team Status: Inactive Member Role Status Dates Dr. Anne Davis MD Primary Care Provider Acti ve Start: November 01, 2024 End: November 01, 2024 YOHANA Johnson Attending Provider Active S tart: November 01, 2024 End: November 01, 2024 Marcela Reese , HEALTH OUTREACH WORKER-C Referring Provider Active S tart: November 01, 2024 End: November 01, 2024 Team Status: Active Member Role/Relationship Status Dates Dr. Anne Davis MD Primary Care Provider Acti ve Team Status: Inactive Member Role/Relationship Status Dates Dr. Anne Davis MD Primary Care Provider Acti ve Start: November 01, 2024 End: November 01, 2024 Dr. Anne Davis MD Referring Provider Active Start: November 01, 2024 End: November 01, 2024 Marcela Reese HEALTH OUTREACH WORKER-C Attending Provider Active S tart: November 01, 2024 End: November 01, 2024 Team Status: Inactive Member Role/Relationship Status Dates Dr. Anne Davis MD Primary Care Provider Acti ve Start: November 01, 2024 End: November 01, 2024 Marcela Reese HEALTH OUTREACH WORKER-C Attending Provider Active S tart: November 01, 2024 End: November 01, 2024 Marcela Reese HEALTH OUTREACH WORKER-C Referring Provider Active S tart: November 01, 2024 End: November 01, 2024 Team Status: Active Member Role/Relationship Status Dates Dr. Anne Davis MD Primary Care Provider Acti ve Start: February 07, 2025 Marcela Reese HEALTH OUTREACH WORKER-C Attending Provider Active S tart: February 07, 2025 Marcela Reese HEALTH OUTREACH WORKER-C Referring Provider Active S tart: February 07, 2025 Team Status: Inactive Member Role/Relationship Status Dates Dr. Anne Davis MD Primary Care Provider Acti ve Start: February 09, 2025 End: February 09, 2025 Dr. Anne Davis MD Referring Provider Active Start: February 09, 2025 End: February 09, 2025 Jill Bhatti NP-C Attending Provider Active Start: February 09, 2025 End: February 09, 2025 Team Status: Inactive Member Role/Relationship Status Dates Dr. Anne Davis MD Primary Care Provider Acti ve Start: February 07, 2025 End: February 07, 2025 Marcela Reese HEALTH OUTREACH WORKER-C Attending Provider Active S tart: February 07, 2025 End: February 07, 2025 Marcela Reese HEALTH OUTREACH WORKER-C Referring Provider Active S tart: February 07, 2025 End: February 07, 2025 Team Status: Active Member Role/Relationship Status Dates Dr. Anne Davis MD Primary Care Provider Acti ve Start: February 09, 2025 Jill Bhatti NP-C Attending Provider Active Start: February 09, 2025 SERGIO BloodC Referring Provider Active Start: February 09, 2025 Team Status: Inactive Member Role/Relationship Status Dates Dr. Anne Davis MD Primary Care Provider Acti ve Start: January 24, 2025 Dr. Corinne Rendon MD Attending Provider Active Start: January 24, 2025 Team Status: Inactive Member Role/Relationship Status Dates Dr. Anne Davis MD Primary Care Provider Acti ve Start: February 07, 2025 End: February 07, 2025 Marcela Reese NP-C Attending Provider Active S tart: February 07, 2025 End: February 07, 2025 Marcela Reese NP-C Referring Provider Active S tart: February 07, 2025 End: February 07, 2025 Team Status: Inactive Member Role/Relationship Status Dates Dr. Anne Davis MD Primary Care Provider Acti ve Start: February 09, 2025 End: February 09, 2025 Dr. Anne Davis MD Referring Provider Active Start: February 09, 2025 End: February 09, 2025 Jill Bhatti NP-C Attending Provider Active Start: February 09, 2025 End: February 09, 2025 Team Status: Inactive Member Role/Relationship Status Dates Dr. Anne Davis MD Primary Care Provider Acti ve Start: February 09, 2025 End: February 09, 2025 Jill Bhatti NP-C Attending Provider Active Start: February 09, 2025 End: February 09, 2025 Jill Bhatti NP-C Referring Provider Active Start: February 09, 2025 End: February 09, 2025 Team Status: Inactive Member Role/Relationship Status Dates Dr. Anne Davis MD Primary Care Provider Acti ve Start: February 21, 2025 End: February 21, 2025 Poonam Abarca NP, HEALTH OUTREACH WORKER-C Attending Provider Active Start: February 21, 2025 End: February 21, 2025 Poonam Abarca HEALTH OUTREACH WORKER, HEALTH OUTREACH WORKER-C Referring Provider Active Start: February 21, 2025 End: February 21, 2025 FOR RECORDS PERTAINING TO PATIENTS WHO ARE OR HAVE BEEN ENROLLED IN A CHEMICAL DEPENDENCY/SUBSTANCEABUSE PROGRAM, SOME INFORMATION MAY BE OMITTED. This clinical summary was aggregated from multiple sources. Caution should be exercised in using it in the provision of clinical care. This summary normalizes information from multiple sources, and as a consequence, information in this document may materially change the coding, format and clinical context of patient data. In addition, data may be omitted in some cases. CLINICAL DECISIONS SHOULD BE BASED ON THE PRIMARY CLINICAL RECORDS. [facility] [facility]. provides no warranty or guarantee of the accuracy or completeness of information in this document.
== END | disposition home or self-care (01) ==
LOC: OPBI 07:12
PROVIDERS: PCP Family Medicine; Referring Provider Family Medicine; Visit Provider Family Medicine
DX: Z12.31 Encounter for screening mammogram for malignant neoplasm of breast (principal)
CPT/HCPCS: 77063; 77067